=== PATIENT | male | born 1970 | race Caucasian/White ===

== ENCOUNTER 2017-01-31 15:32 | Inpatient (IN) | payer MEDICARE, OTHER ==
[2017-01-31] VITALS (11 sets, daily range): BP systolic 138–164; BP diastolic 84–99; PULSE 133–142; RESP 26–36; TEMP 101.8; BMI 26.2
[~2017-01-31] VITALS: Ht 177.8 cm; Wt 95.4 kg
[2017-01-31] MEDS ORDERED: SOD CHLORIDE 0.9% 1,000 ML IV STA (15:36)
[2017-01-31] MEDS ORDERED: SOD CHLORIDE 0.9% 1,000 ML IV ONE (16:00)
[2017-01-31] MEDS ORDERED: CHARCOAL/SORBITOL 50 GM/240 ML BTL PO ONE (16:00)
[2017-01-31] MEDS ORDERED: ZOLP10TA5 PO (16:02)
[2017-01-31] MEDS ORDERED: EMTR1TAB17 PO (16:02)
[2017-01-31 16:03] LABS: ABNORMAL IP MESSAGE 1; HEMATOCRIT 46.5 % (42.0-52.0); HEMOGLOBIN 14.8 g/dl (14.0-18.0); MEAN CORPUSCULAR HEMOGLOBIN 31.7 pg (29.0-33.0); MEAN CORPUSCULAR HGB CONC 31.8 g/dl (32.0-37.0); MEAN CORPUSCULAR VOLUME 99.6 fl (82.0-101.0); MEAN PLATELET VOLUME 10.9 fl (7.4-10.4); PLATELET COUNT 255 10^3/UL (140-415); POSITIVE DIFF @See below; RED BLOOD COUNT 4.67 10^6/ul (4.70-6.10); RED CELL DISTRIBUTION WIDTH 12.9 % (11.5-14.5); WHITE BLOOD COUNT 13.6 10^3/ul (4.8-10.8)
[2017-01-31 16:10] LABS: ADD UMIC NO; UR ASCORBIC ACID NEGATIVE (NEGATIVE); UR BILIRUBIN (Dip) NEGATIVE (NEGATIVE); UR BLOOD (Dip) NEGATIVE (NEGATIVE); UR CLARITY SLIGHTLY CLOUDY (CLEAR); UR COLOR YELLOW (YELLOW); UR GLUCOSE (Dip) NEGATIVE (NEGATIVE); UR KETONES (Dip) NEGATIVE (NEGATIVE); UR LEUKOCYTE ESTERASE (Dip) NEGATIVE Leu/ul (NEGATIVE); UR NITRITE (Dip) NEGATIVE (NEGATIVE); UR RBC 0 /HPF (0-5); UR SPECIFIC GRAVITY (Dip) 1.013 (1.003-1.030); UR TOTAL PROTEIN (Dip) NEGATIVE (NEGATIVE); UR UROBILINOGEN (Dip) NEGATIVE (NEGATIVE)
[2017-01-31 16:17] LABS: INR 1.15; PARTIAL THROMBOPLASTIN TIME 30.3 Sec (25.0-35.0); PROTIME 14.7 Sec (12.2-14.2); PT RATIO 1.1
--- NOTE | 2017-01-31 16:19 | RADRPT ---
PROCEDURE: XR Chest. CLINICAL INDICATION: Check nasogastric tube position. TECHNIQUE: Single frontal view. COMPARISON: None. FINDINGS: The lungs are clear. The endotracheal tube and nasogastric tube are in satisfactory position. The heart is enlarged. There is no pleural effusion. There is no pneumothorax. IMPRESSION: 1. Endotracheal tube and nasogastric tube in satisfactory position. 2. Clear lungs. 3. Cardiomegaly. RPTAT: QQ .Telly Alejo MD, MD Date Time Electronically viewed and signed by .Telly Alejo MD, on 01/31/2017 16:19 .R/
[2017-01-31 16:22] LABS: ALANINE AMINOTRANSFERASE 55 IU/L (13-69); ALBUMIN 4.4 g/dl (3.3-4.9); ALBUMIN/GLOBULIN RATIO 1.51; ALKALINE PHOSPHATASE 114 IU/L (42-121); ANION GAP 24 (8-16); ASPARTATE AMINO TRANSFERASE 89 IU/L (15-46); BILIRUBIN,INDIRECT 0.1 mg/dl (0-1.1); BILIRUBIN,TOTAL 0.1 mg/dl (0.2-1.3); BLOOD UREA NITROGEN 17 mg/dl (7-20); CALCIUM 8.9 mg/dl (8.4-10.2); CARBON DIOXIDE 16 mmol/L (21-31); CHLORIDE 109 mmol/L (97-110); CREATININE 1.35 mg/dl (0.61-1.24); GLUCOSE 162 mg/dl (70-220); POTASSIUM 3.7 mmol/L (3.5-5.1); SODIUM 145 mmol/L (135-144); TOTAL PROTEIN 7.3 g/dl (6.1-8.1)
[2017-01-31 16:28] LABS: ACETAMINOPHEN < 10.0 ug/ml (10.0-30.0); SALICYLATE < 1.0 mg/dl (5.0-30.0)
[2017-01-31 16:31] LABS: GIANT THROMBO% (M) 1 % (0-0); MONOCYTES % (M) 12 % (0-11); PLATELET ESTIMATE NORMAL
[2017-01-31 16:43] LABS: BARBITURATES Negative (NEGATIVE); BENZODIAZEPINES Negative (NEGATIVE); CANNABINOIDS Negative (NEGATIVE); COCAINE Negative (NEGATIVE); OPIATES Negative (NEGATIVE)
[2017-01-31 16:59] LABS: AADO2 Arterial 333.1 mmHg (7.0-24.0); Allen Test ACCEPTAB; Arterial Base Excess -16.3 mmol/L (-3.0-3); Arterial COHb 2.3 % (0.0-3.0); Arterial Fraction of Oxyhgb 96.5 % (93.0-99.0); Arterial HCO3 13.5 mmol/L (22.0-26.0); Arterial MetHb 0.4 % (0.0-1.5); Arterial Total Hemglobin 15.9 g/dl (12.0-18.0); MODE VENT - AC
[2017-01-31] MEDS ORDERED: NA BICARBONATE 8.4% 50 ML SYG IV ONE (17:00)
[2017-01-31] MEDS ORDERED: PROPOFOL 100 ML IV ONE (17:30)
--- NOTE | 2017-01-31 17:32 | ERA ---
ER Documentation Chief Complaint Date/Time DATE: 01/31/17 TIME: 17:26 Chief Complaint bibr 7 sp ROSC, after possible overdose on medication HPI 46-year-old man brought in by EMS for respiratory arrest and aspiration. Patient does have a history of depression and family who was later at the bedside states he became agitated today because of family issues, and he had been drinking alcohol as well. He told the family "goodbye" and ingested a full bottle of zolpidem 10 mg, and then 5 minutes later felt lethargic, stopped breathing, and developed facial cyanosis. Family members immediately called 911 and started chest compressions, upon EMS arrival they found him apneic and placed a Sushil airway device and for bradycardia down into the 40s they administered 3 rounds of epinephrine and also perform chest compressions. Patient regained strong pulses shortly after the third dose of epinephrine and then he was transported here. He did vomit at home, and most likely aspirated. I later discovered he had 2 full bottles of zolpidem at home, and may have ingested the first bottle 30 minutes - hours before saying "goodbye" to family members ROS All systems reviewed and are negative except as per history of present illness. Medications Home Meds Reported Medications Emtricitab/Rilpiviri/Tenof Ala (Odefsey Tablet) 1 Each Tablet, 1 EACH PO DAILY, TAB 01/31/17 Zolpidem Tartrate* (Zolpidem Tartrate*) 10 Mg Tablet, 10 MG PO QHS Y for INSOMNIA, #30 TAB 01/31/17 Allergies Allergies: Coded Allergies: No Known Allergy (Unverified , 01/31/17) PMhx/Soc Depression, HIV positive (it seems does not know this part of his past medical history) Medical and Surgical Hx: Unable to obtain Smoking Status: Unknown if ever smoked FmHx Family History: No diabetes Physical Exam Vitals Vital Signs Date Time Temp Pulse Resp B/P Pulse Ox O2 Delivery O2 Flow Rate FiO2 01/31/17 15:39 133 18 114/67 98 Mechanical Ventilator 15.0 01/31/17 15:35 97.8 130 18 Physical Exam GENERAL: Well-developed, well-nourished, well-hydrated, unresponsive, afebrile HEENT: Moist mucous membranes, pink conjunctiva, no cervical spine tenderness or step-off deformities, NEURO: Unresponsive, nonverbal, pupils mid dilated and fixed, no facial asymmetry CARDIAC: Regular rate and rhythm, no murmurs rubs or gallops LUNGS: Poor breath sounds bilaterally, no crackles or stridor ABDOMEN: Soft nontender, no guarding, no rigidity, no rebound, no psoas sign no obturator sign. SKIN: Warm and dry to touch, no abrasions, contusions, or hematomas, no lacerations, no ecchymosis, no target lesions, and without ulcers EXTREMITIES: No clubbing cyanosis or edema, calves are bilaterally symmetrical, no Homans sign, no popliteal cord sign. Distal pulses equal and bilateral PSYCH: Unable to assess Result Diagram: 01/31/17 1555 01/31/17 1555 Results 24 hrs Laboratory Tests Test 01/31/17 15:45 01/31/17 15:55 01/31/17 16:30 Urine Color YELLOW Urine Clarity SLIGHTLY CLOUDY Urine pH 5.0 Urine Specific [place] 1.013 Urine Ketones NEGATIVEmg/dL Urine Nitrite NEGATIVEmg/dL Urine Bilirubin NEGATIVEmg/dL Urine Urobilinogen NEGATIVEmg/dL Urine Leukocyte Esterase NEGATIVELeu/ul Urine Microscopic RBC 0/HPF Urine Microscopic WBC 1/HPF Urine Hemoglobin NEGATIVEmg/dL Urine Glucose NEGATIVEmg/dL Urine Total Protein NEGATIVEmg/dl Urine Opiates Screen Negative Urine Barbiturates Negative Urine Amphetamines Screen Negative Urine Benzodiazepines Screen Negative Urine Cocaine Screen Negative Urine Cannabinoids Negative White Blood Count 13.610^3/ul Red Blood Count 4.6710^6/ul Hemoglobin 14.8g/dl Hematocrit 46.5% Mean Corpuscular Volume 99.6fl Mean Corpuscular Hemoglobin 31.7pg Mean Corpuscular Hemoglobin Concent 31.8g/dl Red Cell Distribution Width 12.9% Platelet Count 13359^3/UL Mean Platelet Volume 10.9fl Neutrophils % % Segmented Neutrophils % (Manual) 29% Lymphocytes % % Lymphocytes % (Manual) 59% Monocytes % % Monocytes % (Manual) 12% Eosinophils % % Basophils % % Nucleated Red Blood Cells % 0.0/100WBC Neutrophils # 10^3/ul Absolute Lymphocytes (Manual) 8.010^3/ul Lymphocytes # 10^3/ul Monocytes # 10^3/ul Absolute Monocytes (Manual) 1.610^3/ul Eosinophils # 10^3/ul Basophils # 10^3/ul Nucleated Red Blood Cells # 10^3/ul Platelet Estimate NORMAL Giant Platelets 1% Prothrombin Time 14.7Sec Prothrombin Time Ratio 1.1 INR International Normalized Ratio 1.15 Activated Partial Thromboplast Time 30.3Sec Sodium Level 145mmol/L Potassium Level 3.7mmol/L Chloride Level 109mmol/L Carbon Dioxide Level 16mmol/L Anion Gap 24 Blood Urea Nitrogen 17mg/dl Creatinine 1.35mg/dl Glucose Level 162mg/dl Calcium Level 8.9mg/dl Total Bilirubin 0.1mg/dl Direct Bilirubin 0.00mg/dl Indirect Bilirubin 0.1mg/dl Aspartate Amino Transf (AST/SGOT) 89IU/L Alanine Aminotransferase (ALT/SGPT) 55IU/L Alkaline Phosphatase 114IU/L Troponin I < 0.012ng/ml Total Protein 7.3g/dl Albumin 4.4g/dl Globulin 2.90g/dl Albumin/Globulin Ratio 1.51 Salicylates Level < 1.0mg/dl Acetaminophen Level < 10.0ug/ml Ethyl Alcohol Level 253.0mg/dl Blood Gas Specimen Source Blood arterial Arterial Blood Date Drawn 01/31/2017 4:50:14 PM Arterial Blood pH (Temp corrected) 7.084 Arterial Blood pCO2 (Temp correct) 46.2mmhg Arterial Blood pO2 (Temp corrected) 333.7mmHG Arterial Blood HCO3 13.5mmol/L Arterial Blood Base Excess -16.3mmol/L Arterial Blood Oxygen Saturation 99.2mmHG Markus Test ACCEPTAB Arterial Blood Gas Puncture Site Left Radial Arterial Blood Carboxyhemoglobin 2.3% Arterial Blood Methemoglobin 0.4% Blood Gas A-a O2 Differential 333.1mmHg Oxyhemoglobin Percent 96.5% Total Hemoglobin 15.9g/dl Blood Gas Temperature 37.0C Blood Gas Respiration Rate 16.0 Blood Gas Actual Respiration Rate 26 Blood Gas Modality VENT - AC FiO2 100.0% Blood Gas Tidal Volume 500.0mL Blood Gas Low PEEP Setting 5.0cmH2O Blood Gas Critical Value Read Back MD BRITNEY Blood Gas Notified Whom [place] Blood Gas Notified Time 01/31/2017 4:58:47 PM Current Medications Medications (Trade) Dose Ordered Sig/Bc Route PRN Reason Start Time Stop Time Status Last Admin Dose Admin Sodium Chloride (NS) 1,000 ml @ 1,000 mls/hr Q1H STAT IV 01/31/17 15:36 01/31/17 16:35 DC 01/31/17 16:25 Charcoal/Sorbitol 25 gm 25 gm ONCE ONCE PO 01/31/17 16:00 01/31/17 16:01 DC 01/31/17 16:26 Sodium Chloride (NS) 1,000 ml @ 4,000 mls/hr Q15M ONCE IV 01/31/17 16:00 01/31/17 16:14 DC 01/31/17 16:26 Sodium Bicarbonate 50 ml 50 ml ONCE ONCE IV 01/31/17 17:00 01/31/17 17:04 DC 01/31/17 17:23 Propofol 100 ml @ 0 mls/hr TITRATE ONCE IV 01/31/17 17:30 01/31/17 17:31 DC 01/31/17 17:34 Levofloxacin/ Dextrose (Levaquin 750 Mg/ D5W 150 ml (Pmx)) 150 ml @ 100 mls/hr ONCE ONCE IVPB 01/31/17 18:00 01/31/17 19:29 01/31/17 17:41 Procedures/MDM IV line was established patient was placed on phototypesetting equipment monitor rhythm strip revealed a sinus tachycardia at 140 bpm with upright P and T waves. Patient was afebrile. Patient has strong pulses here but is unresponsive and not breathing, for airway and breathing protection I intubated him. Endotracheal Intubation by me: Pre assessment performed. See preceding note for details. Pre-oxygenation performed with 100% oxygen RSI: Performed w/o complication or hypoxic events. Medications as ordered. Blade: Mac 4 ET Tube: 7.5 cm Depth: 24 cm at the lip Intubation confirmed by colorimetric CO2, equal breath sounds, quiet over the stomach. Postintubation an orogastric tube was placed and one round of gastric lavage with normal saline was attempted because of recent ingestion, I also performed decontamination with activated charcoal 20 g via the OG tube Chest X-ray 1V Interpreted by me: 4 cm above the taylor ET tube. Normal soft tissue, No pneumothorax. Evidence of aspiration to the right middle lobe, no acute infiltrates, no air under the diaphragm. I administered 3 L normal saline intravenously, and levofloxacin 750 mg IV 1 for aspiration pneumonitis. EKG performed, read by me revealed a sinus tachycardia at 32 bpm, normal axis, narrow QRS complex, no concerning ST elevations or depressions noted. Patient later started biting on the ET tube and required propofol drip for continued sedation. CBC revealed a white count of 14, electrolytes revealed a BUN/creatinine of 17/ 1.4, liver function tests normal, troponin negative, coagulation profile unremarkable, ethanol level elevated at 253, aspirin Tylenol levels negative. ABG performed an hour after intubation revealed a pH of 7.08, PCO2 44, PO2 334. This is consistent with his presentation and on for metabolic acidosis, I did administer sodium bicarbonate 50 mEq IV 1. Patient did have an episode of desaturation with a pulse oximeter reading of about 89%, we immediately suctioned his ET tube and obtained gastric contents oxygen saturation improved back to 100%. Urine drug screen was negative although zolpidem is mechanistically most similar to benzodiazepines. This life-threatening ingestion caused severe respiratory depression, hypoxia, and resulting bradycardia and unresponsiveness. Patient is obviously not a hypothermia candidate as he had a drug overdose and current mental status is at least partially explained by zolpidem intoxication. Critical Care: Time: 60 minutes, this was time separate from other billable procedures. Treatments/Evaluations: Close monitoring and treatment of unstable vital signs, cardiorespiratory, and neurologic status, while maintaining tight balance of fluid, respiratory, and cardiac interventions. I obtained emergent consultation with critical care search optimization analyst Dr. Moore. He saw and evaluated the patient at the bedside, and kindly agreed to consult the patient. She admitted ICU. Departure Diagnosis: Primary Impression: Acute drug overdose Qualified Code: T50.902A - Acute drug overdose, intentional self-harm, initial encounter Additional Impressions: Acute respiratory failure Qualified Code: J96.01 - Acute respiratory failure with hypoxia and hypercapnia Aspiration into airway Qualified Code: T17.908A - Aspiration into airway, initial encounter Aspiration pneumonitis Acute encephalopathy Suicide attempt Benzodiazepine overdose Qualified Code: T42.4X2A - Intentional benzodiazepine overdose, initial encounter Metabolic acidosis Condition: Critical EFRAIN BRITTON MD Jan 31, 2017 17:32
[2017-01-31] MEDS ORDERED: LEVOFLOXACIN 750MG/D5W (PMX) 150 ML IVPB ONE (18:00)
--- NOTE | 2017-01-31 18:07 | CONS ---
Date/Time of Note Date/Time of Note DATE: 01/31/17 TIME: 17:59 Assessment/Plan Assessment/Plan Additional Assessment/Plan IMP: 1. Cardiopulmonary Arrest--likely due to respiratory suppression due to zolpidem OD. 2. Ventilator Dependence--s/p OD 3. Severe Metabolic and respiratory acidosis--due to lactic acidosis 2/2 #1 and central resp depression 4. Zolpidem OD 5. 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 Vent support--will initiate adjustments 2. Follow ABG 3. Would avoid flumazenil given risk of seizure 4. Follow neuro status closely 5. Check lactate 6. Follow renal function 7. LR for IVF's Consultation Date/Type/Reason Admit Date/Time Type of Consultation: Pulm Hx of Present Illness Briefly, this is a 46-year-old man presented to the ER after what appears to have been a cardiopulmonary arrest at home after zoldpidem OD--with bystander CPR--s/p CPR by paramedics for possible PEA on arrival. He had a Sushil airway placed and was intubated in the ED. Initially noted to have food products aspirated. Subjective hx not possible: pt non-verbal Past Medical History Unknown Past Surgical History Unknown Family History Significant Family History: no pertinent family hx Social History Unknown Smoking Status: Unknown if ever smoked Exam/Review of Systems Vital Signs Vitals Vital Signs Date Time Temp Pulse Resp B/P Pulse Ox O2 Delivery O2 Flow Rate FiO2 01/31/17 15:39 133 18 114/67 98 Mechanical Ventilator 15.0 01/31/17 15:35 97.8 Exam Constitutional: non-verbal Head: atraumatic, normocephalic Eyes: EOMI, nl conjunctiva, nl lids ENMT: intubated, nl external ears & nose Neck: non-tender, supple Respiratory: diminished breath sounds, labored breathing Cardiovascular: nl pulses, regular rate and rhythm Gastrointestinal: nl liver, spleen, non-tender, soft Musculoskeletal: nl extremities to inspection Extremities: normal pulses Results Result Diagram: 01/31/17 1555 01/31/17 1555 Results 24 hrs Laboratory Tests Test 01/31/17 15:45 01/31/17 15:55 01/31/17 16:30 Urine Color YELLOW Urine Clarity SLIGHTLY CLOUDY A Urine pH 5.0 Urine Specific [place] 1.013 Urine Ketones NEGATIVE Urine Nitrite NEGATIVE Urine Bilirubin NEGATIVE Urine Urobilinogen NEGATIVE Urine Leukocyte Esterase NEGATIVE Urine Microscopic RBC 0 Urine Microscopic WBC 1 Urine Hemoglobin NEGATIVE Urine Glucose NEGATIVE Urine Total Protein NEGATIVE Urine Opiates Screen Negative Urine Barbiturates Negative Urine Amphetamines Screen Negative Urine Benzodiazepines Screen Negative Urine Cocaine Screen Negative Urine Cannabinoids Negative White Blood Count 13.6 H Red Blood Count 4.67 L Hemoglobin 14.8 Hematocrit 46.5 Mean Corpuscular Volume 99.6 Mean Corpuscular Hemoglobin 31.7 Mean Corpuscular Hemoglobin Concent 31.8 L Red Cell Distribution Width 12.9 Platelet Count 255 Mean Platelet Volume 10.9 H Neutrophils % Segmented Neutrophils % (Manual) 29 L Lymphocytes % Lymphocytes % (Manual) 59 H Monocytes % Monocytes % (Manual) 12 H Eosinophils % Basophils % Nucleated Red Blood Cells % 0.0 Neutrophils # Absolute Lymphocytes (Manual) 8.0 H Lymphocytes # Monocytes # Absolute Monocytes (Manual) 1.6 H Eosinophils # Basophils # Nucleated Red Blood Cells # Platelet Estimate NORMAL Giant Platelets 1 H Prothrombin Time 14.7 H Prothrombin Time Ratio 1.1 INR International Normalized Ratio 1.15 Activated Partial Thromboplast Time 30.3 Sodium Level 145 H Potassium Level 3.7 Chloride Level 109 Carbon Dioxide Level 16 L Anion Gap 24 H Blood Urea Nitrogen 17 Creatinine 1.35 H Glucose Level 162 Calcium Level 8.9 Total Bilirubin 0.1 L Direct Bilirubin 0.00 Indirect Bilirubin 0.1 Aspartate Amino Transf (AST/SGOT) 89 H Alanine Aminotransferase (ALT/SGPT) 55 Alkaline Phosphatase 114 Troponin I < 0.012 Total Protein 7.3 Albumin 4.4 Globulin 2.90 Albumin/Globulin Ratio 1.51 Salicylates Level < 1.0 L Acetaminophen Level < 10.0 L Ethyl Alcohol Level 253.0 Blood Gas Specimen Source Blood arterial Arterial Blood Date Drawn 01/31/2017 4:50:14 PM Arterial Blood pH (Temp corrected) 7.084 *L Arterial Blood pCO2 (Temp correct) 46.2 H Arterial Blood pO2 (Temp corrected) 333.7 H Arterial Blood HCO3 13.5 L Arterial Blood Base Excess -16.3 L Arterial Blood Oxygen Saturation 99.2 H Markus Test ACCEPTAB Arterial Blood Gas Puncture Site Left Radial Arterial Blood Carboxyhemoglobin 2.3 Arterial Blood Methemoglobin 0.4 Blood Gas A-a O2 Differential 333.1 H Oxyhemoglobin Percent 96.5 Total Hemoglobin 15.9 Blood Gas Temperature 37.0 Blood Gas Respiration Rate 16.0 Blood Gas Actual Respiration Rate 26 Blood Gas Modality VENT - AC FiO2 100.0 Blood Gas Tidal Volume 500.0 Blood Gas Low PEEP Setting 5.0 Blood Gas Critical Value Read Back MD BRITNEY Blood Gas Notified Whom [place] Blood Gas Notified Time 01/31/2017 4:58:47 PM Medications Medications Current Medications Levofloxacin/ Dextrose (Levaquin 750 Mg/ D5W 150 ml (Pmx)) 150 ml @ 100 mls/hr ONCE ONCE IVPB Last administered on 01/31/17t 17:41; Admin Dose 100 MLS/HR; Start 01/31/17 at 18:00; Stop 01/31/17 at 19:29 ENEDINA OSORIO MD Jan 31, 2017 18:07
[2017-01-31] MEDS: LACTATED RINGER'S 1,000 ML IV SCH (18:56)
[2017-01-31] MEDS ORDERED: NA PHOSPHATE/BIPHOS 133 ML ENEMA PR PRN (19:00)
[2017-01-31] MEDS ORDERED: NITROGLYCERIN (SL) 0.4 MG TAB SL PRN (19:00)
[2017-01-31] MEDS ORDERED: ALBUTEROL/IPRATROPIUM (NEB) 3 ML AMP HHN PRN (19:00)
[2017-01-31] MEDS ORDERED: MAGNESIUM HYDROXIDE 30ML CUP PO PRN (19:00)
[2017-01-31] MEDS ORDERED: LORAZEPAM 2 MG INJ IV PRN ×2 (19:00→20:00)
[2017-01-31] MEDS ORDERED: DOCUSATE SODIUM 100 MG CAP PO PRN (19:00)
[2017-01-31] MEDS ORDERED: NACL 0.9% 3 ML SYG IV SCH (19:00)
[2017-01-31] MEDS ORDERED: HYDROCODONE/APAP (5/325) TAB PO PRN (19:00)
[2017-01-31] MEDS ORDERED: ONDANSETRON 4 MG INJ IV PRN (19:00)
[2017-01-31] MEDS ORDERED: LEVOFLOXACIN 750MG/D5W (PMX) 150 ML IVPB SCH (19:30)
[2017-01-31] MEDS: SOD CHLORIDE 0.9% 1,000 ML IV SCH ×3 (19:40→23:55)
[2017-01-31 19:57] LABS: INR 1.24; PROTIME 15.7 Sec (12.2-14.2); PT RATIO 1.2
[2017-01-31 19:58] LABS: PARTIAL THROMBOPLASTIN TIME 23.5 Sec (25.0-35.0)
--- NOTE | 2017-01-31 19:58 | HP ---
DATE OF ADMISSION: 01/31/2017 IDENTIFICATION: This is a 46-year-old male. CHIEF COMPLAINT: Drug overdose. HISTORY OF PRESENT ILLNESS: The patient is a 46-year-old male, past medical history, presumably of HIV, who was brought in by EMS for respiratory arrest and aspiration. Most information is obtained from the ER documentation as the patient is presently intubated. Past medical history also of depression. Earlier today, the patient was having family issues and became agitated and had been drinking alcohol. He apparently told the family "goodbye" and ingested at least 1 full bottle of Ambien 10 mg and 5 minutes later, stopped breathing, had facial cyanosis and was lethargic. Family became concerned and called 911. EMS arrived and had placed an airway device for the patient found his heart rate to be in the 40s and patient was apneic as well. He received 3 rounds of epinephrine and chest compressions were performed as well. Return of spontaneous circulation occurred after that. When the patient arrived, he was found with severe metabolic and respiratory acidosis and had to be intubated as well. He was seen by pulmonary team. PAST MEDICAL HISTORY: Above. ALLERGIES: NO KNOWN DRUG ALLERGIES. MEDICATIONS: Home medications per records: 1. Odefsey 1 tab daily. 2. Ambien 10 mg at bedtime p.r.n. sleep. FAMILY HISTORY: Noncontributory. SOCIAL HISTORY: Unknown. Questionable IV drug abuse history. PHYSICAL EXAMINATION: VITAL SIGNS: Today vital signs, T-max 97.8, pulse 131 to 133, respirations 18, blood pressure 114/67, sating at 98 percent on mechanical ventilation. FiO2 of 15 intubated. GENERAL: Patient lying in bed, intubated. HEENT: Unable to fully assess. Although pupils were found to be mid dilated and fixed. NECK: Supple. No thyromegaly. LUNGS: Distant breath sounds bilaterally. CARDIOVASCULAR: S1, S2 heard. No rubs, gallops. ABDOMEN: Soft, nontender, nondistended. Normal bowel sounds. No rebound or guarding. MUSCULOSKELETAL: No lower extremity bilaterally. NEUROLOGIC: Unable to fully assess as the patient is intubated. LABS: WBC 13.6, hemoglobin 14.8, hematocrit 46.5, platelets 255. Sodium 145, potassium 3.7, chloride 109, CO2 16, BUN 17, creatinine 1.35, glucose 162. U tox showed a blood alcohol level 253. The rest of the U tox however was negative interestingly. Aspirin level in the blood was normal. Tylenol level in the blood was normal. Troponin negative x1. Sodium 145, potassium 3.7, chloride 109, CO2 16, BUN 17, creatinine 1.35, glucose 162. LFTs are normal. Coags are normal. Chest x-ray showed clear lungs. ASSESSMENT AND PLAN: The patient is a 46-year-old male coming in with likely cardiopulmonary arrest and respiratory depression. Now intubated secondary to presumed Ambien overdose with severe metabolic and respiratory acidosis. 1. Overdose and addressed with the patient and the care unit. Get pulmonary consult for vent management. Continue aggressive IV fluid hydration. Given his elevated blood ethanol levels, we will put him on a banana bag and check TSH, A1c, and lipid panel as well. Monitor BMP in the morning. Follow up Pulmonary recommendations. Per Pulmonary recommendations avoid flumazenil given the risk of seizure. Follow-up ABG as well. Monitor lactate levels. Antibiotic as well. 2. Gastrointestinal prophylaxis with proton pump inhibitor. 3. Deep venous thrombosis prophylaxis with Heparin subcu. Dictated By: Srinivas Dockery MD /gisselle/ronald /Document#: [id number]
[2017-01-31] MEDS: MULTIVITAMINS 10 ML, THIAMINE 100 MG, FOLIC ACID 1 MG in SOD CHLORIDE 0.9% 1,000 ML IVPB SCH (20:26)
[2017-01-31] MEDS: HEPARIN 5,000 UNIT/0.5 ML VIAL SC SCH (21:23)
[2017-01-31] MEDS ORDERED: ACETAMINOPHEN 650MG/20.3ML CUP ONE (21:30)
[2017-01-31] MEDS: ACETAMINOPHEN 325 MG TAB PO PRN (21:31)
[2017-01-31] MEDS ORDERED: MEPERIDINE 25 MG INJ IV PRN ×2 (23:00)
[2017-01-31] MEDS: ACCU-CHEK XX SCH (23:00)
[2017-01-31] MEDS ORDERED: ACETAMINOPHEN 650MG/20.3ML CUP PO PRN (23:00)
--- NOTE | 2017-01-31 23:31 | RADRPT ---
PROCEDURE: XR Chest. CLINICAL INDICATION: Check line placement. TECHNIQUE: Single frontal view. COMPARISON: Prior study done earlier the same day. FINDINGS: The endotracheal tube and nasogastric tube remain in satisfactory position. There is a new left subc lavian vein catheter with the tip in the lower superior vena cava. The lungs are clear. The heart size is normal. There is no pleural effusion. There is no pneumothorax. IMPRESSION: 1. New left subclavian vein catheter. 2. No pneumothorax. 3. No other change from the prior study done earlier the same day. RPTAT: QQ .Telly Alejo MD, Date Time Electronically viewed and signed by .Telly Alejo MD, on 01/31/2017 23:31 .R/
[2017-01-31] MEDS: MIDAZOLAM (DRIP) 50 mg/50 mL 50 ML IV SCH (23:45)
[2017-01-31 23:58] LABS: BASOPHILS % 0.1 % (0.0-2.0); HEMATOCRIT 47.2 % (42.0-52.0); HEMOGLOBIN 16.1 g/dl (14.0-18.0); LYMPHOCYTES # 0.7 10^3/ul (0.8-2.9); LYMPHOCYTES % 4.5 % (15.0-51.0); MEAN CORPUSCULAR HEMOGLOBIN 32.4 pg (29.0-33.0); MEAN CORPUSCULAR HGB CONC 34.1 g/dl (32.0-37.0); MEAN PLATELET VOLUME 10.5 fl (7.4-10.4); MONOCYTE # 0.7 10^3/ul (0.3-0.9); MONOCYTES % 4.7 % (0.0-11.0); NEUTROPHIL # 13.4 10^3/ul (1.6-7.5); NEUTROPHILS % 90.4 % (39.0-77.0); PLATELET COUNT 207 10^3/UL (140-415); RED BLOOD COUNT 4.97 10^6/ul (4.70-6.10); RED CELL DISTRIBUTION WIDTH 12.9 % (11.5-14.5); WHITE BLOOD COUNT 14.9 10^3/ul (4.8-10.8)
[2017-02-01] VITALS (99 sets, daily range): BP systolic 86–149; BP diastolic 58–97; PULSE 61–132; RESP 19–39; Ht 177.8 cm; Wt 95.4 kg
[2017-02-01] MEDS: PROPOFOL 100 ML IV SCH ×5 (00:01→18:48)
[2017-02-01 00:08] LABS: AADO2 Arterial 165.3 mmHg (7.0-24.0); Allen Test ACCEPTAB; Arterial Base Excess -10.9 mmol/L (-3.0-3); Arterial COHb 0.3 % (0.0-3.0); Arterial Fraction of Oxyhgb 98.6 % (93.0-99.0); Arterial HCO3 15.1 mmol/L (22.0-26.0); Arterial MetHb 0.5 % (0.0-1.5); Arterial Total Hemglobin 16.7 g/dl (12.0-18.0); MODE VENT - AC
[2017-02-01] MEDS: ACETAMINOPHEN 650 MG SUPP PR PRN (00:08)
[2017-02-01] MEDS: VECURONIUM 100 MG in DEXTROSE 5% 100 ML IV SCH ×2 (00:11→07:00)
[2017-02-01 00:12] LABS: INR 1.22; PROTIME 15.5 Sec (12.2-14.2); PT RATIO 1.2
[2017-02-01] MEDS: OCULAR LUBRICANT 3.5 GM OPH OINT BOTH EYES SCH ×5 (00:15→23:31)
[2017-02-01] MEDS: ARTIFICIAL TEARS 15 ML OPH BOTH EYES SCH ×5 (00:17→23:31)
[2017-02-01 00:31] LABS: CALCIUM 7.8 mg/dl (8.4-10.2); CREATININE 1.07 mg/dl (0.61-1.24); POTASSIUM 3.6 mmol/L (3.5-5.1)
[2017-02-01] MEDS: ACCU-CHEK XX SCH ×16 (00:38→15:01)
[2017-02-01] MEDS ORDERED: NA BICARBONATE 8.4% 50 ML SYG IV STA (00:46)
[2017-02-01] MEDS: SOD CHLORIDE 0.9% 1,000 ML IV SCH ×12 (01:00→14:56)
[2017-02-01] MEDS ORDERED: SOD CHLORIDE 0.9% 500 ML IV ONE (01:00)
[2017-02-01] MEDS: LACTATED RINGER'S 1,000 ML IV SCH ×2 (01:10→04:36)
[2017-02-01] MEDS ORDERED: MAGNESIUM SULFATE 2 GM/50 ML 50 ML IVPB ONE (02:00)
[2017-02-01 04:59] LABS: AADO2 Arterial 251.2 mmHg (7.0-24.0); Allen Test ACCEPTAB; Arterial Base Excess -7.8 mmol/L (-3.0-3); Arterial COHb 0.3 % (0.0-3.0); Arterial Fraction of Oxyhgb 97.4 % (93.0-99.0); Arterial HCO3 17.2 mmol/L (22.0-26.0); Arterial MetHb 0 % (0.0-1.5); Arterial Total Hemglobin 16.5 g/dl (12.0-18.0); MODE VENT - AC
--- NOTE | 2017-02-01 05:06 | OPR ---
DATE OF OPERATION: 02/01/2017 PREOPERATIVE DIAGNOSIS: Cardiac arrest. POSTOPERATIVE DIAGNOSIS: Cardiac arrest. OPERATION PERFORMED: Emergency left subclavian vein central line placement. SURGEON: Dr. Rodriguez. ANESTHESIA: Local. DESCRIPTION OF PROCEDURE: Risks and complications, alternatives therapies, high-risk nature of the operation full explained to the patient and the family. Consent obtained. Patient was placed in supine position, prepped and draped in usual sterile fashion. 1 percent lidocaine was used throughout the operation for local anesthesia. Access was gained in the left subclavian vein. Guidewire was advanced through without any difficulty. Subcutaneous tissue was dilated. Central line advanced over guidewire, secured to skin using silk sutures. All ports of the catheter were aspirated and injected using heparinized saline solution. Patient tolerated procedure well. Dictated By: Gadiel Rodriguez MD /gisselle/cooper /Document#: [id number]
[2017-02-01 06:08] LABS: BASOPHILS % 0.2 % (0.0-2.0); HEMATOCRIT 44.6 % (42.0-52.0); HEMOGLOBIN 15.3 g/dl (14.0-18.0); LYMPHOCYTES # 1.1 10^3/ul (0.8-2.9); LYMPHOCYTES % 7.6 % (15.0-51.0); MEAN CORPUSCULAR HEMOGLOBIN 32.3 pg (29.0-33.0); MEAN CORPUSCULAR HGB CONC 34.3 g/dl (32.0-37.0); MEAN CORPUSCULAR VOLUME 94.1 fl (82.0-101.0); MONOCYTE # 0.5 10^3/ul (0.3-0.9); MONOCYTES % 3.4 % (0.0-11.0); NEUTROPHIL # 12.3 10^3/ul (1.6-7.5); NEUTROPHILS % 88.3 % (39.0-77.0); PLATELET COUNT 158 10^3/UL (140-415); RED BLOOD COUNT 4.74 10^6/ul (4.70-6.10); RED CELL DISTRIBUTION WIDTH 12.8 % (11.5-14.5)
[2017-02-01] MEDS: PANTOPRAZOLE 40 MG INJ IV SCH (06:25)
[2017-02-01 06:59] LABS: CHOL/HDL RATIO 2.5 RATIO
[2017-02-01 07:10] LABS: ALBUMIN/GLOBULIN RATIO 0.96
--- NOTE | 2017-02-01 07:11 | RADRPT ---
PROCEDURE: XR Chest. CLINICAL INDICATION: Respiratory failure TECHNIQUE: AP Portable chest. COMPARISON: 01/31/2017 FINDINGS: Endotracheal tube, nasogastric tube and left central line are in satisfactory position. The cardiomediastinal silhouette is normal. The patient is rotated to the right. No pneumothorax is seen. There is increased bibasilar opacities. Right clavicular ORIF noted. IMPRESSION: ET tube, NG tube and left central line in satisfactory position. Increased bibasilar infiltrates or atelectasis. Physician Girish Date Time Electronically viewed and signed by Physician Girish on 02/01/2017 07:10 CS/
[2017-02-01 07:15] LABS: ALBUMIN 3.2 g/dl (3.3-4.9); BILIRUBIN,INDIRECT 0.2 mg/dl (0-1.1); BILIRUBIN,TOTAL 0.2 mg/dl (0.2-1.3); CREATININE 0.8 mg/dl (0.61-1.24); TOTAL PROTEIN 6.5 g/dl (6.1-8.1)
[2017-02-01 07:51] LABS: THYROID STIMULATING HORMONE 0.362 MIU/L (0.465-4.680)
[2017-02-01] MEDS ORDERED: POTASSIUM CHLORIDE 30 MEQ in SOD CHLORIDE 0.9% 150 ML IVPB ONE (08:00)
[2017-02-01 08:22] LABS: MAGNESIUM 2.2 mg/dl (1.7-2.5); PHOSPHORUS 2.3 mg/dl (2.5-4.9)
[2017-02-01] MEDS ORDERED: [UNRECOGNIZED DRUG - OTHER] PO SCH (09:00)
--- NOTE | 2017-02-01 09:07 | PN ---
Date/Time of Note Date/Time of Note DATE: 02/01/17 TIME: 08:51 Assessment/Plan VTE Prophylaxis VTE Prophylaxis Intervention: heparin Lines/Catheters IV Catheter Type (from Nrs): Central Line Central line still needed: Yes Urinary Cath still in place: Yes Reason Cath still needed: urinary retention Assessment/Plan Chief Complaint/Hosp Course ASSESSMENT AND PLAN: 46-year-old male coming in with likely cardiopulmonary arrest and respiratory depression, now intubated secondary to presumed Ambien overdose with severe metabolic and respiratory acidosis. 1. AMS/Overdose - pt still intubated. - f/u pulmonary consult for vent management. - Continue aggressive IV fluid hydration. - Given his elevated blood ethanol levels,he is also on banana bag - f/u TSH, A1c, and lipid panel as well. Will also recheck LFT's later today, and CK levels to r/o rhabdo - Per Pulmonary recommendations avoid flumazenil given the risk of seizure. - Follow-up ABG as well. - Monitor lactate levels, continue Antibiotic as well. -We will check with pulmonary team about the need continue hypothermia protocol. Consider EEG and neurology consult as well. -We will also get head CT 2. Gastrointestinal prophylaxis with proton pump inhibitor. 3. Deep venous thrombosis prophylaxis with Heparin subcu. Critical care time spent on patient care today equals 45 minutes. Problems: Subjective 24 Hr Interval Summary Free Text/Dictation Patient seen by pulmonary team, still intubated. Pt was started on hypothermia protocol (although unclear why with drug OD Hx?). Exam/Review of Systems Vital Signs Vitals Vital Signs Date Time Temp Pulse Resp B/P Pulse Ox O2 Delivery O2 Flow Rate FiO2 02/01/17 07:30 69 28 94/83 100 Mechanical Ventilator 02/01/17 06:00 92.0 02/01/17 05:00 50 01/31/17 21:25 15.0 Intake and Output 01/31/17 01/31/17 02/01/17 15:00 23:00 07:00 Intake Total 1320.56 ml 1702.02 ml Output Total 1600 ml 1601 ml Balance -279.44 ml 101.02 ml Exam GENERAL: Patient lying in bed, intubated. HEENT: Unable to fully assess. Although pupils were found to be mid dilated and fixed in ER on admission NECK: Supple. No thyromegaly. LUNGS: Distant breath sounds bilaterally. CARDIOVASCULAR: S1, S2 heard. No rubs, gallops. ABDOMEN: Soft, nontender, nondistended. Normal bowel sounds. No rebound or guarding. MUSCULOSKELETAL: No lower extremity bilaterally. NEUROLOGIC: Unable to fully assess as the patient is intubated. Results Result Diagram: 02/01/17 0500 02/01/17 0500 Results 24 hrs Laboratory Tests Test 01/31/17 15:45 01/31/17 15:55 01/31/17 16:30 01/31/17 18:59 Urine Color YELLOW Urine Clarity SLIGHTLY CLOUDY A Urine pH 5.0 Urine Specific [place] 1.013 Urine Ketones NEGATIVE Urine Nitrite NEGATIVE Urine Bilirubin NEGATIVE Urine Urobilinogen NEGATIVE Urine Leukocyte Esterase NEGATIVE Urine Microscopic RBC 0 Urine Microscopic WBC 1 Urine Hemoglobin NEGATIVE Urine Glucose NEGATIVE Urine Total Protein NEGATIVE Urine Opiates Screen Negative Urine Barbiturates Negative Urine Amphetamines Screen Negative Urine Benzodiazepines Screen Negative Urine Cocaine Screen Negative Urine Cannabinoids Negative White Blood Count 13.6 H Red Blood Count 4.67 L Hemoglobin 14.8 Hematocrit 46.5 Mean Corpuscular Volume 99.6 Mean Corpuscular Hemoglobin 31.7 Mean Corpuscular Hemoglobin Concent 31.8 L Red Cell Distribution Width 12.9 Platelet Count 255 Mean Platelet Volume 10.9 H Neutrophils % Segmented Neutrophils % (Manual) 29 L Lymphocytes % Lymphocytes % (Manual) 59 H Monocytes % Monocytes % (Manual) 12 H Eosinophils % Basophils % Nucleated Red Blood Cells % 0.0 Neutrophils # Absolute Lymphocytes (Manual) 8.0 H Lymphocytes # Monocytes # Absolute Monocytes (Manual) 1.6 H Eosinophils # Basophils # Nucleated Red Blood Cells # Platelet Estimate NORMAL Giant Platelets 1 H Prothrombin Time 14.7 H 15.7 H Prothrombin Time Ratio 1.1 1.2 INR International Normalized Ratio 1.15 1.24 Activated Partial Thromboplast Time 30.3 23.5 L Sodium Level 145 H Potassium Level 3.7 Chloride Level 109 Carbon Dioxide Level 16 L Anion Gap 24 H Blood Urea Nitrogen 17 Creatinine 1.35 H Glucose Level 162 Calcium Level 8.9 Total Bilirubin 0.1 L Direct Bilirubin 0.00 Indirect Bilirubin 0.1 Aspartate Amino Transf (AST/SGOT) 89 H Alanine Aminotransferase (ALT/SGPT) 55 Alkaline Phosphatase 114 Troponin I < 0.012 Total Protein 7.3 Albumin 4.4 Globulin 2.90 Albumin/Globulin Ratio 1.51 Salicylates Level < 1.0 L Acetaminophen Level < 10.0 L Ethyl Alcohol Level 253.0 Blood Gas Specimen Source Blood arterial Arterial Blood Date Drawn 01/31/2017 4:50:14 PM Arterial Blood pH (Temp corrected) 7.084 *L Arterial Blood pCO2 (Temp correct) 46.2 H Arterial Blood pO2 (Temp corrected) 333.7 H Arterial Blood HCO3 13.5 L Arterial Blood Base Excess -16.3 L Arterial Blood Oxygen Saturation 99.2 H Markus Test ACCEPTAB Arterial Blood Gas Puncture Site Left Radial Arterial Blood Carboxyhemoglobin 2.3 Arterial Blood Methemoglobin 0.4 Blood Gas A-a O2 Differential 333.1 H Oxyhemoglobin Percent 96.5 Total Hemoglobin 15.9 Blood Gas Temperature 37.0 Blood Gas Respiration Rate 16.0 Blood Gas Actual Respiration Rate 26 Blood Gas Modality VENT - AC FiO2 100.0 Blood Gas Tidal Volume 500.0 Blood Gas Low PEEP Setting 5.0 Blood Gas Critical Value Read Back MD BRITNEY Blood Gas Notified Whom BRIAN Blood Gas Notified Time 01/31/2017 4:58:47 PM Free Thyroxine 1.23 Test 01/31/17 22:55 01/31/17 23:50 01/31/17 23:57 02/01/17 00:32 Blood Gas Specimen Source Blood arterial Arterial Blood Date Drawn 01/31/2017 11:57:06 PM Arterial Blood pH (Temp corrected) 7.227 *L Arterial Blood pCO2 (Temp correct) 38.0 Arterial Blood pO2 (Temp corrected) 503.2 H Arterial Blood HCO3 15.1 L Arterial Blood Base Excess -10.9 L Arterial Blood Oxygen Saturation 99.4 H Markus Test ACCEPTAB Arterial Blood Gas Puncture Site Right Radial Arterial Blood Carboxyhemoglobin 0.3 Arterial Blood Methemoglobin 0.5 Blood Gas A-a O2 Differential 165.3 H Oxyhemoglobin Percent 98.6 Total Hemoglobin 16.7 Blood Gas Temperature 39.3 Blood Gas Respiration Rate 28.0 Blood Gas Actual Respiration Rate 38 Blood Gas Modality VENT - AC FiO2 100.0 Blood Gas Tidal Volume 550.0 Blood Gas Low PEEP Setting 5.0 Blood Gas Critical Value Read Back Ariadne BAHENA RN Blood Gas Notified Whom Partha ESCAMILLA RCP Blood Gas Notified Time 02/01/2017 12:08:09 AM White Blood Count 14.9 H Red Blood Count 4.97 Hemoglobin 16.1 Hematocrit 47.2 Mean Corpuscular Volume 95.0 Mean Corpuscular Hemoglobin 32.4 Mean Corpuscular Hemoglobin Concent 34.1 Red Cell Distribution Width 12.9 Platelet Count 207 Mean Platelet Volume 10.5 H Neutrophils % 90.4 H Lymphocytes % 4.5 L Monocytes % 4.7 Eosinophils % 0.0 Basophils % 0.1 Nucleated Red Blood Cells % 0.0 Neutrophils # 13.4 H Lymphocytes # 0.7 L Monocytes # 0.7 Eosinophils # 0.0 Basophils # 0.0 Nucleated Red Blood Cells # 0.0 Prothrombin Time 15.5 H Prothrombin Time Ratio 1.2 INR International Normalized Ratio 1.22 Activated Partial Thromboplast Time 26.0 Sodium Level 146 H Potassium Level 3.6 Chloride Level 115 H Carbon Dioxide Level 17 L Anion Gap 18 H Blood Urea Nitrogen 21 H Creatinine 1.07 Glucose Level 106 # Calcium Level 7.8 L Phosphorus Level 2.6 Magnesium Level 1.5 L Troponin I 0.020 Bedside Glucose 104 118 Test 02/01/17 01:02 02/01/17 03:29 02/01/17 04:55 02/01/17 05:00 Bedside Glucose 111 126 Blood Gas Specimen Source Blood arterial Arterial Blood Date Drawn 02/01/2017 4:48:00 AM Arterial Blood pH (Temp corrected) 7.382 Arterial Blood pCO2 (Temp correct) 28.2 L Arterial Blood pO2 (Temp corrected) 78.8 L Arterial Blood HCO3 17.2 L Arterial Blood Base Excess -7.8 L Arterial Blood Oxygen Saturation 97.7 Markus Test ACCEPTAB Arterial Blood Gas Puncture Site Right Radial Arterial Blood Carboxyhemoglobin 0.3 Arterial Blood Methemoglobin 0 Blood Gas A-a O2 Differential 251.2 H Oxyhemoglobin Percent 97.4 Total Hemoglobin 16.5 Blood Gas Temperature 32.5 Blood Gas Respiration Rate 28.0 Blood Gas Actual Respiration Rate 30 Blood Gas Modality VENT - AC FiO2 50.0 Blood Gas Tidal Volume 550.0 Blood Gas Low PEEP Setting 5.0 Blood Gas Notified Whom LW Blood Gas Notified Time 02/01/2017 4:59:00 AM White Blood Count 14.0 H Red Blood Count 4.74 Hemoglobin 15.3 Hematocrit 44.6 Mean Corpuscular Volume 94.1 Mean Corpuscular Hemoglobin 32.3 Mean Corpuscular Hemoglobin Concent 34.3 Red Cell Distribution Width 12.8 Platelet Count 158 # Mean Platelet Volume 11.0 H Neutrophils % 88.3 H Lymphocytes % 7.6 L Monocytes % 3.4 Eosinophils % 0.0 Basophils % 0.2 Nucleated Red Blood Cells % 0.0 Neutrophils # 12.3 H Lymphocytes # 1.1 Monocytes # 0.5 Eosinophils # 0.0 Basophils # 0.0 Nucleated Red Blood Cells # 0.0 Sodium Level 144 Potassium Level 3.0 L Chloride Level 116 H Carbon Dioxide Level 20 L Anion Gap 11 # Blood Urea Nitrogen 20 Creatinine 0.80 Glucose Level 139 Lactic Acid Level 1.8 Calcium Level 8.0 L Phosphorus Level 2.3 L Magnesium Level 2.2 Total Bilirubin 0.2 Direct Bilirubin 0.00 Indirect Bilirubin 0.2 Aspartate Amino Transf (AST/SGOT) 57 H Alanine Aminotransferase (ALT/SGPT) 58 Alkaline Phosphatase 100 Total Protein 6.5 Albumin 3.2 #L Globulin 3.30 H Albumin/Globulin Ratio 0.96 Triglycerides Level 150 H Cholesterol Level 127 LDL Cholesterol, Calculated 47 HDL Cholesterol 50 Cholesterol/HDL Ratio 2.5 Thyroid Stimulating Hormone (TSH) 0.362 L Test 02/01/17 05:01 02/01/17 08:10 Bedside Glucose 143 133 Medications Medications Current Medications Lactated Ringer's (Lr) 1,000 ml @ 150 mls/hr Q6H40M IV Last administered on 04:36; Admin Dose 150 MLS/HR; Start 01/31/17 at 18:30 Ondansetron HCl (Zofran Inj) 4 mg Q6H PRN IV NAUSEA AND/OR VOMITING; Start at 19:00 Acetaminophen (Tylenol Tab) 650 mg Q6H PRN PO PAIN LEVEL 1-3 OR FEVER Last administered on 01/31/17 21:31; Admin Dose 650 MG; Start 01/31/17 at 19:00 Acetaminophen/ Hydrocodone Bitart ([place] (5/325)) 1 tab Q6H PRN PO MODERATE PAIN LEVEL 4-6; Start 01/31/17 at 19:00 Morphine Sulfate (morphine) 2 mg Q4H PRN IV SEVERE PAIN LEVEL 7-10; Start 01/31 at 19:00 Docusate Sodium (Colace) 100 mg Q12H PRN PO CONSTIPATION; Start 01/31/17 at 19: 00 Magnesium Hydroxide (Milk Of Mag) 30 ml DAILY PRN PO CONSTIPATION; Start at 19:00 Sodium Biphosphate/ Sodium Phosphate (Fleet Enema) 133 ml DAILY PRN AR CONSTIPATION; Start 01/31/17 at 19:00 Pantoprazole (Protonix Iv) 40 mg DAILY@06 IV Last administered on 02/01/17 06: 25; Admin Dose 40 MG; Start 02/01/17 at 06:00 Heparin Sodium (Porcine) 5000 unit 5,000 unit Q12 SC Last administered on 21:23; Admin Dose 5,000 UNIT; Start 01/31/17 at 21:00 Sodium Chloride (NS) 1,000 ml @ 100 mls/hr Q10H IV Last administered on 01:00; Admin Dose 100 MLS/HR; Start 01/31/17 at 18:56 Hydralazine HCl (Apresoline) 10 mg Q6H PRN IV ELEVATED BLOOD PRESSURE; Start at 19:00 Nitroglycerin (Nitroglycerin (Sl Tab) 0.4 Mg) 1 tab Q5M PRN SL ANGINA; Start at 19:00 Miscellaneous Information 1 each 1 each DAILY PO ; Start 02/01/17 at 09:00; Status UNV Levofloxacin/ Dextrose (Levaquin 750 Mg/ D5W 150 ml (Pmx)) 150 ml @ 100 mls/hr Q24H IVPB ; Start 01/31/17 at 19:30 Lorazepam 1 mg 1 mg Q1H PRN IV CONTROL WITHDRAWAL SYMPTOMS Last administered on 01/31/17 22:45; Admin Dose 1 MG; Start 01/31/17 at 20:00 Multivitamins 10 ml/Thiamine HCl 100 mg/Folic Acid 1 mg/Sodium Chloride 1,011.2 ml @ 125 mls/ hr DAILY@09 IVPB Last administered on 01/31/17 20:26; Admin Dose 125 MLS/HR; Start 01/31/17 at 19:30 Sodium Chloride 1,000 ml @ 1,000 mls/hr Q1H IV Last administered on 02/01/17 01:17; Admin Dose 1,000 MLS/HR; Start 01/31/17 at 22:55 Vecuronium [place]/Dextrose (Norcuron/D5W) 100 ml @ 5.88 mls/hr Q17H1M IV Last administered on 02/01/17 00:11; Admin Dose 5.88 MLS/HR; Start 01/31/17 at 22:55 Acetaminophen (Tylenol Supp) 650 mg Q4H PRN AR TEMP > 37C Last administered on 02/01/17 00:08; Admin Dose 650 MG; Start 01/31/17 at 23:00 Acetaminophen (Tylenol Liquid) 650 mg Q4H PRN PO TEMP > 37C; Start 01/31/17 at 23:00 Acetaminophen (Tylenol Supp) 500 mg Q6H AR ; Start 02/01/17 at 23:00 Acetaminophen (Tylenol Liquid) 500 mg Q6H PO ; Start 02/01/17 at 23:00 Meperidine HCl (Demerol) 12.5 mg Q4H PRN IV POST OPERATIVE SHIVERING; Start at 23:00 Meperidine HCl (Demerol) 25 mg Q4H PRN IV POST OPERATIVE SHIVERING; Start 01/31 at 23:00 Eye Lubricant ([place]wa Oint) 1 applic Q6 BOTH EYES Last administered on 02/01/17 06:23; Admin Dose 1 APPLIC; Start 02/01/17 at 00:00 Eye Lubricant (Artificial Tears Oph) 2 drop Q6 BOTH EYES Last administered on 02/01/17 06:23; Admin Dose 2 DROP; Start 02/01/17 at 00:00 Diagnostic Test (Pha) 1 ea 1 ea Q1H XX Last administered on 02/01/17 08:11; Admin Dose 1 EA; Start 01/31/17 at 23:00 Potassium Chloride 30 meq/ Sodium Chloride 165 ml @ 55 mls/hr ONCE ONCE IVPB Last administered on 02/01/17 08:39; Admin Dose 55 MLS/HR; Start 02/01/17 at 08 :00; Stop 02/01/17 at 10:59 Potassium Phosphate/Sodium Chloride (K Phos (Meq)/NS) 254.5455 ml @ 63.636 m... ONCE ONCE IVPB ; Start 02/01/17 at 09:00; Stop 02/01/17 at 12:59; Status AKUA WYNNE Feb 01, 2017 09:01
[2017-02-01] MEDS: [UNRECOGNIZED DRUG - REMARK] XX SCH ×2 (09:30→17:30)
[2017-02-01] MEDS ORDERED: POTASSIUM PHOSPHATE 20 MEQ in SOD CHLORIDE 0.9% 250 ML IVPB ONE (10:00)
[2017-02-01] MEDS: HEPARIN 5,000 UNIT/0.5 ML VIAL SC SCH ×2 (10:08→20:28)
[2017-02-01] MEDS: MIDAZOLAM (DRIP) 50 mg/50 mL 50 ML IV SCH ×2 (11:15→22:27)
[2017-02-01 11:30] LABS: BASOPHILS % 0.1 % (0.0-2.0); HEMOGLOBIN 14.1 g/dl (14.0-18.0); LYMPHOCYTES # 1.2 10^3/ul (0.8-2.9); LYMPHOCYTES % 8.6 % (15.0-51.0); MEAN CORPUSCULAR HEMOGLOBIN 31.5 pg (29.0-33.0); MEAN CORPUSCULAR HGB CONC 33.6 g/dl (32.0-37.0); MEAN PLATELET VOLUME 10.7 fl (7.4-10.4); MONOCYTE # 0.4 10^3/ul (0.3-0.9); NEUTROPHIL # 12.1 10^3/ul (1.6-7.5); NEUTROPHILS % 87.6 % (39.0-77.0); NUCLEATED RED BLOOD CELLS # 0.1 10^3/ul (0.0-0.0); NUCLEATED RED BLOOD CELLS% 0.4 /100WBC (0.0-0.0); PLATELET COUNT 142 10^3/UL (140-415); RED BLOOD COUNT 4.47 10^6/ul (4.70-6.10); RED CELL DISTRIBUTION WIDTH 13.2 % (11.5-14.5); WHITE BLOOD COUNT 13.8 10^3/ul (4.8-10.8)
[2017-02-01] MEDS ORDERED: SODIUM PHOSPHATE 15 MMOL in SOD CHLORIDE 0.9% 250 ML IVPB ONE (11:30)
[2017-02-01 11:37] LABS: Allen Test ACCEPTAB; Arterial Base Excess -5.7 mmol/L (-3.0-3); Arterial COHb 0 % (0.0-3.0); Arterial Fraction of Oxyhgb 98.3 % (93.0-99.0); Arterial MetHb 0.2 % (0.0-1.5); MODE VENT - AC
[2017-02-01 11:56] LABS: ALBUMIN 3.1 g/dl (3.3-4.9); BILIRUBIN,INDIRECT 0.2 mg/dl (0-1.1); BILIRUBIN,TOTAL 0.2 mg/dl (0.2-1.3); TOTAL PROTEIN 5.8 g/dl (6.1-8.1)
[2017-02-01 11:57] LABS: ALBUMIN 3.1 g/dl (3.3-4.9); BILIRUBIN,INDIRECT 0.3 mg/dl (0-1.1); BILIRUBIN,TOTAL 0.3 mg/dl (0.2-1.3); CALCIUM 8.2 mg/dl (8.4-10.2); CREATININE 0.76 mg/dl (0.61-1.24); MAGNESIUM 2.1 mg/dl (1.7-2.5); PHOSPHORUS 1.9 mg/dl (2.5-4.9); POTASSIUM 3.7 mmol/L (3.5-5.1)
[2017-02-01 12:02] LABS: ALBUMIN/GLOBULIN RATIO 1.14
[2017-02-01 12:05] LABS: TOTAL PROTEIN 5.8 g/dl (6.1-8.1)
[2017-02-01 12:09] LABS: INR 1.25; PROTIME 15.8 Sec (12.2-14.2); PT RATIO 1.2
[2017-02-01 13:21] LABS: PARTIAL THROMBOPLASTIN TIME 44.9 Sec (25.0-35.0)
[2017-02-01] MEDS: MULTIVITAMINS 10 ML, THIAMINE 100 MG, FOLIC ACID 1 MG in SOD CHLORIDE 0.9% 1,000 ML IVPB SCH (13:58)
--- NOTE | 2017-02-01 14:04 | CONS ---
Date/Time of Note Date/Time of Note DATE: 02/01/17 TIME: 13:55 Consult Date/Type/Reason Admit Date/Time Jan 31, 2017 at 17:12 Initial Consult Date Type of Consultation: Pulm/CCM Subjective Started on hypothermia protocol overnight. Prior to this, noted to have generalized seizure activity. On versed and propofol. Objective Vital Signs Date Time Temp Pulse Resp B/P Pulse Ox O2 Delivery O2 Flow Rate FiO2 02/01/17 13:00 95.0 80 28 95/59 100 02/01/17 13:00 Mechanical Ventilator 02/01/17 08:00 50 01/31/17 21:25 15.0 Intake and Output 01/31/17 01/31/17 02/01/17 15:00 23:00 07:00 Intake Total 1320.56 ml 1972.192 ml Output Total 1600 ml 1623 ml Balance -279.44 ml 349.192 ml Exam HEENT: Neck supple; no JVD; no LAD; +ET tube CVS: RRR, S1 and S2 CHEST: Clear ABD: Soft, NT, + BS EXT: No c/c/e NEURO: unable to assess given patient on paralytic Results/Medications Result Diagram: 02/01/17 1120 02/01/17 1120 Results 24 hrs Laboratory Tests Test 01/31/17 15:45 01/31/17 15:55 01/31/17 16:30 01/31/17 18:59 Urine Color YELLOW Urine Clarity SLIGHTLY CLOUDY A Urine pH 5.0 Urine Specific [place] 1.013 Urine Ketones NEGATIVE Urine Nitrite NEGATIVE Urine Bilirubin NEGATIVE Urine Urobilinogen NEGATIVE Urine Leukocyte Esterase NEGATIVE Urine Microscopic RBC 0 Urine Microscopic WBC 1 Urine Hemoglobin NEGATIVE Urine Glucose NEGATIVE Urine Total Protein NEGATIVE Urine Opiates Screen Negative Urine Barbiturates Negative Urine Amphetamines Screen Negative Urine Benzodiazepines Screen Negative Urine Cocaine Screen Negative Urine Cannabinoids Negative White Blood Count 13.6 H Red Blood Count 4.67 L Hemoglobin 14.8 Hematocrit 46.5 Mean Corpuscular Volume 99.6 Mean Corpuscular Hemoglobin 31.7 Mean Corpuscular Hemoglobin Concent 31.8 L Red Cell Distribution Width 12.9 Platelet Count 255 Mean Platelet Volume 10.9 H Neutrophils % Segmented Neutrophils % (Manual) 29 L Lymphocytes % Lymphocytes % (Manual) 59 H Monocytes % Monocytes % (Manual) 12 H Eosinophils % Basophils % Nucleated Red Blood Cells % 0.0 Neutrophils # Absolute Lymphocytes (Manual) 8.0 H Lymphocytes # Monocytes # Absolute Monocytes (Manual) 1.6 H Eosinophils # Basophils # Nucleated Red Blood Cells # Platelet Estimate NORMAL Giant Platelets 1 H Prothrombin Time 14.7 H 15.7 H Prothrombin Time Ratio 1.1 1.2 INR International Normalized Ratio 1.15 1.24 Activated Partial Thromboplast Time 30.3 23.5 L Sodium Level 145 H Potassium Level 3.7 Chloride Level 109 Carbon Dioxide Level 16 L Anion Gap 24 H Blood Urea Nitrogen 17 Creatinine 1.35 H Glucose Level 162 Calcium Level 8.9 Total Bilirubin 0.1 L Direct Bilirubin 0.00 Indirect Bilirubin 0.1 Aspartate Amino Transf (AST/SGOT) 89 H Alanine Aminotransferase (ALT/SGPT) 55 Alkaline Phosphatase 114 Troponin I < 0.012 Total Protein 7.3 Albumin 4.4 Globulin 2.90 Albumin/Globulin Ratio 1.51 Salicylates Level < 1.0 L Acetaminophen Level < 10.0 L Ethyl Alcohol Level 253.0 Blood Gas Specimen Source Blood arterial Arterial Blood Date Drawn 01/31/2017 4:50:14 PM Arterial Blood pH (Temp corrected) 7.084 *L Arterial Blood pCO2 (Temp correct) 46.2 H Arterial Blood pO2 (Temp corrected) 333.7 H Arterial Blood HCO3 13.5 L Arterial Blood Base Excess -16.3 L Arterial Blood Oxygen Saturation 99.2 H Markus Test ACCEPTAB Arterial Blood Gas Puncture Site Left Radial Arterial Blood Carboxyhemoglobin 2.3 Arterial Blood Methemoglobin 0.4 Blood Gas A-a O2 Differential 333.1 H Oxyhemoglobin Percent 96.5 Total Hemoglobin 15.9 Blood Gas Temperature 37.0 Blood Gas Respiration Rate 16.0 Blood Gas Actual Respiration Rate 26 Blood Gas Modality VENT - AC FiO2 100.0 Blood Gas Tidal Volume 500.0 Blood Gas Low PEEP Setting 5.0 Blood Gas Critical Value Read Back MD BRITNEY Blood Gas Notified Whom [place] Blood Gas Notified Time 01/31/2017 4:58:47 PM Free Thyroxine 1.23 Test 01/31/17 22:55 01/31/17 23:50 01/31/17 23:57 02/01/17 00:32 Blood Gas Specimen Source Blood arterial Arterial Blood Date Drawn 01/31/2017 11:57:06 PM Arterial Blood pH (Temp corrected) 7.227 *L Arterial Blood pCO2 (Temp correct) 38.0 Arterial Blood pO2 (Temp corrected) 503.2 H Arterial Blood HCO3 15.1 L Arterial Blood Base Excess -10.9 L Arterial Blood Oxygen Saturation 99.4 H Markus Test ACCEPTAB Arterial Blood Gas Puncture Site Right Radial Arterial Blood Carboxyhemoglobin 0.3 Arterial Blood Methemoglobin 0.5 Blood Gas A-a O2 Differential 165.3 H Oxyhemoglobin Percent 98.6 Total Hemoglobin 16.7 Blood Gas Temperature 39.3 Blood Gas Respiration Rate 28.0 Blood Gas Actual Respiration Rate 38 Blood Gas Modality VENT - AC FiO2 100.0 Blood Gas Tidal Volume 550.0 Blood Gas Low PEEP Setting 5.0 Blood Gas Critical Value Read Back Ariadne BAHENA RN Blood Gas Notified Whom Partha ESCAMILLA RCP Blood Gas Notified Time 02/01/2017 12:08:09 AM White Blood Count 14.9 H Red Blood Count 4.97 Hemoglobin 16.1 Hematocrit 47.2 Mean Corpuscular Volume 95.0 Mean Corpuscular Hemoglobin 32.4 Mean Corpuscular Hemoglobin Concent 34.1 Red Cell Distribution Width 12.9 Platelet Count 207 Mean Platelet Volume 10.5 H Neutrophils % 90.4 H Lymphocytes % 4.5 L Monocytes % 4.7 Eosinophils % 0.0 Basophils % 0.1 Nucleated Red Blood Cells % 0.0 Neutrophils # 13.4 H Lymphocytes # 0.7 L Monocytes # 0.7 Eosinophils # 0.0 Basophils # 0.0 Nucleated Red Blood Cells # 0.0 Prothrombin Time 15.5 H Prothrombin Time Ratio 1.2 INR International Normalized Ratio 1.22 Activated Partial Thromboplast Time 26.0 Sodium Level 146 H Potassium Level 3.6 Chloride Level 115 H Carbon Dioxide Level 17 L Anion Gap 18 H Blood Urea Nitrogen 21 H Creatinine 1.07 Glucose Level 106 # Calcium Level 7.8 L Phosphorus Level 2.6 Magnesium Level 1.5 L Troponin I 0.020 Bedside Glucose 104 118 Test 02/01/17 01:02 02/01/17 03:29 02/01/17 04:55 02/01/17 05:00 Bedside Glucose 111 126 Blood Gas Specimen Source Blood arterial Arterial Blood Date Drawn 02/01/2017 4:48:00 AM Arterial Blood pH (Temp corrected) 7.382 Arterial Blood pCO2 (Temp correct) 28.2 L Arterial Blood pO2 (Temp corrected) 78.8 L Arterial Blood HCO3 17.2 L Arterial Blood Base Excess -7.8 L Arterial Blood Oxygen Saturation 97.7 Markus Test ACCEPTAB Arterial Blood Gas Puncture Site Right Radial Arterial Blood Carboxyhemoglobin 0.3 Arterial Blood Methemoglobin 0 Blood Gas A-a O2 Differential 251.2 H Oxyhemoglobin Percent 97.4 Total Hemoglobin 16.5 Blood Gas Temperature 32.5 Blood Gas Respiration Rate 28.0 Blood Gas Actual Respiration Rate 30 Blood Gas Modality VENT - AC FiO2 50.0 Blood Gas Tidal Volume 550.0 Blood Gas Low PEEP Setting 5.0 Blood Gas Notified Whom LW Blood Gas Notified Time 02/01/2017 4:59:00 AM White Blood Count 14.0 H Red Blood Count 4.74 Hemoglobin 15.3 Hematocrit 44.6 Mean Corpuscular Volume 94.1 Mean Corpuscular Hemoglobin 32.3 Mean Corpuscular Hemoglobin Concent 34.3 Red Cell Distribution Width 12.8 Platelet Count 158 # Mean Platelet Volume 11.0 H Neutrophils % 88.3 H Lymphocytes % 7.6 L Monocytes % 3.4 Eosinophils % 0.0 Basophils % 0.2 Nucleated Red Blood Cells % 0.0 Neutrophils # 12.3 H Lymphocytes # 1.1 Monocytes # 0.5 Eosinophils # 0.0 Basophils # 0.0 Nucleated Red Blood Cells # 0.0 Sodium Level 144 Potassium Level 3.0 L Chloride Level 116 H Carbon Dioxide Level 20 L Anion Gap 11 # Blood Urea Nitrogen 20 Creatinine 0.80 Glucose Level 139 Hemoglobin A1c 5.2 Lactic Acid Level 1.8 Calcium Level 8.0 L Phosphorus Level 2.3 L Magnesium Level 2.2 Total Bilirubin 0.2 Direct Bilirubin 0.00 Indirect Bilirubin 0.2 Aspartate Amino Transf (AST/SGOT) 57 H Alanine Aminotransferase (ALT/SGPT) 58 Alkaline Phosphatase 100 Total Protein 6.5 Albumin 3.2 #L Globulin 3.30 H Albumin/Globulin Ratio 0.96 Triglycerides Level 150 H Cholesterol Level 127 LDL Cholesterol, Calculated 47 HDL Cholesterol 50 Cholesterol/HDL Ratio 2.5 Thyroid Stimulating Hormone (TSH) 0.362 L Test 02/01/17 05:01 02/01/17 08:10 02/01/17 09:10 02/01/17 10:15 Bedside Glucose 143 133 121 127 Test 02/01/17 10:55 02/01/17 11:05 02/01/17 11:20 02/01/17 12:53 Blood Gas Specimen Source Blood arterial Arterial Blood Date Drawn 02/01/2017 11:17:30 AM Arterial Blood pH (Temp corrected) 7.413 Arterial Blood pCO2 (Temp correct) 29.0 L Arterial Blood pO2 (Temp corrected) 109.9 H Arterial Blood HCO3 19.0 L Arterial Blood Base Excess -5.7 L Arterial Blood Oxygen Saturation 98.5 H Markus Test ACCEPTAB Arterial Blood Gas Puncture Site Right Radial Arterial Blood Carboxyhemoglobin 0 Arterial Blood Methemoglobin 0.2 Blood Gas A-a O2 Differential 219.0 H Oxyhemoglobin Percent 98.3 Total Hemoglobin 15.0 Blood Gas Temperature 32.6 Blood Gas Respiration Rate 28.0 Blood Gas Actual Respiration Rate 28 Blood Gas Modality VENT - AC FiO2 50.0 Blood Gas Tidal Volume 552.0 Blood Gas Low PEEP Setting 5.0 Blood Gas Notified Whom KIZZY COFFEY Blood Gas Notified Time 05/04/2016 11:36:55 AM Bedside Glucose 139 118 White Blood Count 13.8 H Red Blood Count 4.47 L Hemoglobin 14.1 Hematocrit 42.0 Mean Corpuscular Volume 94.0 Mean Corpuscular Hemoglobin 31.5 Mean Corpuscular Hemoglobin Concent 33.6 Red Cell Distribution Width 13.2 Platelet Count 142 Mean Platelet Volume 10.7 H Neutrophils % 87.6 H Lymphocytes % 8.6 L Monocytes % 3.0 Eosinophils % 0.0 Basophils % 0.1 Nucleated Red Blood Cells % 0.4 H Neutrophils # 12.1 H Lymphocytes # 1.2 Monocytes # 0.4 Eosinophils # 0.0 Basophils # 0.0 Nucleated Red Blood Cells # 0.1 H Prothrombin Time 15.8 H Prothrombin Time Ratio 1.2 INR International Normalized Ratio 1.25 Activated Partial Thromboplast Time 44.9 H Sodium Level 146 H Potassium Level 3.7 Chloride Level 119 H Carbon Dioxide Level 21 Anion Gap 10 Blood Urea Nitrogen 20 Creatinine 0.76 Glucose Level 134 Calcium Level 8.2 L Phosphorus Level 1.9 L Magnesium Level 2.1 Total Bilirubin 0.3 Direct Bilirubin 0.00 Indirect Bilirubin 0.3 Aspartate Amino Transf (AST/SGOT) 43 Alanine Aminotransferase (ALT/SGPT) 50 Alkaline Phosphatase 88 Creatine Kinase 126 Total Protein 5.8 L Albumin 3.1 L Globulin 2.70 Albumin/Globulin Ratio 1.14 Medications Current Medications Ondansetron HCl (Zofran Inj) 4 mg Q6H PRN IV NAUSEA AND/OR VOMITING; Start at 19:00 Acetaminophen (Tylenol Tab) 650 mg Q6H PRN PO PAIN LEVEL 1-3 OR FEVER Last administered on 01/31/17 21:31; Admin Dose 650 MG; Start 01/31/17 at 19:00 Acetaminophen/ Hydrocodone Bitart ([place] (5/325)) 1 tab Q6H PRN PO MODERATE PAIN LEVEL 4-6; Start 01/31/17 at 19:00 Morphine Sulfate (morphine) 2 mg Q4H PRN IV SEVERE PAIN LEVEL 7-10; Start 01/31 at 19:00 Docusate Sodium (Colace) 100 mg Q12H PRN PO CONSTIPATION; Start 01/31/17 at 19: 00 Magnesium Hydroxide (Milk Of Mag) 30 ml DAILY PRN PO CONSTIPATION; Start at 19:00 Sodium Biphosphate/ Sodium Phosphate (Fleet Enema) 133 ml DAILY PRN [place] CONSTIPATION; Start 01/31/17 at 19:00 Pantoprazole (Protonix Iv) 40 mg DAILY@06 IV Last administered on 02/01/17 06: 25; Admin Dose 40 MG; Start 02/01/17 at 06:00 Heparin Sodium (Porcine) 5000 unit 5,000 unit Q12 SC Last administered on 10:08; Admin Dose 5,000 UNIT; Start 01/31/17 at 21:00 Sodium Chloride (NS) 1,000 ml @ 100 mls/hr Q10H IV Last administered on 01:00; Admin Dose 100 MLS/HR; Start 01/31/17 at 18:56 Hydralazine HCl (Apresoline) 10 mg Q6H PRN IV ELEVATED BLOOD PRESSURE; Start at 19:00 Nitroglycerin (Nitroglycerin (Sl Tab) 0.4 Mg) 1 tab Q5M PRN SL ANGINA; Start at 19:00 Miscellaneous Information 1 each 1 each DAILY PO ; Start 02/01/17 at 09:00; Status UNV Levofloxacin/ Dextrose (Levaquin 750 Mg/ D5W 150 ml (Pmx)) 150 ml @ 100 mls/hr Q24H IVPB ; Start 01/31/17 at 19:30 Lorazepam 1 mg 1 mg Q1H PRN IV CONTROL WITHDRAWAL SYMPTOMS Last administered on 01/31/17 22:45; Admin Dose 1 MG; Start 01/31/17 at 20:00 Multivitamins 10 ml/Thiamine HCl 100 mg/Folic Acid 1 mg/Sodium Chloride 1,011.2 ml @ 125 mls/ hr DAILY@09 IVPB Last administered on 01/31/17 20:26; Admin Dose 125 MLS/HR; Start 01/31/17 at 19:30 Sodium Chloride 1,000 ml @ 1,000 mls/hr Q1H IV Last administered on 02/01/17 01:17; Admin Dose 1,000 MLS/HR; Start 01/31/17 at 22:55 Vecuronium [place]/Dextrose (Norcuron/D5W) 100 ml @ 5.72 mls/hr [id number] IV Last administered on 02/01/17 07:00; Admin Dose 5.72 MLS/HR; Start 01/31/17 at 22:55 Acetaminophen (Tylenol Supp) 650 mg Q4H PRN [place] TEMP > 37C Last administered on 02/01/17 00:08; Admin Dose 650 MG; Start 01/31/17 at 23:00 Acetaminophen (Tylenol Liquid) 650 mg Q4H PRN PO TEMP > 37C; Start 01/31/17 at 23:00 Acetaminophen (Tylenol Supp) 500 mg Q6H [place] ; Start 02/01/17 at 23:00 Acetaminophen (Tylenol Liquid) 500 mg Q6H PO ; Start 02/01/17 at 23:00 Meperidine HCl (Demerol) 12.5 mg Q4H PRN IV POST OPERATIVE SHIVERING; Start at 23:00 Meperidine HCl (Demerol) 25 mg Q4H PRN IV POST OPERATIVE SHIVERING; Start 01/31 at 23:00 Eye Lubricant (Akwa Oint) 1 applic Q6 BOTH EYES Last administered on 02/01/17 12:41; Admin Dose 1 APPLIC; Start 02/01/17 at 00:00 Eye Lubricant (Artificial Tears Oph) 2 drop Q6 BOTH EYES Last administered on 02/01/17 12:41; Admin Dose 2 DROP; Start 02/01/17 at 00:00 Diagnostic Test (Pha) (Accu-Chek) 1 ea Q1H XX Last administered on 02/01/17t 13 :30; Admin Dose 1 EA; Start 01/31/17 at 23:00 Miscellaneous Information ODEFSEY.. IS NON FORMULARY...PLEASE CONSIDER USING... Q8H XX ; Start 02/01/17 at 09:30 Sodium Phosphate/ Sodium Chloride (Sodium Phosphate/NS) 255 ml @ 63.75 mls/ hr ONCE ONCE IVPB Last administered on 02/01/17t 11:41; Admin Dose 63.75 MLS/HR; Start 02/01/17 at 11:30; Stop 02/01/17 at 15:29 Assessment/Plan Chief Complaint/Hosp Course Briefly, this is a 46-year-old man presented to the ER after what appears to have been a cardiopulmonary arrest at home after zoldpidem OD--with bystander CPR--s/p CPR by paramedics for possible PEA on arrival. He had a Sushil airway placed and was intubated in the ED. Initially noted to have food products aspirated. Problems: Additional Assessment/Plan IMP: 1. Cardiopulmonary Arrest--likely due to respiratory suppression due to zolpidem OD. 2. Ventilator Dependence--s/p OD 3. Severe Metabolic and respiratory acidosis--due to lactic acidosis 2/2 #1 and central resp depression 4. Zolpidem OD 5. 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 6. Possible generalized seizures RECS: 1. Vent support--will initiate adjustments 2. As for hypothermia protocol--for non-shockable rhythms, no evidence that core temp of 33 results in better outcomes that 36 Celsius 3. In view of concern for seizures, I would d/c hypothermia protocol. 4. Stat EEG 5. Continue versed and propofol; start keppra IV 6. Abx for possible aspiration 7. Am labs/CXR/ABG 40 min cc time case d/w RN and family ENEDINA OSORIO MD Feb 01, 2017 14:04
[2017-02-01] MEDS: LEVETIRACETAM 1500 MG (PMX) 100 ML IVPB SCH ×2 (15:03→20:24)
[2017-02-01 17:13] LABS: BASOPHILS % 0.1 % (0.0-2.0); HEMATOCRIT 40.5 % (42.0-52.0); HEMOGLOBIN 13.6 g/dl (14.0-18.0); LYMPHOCYTES # 1.3 10^3/ul (0.8-2.9); LYMPHOCYTES % 7.9 % (15.0-51.0); MEAN CORPUSCULAR HEMOGLOBIN 31.4 pg (29.0-33.0); MEAN CORPUSCULAR HGB CONC 33.6 g/dl (32.0-37.0); MEAN CORPUSCULAR VOLUME 93.5 fl (82.0-101.0); MEAN PLATELET VOLUME 10.7 fl (7.4-10.4); MONOCYTE # 0.5 10^3/ul (0.3-0.9); MONOCYTES % 3.3 % (0.0-11.0); NEUTROPHILS % 88.1 % (39.0-77.0); PLATELET COUNT 163 10^3/UL (140-415); RED BLOOD COUNT 4.33 10^6/ul (4.70-6.10); RED CELL DISTRIBUTION WIDTH 13.2 % (11.5-14.5); WHITE BLOOD COUNT 15.9 10^3/ul (4.8-10.8)
[2017-02-01 17:28] LABS: INR 1.22; PROTIME 15.5 Sec (12.2-14.2); PT RATIO 1.2
[2017-02-01 17:29] LABS: PARTIAL THROMBOPLASTIN TIME 37.2 Sec (25.0-35.0)
[2017-02-01 17:37] LABS: ALBUMIN 3.1 g/dl (3.3-4.9); ALBUMIN/GLOBULIN RATIO 1.1; BILIRUBIN,INDIRECT 0.2 mg/dl (0-1.1); BILIRUBIN,TOTAL 0.2 mg/dl (0.2-1.3); CALCIUM 8.3 mg/dl (8.4-10.2); CREATININE 0.82 mg/dl (0.61-1.24); PHOSPHORUS 2.5 mg/dl (2.5-4.9); POTASSIUM 3.5 mmol/L (3.5-5.1); TOTAL PROTEIN 5.9 g/dl (6.1-8.1)
--- NOTE | 2017-02-01 17:44 | HKNOTE ---
DATE OF SERVICE: 02/01/2017 HISTORY OF PRESENT ILLNESS: The patient is a 46-year-old male admitted to [facility] after he ingested a bottle of Ambien in which was 10 mg, in which the patient became cyanotic, unresponsive and the family called the ambulance for him with CPR started. The patient admitted to [facility] after intubated and started on hypothermia protocol. HOME MEDICATIONS: 1. Ambien 10 mg once a day. 2. Odefsey 1 tablet daily. FAMILY HISTORY: Unavailable. SOCIAL HISTORY: Unavailable. PHYSICAL EXAMINATION: GENERAL: The patient is intubated and does not follow any commands. He is under hypothermia protocol. NEUROLOGIC: Cranial nerves: Cranial nerve II: Pupils are 2 mm with reaction to light. Cranial nerves III, IV, and : Extraocular muscles intact for dorsal maneuver. Cranial nerve V and VII: Intact corneal reflex. Cranial nerves VIII through XII: Could not assess. Motor exam: Slight movement for painful stimuli in the right upper extremity. Sensation, gait and coordination: Could not assess. HEART: Regular rate and rhythm. Equal breath sounds. ABDOMEN: Soft, nondistended, nontender. ASSESSMENT AND PLAN: 1. The patient is [id number] status post cardiopulmonary arrest. 2. Status post respiratory failure with intubation. 3. Decreased mini-mental status, probably secondary to number 1 and 2. 4. Status post Ambien overdose per the history and we followed up the patient with electroencephalogram for possible underlying anoxic brain injury. 5. Keep the patient on deep venous thrombosis prophylaxis as well as decubitus ulcer prophylaxis. 6. Gastroesophageal reflux in the form of Protonix. Again, thank you for asking me to see the patient with you. 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
[2017-02-01] MEDS: ACETAMINOPHEN 650 MG SUPP PR SCH (22:56)
[2017-02-01] MEDS: ACETAMINOPHEN 650MG/20.3ML CUP PO SCH (23:00)
[2017-02-01] MEDS: DEXTROSE 5%-0.45% NACL 1,000 ML IV SCH (23:31)
[2017-02-02] VITALS (94 sets, daily range): BP systolic 86–140; BP diastolic 56–89; PULSE 94–130; RESP 22–33
[2017-02-02] MEDS: PROPOFOL 100 ML IV SCH ×4 (00:19→11:20)
[2017-02-02] MEDS: morphine 2 MG INJ IV PRN (00:28)
[2017-02-02] MEDS: [UNRECOGNIZED DRUG - REMARK] XX SCH ×3 (01:07→21:00)
[2017-02-02] MEDS ORDERED: SOD CHLORIDE 0.9% 500 ML IV ONE (02:00)
[2017-02-02] MEDS: MIDAZOLAM (DRIP) 50 mg/50 mL 50 ML IV SCH ×3 (04:24→21:54)
[2017-02-02] MEDS: ACETAMINOPHEN 650 MG SUPP PR PRN (04:31)
[2017-02-02] MEDS: ACETAMINOPHEN 650MG/20.3ML CUP PO SCH ×4 (05:00→21:53)
[2017-02-02] MEDS: ACETAMINOPHEN 650 MG SUPP PR SCH ×4 (05:00→21:53)
[2017-02-02 05:11] LABS: AADO2 Arterial 115.9 mmHg (7.0-24.0); Allen Test ACCEPTAB; Arterial Base Excess -0.7 mmol/L (-3.0-3); Arterial COHb 0.1 % (0.0-3.0); Arterial Fraction of Oxyhgb 92.6 % (93.0-99.0); Arterial HCO3 22.3 mmol/L (22.0-26.0); Arterial MetHb 0 % (0.0-1.5); Arterial Total Hemglobin 13.6 g/dl (12.0-18.0); MODE VENT - AC
[2017-02-02] MEDS: PANTOPRAZOLE 40 MG INJ IV SCH (05:24)
[2017-02-02] MEDS: ARTIFICIAL TEARS 15 ML OPH BOTH EYES SCH ×3 (05:25→18:19)
[2017-02-02] MEDS: OCULAR LUBRICANT 3.5 GM OPH OINT BOTH EYES SCH ×3 (05:28→18:19)
[2017-02-02 05:54] LABS: BASOPHILS % 0.1 % (0.0-2.0); HEMATOCRIT 38.2 % (42.0-52.0); HEMOGLOBIN 13.2 g/dl (14.0-18.0); LYMPHOCYTES # 2.4 10^3/ul (0.8-2.9); LYMPHOCYTES % 15.6 % (15.0-51.0); MEAN CORPUSCULAR HEMOGLOBIN 32.5 pg (29.0-33.0); MEAN CORPUSCULAR HGB CONC 34.6 g/dl (32.0-37.0); MEAN CORPUSCULAR VOLUME 94.1 fl (82.0-101.0); MEAN PLATELET VOLUME 11.5 fl (7.4-10.4); MONOCYTE # 0.6 10^3/ul (0.3-0.9); MONOCYTES % 4.1 % (0.0-11.0); NEUTROPHIL # 11.9 10^3/ul (1.6-7.5); NEUTROPHILS % 79.4 % (39.0-77.0); PLATELET COUNT 152 10^3/UL (140-415); RED BLOOD COUNT 4.06 10^6/ul (4.70-6.10); RED CELL DISTRIBUTION WIDTH 13.2 % (11.5-14.5)
[2017-02-02 06:34] LABS: ALBUMIN/GLOBULIN RATIO 0.93; BILIRUBIN,INDIRECT 0.2 mg/dl (0-1.1); BILIRUBIN,TOTAL 0.2 mg/dl (0.2-1.3); CALCIUM 8.5 mg/dl (8.4-10.2); CREATININE 0.99 mg/dl (0.61-1.24); POTASSIUM 3.5 mmol/L (3.5-5.1); TOTAL PROTEIN 6.2 g/dl (6.1-8.1)
[2017-02-02 06:46] LABS: MAGNESIUM 1.9 mg/dl (1.7-2.5); PHOSPHORUS 2.5 mg/dl (2.5-4.9)
--- NOTE | 2017-02-02 07:44 | RADRPT ---
PROCEDURE: XR Chest. CLINICAL INDICATION: Shortness of breath. TECHNIQUE: Single frontal view. COMPARISON: 02/01/2017. FINDINGS: The endotracheal tube, nasogastric tube, and left arm PICC line remain in satisfactory position. Pat abdifatah air space disease at the lung bases is slightly improved. The heart size is normal. There is no pleural effusion or pneumothorax. There has been open reduction and internal fixation of the right clavicle with a plate and screws. IMPRESSION: 1. Slightly improved appearance of the lungs. 2. No other change from 02/01/2017. RPTAT: QQ .Telly Alejo MD, MD Date Time Electronically viewed and signed by .Telly Alejo MD, on 02/02/2017 07:43 .R/
[2017-02-02] MEDS: LEVETIRACETAM 1500 MG (PMX) 100 ML IVPB SCH ×2 (08:56→22:17)
[2017-02-02] MEDS: HEPARIN 5,000 UNIT/0.5 ML VIAL SC SCH ×2 (08:57→21:22)
--- NOTE | 2017-02-02 10:25 | CONS ---
Date/Time of Note Date/Time of Note DATE: 02/02/17 TIME: 10:22 Consult Date/Type/Reason Admit Date/Time Jan 31, 2017 at 17:12 Initial Consult Date Type of Consultation: Pulm/CCM Subjective Patient intubated on mechanical ventilation. Sedated and appears comfortable at rest. Pupils are sluggish not following commands. Currently no vasopressor support or obvious seizure activity. Objective Vital Signs Date Time Temp Pulse Resp B/P Pulse Ox O2 Delivery O2 Flow Rate FiO2 02/02/17 08:45 116 28 113/75 99 02/02/17 08:30 Mechanical Ventilator 02/02/17 08:00 100.3 02/02/17 08:00 40 01/31/17 21:25 15.0 Intake and Output 02/01/17 02/01/17 02/02/17 15:00 23:00 07:00 Intake Total 1364.516 ml 1388.270 ml 1573.4 ml Output Total 334 ml 984 ml 469 ml Balance 1030.516 ml 404.270 ml 1104.4 ml Exam PHYSICAL EXAMINATION GENERAL: A well-nourished well-developed gentleman intubated on mechanical ventilation VITAL SIGNS: see below. HEENT: Pupils equal, round, and reactive to light. CARDIAC: S1, S2, 1/6 systolic ejection murmur CHEST: Diminished air entry bilaterally. ABDOMEN: Mildly distended. Bowel sounds present no guarding or rebound EXTREMITIES: No cyanosis, clubbing edema +1 NEUROLOGIC: Unable to assess. Results/Medications Result Diagram: 02/02/17 0400 02/02/17 0400 Results 24 hrs Laboratory Tests Test 02/01/17 10:55 02/01/17 11:05 02/01/17 11:20 02/01/17 12:53 Blood Gas Specimen Source Blood arterial Arterial Blood Date Drawn 02/01/2017 11:17:30 AM Arterial Blood pH (Temp corrected) 7.413 Arterial Blood pCO2 (Temp correct) 29.0 L Arterial Blood pO2 (Temp corrected) 109.9 H Arterial Blood HCO3 19.0 L Arterial Blood Base Excess -5.7 L Arterial Blood Oxygen Saturation 98.5 H Markus Test ACCEPTAB Arterial Blood Gas Puncture Site Right Radial Arterial Blood Carboxyhemoglobin 0 Arterial Blood Methemoglobin 0.2 Blood Gas A-a O2 Differential 219.0 H Oxyhemoglobin Percent 98.3 Total Hemoglobin 15.0 Blood Gas Temperature 32.6 Blood Gas Respiration Rate 28.0 Blood Gas Actual Respiration Rate 28 Blood Gas Modality VENT - AC FiO2 50.0 Blood Gas Tidal Volume 552.0 Blood Gas Low PEEP Setting 5.0 Blood Gas Notified Whom KIZZY RT Blood Gas Notified Time 05/04/2016 11:36:55 AM Bedside Glucose 139 118 White Blood Count 13.8 H Red Blood Count 4.47 L Hemoglobin 14.1 Hematocrit 42.0 Mean Corpuscular Volume 94.0 Mean Corpuscular Hemoglobin 31.5 Mean Corpuscular Hemoglobin Concent 33.6 Red Cell Distribution Width 13.2 Platelet Count 142 Mean Platelet Volume 10.7 H Neutrophils % 87.6 H Lymphocytes % 8.6 L Monocytes % 3.0 Eosinophils % 0.0 Basophils % 0.1 Nucleated Red Blood Cells % 0.4 H Neutrophils # 12.1 H Lymphocytes # 1.2 Monocytes # 0.4 Eosinophils # 0.0 Basophils # 0.0 Nucleated Red Blood Cells # 0.1 H Prothrombin Time 15.8 H Prothrombin Time Ratio 1.2 INR International Normalized Ratio 1.25 Activated Partial Thromboplast Time 44.9 H Sodium Level 146 H Potassium Level 3.7 Chloride Level 119 H Carbon Dioxide Level 21 Anion Gap 10 Blood Urea Nitrogen 20 Creatinine 0.76 Glucose Level 134 Calcium Level 8.2 L Phosphorus Level 1.9 L Magnesium Level 2.1 Total Bilirubin 0.3 Direct Bilirubin 0.00 Indirect Bilirubin 0.3 Aspartate Amino Transf (AST/SGOT) 43 Alanine Aminotransferase (ALT/SGPT) 50 Alkaline Phosphatase 88 Creatine Kinase 126 Total Protein 5.8 L Albumin 3.1 L Globulin 2.70 Albumin/Globulin Ratio 1.14 Hepatitis C Antibody NEGATIVE HIV (1&2) Antibody REACTIVE H Test 02/01/17 14:06 02/01/17 15:03 02/01/17 16:32 02/01/17 17:02 Bedside Glucose 131 121 115 White Blood Count 15.9 H Red Blood Count 4.33 L Hemoglobin 13.6 L Hematocrit 40.5 L Mean Corpuscular Volume 93.5 Mean Corpuscular Hemoglobin 31.4 Mean Corpuscular Hemoglobin Concent 33.6 Red Cell Distribution Width 13.2 Platelet Count 163 Mean Platelet Volume 10.7 H Neutrophils % 88.1 H Lymphocytes % 7.9 L Monocytes % 3.3 Eosinophils % 0.0 Basophils % 0.1 Nucleated Red Blood Cells % 0.0 Neutrophils # 14.0 H Lymphocytes # 1.3 Monocytes # 0.5 Eosinophils # 0.0 Basophils # 0.0 Nucleated Red Blood Cells # 0.0 Prothrombin Time 15.5 H Prothrombin Time Ratio 1.2 INR International Normalized Ratio 1.22 Activated Partial Thromboplast Time 37.2 H Sodium Level 148 H Potassium Level 3.5 Chloride Level 119 H Carbon Dioxide Level 23 Anion Gap 10 Blood Urea Nitrogen 20 Creatinine 0.82 Glucose Level 118 Calcium Level 8.3 L Phosphorus Level 2.5 Magnesium Level 2.0 Total Bilirubin 0.2 Direct Bilirubin 0.00 Indirect Bilirubin 0.2 Aspartate Amino Transf (AST/SGOT) 43 Alanine Aminotransferase (ALT/SGPT) 47 Alkaline Phosphatase 86 Total Protein 5.9 L Albumin 3.1 L Globulin 2.80 Albumin/Globulin Ratio 1.10 Test 02/01/17 20:59 02/02/17 04:00 02/02/17 05:00 Sodium Level 148 H 147 H White Blood Count 15.0 H Red Blood Count 4.06 L Hemoglobin 13.2 L Hematocrit 38.2 L Mean Corpuscular Volume 94.1 Mean Corpuscular Hemoglobin 32.5 Mean Corpuscular Hemoglobin Concent 34.6 Red Cell Distribution Width 13.2 Platelet Count 152 Mean Platelet Volume 11.5 H Neutrophils % 79.4 H Lymphocytes % 15.6 Monocytes % 4.1 Eosinophils % 0.0 Basophils % 0.1 Nucleated Red Blood Cells % 0.0 Neutrophils # 11.9 H Lymphocytes # 2.4 Monocytes # 0.6 Eosinophils # 0.0 Basophils # 0.0 Nucleated Red Blood Cells # 0.0 Potassium Level 3.5 Chloride Level 117 H Carbon Dioxide Level 25 Anion Gap 9 Blood Urea Nitrogen 18 Creatinine 0.99 Glucose Level 97 Lactic Acid Level 1.6 Calcium Level 8.5 Phosphorus Level 2.5 Magnesium Level 1.9 Total Bilirubin 0.2 Direct Bilirubin 0.00 Indirect Bilirubin 0.2 Aspartate Amino Transf (AST/SGOT) 61 H Alanine Aminotransferase (ALT/SGPT) 46 Alkaline Phosphatase 95 Total Protein 6.2 Albumin 3.0 L Globulin 3.20 Albumin/Globulin Ratio 0.93 Blood Gas Specimen Source Blood arterial Arterial Blood Date Drawn 02/02/2017 4:52:40 AM Arterial Blood pH (Temp corrected) 7.460 H Arterial Blood pCO2 (Temp correct) 32.1 L Arterial Blood pO2 (Temp corrected) 60.3 L Arterial Blood HCO3 22.3 Arterial Blood Base Excess -0.7 Arterial Blood Oxygen Saturation 92.7 L Markus Test ACCEPTAB Arterial Blood Gas Puncture Site Right Radial Arterial Blood Carboxyhemoglobin 0.1 Arterial Blood Methemoglobin 0 Blood Gas A-a O2 Differential 115.9 H Oxyhemoglobin Percent 92.6 L Total Hemoglobin 13.6 Blood Gas Temperature 37.0 Blood Gas Respiration Rate 28.0 Blood Gas Actual Respiration Rate 29 Blood Gas Modality VENT - AC FiO2 30.0 Blood Gas Tidal Volume 550.0 Blood Gas Low PEEP Setting 5.0 Blood Gas Notified Whom RTR Blood Gas Notified Time 02/02/2017 5:10:51 AM Medications Current Medications Ondansetron HCl (Zofran Inj) 4 mg Q6H PRN IV NAUSEA AND/OR VOMITING; Start at 19:00 Acetaminophen (Tylenol Tab) 650 mg Q6H PRN PO PAIN LEVEL 1-3 OR FEVER Last administered on 01/31/17 21:31; Admin Dose 650 MG; Start 01/31/17 at 19:00 Acetaminophen/ Hydrocodone Bitart ([place]isco (5/325)) 1 tab Q6H PRN PO MODERATE PAIN LEVEL 4-6; Start 01/31/17 at 19:00 Morphine Sulfate (morphine) 2 mg Q4H PRN IV SEVERE PAIN LEVEL 7-10 Last administered on 02/02/17 00:28; Admin Dose 2 MG; Start 01/31/17 at 19:00 Docusate Sodium (Colace) 100 mg Q12H PRN PO CONSTIPATION; Start 01/31/17 at 19: 00 Magnesium Hydroxide (Milk Of Mag) 30 ml DAILY PRN PO CONSTIPATION; Start at 19:00 Sodium Biphosphate/ Sodium Phosphate (Fleet Enema) 133 ml DAILY PRN [place] CONSTIPATION; Start 01/31/17 at 19:00 Pantoprazole (Protonix Iv) 40 mg DAILY@06 IV Last administered on 02/02/17 05: 24; Admin Dose 40 MG; Start 02/01/17 at 06:00 Heparin Sodium (Porcine) (Heparin (5000 Units/0.5 ml)) 5,000 unit Q12 SC Last administered on 02/02/17 08:57; Admin Dose 5,000 UNIT; Start 01/31/17 at 21:00 Hydralazine HCl (Apresoline) 10 mg Q6H PRN IV ELEVATED BLOOD PRESSURE; Start at 19:00 Nitroglycerin (Nitroglycerin (Sl Tab) 0.4 Mg) 1 tab Q5M PRN SL ANGINA; Start at 19:00 Miscellaneous Information 1 each 1 each DAILY PO ; Start 02/01/17 at 09:00; Status UNV Multivitamins/ Thiamine HCl/ Folic Acid/Sodium Chloride (Mvi Adult/ Vitamin B1/ Folic Acid/NS) 1,011.2 ml @ 125 mls/ hr DAILY@09 IVPB Last administered on 13:58; Admin Dose 125 MLS/HR; Start 01/31/17 at 19:30 Acetaminophen (Tylenol Supp) 650 mg Q4H PRN [place] TEMP > 37C Last administered on 02/02/17 04:31; Admin Dose 650 MG; Start 01/31/17 at 23:00 Acetaminophen (Tylenol Liquid) 650 mg Q4H PRN PO TEMP > 37C; Start 01/31/17 at 23:00 Acetaminophen (Tylenol Supp) 500 mg Q6H [place] Last administered on 02/01/17 22:56 ; Admin Dose 500 MG; Start 02/01/17 at 23:00 Acetaminophen (Tylenol Liquid) 500 mg Q6H PO ; Start 02/01/17 at 23:00 Meperidine HCl (Demerol) 12.5 mg Q4H PRN IV POST OPERATIVE SHIVERING; Start at 23:00 Meperidine HCl (Demerol) 25 mg Q4H PRN IV POST OPERATIVE SHIVERING; Start 01/31 at 23:00 Eye Lubricant (Akwa Oint) 1 applic Q6 BOTH EYES Last administered on 02/02/17 05:28; Admin Dose 1 APPLIC; Start 02/01/17 at 00:00 Eye Lubricant (Artificial Tears Oph) 2 drop Q6 BOTH EYES Last administered on 02/02/17 05:25; Admin Dose 2 DROP; Start 02/01/17 at 00:00 Miscellaneous Information ODEFSEY.. IS NON FORMULARY...PLEASE CONSIDER USING... Q8H XX ; Start 02/01/17 at 09:30 Levetiracetam 100 ml @ 400 mls/hr Q12 IVPB Last administered on 02/02/17 08: 56; Admin Dose 400 MLS/HR; Start 02/01/17 at 14:30 Dextrose/Sodium Chloride (D5-1/2ns) 1,000 ml @ 100 mls/hr Q10H IV Last administered on 02/01/17 23:31; Admin Dose 100 MLS/HR; Start 02/01/17 at 22:00 Assessment/Plan Chief Complaint/Hosp Course Assessment 1. Intentional Ambien overdose. 2. Hypoxemic and hypercapnic respiratory failure With aspiration pneumonia. 3. Cardiopulmonary arrest with possible anoxic brain injury 4. History of HIV per lab work and medications. 5. Possible status epilepticus Plan 1. Continue antibiotic coverage 2. Decrease sedation as tolerated 3. EEG and CT scan of the brain. Continue antiepileptics 4. Continue current vent settings. 5. Consider increasing free water per nasogastric tube. Problems: KERI FRIED MD, [facility] Feb 02, 2017 10:25
--- NOTE | 2017-02-02 10:39 | RADRPT ---
PROCEDURE: CT Brain without contrast. CLINICAL INDICATION: Drug overdose. TECHNIQUE: A multiplanar CT of the brain was performed on a CT scanner utilizing axial imaging fro m the skull base through the vertex without IV contrast. The CTDIvol is 43.05 mGy and the DLP is th e 720.23 mGycm. One or more of the following dose reduction techniques were utilized: Automated ex posure control, adjustment of the mA and/or kV according to patient size, use of iterative reconstru ction technique. COMPARISON: None FINDINGS: No evidence of intracranial hemorrhage or abnormal extra-axial fluid collection. Indistinctness of the franklin white differentiation with effacement of the sulci and gyri concerning fo r drops of brain injury and diffuse cerebral edema. Narrowing of the ventricles. The basal cisterns are patent. No transtentorial or uncal herniation. Partial opacification of the ethmoid air cells and sphenoid sinuses. This may reflects retained secr etions secondary to intubation. The posterior fossa contents, brainstem, craniocervical junction, orbits, pituitary axis, paranasal sinuses, mastoid air cells, and calvarium are unremarkable. IMPRESSION: 1. Indistinctness of franklin white differentiation with effacement of the sulci and gyri as well as na rrowing of the lateral ventricles suspicious for diffuse cerebral edema and anoxic brain injury. MRI may be considered for further evaluation. 2. No intracranial hemorrhage or abnormal extra-axial fluid collection. RPTAT:AAJJ Physician Marcel Date Time Electronically viewed and signed by Physician Marcel on 02/02/2017 10:39 MARINO/
--- NOTE | 2017-02-02 11:28 | PN ---
Date/Time of Note Date/Time of Note DATE: 02/02/17 TIME: 11:23 Assessment/Plan VTE Prophylaxis VTE Prophylaxis Intervention: SCD's Lines/Catheters IV Catheter Type (from Nrsg): Central Line Central line still needed: No Urinary Cath still in place: Yes Reason Cath still needed: other (indicate) (critically ill) Assessment/Plan Assessment/Plan 46 yo M with pmhx HIV on HAART, unknown psychiatric hx admitted with acute toxic encephalopathy 2/2 intentional Ambien OD. Clinical scenario concerning for subclinical status epilepticus as well as anoxic brain injury. PLAN #seizures: EEG pending, neuro on consult, cont keppra #HIV: cont HAART, check VL and CD4 #encephalopathy 2/2 OD: wean sedation as tolerated #bl patchy pulm infiltrates: atelectasis v aspiration pna v pneumonitis: empiric Unasyn PLAN sw to arrange for family meeting, as unclear if knows pt's HIV status await EEG results will likely need goals of care clarification meeting later this week. Pt does not currently meet brain criteria, but there is concern for severe anoxic brain injury. Unclear if this was related to depressive effects of the Ambien v aspiration event critical care time: 45 minutes Subjective 24 Hr Interval Summary Free Text/Dictation Per nursing, difficulty with weaning sedation overnight as patient with occ seizure activity? when sedation was weaned. Exam/Review of Systems Vital Signs Vitals Vital Signs Date Time Temp Pulse Resp B/P Pulse Ox O2 Delivery O2 Flow Rate FiO2 02/02/17 08:45 116 28 113/75 99 02/02/17 08:30 Mechanical Ventilator 02/02/17 08:00 100.3 02/02/17 08:00 40 01/31/17 21:25 15.0 Intake and Output 02/01/17 02/01/17 02/02/17 15:00 23:00 07:00 Intake Total 1364.516 ml 1388.270 ml 1573.4 ml Output Total 334 ml 984 ml 469 ml Balance 1030.516 ml 404.270 ml 1104.4 ml Exam intubated and sedated no mrg abd soft no rashes lora with yellow urine CT head with findings concerning for anoxic brain injury, EEG pending HIV Ab+, VL and CD4 pending Results Result Diagram: 02/02/1739902/02/17399 Results 24 hrs Laboratory Tests Test 02/01/17 12:53 02/01/17 14:06 02/01/17 15:03 02/01/17 16:32 Bedside Glucose 118 131 121 115 Test 02/01/17 17:02 02/01/17 20:59 02/02/17 04:00 02/02/17 05:00 White Blood Count 15.9 H 15.0 H Red Blood Count 4.33 L 4.06 L Hemoglobin 13.6 L 13.2 L Hematocrit 40.5 L 38.2 L Mean Corpuscular Volume 93.5 94.1 Mean Corpuscular Hemoglobin 31.4 32.5 Mean Corpuscular Hemoglobin Concent 33.6 34.6 Red Cell Distribution Width 13.2 13.2 Platelet Count 163 152 Mean Platelet Volume 10.7 H 11.5 H Neutrophils % 88.1 H 79.4 H Lymphocytes % 7.9 L 15.6 Monocytes % 3.3 4.1 Eosinophils % 0.0 0.0 Basophils % 0.1 0.1 Nucleated Red Blood Cells % 0.0 0.0 Neutrophils # 14.0 H 11.9 H Lymphocytes # 1.3 2.4 Monocytes # 0.5 0.6 Eosinophils # 0.0 0.0 Basophils # 0.0 0.0 Nucleated Red Blood Cells # 0.0 0.0 Prothrombin Time 15.5 H Prothrombin Time Ratio 1.2 INR International Normalized Ratio 1.22 Activated Partial Thromboplast Time 37.2 H Sodium Level 148 H 148 H 147 H Potassium Level 3.5 3.5 Chloride Level 119 H 117 H Carbon Dioxide Level 23 25 Anion Gap 10 9 Blood Urea Nitrogen 20 18 Creatinine 0.82 0.99 Glucose Level 118 97 Calcium Level 8.3 L 8.5 Phosphorus Level 2.5 2.5 Magnesium Level 2.0 1.9 Total Bilirubin 0.2 0.2 Direct Bilirubin 0.00 0.00 Indirect Bilirubin 0.2 0.2 Aspartate Amino Transf (AST/SGOT) 43 61 H Alanine Aminotransferase (ALT/SGPT) 47 46 Alkaline Phosphatase 86 95 Total Protein 5.9 L 6.2 Albumin 3.1 L 3.0 L Globulin 2.80 3.20 Albumin/Globulin Ratio 1.10 0.93 Lactic Acid Level 1.6 Blood Gas Specimen Source Blood arterial Arterial Blood Date Drawn 02/02/2017 4:52:40 AM Arterial Blood pH (Temp corrected) 7.460 H Arterial Blood pCO2 (Temp correct) 32.1 L Arterial Blood pO2 (Temp corrected) 60.3 L Arterial Blood HCO3 22.3 Arterial Blood Base Excess -0.7 Arterial Blood Oxygen Saturation 92.7 L Markus Test ACCEPTAB Arterial Blood Gas Puncture Site Right Radial Arterial Blood Carboxyhemoglobin 0.1 Arterial Blood Methemoglobin 0 Blood Gas A-a O2 Differential 115.9 H Oxyhemoglobin Percent 92.6 L Total Hemoglobin 13.6 Blood Gas Temperature 37.0 Blood Gas Respiration Rate 28.0 Blood Gas Actual Respiration Rate 29 Blood Gas Modality VENT - AC FiO2 30.0 Blood Gas Tidal Volume 550.0 Blood Gas Low PEEP Setting 5.0 Blood Gas Notified Whom RTR Blood Gas Notified Time 02/02/2017 5:10:51 AM Medications Medications Current Medications Ondansetron HCl (Zofran Inj) 4 mg Q6H PRN IV NAUSEA AND/OR VOMITING; Start at 19:00 Acetaminophen (Tylenol Tab) 650 mg Q6H PRN PO PAIN LEVEL 1-3 OR FEVER Last administered on 01/31/17 21:31; Admin Dose 650 MG; Start 01/31/17 at 19:00 Acetaminophen/ Hydrocodone Bitart ([place] (5/325)) 1 tab Q6H PRN PO MODERATE PAIN LEVEL 4-6; Start 01/31/17 at 19:00 Morphine Sulfate (morphine) 2 mg Q4H PRN IV SEVERE PAIN LEVEL 7-10 Last administered on 02/02/17 00:28; Admin Dose 2 MG; Start 01/31/17 at 19:00 Docusate Sodium (Colace) 100 mg Q12H PRN PO CONSTIPATION; Start 01/31/17 at 19: 00 Magnesium Hydroxide (Milk Of Mag) 30 ml DAILY PRN PO CONSTIPATION; Start at 19:00 Sodium Biphosphate/ Sodium Phosphate (Fleet Enema) 133 ml DAILY PRN [place] CONSTIPATION; Start 01/31/17 at 19:00 Pantoprazole (Protonix Iv) 40 mg DAILY@06 IV Last administered on 02/02/17 05: 24; Admin Dose 40 MG; Start 02/01/17 at 06:00 Heparin Sodium (Porcine) (Heparin (5000 Units/0.5 ml)) 5,000 unit Q12 SC Last administered on 02/02/17 08:57; Admin Dose 5,000 UNIT; Start 01/31/17 at 21:00 Hydralazine HCl (Apresoline) 10 mg Q6H PRN IV ELEVATED BLOOD PRESSURE; Start at 19:00 Nitroglycerin (Nitroglycerin (Sl Tab) 0.4 Mg) 1 tab Q5M PRN SL ANGINA; Start at 19:00 Miscellaneous Information 1 each 1 each DAILY PO ; Start 02/01/17 at 09:00; Status UNV Multivitamins/ Thiamine HCl/ Folic Acid/Sodium Chloride (Mvi Adult/ Vitamin B1/ Folic Acid/NS) 1,011.2 ml @ 125 mls/ hr DAILY@09 IVPB Last administered on 13:58; Admin Dose 125 MLS/HR; Start 01/31/17 at 19:30 Acetaminophen (Tylenol Supp) 650 mg Q4H PRN [place] TEMP > 37C Last administered on 02/02/17 04:31; Admin Dose 650 MG; Start 01/31/17 at 23:00 Acetaminophen (Tylenol Liquid) 650 mg Q4H PRN PO TEMP > 37C; Start 01/31/17 at 23:00 Acetaminophen (Tylenol Supp) 500 mg Q6H NE Last administered on 02/01/17 22:56 ; Admin Dose 500 MG; Start 02/01/17 at 23:00 Acetaminophen (Tylenol Liquid) 500 mg Q6H PO ; Start 02/01/17 at 23:00 Meperidine HCl (Demerol) 12.5 mg Q4H PRN IV POST OPERATIVE SHIVERING; Start at 23:00 Meperidine HCl (Demerol) 25 mg Q4H PRN IV POST OPERATIVE SHIVERING; Start 01/31 at 23:00 Eye Lubricant (Akwa Oint) 1 applic Q6 BOTH EYES Last administered on 02/02/17 05:28; Admin Dose 1 APPLIC; Start 02/01/17 at 00:00 Eye Lubricant (Artificial Tears Oph) 2 drop Q6 BOTH EYES Last administered on 02/02/17 05:25; Admin Dose 2 DROP; Start 02/01/17 at 00:00 Miscellaneous Information ODEFSEY.. IS NON FORMULARY...PLEASE CONSIDER USING... Q8H XX ; Start 02/01/17 at 09:30 Levetiracetam 100 ml @ 400 mls/hr Q12 IVPB Last administered on 02/02/17 08: 56; Admin Dose 400 MLS/HR; Start 02/01/17 at 14:30 Dextrose/Sodium Chloride (D5-1/2ns) 1,000 ml @ 100 mls/hr Q10H IV Last administered on 02/01/17 23:31; Admin Dose 100 MLS/HR; Start 02/01/17 at 22:00 LORRAINE RIGGS MD Feb 02, 2017 11:28
[2017-02-02] MEDS: MULTIVITAMINS 10 ML, THIAMINE 100 MG, FOLIC ACID 1 MG in SOD CHLORIDE 0.9% 1,000 ML IVPB SCH (12:51)
[2017-02-02] MEDS: AMPICILLIN/SULB 1.5GM/NS (PMX) 50 ML IVPB SCH ×2 (14:38→18:19)
[2017-02-02] MEDS: DEXTROSE 5%-0.45% NACL 1,000 ML IV SCH ×2 (18:00→22:52)
[2017-02-02] MEDS: RANITIDINE 150 MG TAB PO SCH (21:12)
--- NOTE | 2017-02-02 22:35 | RADRPT ---
Echocardiogram Report Patient Name: ALEX BERGER Gender: Male Date: 1970 Study Date: 01-Feb-2017 Cafe Cook: OLIVIA Location: E Ref. Physician: AKUA QUIÑONES Quality: Technically Difficult Study Procedures: Transthoracic echocardiogram examination. Indications: S/P arrest. 2D/M Mode Doppler Measurement Value Normal Range Measurement Value Normal Range AV Peak Sunny 1.3 m/sec AV Peak PG 6.5 mmHg LVOT Peak Sunny 0.7 m/sec Findings Left Ventricle: Normal left ventricular cavity size. Grossly normal left ventricular systolic function. Not all segments visualized. Normal left ventricular wall thickness. The left ventricular ejection fraction is visually estimated at 65 %. Right Ventricle: Normal right ventricular size. Left Atrium: The left atrium is normal in size and appearance. Right Atrium: The right atrium is normal in size and appearance. Mitral Valve: Normal appearance of the mitral valve leaflets. No mitral valve regurgitation is seen. Aortic Valve: Normal appearance and function of the aortic valve. No hemodynamically significant aortic stenosis by Doppler. No aortic regurgitation. Tricuspid Valve: Normal appearance of the tricuspid valve. No evidence of tricuspid regurgitation. Pulmonic Valve: Normal pulmonic valve appearance and function with trivial (physiologic) regurgitation. Pericardium: Normal pericardium with no significant pericardial effusion. Aorta: Normal aortic root proximal only and from subcostal images only. IVC: Normal inferior vena cava appearance. Pulmonary Artery: Normal pulmonary artery size. Conclusions Technically difficult study with suboptimal imaging. Normal left ventricular cavity size. Grossly normal left ventricular systolic function. Not all segments visualized. Normal left ventricular wall thickness. The left ventricular ejection fraction is visually estimated at 65 %. Normal right ventricular size. The left atrium is normal in size and appearance. The right atrium is normal in size and appearance. No significant valvular stenosis or regurgitation seen. Normal pericardium with no significant pericardial effusion. Electronically Signed By: Lexx Boyer 02-Feb-2017 22:34:22 -0700 Patient Name: ALEX BERGER Study Date: 01-Feb-[id number]
[2017-02-03] VITALS (58 sets, daily range): BP systolic 114–177; BP diastolic 72–100; PULSE 97–127; RESP 25–43
[2017-02-03] MEDS: [UNRECOGNIZED DRUG - REMARK] XX SCH ×3 (01:30→17:30)
[2017-02-03] MEDS: AMPICILLIN/SULB 1.5GM/NS (PMX) 50 ML IVPB SCH ×4 (01:32→18:46)
[2017-02-03] MEDS: MIDAZOLAM (DRIP) 50 mg/50 mL 50 ML IV SCH ×3 (01:32→22:18)
[2017-02-03] MEDS: ARTIFICIAL TEARS 15 ML OPH BOTH EYES SCH ×4 (01:33→18:46)
[2017-02-03] MEDS: OCULAR LUBRICANT 3.5 GM OPH OINT BOTH EYES SCH ×4 (01:33→18:46)
--- NOTE | 2017-02-03 01:50 | RADRPT ---
PROCEDURE: MR Brain with and without contrast. CLINICAL INDICATION: I am not sick evident. Altered level of consciousness TECHNIQUE: MRI brain was performed on a high field MRI system. Sequences included sagittal T1, ax ial T1, FLAIR, T2, GRE and diffusion weighted. After the administration of 10 cc Magnavist IV cont rast material, axial and coronal T1-weighted images with fat saturation were performed. COMPARISON: CT brain of 02/02/2017 . FINDINGS: There is diffuse cortical edema and abnormal signal on diffusion weighted images throughout the cere bral hemispheres on diffusion weighted images, consistent with diffuse infarcts. There is effacement of sulci. There is no midline shift. Basilar cisterns are intact. There is no intracranial hemorrh age. There is limited evaluation of the major intracranial arteries due to motion. There is no abno rmal parenchymal or leptomeningeal enhancement after IV contrast. There is no abnormal extra-axial fluid collection. There is normal signal intensity in the major dural venous sinuses. There is dif fuse paranasal sinus opacification with air-fluid levels in the bilateral maxillary sinuses and sphe noid sinus. There is fluid in the bilateral mastoid air cells. Foramen magnum is unremarkable. IMPRESSION: 1. Diffuse edema of the cerebral hemispheres with effacement sulci and abnormal signal intensity on diffusion weighted images, consistent with acute non-hemorrhagic cortical infarcts from an anoxic e vent. 2. No midline shift. Basilar cisterns appear intact. 3. Limited evaluation of the major intracranial arteries is limited by motion. Correlation with an MR or CT angiogram may be helpful when clinically appropriate. Findings reported to ICU nurseAlex on 02/03/2017 1:43:31 AM. RPTAT: HMVK .Lexx Marks MD, MD Date Time Electronically viewed and signed by .Lexx Marks MD, MD on 02/03/2017 01:49 .K/
[2017-02-03] MEDS: DEXTROSE 5%-0.45% NACL 1,000 ML IV SCH ×2 (04:00→20:54)
[2017-02-03 05:35] LABS: BASOPHILS % 0.2 % (0.0-2.0); HEMOGLOBIN 11.3 g/dl (14.0-18.0); LYMPHOCYTES # 2.3 10^3/ul (0.8-2.9); LYMPHOCYTES % 19.2 % (15.0-51.0); MEAN CORPUSCULAR HEMOGLOBIN 31.5 pg (29.0-33.0); MEAN CORPUSCULAR HGB CONC 32.3 g/dl (32.0-37.0); MEAN CORPUSCULAR VOLUME 97.5 fl (82.0-101.0); MONOCYTE # 0.7 10^3/ul (0.3-0.9); MONOCYTES % 5.8 % (0.0-11.0); NEUTROPHIL # 8.7 10^3/ul (1.6-7.5); NEUTROPHILS % 73.8 % (39.0-77.0); PLATELET COUNT 134 10^3/UL (140-415); RED BLOOD COUNT 3.59 10^6/ul (4.70-6.10); RED CELL DISTRIBUTION WIDTH 13.7 % (11.5-14.5); WHITE BLOOD COUNT 11.8 10^3/ul (4.8-10.8)
--- NOTE | 2017-02-03 05:56 | NEURPT ---
DATE: 02/02/2017 ELECTROENCEPHALOGRAM HISTORY: The patient is 46 years old with underlying decreased mini-mental status, drug overdose. PROCEDURE: EEG done using 10-20 international electrode system with photic stimulation. Bilateral cerebral hemispheres show delta and theta waves, medium sized, low amplitude, symmetric bilateral. Some electromyogram artifact recorded. Movement artifact recorded. IMPRESSION: This is abnormal electroencephalogram due to generalized slowing consistent with a history of underlying encephalopathy. No epileptiform discharge or seizure activity is recorded. Follow-up EEG may be needed if clinically indicated. Dictated By: Eder Aguilar MD /gisselle/cooper /Document#: [id number]
[2017-02-03 05:57] LABS: CALCIUM 8.2 mg/dl (8.4-10.2); CREATININE 0.97 mg/dl (0.61-1.24); POTASSIUM 3.4 mmol/L (3.5-5.1)
[2017-02-03] MEDS: ACETAMINOPHEN 650MG/20.3ML CUP PO SCH (06:06)
[2017-02-03] MEDS: ACETAMINOPHEN 650 MG SUPP PR SCH (06:07)
--- NOTE | 2017-02-03 06:47 | CONS ---
DATE OF ADMISSION: 01/31/2017 DATE OF CONSULTATION: 02/02/2017 HISTORY OF PRESENT ILLNESS: The patient is 46 years old, who was admitted to the hospital after he ingested 2 bottles of Ambien. Per his daughter's history, the patient had a cardiopulmonary arrest, intubation, admitted to [facility]. The patient per his daughter's story, he was scared because the court appointment in which he has a possible departure, so the patient took 2 bottles of Ambien. His thought initially he was joking with her until she found him unresponsive in which the patient's family called the ambulance, intubated him, brought him to [facility]. MEDICATION: The patient's home medication is in the form of Ambien 10 mg once a day. PHYSICAL EXAMINATION: NEUROLOGIC: The patient does not follow any commands. CRANIAL NERVES: Cranial nerve II: Pupils equal on both sides, reactive to light. Cranial nerves II, IV and : Extraocular muscles intact. Cranial nerve V: Equal sensation to face. Cranial nerve VII: Symmetrical face. Cranial nerve VIII: Decreased hearing bilaterally. Cranial nerves IX and X: Elevates palate. Cranial nerve XI: Elevates shoulder 5/5. Motor exam: Slight movement for painful stimuli. Sensation, coordination and gait: Could not assess. HEART: Regular rate and rhythm. LUNGS: Equal breath sounds. ABDOMEN: Soft, nondistended, nontender. IMPRESSION AND PLAN: 1. The patient is 46 years old, status post cardiopulmonary arrest, status post intubation. 2. Underlying anoxic brain injury with swelling of his brain per the CT scan results. 3. Status post Ambien overdose with anoxic brain injury. 4. No seizure activity is noticed. 5. Keep the patient on deep venous thrombosis prophylaxis as well as decubitus ulcer prophylaxis. Dictated By: Eder Aguilar MD /gisselle/talib /Document#: [id number]
[2017-02-03 07:38] LABS: AADO2 Arterial 164.1 mmHg (7.0-24.0); Allen Test ACCEPTAB; Arterial Base Excess 0.3 mmol/L (-3.0-3); Arterial COHb 0.3 % (0.0-3.0); Arterial Fraction of Oxyhgb 95.8 % (93.0-99.0); Arterial HCO3 23.4 mmol/L (22.0-26.0); Arterial MetHb 0.1 % (0.0-1.5); Arterial Total Hemglobin 12.5 g/dl (12.0-18.0); MODE VENT - AC
[2017-02-03] MEDS: POTASSIUM CHLORIDE 250 ML IVPB SCH ×2 (08:32→14:15)
[2017-02-03] MEDS: LEVETIRACETAM 1500 MG (PMX) 100 ML IVPB SCH ×2 (09:37→20:54)
[2017-02-03] MEDS: HEPARIN 5,000 UNIT/0.5 ML VIAL SC SCH ×2 (09:37→20:57)
--- NOTE | 2017-02-03 09:42 | RADRPT ---
PROCEDURE: XR Chest. CLINICAL INDICATION: Pneumonia, CHF TECHNIQUE: AP Portable chest. COMPARISON: 02/02/2017 FINDINGS: Endotracheal tube, nasogastric tube and left central line are unchanged. The cardiomediastinal silhouette is normal. No pleural effusion pneumothorax is seen. There is artif act over the lung apices. Right basilar opacity is unchanged. Right clavicular ORIF again noted. IMPRESSION: ET tube, NG tube and left central line remain in place. Unchanged right basilar infiltrate or atelectasis Physician Girish Date Time Electronically viewed and signed by Physician Girish on 02/03/2017 09:42 CS/
[2017-02-03 10:03] LABS: LYMPHOCYTE - % CD4 (HELPER) 30 % (30-61); LYMPHOCYTE - %CD8 (SUPPRESSOR) 47 % (12-42); LYMPHOCYTE - ABSOLUTE CD4 479 cells/uL (490-1740); LYMPHOCYTE - ABSOLUTE CD8 749 cells/uL (180-1170); LYMPHOCYTE - CD4/CD8 RATIO 0.64 (0.86-5.00)
--- NOTE | 2017-02-03 11:18 | CONS ---
Date/Time of Note Date/Time of Note DATE: 02/03/17 TIME: 11:15 Consult Date/Type/Reason Admit Date/Time Jan 31, 2017 at 17:12 Type of Consultation: Pulm/CCM Subjective No significant events overnight. Off sedation is somnolent. Not responding to painful stimuli. Pupils are minimally reactive. Objective Vital Signs Date Time Temp Pulse Resp B/P Pulse Ox O2 Delivery O2 Flow Rate FiO2 02/03/17 08:00 100 02/03/17 06:30 28 122/80 97 02/03/17 06:00 Mechanical Ventilator 02/03/17 05:13 40 02/03/17 04:00 101.0 01/31/17 21:25 15.0 Intake and Output 02/02/17 02/02/17 02/03/17 15:00 23:00 07:00 Intake Total 884.924 ml 1312.862 ml 808 ml Output Total 257 ml 422 ml 710 ml Balance 627.924 ml 890.862 ml 98 ml Exam PHYSICAL EXAMINATION GENERAL: A well-nourished well-developed gentleman intubated on mechanical ventilation VITAL SIGNS: see below. HEENT: Pupils equal, round, and reactive to light. CARDIAC: S1, S2, 1/6 systolic ejection murmur CHEST: Diminished air entry bilaterally. ABDOMEN: Mildly distended. Bowel sounds present no guarding or rebound EXTREMITIES: No cyanosis, clubbing edema +1 NEUROLOGIC: Unable to assess. Results/Medications Result Diagram: 02/03/17 0425 02/03/17 0425 Results 24 hrs Laboratory Tests Test 02/02/17 11:40 02/03/17 04:25 02/03/17 07:00 Absolute Lymphocytes Flow Cytometry 1584 Percent CD4 [place] Cells 30 Absolute CD4 Count 479 L T-Lymphocyte CD4/CD8 Ratio 0.64 L Percent CD8+ Lymphocyte 47 H Absolute CD8 Count 749 HIV-1 RNA, Quant logcopies/mL Pending HIV-1 RNA (PCR) copies/ml Pending White Blood Count 11.8 #H Red Blood Count 3.59 L Hemoglobin 11.3 L Hematocrit 35.0 L Mean Corpuscular Volume 97.5 Mean Corpuscular Hemoglobin 31.5 Mean Corpuscular Hemoglobin Concent 32.3 Red Cell Distribution Width 13.7 Platelet Count 134 L Mean Platelet Volume 12.0 H Neutrophils % 73.8 Lymphocytes % 19.2 Monocytes % 5.8 Eosinophils % 0.0 Basophils % 0.2 Nucleated Red Blood Cells % 0.0 Neutrophils # 8.7 H Lymphocytes # 2.3 Monocytes # 0.7 Eosinophils # 0.0 Basophils # 0.0 Nucleated Red Blood Cells # 0.0 Sodium Level 148 H Potassium Level 3.4 L Chloride Level 117 H Carbon Dioxide Level 25 Anion Gap 9 Blood Urea Nitrogen 16 Creatinine 0.97 Glucose Level 113 Calcium Level 8.2 L Blood Gas Specimen Source Blood arterial Arterial Blood Date Drawn 02/03/2017 7:25:59 AM Arterial Blood pH (Temp corrected) 7.473 H Arterial Blood pCO2 (Temp correct) 32.6 L Arterial Blood pO2 (Temp corrected) 83.6 Arterial Blood HCO3 23.4 Arterial Blood Base Excess 0.3 Arterial Blood Oxygen Saturation 96.2 Markus Test ACCEPTAB Arterial Blood Gas Puncture Site Right Radial Arterial Blood Carboxyhemoglobin 0.3 Arterial Blood Methemoglobin 0.1 Blood Gas A-a O2 Differential 164.1 H Oxyhemoglobin Percent 95.8 Total Hemoglobin 12.5 Blood Gas Temperature 37.0 Blood Gas Respiration Rate 20.0 Blood Gas Actual Respiration Rate 30 Blood Gas Modality VENT - AC FiO2 40.0 Blood Gas Tidal Volume 550.0 Blood Gas Low PEEP Setting 5.0 Blood Gas Notified Whom RDIX Blood Gas Notified Time 02/03/2017 7:37:50 AM Medications Current Medications Ondansetron HCl (Zofran Inj) 4 mg Q6H PRN IV NAUSEA AND/OR VOMITING; Start at 19:00 Acetaminophen (Tylenol Tab) 650 mg Q6H PRN PO PAIN LEVEL 1-3 OR FEVER Last administered on 01/31/17 21:31; Admin Dose 650 MG; Start 01/31/17 at 19:00 Acetaminophen/ Hydrocodone Bitart ([place] (5/325)) 1 tab Q6H PRN PO MODERATE PAIN LEVEL 4-6; Start 01/31/17 at 19:00 Morphine Sulfate (morphine) 2 mg Q4H PRN IV SEVERE PAIN LEVEL 7-10 Last administered on 02/02/17 00:28; Admin Dose 2 MG; Start 01/31/17 at 19:00 Docusate Sodium (Colace) 100 mg Q12H PRN PO CONSTIPATION; Start 01/31/17 at 19: 00 Magnesium Hydroxide (Milk Of Mag) 30 ml DAILY PRN PO CONSTIPATION; Start at 19:00 Sodium Biphosphate/ Sodium Phosphate (Fleet Enema) 133 ml DAILY PRN [place] CONSTIPATION; Start 01/31/17 at 19:00 Heparin Sodium (Porcine) (Heparin (5000 Units/0.5 ml)) 5,000 unit Q12 SC Last administered on 02/03/17 09:37; Admin Dose 5,000 UNIT; Start 01/31/17 at 21:00 Hydralazine HCl (Apresoline) 10 mg Q6H PRN IV ELEVATED BLOOD PRESSURE; Start at 19:00 Nitroglycerin (Nitroglycerin (Sl Tab) 0.4 Mg) 1 tab Q5M PRN SL ANGINA; Start at 19:00 Miscellaneous Information 1 each 1 each DAILY PO ; Start 02/01/17 at 09:00; Status UNV Multivitamins/ Thiamine HCl/ Folic Acid/Sodium Chloride (Mvi Adult/ Vitamin B1/ Folic Acid/NS) 1,011.2 ml @ 125 mls/ hr DAILY@09 IVPB Last administered on 12:51; Admin Dose 125 MLS/HR; Start 01/31/17 at 19:30 Acetaminophen (Tylenol Supp) 650 mg Q4H PRN [place] TEMP > 37C Last administered on 02/02/17 04:31; Admin Dose 650 MG; Start 01/31/17 at 23:00 Acetaminophen (Tylenol Liquid) 650 mg Q4H PRN PO TEMP > 37C; Start 01/31/17 at 23:00 Acetaminophen (Tylenol Supp) 500 mg Q6H [place] Last administered on 02/03/17 06:07 ; Admin Dose 500 MG; Start 02/01/17 at 23:00 Acetaminophen (Tylenol Liquid) 500 mg Q6H PO Last administered on 02/03/17 06: 06; Admin Dose 500 MG; Start 02/01/17 at 23:00 Meperidine HCl (Demerol) 12.5 mg Q4H PRN IV POST OPERATIVE SHIVERING; Start at 23:00 Meperidine HCl (Demerol) 25 mg Q4H PRN IV POST OPERATIVE SHIVERING; Start 01/31 at 23:00 Eye Lubricant (Akwa Oint) 1 applic Q6 BOTH EYES Last administered on 02/03/17 06:06; Admin Dose 1 APPLIC; Start 02/01/17 at 00:00 Eye Lubricant (Artificial Tears Oph) 2 drop Q6 BOTH EYES Last administered on 02/03/17 06:06; Admin Dose 2 DROP; Start 02/01/17 at 00:00 Miscellaneous Information ODEFSEY.. IS NON FORMULARY...PLEASE CONSIDER USING... Q8H XX Last administered on 02/02/17 17:30; Admin Dose 1 EA; Start 02/01/17 at 09:30 Levetiracetam 100 ml @ 400 mls/hr Q12 IVPB Last administered on 02/03/17 09: 37; Admin Dose 400 MLS/HR; Start 02/01/17 at 14:30 Dextrose/Sodium Chloride (D5-1/2ns) 1,000 ml @ 100 mls/hr Q10H IV Last administered on 02/02/17 22:52; Admin Dose 100 MLS/HR; Start 02/01/17 at 22:00 Ranitidine HCl 150 mg 150 mg HS PO Last administered on 02/02/17 21:12; Admin Dose 150 MG; Start 02/02/17 at 21:00 Ampicillin Sodium/ Sulbactam Sodium 50 ml @ 100 mls/hr Q6 IVPB Last administered on 02/03/17 06:06; Admin Dose 100 MLS/HR; Start 02/02/17 at 13:00 Potassium Chloride (KCl 40 MEQ/250 ML NS) 250 ml @ 62.5 mls/hr Q4H IVPB Last administered on 02/03/17 08:32; Admin Dose 62.5 MLS/HR; Start 02/03/17 at 07:00 ; Stop 02/03/17 at 14:59 Assessment/Plan Chief Complaint/Hosp Course Assessment 1. Intentional Ambien overdose. 2. Hypoxemic and hypercapnic respiratory failure With aspiration pneumonia. Right lower lobe infiltrate. 3. Cardiopulmonary arrest with anoxic brain injury. Consistent with EEG and MRI findings. 4. History of HIV per lab work and medications. Plan 1. Continue antibiotic coverage 2. Hold sedation. 3. Neuro recommendations. Prognosis very poor. 4. Continue current vent settings. 5. Consider increasing free water per nasogastric tube. Family conference to discuss findings and goals of care. Problems: KERI FRIED MD, [facility] Feb 03, 2017 11:18
[2017-02-03] MEDS: MULTIVITAMINS 10 ML, THIAMINE 100 MG, FOLIC ACID 1 MG in SOD CHLORIDE 0.9% 1,000 ML IVPB SCH (11:53)
[2017-02-03] MEDS: hydrALAzine 20 MG INJ IV PRN (14:29)
--- NOTE | 2017-02-03 15:31 | PN ---
Date/Time of Note Date/Time of Note DATE: 02/03/17 TIME: 15:27 Assessment/Plan VTE Prophylaxis VTE Prophylaxis Intervention: SCD's Lines/Catheters IV Catheter Type (from Nrsg): Peripheral IV Urinary Cath still in place: Yes Reason Cath still needed: other (indicate) (critically ill) Assessment/Plan Assessment/Plan 46 yo M with pmhx HIV on HAART, unknown psychiatric hx admitted with acute toxic encephalopathy 2/2 intentional Ambien OD. Clinical scenario given imaging studies, EEG, lack of improvement off sedation consistent with severe anoxic brain injury PLAN #anoxic brain injury: neuro on consult, cont keppra. #HIV: cont HAART, CD4 ~500, VL in process #fevers: likely central in origin. Given no hypotension no compelling indication to expand abx coverage at this time #goals of care: spoke with pt's for ~20 minutes this afternoon. Reviewed neurology findings, EEG and notes. Discussed options of comfort focused care v PEG/trach/LTAC. states she is "hoping for a miracle." Thus GI/surgery consults were placed and CM notified PLAN CM to arrange LTAC. PEG/trach consults requested critical care time: 30 minutes Subjective 24 Hr Interval Summary Free Text/Dictation Pt with central fevers. Talked to pt's . She states she has known about pt' s HIV status for several years. Pt has been on HAART for several years and most recent VL was undetectable Exam/Review of Systems Vital Signs Vitals Vital Signs Date Time Temp Pulse Resp B/P Pulse Ox O2 Delivery O2 Flow Rate FiO2 02/03/17 12:00 123 02/03/17 11:30 29 166/93 92 02/03/17 11:00 Mechanical Ventilator 02/03/17 10:55 40 02/03/17 08:00 101.1 01/31/17 21:25 15.0 Intake and Output 02/02/17 02/02/17 02/03/17 15:00 23:00 07:00 Intake Total 884.924 ml 1312.862 ml 808 ml Output Total 257 ml 422 ml 710 ml Balance 627.924 ml 890.862 ml 98 ml Exam intubated, no responsive to voice off of sedation pupils constrict to light no mrg lungs clear abd soft no rashes no edema does not respond to verbal or painful stimuli neuroimaging and EEG results reviewed cultures reviewed Results Result Diagram: 02/03/17 0425 02/03/17 0425 Results 24 hrs Laboratory Tests Test 02/03/17 04:25 02/03/17 07:00 White Blood Count 11.8 #H Red Blood Count 3.59 L Hemoglobin 11.3 L Hematocrit 35.0 L Mean Corpuscular Volume 97.5 Mean Corpuscular Hemoglobin 31.5 Mean Corpuscular Hemoglobin Concent 32.3 Red Cell Distribution Width 13.7 Platelet Count 134 L Mean Platelet Volume 12.0 H Neutrophils % 73.8 Lymphocytes % 19.2 Monocytes % 5.8 Eosinophils % 0.0 Basophils % 0.2 Nucleated Red Blood Cells % 0.0 Neutrophils # 8.7 H Lymphocytes # 2.3 Monocytes # 0.7 Eosinophils # 0.0 Basophils # 0.0 Nucleated Red Blood Cells # 0.0 Sodium Level 148 H Potassium Level 3.4 L Chloride Level 117 H Carbon Dioxide Level 25 Anion Gap 9 Blood Urea Nitrogen 16 Creatinine 0.97 Glucose Level 113 Calcium Level 8.2 L Blood Gas Specimen Source Blood arterial Arterial Blood Date Drawn 02/03/2017 7:25:59 AM Arterial Blood pH (Temp corrected) 7.473 H Arterial Blood pCO2 (Temp correct) 32.6 L Arterial Blood pO2 (Temp corrected) 83.6 Arterial Blood HCO3 23.4 Arterial Blood Base Excess 0.3 Arterial Blood Oxygen Saturation 96.2 Markus Test ACCEPTAB Arterial Blood Gas Puncture Site Right Radial Arterial Blood Carboxyhemoglobin 0.3 Arterial Blood Methemoglobin 0.1 Blood Gas A-a O2 Differential 164.1 H Oxyhemoglobin Percent 95.8 Total Hemoglobin 12.5 Blood Gas Temperature 37.0 Blood Gas Respiration Rate 20.0 Blood Gas Actual Respiration Rate 30 Blood Gas Modality VENT - AC FiO2 40.0 Blood Gas Tidal Volume 550.0 Blood Gas Low PEEP Setting 5.0 Blood Gas Notified Whom RDIX Blood Gas Notified Time 02/03/2017 7:37:50 AM Medications Medications Current Medications Ondansetron HCl (Zofran Inj) 4 mg Q6H PRN IV NAUSEA AND/OR VOMITING; Start at 19:00 Acetaminophen (Tylenol Tab) 650 mg Q6H PRN PO PAIN LEVEL 1-3 OR FEVER Last administered on 01/31/17t 21:31; Admin Dose 650 MG; Start 01/31/17 at 19:00 Acetaminophen/ Hydrocodone Bitart ([place] (5/325)) 1 tab Q6H PRN PO MODERATE PAIN LEVEL 4-6; Start 01/31/17 at 19:00 Morphine Sulfate (morphine) 2 mg Q4H PRN IV SEVERE PAIN LEVEL 7-10 Last administered on 02/02/17 00:28; Admin Dose 2 MG; Start 01/31/17 at 19:00 Docusate Sodium (Colace) 100 mg Q12H PRN PO CONSTIPATION; Start 01/31/17 at 19: 00 Magnesium Hydroxide (Milk Of Mag) 30 ml DAILY PRN PO CONSTIPATION; Start at 19:00 Sodium Biphosphate/ Sodium Phosphate (Fleet Enema) 133 ml DAILY PRN [place] CONSTIPATION; Start 01/31/17 at 19:00 Heparin Sodium (Porcine) (Heparin (5000 Units/0.5 ml)) 5,000 unit Q12 SC Last administered on 02/03/17 09:37; Admin Dose 5,000 UNIT; Start 01/31/17 at 21:00 Hydralazine HCl (Apresoline) 10 mg Q6H PRN IV ELEVATED BLOOD PRESSURE Last administered on 02/03/17 14:29; Admin Dose 10 MG; Start 01/31/17 at 19:00 Nitroglycerin (Nitroglycerin (Sl Tab) 0.4 Mg) 1 tab Q5M PRN SL ANGINA; Start at 19:00 Miscellaneous Information 1 each 1 each DAILY PO ; Start 02/01/17 at 09:00; Status UNV Multivitamins/ Thiamine HCl/ Folic Acid/Sodium Chloride (Mvi Adult/ Vitamin B1/ Folic Acid/NS) 1,011.2 ml @ 125 mls/ hr DAILY@09 IVPB Last administered on 11:53; Admin Dose 125 MLS/HR; Start 01/31/17 at 19:30 Acetaminophen (Tylenol Supp) 650 mg Q4H PRN [place] TEMP > 37C Last administered on 02/02/17 04:31; Admin Dose 650 MG; Start 01/31/17 at 23:00 Acetaminophen (Tylenol Liquid) 650 mg Q4H PRN PO TEMP > 37C; Start 01/31/17 at 23:00 Meperidine HCl (Demerol) 12.5 mg Q4H PRN IV POST OPERATIVE SHIVERING; Start at 23:00 Meperidine HCl (Demerol) 25 mg Q4H PRN IV POST OPERATIVE SHIVERING; Start 01/31 at 23:00 Eye Lubricant (Akwa Oint) 1 applic Q6 BOTH EYES Last administered on 02/03/17 14:19; Admin Dose 1 APPLIC; Start 02/01/17 at 00:00 Eye Lubricant (Artificial Tears Oph) 2 drop Q6 BOTH EYES Last administered on 02/03/17 14:19; Admin Dose 2 DROP; Start 02/01/17 at 00:00 Miscellaneous Information ODEFSEY.. IS NON FORMULARY...PLEASE CONSIDER USING... Q8H XX Last administered on 02/02/17 17:30; Admin Dose 1 EA; Start 02/01/17 at 09:30 Levetiracetam 100 ml @ 400 mls/hr Q12 IVPB Last administered on 02/03/17 09: 37; Admin Dose 400 MLS/HR; Start 02/01/17 at 14:30 Dextrose/Sodium Chloride (D5-1/2ns) 1,000 ml @ 100 mls/hr Q10H IV Last administered on 02/02/17 22:52; Admin Dose 100 MLS/HR; Start 02/01/17 at 22:00 Ranitidine HCl 150 mg 150 mg HS PO Last administered on 02/02/17 21:12; Admin Dose 150 MG; Start 02/02/17 at 21:00 Ampicillin Sodium/ Sulbactam Sodium (Unasyn 1.5gm/NS (Pmx)) 50 ml @ 100 mls/hr Q6 IVPB Last administered on 02/03/17 12:00; Admin Dose 100 MLS/HR; Start 02/02/17 at 13:00 LORRAINE RIGGS MD Feb 03, 2017 15:31
[2017-02-03] MEDS: PROPOFOL 100 ML IV SCH (17:25)
--- NOTE | 2017-02-03 18:41 | CONS ---
Date/Time of Note Date/Time of Note DATE: 02/03/17 TIME: 18:34 Assessment/Plan Assessment/Plan Additional Assessment/Plan Assessment: Anoxic encephalopathy Post suicidal overdose History of HIV infection History of depression Plan: Continue present regimen EGD PEG once family ready and agreeable likely in conjunction with trach placement Consultation Date/Type/Reason Admit Date/Time Jan 31, 2017 at 17:12 Date of Consultation: Feb 03, 2017 Type of Consultation: GI Reason for Consultation * Enteral feeding support requirements Hx of Present Illness 46-year-old male who purposely and take a bottle of Ambien became lethargic anoxic and suffered cardiac arrest. The patient was brought to the hospital has remained unresponsive with evidence of anoxic encephalopathy. I will request to assist and consider gastrostomy tube placement. The situation was reviewed with the patient's family who requested more time to define course of action. Patient present time has orogastric tube. Currently he is not receiving feedings. No additional GI problems appeared to be breast Not obtainable Past Medical History Depression HIV infection Past Surgical History Past Surgical Hx: no surgical history Family History Significant Family History: no pertinent family hx Social History Alcohol Use: occasionally Smoking Status: Current every day smoker Drug Use: other (Unclear) Exam/Review of Systems Vital Signs Vitals Vital Signs Date Time Temp Pulse Resp B/P Pulse Ox O2 Delivery O2 Flow Rate FiO2 02/03/17 17:00 129 39 97 40 02/03/17 16:00 128/83 Mechanical Ventilator 02/03/17 12:00 103.6 01/31/17 21:25 15.0 Intake and Output 02/02/17 02/02/17 02/03/17 15:00 23:00 07:00 Intake Total 884.924 ml 1312.862 ml 808 ml Output Total 257 ml 422 ml 710 ml Balance 627.924 ml 890.862 ml 98 ml Exam PHYSICAL EXAMINATION: GENERAL: Well developed, well nourished, obese, unresponsive intubated SKIN: No lesions, no stigmata chronic liver disease, no evidence of bleeding diathesis LYMPHATIC: No palpable lymphadenopathy. HEAD: Normocephalic, atraumatic, no tenderness. NECK: Supple, no masses, thyroid normal, JVP within normal limits, carotids normal without bruits. CHEST: Inspection within normal limits, breasts grossly normal. CARDIOVASCULAR: Heart: Regular rate and rhythm, no murmurs, gallops or rubs. Peripheral pulses present within normal limits, no cyanosis, clubbing or edemas. No pulsatile abdominal mass RESPIRATORY: Lungs clear to auscultation and percussion, no wheezing, no rubs GASTROINTESTINAL AND LIVER: Abdomen: Soft, non tenderness, non-distended, no hernias, no masses, no organomegaly, no ascites, no guarding, no rebound tenderness, normoactive bowel sounds. Rectal: Deferred. GENITOURINARY: [Male genitalia within normal limits.] Results Result Diagram: 02/03/175 02/03/175 Results 24 hrs Laboratory Tests Test 02/03/17 04:25 02/03/17 07:00 White Blood Count 11.8 #H Red Blood Count 3.59 L Hemoglobin 11.3 L Hematocrit 35.0 L Mean Corpuscular Volume 97.5 Mean Corpuscular Hemoglobin 31.5 Mean Corpuscular Hemoglobin Concent 32.3 Red Cell Distribution Width 13.7 Platelet Count 134 L Mean Platelet Volume 12.0 H Neutrophils % 73.8 Lymphocytes % 19.2 Monocytes % 5.8 Eosinophils % 0.0 Basophils % 0.2 Nucleated Red Blood Cells % 0.0 Neutrophils # 8.7 H Lymphocytes # 2.3 Monocytes # 0.7 Eosinophils # 0.0 Basophils # 0.0 Nucleated Red Blood Cells # 0.0 Sodium Level 148 H Potassium Level 3.4 L Chloride Level 117 H Carbon Dioxide Level 25 Anion Gap 9 Blood Urea Nitrogen 16 Creatinine 0.97 Glucose Level 113 Calcium Level 8.2 L Blood Gas Specimen Source Blood arterial Arterial Blood Date Drawn 02/03/2017 7:25:59 AM Arterial Blood pH (Temp corrected) 7.473 H Arterial Blood pCO2 (Temp correct) 32.6 L Arterial Blood pO2 (Temp corrected) 83.6 Arterial Blood HCO3 23.4 Arterial Blood Base Excess 0.3 Arterial Blood Oxygen Saturation 96.2 Markus Test ACCEPTAB Arterial Blood Gas Puncture Site Right Radial Arterial Blood Carboxyhemoglobin 0.3 Arterial Blood Methemoglobin 0.1 Blood Gas A-a O2 Differential 164.1 H Oxyhemoglobin Percent 95.8 Total Hemoglobin 12.5 Blood Gas Temperature 37.0 Blood Gas Respiration Rate 20.0 Blood Gas Actual Respiration Rate 30 Blood Gas Modality VENT - AC FiO2 40.0 Blood Gas Tidal Volume 550.0 Blood Gas Low PEEP Setting 5.0 Blood Gas Notified Whom RDIX Blood Gas Notified Time 02/03/2017 7:37:50 AM Medications Medications Current Medications Ondansetron HCl (Zofran Inj) 4 mg Q6H PRN IV NAUSEA AND/OR VOMITING; Start at 19:00 Acetaminophen (Tylenol Tab) 650 mg Q6H PRN PO PAIN LEVEL 1-3 OR FEVER Last administered on 01/31/17 21:31; Admin Dose 650 MG; Start 01/31/17 at 19:00 Acetaminophen/ Hydrocodone Bitart ([place] (5/325)) 1 tab Q6H PRN PO MODERATE PAIN LEVEL 4-6; Start 01/31/17 at 19:00 Morphine Sulfate (morphine) 2 mg Q4H PRN IV SEVERE PAIN LEVEL 7-10 Last administered on 02/02/17 00:28; Admin Dose 2 MG; Start 01/31/17 at 19:00 Docusate Sodium (Colace) 100 mg Q12H PRN PO CONSTIPATION; Start 01/31/17 at 19: 00 Magnesium Hydroxide (Milk Of Mag) 30 ml DAILY PRN PO CONSTIPATION; Start at 19:00 Sodium Biphosphate/ Sodium Phosphate (Fleet Enema) 133 ml DAILY PRN [place] CONSTIPATION; Start 01/31/17 at 19:00 Heparin Sodium (Porcine) (Heparin (5000 Units/0.5 ml)) 5,000 unit Q12 SC Last administered on 02/03/17 09:37; Admin Dose 5,000 UNIT; Start 01/31/17 at 21:00 Hydralazine HCl (Apresoline) 10 mg Q6H PRN IV ELEVATED BLOOD PRESSURE Last administered on 02/03/17 14:29; Admin Dose 10 MG; Start 01/31/17 at 19:00 Nitroglycerin (Nitroglycerin (Sl Tab) 0.4 Mg) 1 tab Q5M PRN SL ANGINA; Start at 19:00 Miscellaneous Information 1 each 1 each DAILY PO ; Start 02/01/17 at 09:00; Status UNV Multivitamins/ Thiamine HCl/ Folic Acid/Sodium Chloride (Mvi Adult/ Vitamin B1/ Folic Acid/NS) 1,011.2 ml @ 125 mls/ hr DAILY@09 IVPB Last administered on 11:53; Admin Dose 125 MLS/HR; Start 01/31/17 at 19:30 Acetaminophen (Tylenol Supp) 650 mg Q4H PRN [place] TEMP > 37C Last administered on 02/02/17 04:31; Admin Dose 650 MG; Start 01/31/17 at 23:00 Acetaminophen (Tylenol Liquid) 650 mg Q4H PRN PO TEMP > 37C; Start 01/31/17 at 23:00 Meperidine HCl (Demerol) 12.5 mg Q4H PRN IV POST OPERATIVE SHIVERING; Start at 23:00 Meperidine HCl (Demerol) 25 mg Q4H PRN IV POST OPERATIVE SHIVERING; Start 01/31 at 23:00 Eye Lubricant (Akwa Oint) 1 applic Q6 BOTH EYES Last administered on 02/03/17 14:19; Admin Dose 1 APPLIC; Start 02/01/17 at 00:00 Eye Lubricant (Artificial Tears Oph) 2 drop Q6 BOTH EYES Last administered on 02/03/17 14:19; Admin Dose 2 DROP; Start 02/01/17 at 00:00 Miscellaneous Information ODEFSEY.. IS NON FORMULARY...PLEASE CONSIDER USING... Q8H XX Last administered on 02/02/17 17:30; Admin Dose 1 EA; Start 02/01/17 at 09:30 Levetiracetam 100 ml @ 400 mls/hr Q12 IVPB Last administered on 02/03/17 09: 37; Admin Dose 400 MLS/HR; Start 02/01/17 at 14:30 Dextrose/Sodium Chloride (D5-1/2ns) 1,000 ml @ 100 mls/hr Q10H IV Last administered on 02/02/17 22:52; Admin Dose 100 MLS/HR; Start 02/01/17 at 22:00 Ranitidine HCl 150 mg 150 mg HS PO Last administered on 02/02/17 21:12; Admin Dose 150 MG; Start 02/02/17 at 21:00 Ampicillin Sodium/ Sulbactam Sodium (Unasyn 1.5gm/NS (Pmx)) 50 ml @ 100 mls/hr Q6 IVPB Last administered on 02/03/17 12:00; Admin Dose 100 MLS/HR; Start 02/02/17 at 13:00 MANDY ARCE MD Feb 03, 2017 18:41
--- NOTE | 2017-02-03 20:13 | CONS ---
Date/Time of Note Date/Time of Note DATE: 02/03/17 TIME: 20:11 Assessment/Plan Assessment/Plan Chief Complaint/Hosp Course Respiratory failure Possible anoxic brain injury secondary to Ambien overdose Problems: Additional Assessment/Plan Patient will benefit from tracheostomy at this time will hold off on tracheostomy until the family is agreeable Consultation Date/Type/Reason Admit Date/Time Jan 31, 2017 at 17:12 Date of Consultation: Feb 03, 2017 Reason for Consultation Respiratory failure Hx of Present Illness 46-year-old male admitted because of overdose on Ambien has been intubated unable to come off the ventilator secondary to respiratory failure and lack of drive Respiratory: no complaints Cardiovascular: no complaints Gastrointestinal: no complaints, No blood, No constipation, No decreased appetite, No diarrhea, No flatus, No nausea, No other, No pain, No passing stool, No vomiting Genitourinary: no complaints Musculoskeletal: no complaints Skin: no complaints Past Medical History Medical History: no pertinent history Past Surgical History Past Surgical Hx: no surgical history Social History Alcohol Use: occasionally Smoking Status: Current every day smoker Drug Use: other (Unclear) Exam/Review of Systems Vital Signs Vitals Vital Signs Date Time Temp Pulse Resp B/P Pulse Ox O2 Delivery O2 Flow Rate FiO2 02/03/17 19:55 103 28 98 40 02/03/17 18:30 145/91 02/03/17 18:00 100.9 Mechanical Ventilator 01/31/17 21:25 15.0 Intake and Output 02/02/17 02/02/17 02/03/17 15:00 23:00 07:00 Intake Total 884.924 ml 1312.862 ml 858 ml Output Total 257 ml 422 ml 775 ml Balance 627.924 ml 890.862 ml 83 ml Exam ENMT: nl external ears & nose, nl lips & teeth, nl nasal mucosa & septum Neck: non-tender, supple Respiratory: clear to auscultation, normal air movement Cardiovascular: nl pulses, regular rate and rhythm Gastrointestinal: nl liver, spleen, non-tender, soft Results Result Diagram: 02/03/17 0425 02/03/17 0425 Results 24 hrs Laboratory Tests Test 02/03/17 04:25 02/03/17 07:00 White Blood Count 11.8 #H Red Blood Count 3.59 L Hemoglobin 11.3 L Hematocrit 35.0 L Mean Corpuscular Volume 97.5 Mean Corpuscular Hemoglobin 31.5 Mean Corpuscular Hemoglobin Concent 32.3 Red Cell Distribution Width 13.7 Platelet Count 134 L Mean Platelet Volume 12.0 H Neutrophils % 73.8 Lymphocytes % 19.2 Monocytes % 5.8 Eosinophils % 0.0 Basophils % 0.2 Nucleated Red Blood Cells % 0.0 Neutrophils # 8.7 H Lymphocytes # 2.3 Monocytes # 0.7 Eosinophils # 0.0 Basophils # 0.0 Nucleated Red Blood Cells # 0.0 Sodium Level 148 H Potassium Level 3.4 L Chloride Level 117 H Carbon Dioxide Level 25 Anion Gap 9 Blood Urea Nitrogen 16 Creatinine 0.97 Glucose Level 113 Calcium Level 8.2 L Blood Gas Specimen Source Blood arterial Arterial Blood Date Drawn 02/03/2017 7:25:59 AM Arterial Blood pH (Temp corrected) 7.473 H Arterial Blood pCO2 (Temp correct) 32.6 L Arterial Blood pO2 (Temp corrected) 83.6 Arterial Blood HCO3 23.4 Arterial Blood Base Excess 0.3 Arterial Blood Oxygen Saturation 96.2 Markus Test ACCEPTAB Arterial Blood Gas Puncture Site Right Radial Arterial Blood Carboxyhemoglobin 0.3 Arterial Blood Methemoglobin 0.1 Blood Gas A-a O2 Differential 164.1 H Oxyhemoglobin Percent 95.8 Total Hemoglobin 12.5 Blood Gas Temperature 37.0 Blood Gas Respiration Rate 20.0 Blood Gas Actual Respiration Rate 30 Blood Gas Modality VENT - AC FiO2 40.0 Blood Gas Tidal Volume 550.0 Blood Gas Low PEEP Setting 5.0 Blood Gas Notified Whom RDIX Blood Gas Notified Time 02/03/2017 7:37:50 AM Medications Medications Current Medications Ondansetron HCl (Zofran Inj) 4 mg Q6H PRN IV NAUSEA AND/OR VOMITING; Start at 19:00 Acetaminophen (Tylenol Tab) 650 mg Q6H PRN PO PAIN LEVEL 1-3 OR FEVER Last administered on 01/31/17 21:31; Admin Dose 650 MG; Start 01/31/17 at 19:00 Acetaminophen/ Hydrocodone Bitart ([place] (5/325)) 1 tab Q6H PRN PO MODERATE PAIN LEVEL 4-6; Start 01/31/17 at 19:00 Morphine Sulfate (morphine) 2 mg Q4H PRN IV SEVERE PAIN LEVEL 7-10 Last administered on 02/02/17 00:28; Admin Dose 2 MG; Start 01/31/17 at 19:00 Docusate Sodium (Colace) 100 mg Q12H PRN PO CONSTIPATION; Start 01/31/17 at 19: 00 Magnesium Hydroxide (Milk Of Mag) 30 ml DAILY PRN PO CONSTIPATION; Start at 19:00 Sodium Biphosphate/ Sodium Phosphate (Fleet Enema) 133 ml DAILY PRN [place] CONSTIPATION; Start 01/31/17 at 19:00 Heparin Sodium (Porcine) (Heparin (5000 Units/0.5 ml)) 5,000 unit Q12 SC Last administered on 02/03/17 09:37; Admin Dose 5,000 UNIT; Start 01/31/17 at 21:00 Hydralazine HCl (Apresoline) 10 mg Q6H PRN IV ELEVATED BLOOD PRESSURE Last administered on 02/03/17 14:29; Admin Dose 10 MG; Start 01/31/17 at 19:00 Nitroglycerin (Nitroglycerin (Sl Tab) 0.4 Mg) 1 tab Q5M PRN SL ANGINA; Start at 19:00 Miscellaneous Information 1 each 1 each DAILY PO ; Start 02/01/17 at 09:00; Status UNV Multivitamins/ Thiamine HCl/ Folic Acid/Sodium Chloride (Mvi Adult/ Vitamin B1/ Folic Acid/NS) 1,011.2 ml @ 125 mls/ hr DAILY@09 IVPB Last administered on 11:53; Admin Dose 125 MLS/HR; Start 01/31/17 at 19:30 Acetaminophen (Tylenol Supp) 650 mg Q4H PRN [place] TEMP > 37C Last administered on 02/02/17 04:31; Admin Dose 650 MG; Start 01/31/17 at 23:00 Acetaminophen (Tylenol Liquid) 650 mg Q4H PRN PO TEMP > 37C; Start 01/31/17 at 23:00 Meperidine HCl (Demerol) 12.5 mg Q4H PRN IV POST OPERATIVE SHIVERING; Start at 23:00 Meperidine HCl (Demerol) 25 mg Q4H PRN IV POST OPERATIVE SHIVERING; Start 01/31 at 23:00 Eye Lubricant ([place] Oint) 1 applic Q6 BOTH EYES Last administered on 02/03/17 18:46; Admin Dose 1 APPLIC; Start 02/01/17 at 00:00 Eye Lubricant (Artificial Tears Oph) 2 drop Q6 BOTH EYES Last administered on 02/03/17 18:46; Admin Dose 2 DROP; Start 02/01/17 at 00:00 Miscellaneous Information ODEFSEY.. IS NON FORMULARY...PLEASE CONSIDER USING... Q8H XX Last administered on 02/02/17 17:30; Admin Dose 1 EA; Start 02/01/17 at 09:30 Levetiracetam 100 ml @ 400 mls/hr Q12 IVPB Last administered on 02/03/17 09: 37; Admin Dose 400 MLS/HR; Start 02/01/17 at 14:30 Dextrose/Sodium Chloride (D5-1/2ns) 1,000 ml @ 100 mls/hr Q10H IV Last administered on 02/02/17 22:52; Admin Dose 100 MLS/HR; Start 02/01/17 at 22:00 Ranitidine HCl 150 mg 150 mg HS PO Last administered on 02/02/17 21:12; Admin Dose 150 MG; Start 02/02/17 at 21:00 Ampicillin Sodium/ Sulbactam Sodium (Unasyn 1.5gm/NS (Pmx)) 50 ml @ 100 mls/hr Q6 IVPB Last administered on 02/03/17 18:46; Admin Dose 100 MLS/HR; Start 02/02/17 at 13:00 RYAN REAGAN MD Feb 03, 2017 20:13
[2017-02-03] MEDS: RANITIDINE 150 MG TAB PO SCH (20:54)
[2017-02-04] VITALS (60 sets, daily range): BP systolic 107–149; BP diastolic 83–95; PULSE 80–107; RESP 22–31
[2017-02-04] MEDS: AMPICILLIN/SULB 1.5GM/NS (PMX) 50 ML IVPB SCH ×4 (00:36→18:49)
[2017-02-04] MEDS: ARTIFICIAL TEARS 15 ML OPH BOTH EYES SCH ×4 (00:36→18:47)
[2017-02-04] MEDS: OCULAR LUBRICANT 3.5 GM OPH OINT BOTH EYES SCH ×4 (00:36→18:47)
[2017-02-04] MEDS: [UNRECOGNIZED DRUG - REMARK] XX SCH ×3 (01:30→17:04)
[2017-02-04] MEDS: PROPOFOL 100 ML IV SCH ×2 (04:23→15:42)
[2017-02-04 05:18] LABS: BASOPHILS % 0.2 % (0.0-2.0); EOSINOPHILS % 0.2 % (0.0-7.0); HEMATOCRIT 35.6 % (42.0-52.0); LYMPHOCYTES % 12.1 % (15.0-51.0); MEAN CORPUSCULAR HEMOGLOBIN 32.3 pg (29.0-33.0); MEAN CORPUSCULAR HGB CONC 33.7 g/dl (32.0-37.0); MEAN PLATELET VOLUME 11.3 fl (7.4-10.4); MONOCYTE # 0.8 10^3/ul (0.3-0.9); MONOCYTES % 4.9 % (0.0-11.0); NEUTROPHIL # 13.4 10^3/ul (1.6-7.5); NEUTROPHILS % 82.2 % (39.0-77.0); PLATELET COUNT 140 10^3/UL (140-415); POSITIVE DIFF @See below; RED BLOOD COUNT 3.71 10^6/ul (4.70-6.10); RED CELL DISTRIBUTION WIDTH 12.8 % (11.5-14.5); WHITE BLOOD COUNT 16.3 10^3/ul (4.8-10.8)
[2017-02-04] MEDS: MIDAZOLAM (DRIP) 50 mg/50 mL 50 ML IV SCH ×3 (05:38→18:48)
[2017-02-04 05:47] LABS: CALCIUM 8.9 mg/dl (8.4-10.2); CREATININE 0.75 mg/dl (0.61-1.24); POTASSIUM 3.5 mmol/L (3.5-5.1)
[2017-02-04] MEDS: MULTIVITAMINS 10 ML, THIAMINE 100 MG, FOLIC ACID 1 MG in SOD CHLORIDE 0.9% 1,000 ML IVPB SCH (09:17)
[2017-02-04] MEDS: HEPARIN 5,000 UNIT/0.5 ML VIAL SC SCH ×2 (09:20→20:02)
[2017-02-04] MEDS: LEVETIRACETAM 1500 MG (PMX) 100 ML IVPB SCH ×2 (09:23→20:00)
--- NOTE | 2017-02-04 10:31 | CONS ---
Date/Time of Note Date/Time of Note DATE: 02/04/17 TIME: 10:30 Consult Date/Type/Reason Admit Date/Time Jan 31, 2017 at 17:12 Type of Consultation: Pulmonary Subjective Patient remains somnolent on mechanical ventilation. Family discussion with primary team yesterday. He was to continue all aggressive measures. Are aware of his HIV status. Objective Vital Signs Date Time Temp Pulse Resp B/P Pulse Ox O2 Delivery O2 Flow Rate FiO2 02/04/17 09:10 87 28 96 40 02/04/17 07:30 107/83 Mechanical Ventilator 02/04/17 06:30 98.0 01/31/17 21:25 15.0 Intake and Output 02/03/17 02/03/17 02/04/17 15:00 23:00 07:00 Intake Total 1589 ml 1427.068 ml 1096.983 ml Output Total 1148 ml 1037 ml 1284 ml Balance 441 ml 390.068 ml -187.017 ml Exam PHYSICAL EXAMINATION GENERAL: A well-nourished well-developed gentleman intubated on mechanical ventilation VITAL SIGNS: see below. HEENT: Pupils equal, round, and reactive to light. CARDIAC: S1, S2, 1/6 systolic ejection murmur CHEST: Diminished air entry bilaterally. ABDOMEN: Mildly distended. Bowel sounds present no guarding or rebound EXTREMITIES: No cyanosis, clubbing edema +1 NEUROLOGIC: Unable to assess. Results/Medications Result Diagram: 02/04/17 0435 02/04/17 0435 Results 24 hrs Laboratory Tests Test 02/04/17 04:35 White Blood Count 16.3 #H Red Blood Count 3.71 L Hemoglobin 12.0 L Hematocrit 35.6 L Mean Corpuscular Volume 96.0 Mean Corpuscular Hemoglobin 32.3 Mean Corpuscular Hemoglobin Concent 33.7 Red Cell Distribution Width 12.8 Platelet Count 140 Mean Platelet Volume 11.3 H Neutrophils % 82.2 H Lymphocytes % 12.1 L Monocytes % 4.9 Eosinophils % 0.2 Basophils % 0.2 Nucleated Red Blood Cells % 0.0 Neutrophils # 13.4 H Lymphocytes # 2.0 Monocytes # 0.8 Eosinophils # 0.0 Basophils # 0.0 Nucleated Red Blood Cells # 0.0 Sodium Level 141 Potassium Level 3.5 Chloride Level 112 H Carbon Dioxide Level 25 Anion Gap 8 Blood Urea Nitrogen 13 Creatinine 0.75 Glucose Level 114 Calcium Level 8.9 Medications Current Medications Ondansetron HCl (Zofran Inj) 4 mg Q6H PRN IV NAUSEA AND/OR VOMITING; Start at 19:00 Acetaminophen (Tylenol Tab) 650 mg Q6H PRN PO PAIN LEVEL 1-3 OR FEVER Last administered on 01/31/17 21:31; Admin Dose 650 MG; Start 01/31/17 at 19:00 Acetaminophen/ Hydrocodone Bitart ([place] (5/325)) 1 tab Q6H PRN PO MODERATE PAIN LEVEL 4-6; Start 01/31/17 at 19:00 Morphine Sulfate (morphine) 2 mg Q4H PRN IV SEVERE PAIN LEVEL 7-10 Last administered on 02/02/17 00:28; Admin Dose 2 MG; Start 01/31/17 at 19:00 Docusate Sodium (Colace) 100 mg Q12H PRN PO CONSTIPATION; Start 01/31/17 at 19: 00 Magnesium Hydroxide (Milk Of Mag) 30 ml DAILY PRN PO CONSTIPATION; Start at 19:00 Sodium Biphosphate/ Sodium Phosphate (Fleet Enema) 133 ml DAILY PRN [place] CONSTIPATION; Start 01/31/17 at 19:00 Heparin Sodium (Porcine) (Heparin (5000 Units/0.5 ml)) 5,000 unit Q12 SC Last administered on 02/04/17 09:20; Admin Dose 5,000 UNIT; Start 01/31/17 at 21:00 Hydralazine HCl (Apresoline) 10 mg Q6H PRN IV ELEVATED BLOOD PRESSURE Last administered on 02/03/17 14:29; Admin Dose 10 MG; Start 01/31/17 at 19:00 Nitroglycerin (Nitroglycerin (Sl Tab) 0.4 Mg) 1 tab Q5M PRN SL ANGINA; Start at 19:00 Miscellaneous Information 1 each 1 each DAILY PO ; Start 02/01/17 at 09:00; Status UNV Multivitamins/ Thiamine HCl/ Folic Acid/Sodium Chloride (Mvi Adult/ Vitamin B1/ Folic Acid/NS) 1,011.2 ml @ 125 mls/ hr DAILY@09 IVPB Last administered on 09:17; Admin Dose 125 MLS/HR; Start 01/31/17 at 19:30 Acetaminophen (Tylenol Supp) 650 mg Q4H PRN [place] TEMP > 37C Last administered on 02/02/17 04:31; Admin Dose 650 MG; Start 01/31/17 at 23:00 Acetaminophen (Tylenol Liquid) 650 mg Q4H PRN PO TEMP > 37C; Start 01/31/17 at 23:00 Meperidine HCl (Demerol) 12.5 mg Q4H PRN IV POST OPERATIVE SHIVERING; Start at 23:00 Meperidine HCl (Demerol) 25 mg Q4H PRN IV POST OPERATIVE SHIVERING; Start 01/31 at 23:00 Eye Lubricant (Akwa Oint) 1 applic Q6 BOTH EYES Last administered on 02/04/17 05:33; Admin Dose 1 APPLIC; Start 02/01/17 at 00:00 Eye Lubricant (Artificial Tears Oph) 2 drop Q6 BOTH EYES Last administered on 02/04/17 05:32; Admin Dose 2 DROP; Start 02/01/17 at 00:00 Miscellaneous Information ODEFSEY.. IS NON FORMULARY...PLEASE CONSIDER USING... Q8H XX Last administered on 02/04/17 09:52; Admin Dose 1 EA; Start 02/01/17 at 09:30 Levetiracetam 100 ml @ 400 mls/hr Q12 IVPB Last administered on 02/04/17 09: 23; Admin Dose 400 MLS/HR; Start 02/01/17 at 14:30 Dextrose/Sodium Chloride (D5-1/2ns) 1,000 ml @ 100 mls/hr Q10H IV Last administered on 02/03/17 20:54; Admin Dose 100 MLS/HR; Start 02/01/17 at 22:00 Ranitidine HCl 150 mg 150 mg HS PO Last administered on 02/03/17 20:54; Admin Dose 150 MG; Start 02/02/17 at 21:00 Ampicillin Sodium/ Sulbactam Sodium (Unasyn 1.5gm/NS (Pmx)) 50 ml @ 100 mls/hr Q6 IVPB Last administered on 02/04/17 05:33; Admin Dose 100 MLS/HR; Start 02/02/17 at 13:00 Assessment/Plan Chief Complaint/Hosp Course Assessment 1. Intentional Ambien overdose. 2. Hypoxemic and hypercapnic respiratory failure With aspiration pneumonia. Right lower lobe infiltrate. 3. Cardiopulmonary arrest with anoxic brain injury. Consistent with EEG and MRI findings. 4. History of HIV per lab work and medications. Plan 1. Continue antibiotic coverage 2. Hold sedation. 3. Neuro recommendations. Prognosis very poor. 4. Continue current vent settings. 5. Consider increasing free water per nasogastric tube. Family requesting tracheostomy and PEG tube placement. We will proceed with procedures. Family conference to discuss findings and goals of care. Problems: KERI FRIED MD, [facility] Feb 04, 2017 10:31
[2017-02-04] MEDS: DEXTROSE 5%-0.45% NACL 1,000 ML IV SCH ×3 (10:42→18:49)
--- NOTE | 2017-02-04 14:17 | PN ---
Date/Time of Note Date/Time of Note DATE: 02/04/17 TIME: 14:12 Assessment/Plan VTE Prophylaxis VTE Prophylaxis Intervention: SCD's Lines/Catheters IV Catheter Type (from Nrsg): Central Line Central line still needed: No Urinary Cath still in place: Yes Reason Cath still needed: other (indicate) (critically ill) Assessment/Plan Assessment/Plan 46 yo M with pmhx HIV on HAART, unknown psychiatric hx admitted with acute toxic encephalopathy 2/2 intentional Ambien OD. Clinical scenario given imaging studies, EEG, lack of improvement off sedation consistent with severe anoxic brain injury PLAN #anoxic brain injury: neuro on consult, cont keppra-->defer to LTAC to consider weaning #HIV: cont HAART, CD4 ~500, VL UD ( has been aware of pt's HIV status for several years. dw 10.3) #fevers: likely central in origin. Given no hypotension no compelling indication to expand abx coverage at this time #goals of care: requesting aggressive management, PEG/trach consultants already on the case PLAN CM to arrange LTAC. PEG/trach consults requested critical care time: 30 minutes Subjective 24 Hr Interval Summary Free Text/Dictation no significant clinical changes. Last fever late last night Exam/Review of Systems Vital Signs Vitals Vital Signs Date Time Temp Pulse Resp B/P Pulse Ox O2 Delivery O2 Flow Rate FiO2 02/04/17 13:29 91 29 98 40 02/04/17 10:30 120/92 Mechanical Ventilator 02/04/17 08:00 97.8 01/31/17 21:25 15.0 Intake and Output 02/03/17 02/03/17 02/04/17 15:00 23:00 07:00 Intake Total 1589 ml 1427.068 ml 1096.983 ml Output Total 1148 ml 1037 ml 1284 ml Balance 441 ml 390.068 ml -187.017 ml Exam pupils responsive to light breath sounds coarse no mrg abd soft no rashes Results Result Diagram: 02/04/17 0435 02/04/17 0435 Results 24 hrs Laboratory Tests Test 02/04/17 04:35 White Blood Count 16.3 #H Red Blood Count 3.71 L Hemoglobin 12.0 L Hematocrit 35.6 L Mean Corpuscular Volume 96.0 Mean Corpuscular Hemoglobin 32.3 Mean Corpuscular Hemoglobin Concent 33.7 Red Cell Distribution Width 12.8 Platelet Count 140 Mean Platelet Volume 11.3 H Neutrophils % 82.2 H Lymphocytes % 12.1 L Monocytes % 4.9 Eosinophils % 0.2 Basophils % 0.2 Nucleated Red Blood Cells % 0.0 Neutrophils # 13.4 H Lymphocytes # 2.0 Monocytes # 0.8 Eosinophils # 0.0 Basophils # 0.0 Nucleated Red Blood Cells # 0.0 Sodium Level 141 Potassium Level 3.5 Chloride Level 112 H Carbon Dioxide Level 25 Anion Gap 8 Blood Urea Nitrogen 13 Creatinine 0.75 Glucose Level 114 Calcium Level 8.9 Medications Medications Current Medications Ondansetron HCl (Zofran Inj) 4 mg Q6H PRN IV NAUSEA AND/OR VOMITING; Start at 19:00 Acetaminophen (Tylenol Tab) 650 mg Q6H PRN PO PAIN LEVEL 1-3 OR FEVER Last administered on 01/31/17 21:31; Admin Dose 650 MG; Start 01/31/17 at 19:00 Acetaminophen/ Hydrocodone Bitart ([place] (5/325)) 1 tab Q6H PRN PO MODERATE PAIN LEVEL 4-6; Start 01/31/17 at 19:00 Morphine Sulfate (morphine) 2 mg Q4H PRN IV SEVERE PAIN LEVEL 7-10 Last administered on 02/02/17 00:28; Admin Dose 2 MG; Start 01/31/17 at 19:00 Docusate Sodium (Colace) 100 mg Q12H PRN PO CONSTIPATION; Start 01/31/17 at 19: 00 Magnesium Hydroxide (Milk Of Mag) 30 ml DAILY PRN PO CONSTIPATION; Start at 19:00 Sodium Biphosphate/ Sodium Phosphate (Fleet Enema) 133 ml DAILY PRN [place] CONSTIPATION; Start 01/31/17 at 19:00 Heparin Sodium (Porcine) (Heparin (5000 Units/0.5 ml)) 5,000 unit Q12 SC Last administered on 02/04/17 09:20; Admin Dose 5,000 UNIT; Start 01/31/17 at 21:00 Hydralazine HCl (Apresoline) 10 mg Q6H PRN IV ELEVATED BLOOD PRESSURE Last administered on 02/03/17 14:29; Admin Dose 10 MG; Start 01/31/17 at 19:00 Nitroglycerin (Nitroglycerin (Sl Tab) 0.4 Mg) 1 tab Q5M PRN [place] ANGINA; Start at 19:00 Miscellaneous Information 1 each 1 each DAILY PO ; Start 02/01/17 at 09:00; Status UNV Multivitamins/ Thiamine HCl/ Folic Acid/Sodium Chloride (Mvi Adult/ Vitamin B1/ Folic Acid/NS) 1,011.2 ml @ 125 mls/ hr DAILY@09 IVPB Last administered on 09:17; Admin Dose 125 MLS/HR; Start 01/31/17 at 19:30 Acetaminophen (Tylenol Supp) 650 mg Q4H PRN [place] TEMP > 37C Last administered on 02/02/17 04:31; Admin Dose 650 MG; Start 01/31/17 at 23:00 Acetaminophen (Tylenol Liquid) 650 mg Q4H PRN PO TEMP > 37C; Start 01/31/17 at 23:00 Meperidine HCl (Demerol) 12.5 mg Q4H PRN IV POST OPERATIVE SHIVERING; Start at 23:00 Meperidine HCl (Demerol) 25 mg Q4H PRN IV POST OPERATIVE SHIVERING; Start 01/31 at 23:00 Eye Lubricant (Akwa Oint) 1 applic Q6 BOTH EYES Last administered on 02/04/17 12:56; Admin Dose 1 APPLIC; Start 02/01/17 at 00:00 Eye Lubricant (Artificial Tears Oph) 2 drop Q6 BOTH EYES Last administered on 02/04/17 12:55; Admin Dose 2 DROP; Start 02/01/17 at 00:00 Miscellaneous Information ODEFSEY.. IS NON FORMULARY...PLEASE CONSIDER USING... Q8H XX Last administered on 02/04/17 09:52; Admin Dose 1 EA; Start 02/01/17 at 09:30 Levetiracetam 100 ml @ 400 mls/hr Q12 IVPB Last administered on 02/04/17 09: 23; Admin Dose 400 MLS/HR; Start 02/01/17 at 14:30 Dextrose/Sodium Chloride (D5-1/2ns) 1,000 ml @ 100 mls/hr Q10H IV Last administered on 02/04/17 10:42; Admin Dose 100 MLS/HR; Start 02/01/17 at 22:00 Ranitidine HCl 150 mg 150 mg HS PO Last administered on 02/03/17 20:54; Admin Dose 150 MG; Start 02/02/17 at 21:00 Ampicillin Sodium/ Sulbactam Sodium (Unasyn 1.5gm/NS (Pmx)) 50 ml @ 100 mls/hr Q6 IVPB Last administered on 02/04/17 05:33; Admin Dose 100 MLS/HR; Start 02/02/17 at 13:00 LORRAINE RIGGS MD Feb 04, 2017 14:17
--- NOTE | 2017-02-04 18:14 | PN ---
Date/Time of Note Date/Time of Note DATE: 02/04/17 TIME: 18:11 Assessment/Plan Lines/Catheters IV Catheter Type (from Nrsg): Central Line Ross in Place (from Nrsg): Yes Assessment/Plan Chief Complaint/Hosp Course Chief Complaint/Hosp Course Respiratory failure Possible anoxic brain injury secondary to Ambien overdose Problems: Additional Assessment/Plan Patient will benefit from tracheostomy at this time will hold off on tracheostomy until the family is agreeable Problems: Subjective 24 Hr Interval Summary Constitutional: improved Pain Control: mild Exam/Review of Systems Vital Signs Vitals Vital Signs Date Time Temp Pulse Resp B/P Pulse Ox O2 Delivery O2 Flow Rate FiO2 02/04/17 17:00 98 28 129/85 98 Mechanical Ventilator 02/04/17 16:00 97.8 02/04/17 15:25 40 01/31/17 21:25 15.0 Intake and Output 02/03/17 02/03/17 02/04/17 15:00 23:00 07:00 Intake Total 1589 ml 1427.068 ml 1096.983 ml Output Total 1148 ml 1037 ml 1284 ml Balance 441 ml 390.068 ml -187.017 ml Exam Neck: non-tender, supple Respiratory: clear to auscultation, normal air movement Cardiovascular: nl pulses, regular rate and rhythm Gastrointestinal: nl liver, spleen, non-tender, soft Results Result Diagram: 02/04/17 0435 02/04/17 0435 RYAN REAGAN MD Feb 04, 2017 18:14
[2017-02-04] MEDS: RANITIDINE 150 MG TAB PO SCH (20:00)
[2017-02-04] MEDS ORDERED: LORAZEPAM 2 MG INJ IV ONE (23:57)
[2017-02-05] VITALS (62 sets, daily range): BP systolic 106–168; BP diastolic 71–106; PULSE 82–102; RESP 0–29
[2017-02-05] MEDS: ARTIFICIAL TEARS 15 ML OPH BOTH EYES SCH ×5 (00:36→23:38)
[2017-02-05] MEDS: OCULAR LUBRICANT 3.5 GM OPH OINT BOTH EYES SCH ×5 (00:37→23:38)
[2017-02-05] MEDS: [UNRECOGNIZED DRUG - REMARK] XX SCH ×2 (01:30→09:56)
[2017-02-05] MEDS: AMPICILLIN/SULB 1.5GM/NS (PMX) 50 ML IVPB SCH ×5 (01:49→23:38)
[2017-02-05] MEDS: MIDAZOLAM (DRIP) 50 mg/50 mL 50 ML IV SCH ×4 (01:49→23:37)
[2017-02-05] MEDS: PROPOFOL 100 ML IV SCH ×3 (03:43→21:26)
[2017-02-05] MEDS: ACETAMINOPHEN 650 MG SUPP PR PRN ×2 (03:43→20:28)
[2017-02-05 05:17] LABS: BASOPHILS % 0.1 % (0.0-2.0); EOSINOPHILS % 0.1 % (0.0-7.0); HEMATOCRIT 34.7 % (42.0-52.0); HEMOGLOBIN 11.4 g/dl (14.0-18.0); LYMPHOCYTES # 1.8 10^3/ul (0.8-2.9); LYMPHOCYTES % 15.1 % (15.0-51.0); MEAN CORPUSCULAR HEMOGLOBIN 30.6 pg (29.0-33.0); MEAN CORPUSCULAR HGB CONC 32.9 g/dl (32.0-37.0); MONOCYTE # 0.7 10^3/ul (0.3-0.9); MONOCYTES % 6.1 % (0.0-11.0); NEUTROPHIL # 9.4 10^3/ul (1.6-7.5); NEUTROPHILS % 77.9 % (39.0-77.0); PLATELET COUNT 167 10^3/UL (140-415); RED BLOOD COUNT 3.73 10^6/ul (4.70-6.10); RED CELL DISTRIBUTION WIDTH 12.4 % (11.5-14.5); WHITE BLOOD COUNT 12.1 10^3/ul (4.8-10.8)
[2017-02-05 05:38] LABS: CALCIUM 8.5 mg/dl (8.4-10.2); CREATININE 0.78 mg/dl (0.61-1.24); POTASSIUM 3.5 mmol/L (3.5-5.1)
[2017-02-05] MEDS: LEVETIRACETAM 1500 MG (PMX) 100 ML IVPB SCH ×2 (09:27→20:27)
[2017-02-05] MEDS: HEPARIN 5,000 UNIT/0.5 ML VIAL SC SCH ×2 (09:28→20:30)
--- NOTE | 2017-02-05 09:54 | CONS ---
Date/Time of Note Date/Time of Note DATE: 02/05/17 TIME: 09:52 Consult Date/Type/Reason Admit Date/Time Jan 31, 2017 at 17:12 Type of Consultation: Pulmonary Subjective No changes. Remains unresponsive on mechanical ventilation. Objective Vital Signs Date Time Temp Pulse Resp B/P Pulse Ox O2 Delivery O2 Flow Rate FiO2 02/05/17 08:31 40 02/05/17 08:00 99.0 89 28 144/90 95 Mechanical Ventilator Intake and Output 02/04/17 02/04/17 02/05/17 15:00 23:00 07:00 Intake Total 991.52 ml 850.813 ml 224.673 ml Output Total 1020 ml 2341 ml 1183 ml Balance -28.48 ml -1490.187 ml -958.327 ml Exam PHYSICAL EXAMINATION GENERAL: A well-nourished well-developed gentleman intubated on mechanical ventilation VITAL SIGNS: see below. HEENT: Pupils equal, round, and reactive to light. CARDIAC: S1, S2, 1/6 systolic ejection murmur CHEST: Diminished air entry bilaterally. ABDOMEN: Mildly distended. Bowel sounds present no guarding or rebound EXTREMITIES: No cyanosis, clubbing edema +1 NEUROLOGIC: Unable to assess. Results/Medications Result Diagram: 02/05/17 0459 02/05/17 0459 Results 24 hrs Laboratory Tests Test 02/05/17 04:59 White Blood Count 12.1 #H Red Blood Count 3.73 L Hemoglobin 11.4 L Hematocrit 34.7 L Mean Corpuscular Volume 93.0 Mean Corpuscular Hemoglobin 30.6 Mean Corpuscular Hemoglobin Concent 32.9 Red Cell Distribution Width 12.4 Platelet Count 167 Mean Platelet Volume 11.0 H Neutrophils % 77.9 H Lymphocytes % 15.1 Monocytes % 6.1 Eosinophils % 0.1 Basophils % 0.1 Nucleated Red Blood Cells % 0.0 Neutrophils # 9.4 H Lymphocytes # 1.8 Monocytes # 0.7 Eosinophils # 0.0 Basophils # 0.0 Nucleated Red Blood Cells # 0.0 Sodium Level 142 Potassium Level 3.5 Chloride Level 110 Carbon Dioxide Level 26 Anion Gap 10 Blood Urea Nitrogen 14 Creatinine 0.78 Glucose Level 120 Calcium Level 8.5 Medications Current Medications Ondansetron HCl (Zofran Inj) 4 mg Q6H PRN IV NAUSEA AND/OR VOMITING; Start at 19:00 Acetaminophen (Tylenol Tab) 650 mg Q6H PRN PO PAIN LEVEL 1-3 OR FEVER Last administered on 01/31/17 21:31; Admin Dose 650 MG; Start 01/31/17 at 19:00 Acetaminophen/ Hydrocodone Bitart ([place] (5/325)) 1 tab Q6H PRN PO MODERATE PAIN LEVEL 4-6; Start 01/31/17 at 19:00 Morphine Sulfate (morphine) 2 mg Q4H PRN IV SEVERE PAIN LEVEL 7-10 Last administered on 02/02/17 00:28; Admin Dose 2 MG; Start 01/31/17 at 19:00 Docusate Sodium (Colace) 100 mg Q12H PRN PO CONSTIPATION; Start 01/31/17 at 19: 00 Magnesium Hydroxide (Milk Of Mag) 30 ml DAILY PRN PO CONSTIPATION; Start at 19:00 Sodium Biphosphate/ Sodium Phosphate (Fleet Enema) 133 ml DAILY PRN [place] CONSTIPATION; Start 01/31/17 at 19:00 Heparin Sodium (Porcine) (Heparin (5000 Units/0.5 ml)) 5,000 unit Q12 SC Last administered on 02/05/17 09:28; Admin Dose 5,000 UNIT; Start 01/31/17 at 21:00 Hydralazine HCl (Apresoline) 10 mg Q6H PRN IV ELEVATED BLOOD PRESSURE Last administered on 02/03/17 14:29; Admin Dose 10 MG; Start 01/31/17 at 19:00 Nitroglycerin (Nitroglycerin (Sl Tab) 0.4 Mg) 1 tab Q5M PRN SL ANGINA; Start at 19:00 Miscellaneous Information 1 each DAILY PO ; Start 02/01/17 at 09:00; Status UNV Acetaminophen (Tylenol Supp) 650 mg Q4H PRN [place] TEMP > 37C Last administered on 02/05/17 03:43; Admin Dose 650 MG; Start 01/31/17 at 23:00 Acetaminophen (Tylenol Liquid) 650 mg Q4H PRN PO TEMP > 37C Last administered on 02/04/17 22:46; Admin Dose 650 MG; Start 01/31/17 at 23:00 Meperidine HCl (Demerol) 12.5 mg Q4H PRN IV POST OPERATIVE SHIVERING; Start at 23:00 Meperidine HCl (Demerol) 25 mg Q4H PRN IV POST OPERATIVE SHIVERING; Start 01/31 at 23:00 Eye Lubricant (Akwa Oint) 1 applic Q6 BOTH EYES Last administered on 02/05/17 05:58; Admin Dose 1 APPLIC; Start 02/01/17 at 00:00 Eye Lubricant (Artificial Tears Oph) 2 drop Q6 BOTH EYES Last administered on 02/05/17 05:58; Admin Dose 2 DROP; Start 02/01/17 at 00:00 Miscellaneous Information ODEFSEY.. IS NON FORMULARY...PLEASE CONSIDER USING... Q8H XX Last administered on 02/04/17 17:04; Admin Dose 1 EA; Start 02/01/17 at 09:30 Levetiracetam (Keppra 1,500mg/ 100ml (Pmx)) 100 ml @ 400 mls/hr Q12 IVPB Last administered on 02/05/17 09:27; Admin Dose 400 MLS/HR; Start 02/01/17 at 14:30 Ranitidine HCl 150 mg 150 mg HS PO Last administered on 02/04/17 20:00; Admin Dose 150 MG; Start 02/02/17 at 21:00 Ampicillin Sodium/ Sulbactam Sodium (Unasyn 1.5gm/NS (Pmx)) 50 ml @ 100 mls/hr Q6 IVPB Last administered on 02/05/17 05:58; Admin Dose 100 MLS/HR; Start 02/02/17 at 13:00; Stop 02/09/17 at 12:59 Assessment/Plan Chief Complaint/Hosp Course Assessment 1. Possible intentional Ambien overdose. 2. Hypoxemic and hypercapnic respiratory failure With aspiration pneumonia. Right lower lobe infiltrate. 3. Cardiopulmonary arrest with anoxic brain injury. Consistent with EEG and MRI findings. Evidence of seizure activity off sedation. 4. History of HIV Plan 1. Continue antibiotic coverage 2. Continue sedation for seizure prevention. Consider addition of Dilantin to Keppra. 3. Neuro recommendations. Neurology second opinion today 4. Continue current vent settings. 5. Consider nasogastric tube feeding. Continues current supportive care. Prognosis extremely poor. Discussed with patient's brother at bedside. Critical care time 40 minutes. Problems: KERI FRIED MD, [facility] Feb 05, 2017 09:54
--- NOTE | 2017-02-05 10:33 | CONS ---
Date/Time of Note Date/Time of Note DATE: 02/05/17 TIME: 10:27 Assessment/Plan Assessment/Plan Chief Complaint/Hosp Course 46 yo male admitted with cardiopulmonary arrest from Ambien overdose, imaging findings suggestive of hypoxic injury. EEG with diffuse slowing, no epileptiform discharges. Seizures suspected after sedation is weaned. 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, start Depakote 500 mg q8h father at bedside, additional family members will be at bedside tomorrow i advised them i will return tomorrow morning given his exam findings and imaging findings there is a poor prognosis for meaningful neurologic recovery however family may wish to proceed with trach/PEG Problems: Consultation Date/Type/Reason Admit Date/Time Jan 31, 2017 at 17:12 Date of Consultation: Feb 05, 2017 Type of Consultation: Neurology Reason for Consultation anoxic brain injury Referring Provider: LORRAINE RIGGS MD Hx of Present Illness 46 year old male admitted with cardiopulmonary arrest from respiratory suppression due to overdose of Ambien. He remains unresponsive since admission, intubated and on sedation. MRI Brain is suggestive of diffuse hypoxic ischemic encephalopathy. EEG shows slowing without signs of epileptiform discharges. When taken off Versed he begins to have twitching movements, twitching seen in his eyes, no gaze deviation or generalized seizure activity. Family deciding regarding further GOC. Subjective hx not possible: pt non-verbal Respiratory: no complaints Cardiovascular: no complaints Gastrointestinal: no complaints, No blood, No constipation, No decreased appetite, No diarrhea, No flatus, No nausea, No other, No pain, No passing stool, No vomiting Genitourinary: no complaints Musculoskeletal: no complaints Skin: no complaints Past Medical History Medical History: no pertinent history Past Surgical History Past Surgical Hx: no surgical history Social History Alcohol Use: occasionally Smoking Status: Current every day smoker Drug Use: other (Unclear) Exam/Review of Systems Vital Signs Vitals Vital Signs Date Time Temp Pulse Resp B/P Pulse Ox O2 Delivery O2 Flow Rate FiO2 02/05/17 08:31 40 02/05/17 08:00 99.0 89 28 144/90 95 Mechanical Ventilator Intake and Output 02/04/17 02/04/17 02/05/17 15:00 23:00 07:00 Intake Total 991.52 ml 850.813 ml 224.673 ml Output Total 1020 ml 2341 ml 1183 ml Balance -28.48 ml -1490.187 ml -958.327 ml Exam on sedation versed unarousable to verbal stimuli CN: 2 mm pupils dolls intact absent corneals and absent gag Motor: absent w/d in UE, LE upgoing toes to noxious stimuli Results Result Diagram: 02/05/17 0459 02/05/17 0459 Results 24 hrs Laboratory Tests Test 02/05/17 04:59 White Blood Count 12.1 #H Red Blood Count 3.73 L Hemoglobin 11.4 L Hematocrit 34.7 L Mean Corpuscular Volume 93.0 Mean Corpuscular Hemoglobin 30.6 Mean Corpuscular Hemoglobin Concent 32.9 Red Cell Distribution Width 12.4 Platelet Count 167 Mean Platelet Volume 11.0 H Neutrophils % 77.9 H Lymphocytes % 15.1 Monocytes % 6.1 Eosinophils % 0.1 Basophils % 0.1 Nucleated Red Blood Cells % 0.0 Neutrophils # 9.4 H Lymphocytes # 1.8 Monocytes # 0.7 Eosinophils # 0.0 Basophils # 0.0 Nucleated Red Blood Cells # 0.0 Sodium Level 142 Potassium Level 3.5 Chloride Level 110 Carbon Dioxide Level 26 Anion Gap 10 Blood Urea Nitrogen 14 Creatinine 0.78 Glucose Level 120 Calcium Level 8.5 Medications Medications Current Medications Ondansetron HCl (Zofran Inj) 4 mg Q6H PRN IV NAUSEA AND/OR VOMITING; Start at 19:00 Acetaminophen (Tylenol Tab) 650 mg Q6H PRN PO PAIN LEVEL 1-3 OR FEVER Last administered on 01/31/17 21:31; Admin Dose 650 MG; Start 01/31/17 at 19:00 Acetaminophen/ Hydrocodone Bitart ([place] (5/325)) 1 tab Q6H PRN PO MODERATE PAIN LEVEL 4-6; Start 01/31/17 at 19:00 Morphine Sulfate (morphine) 2 mg Q4H PRN IV SEVERE PAIN LEVEL 7-10 Last administered on 02/02/17 00:28; Admin Dose 2 MG; Start 01/31/17 at 19:00 Docusate Sodium (Colace) 100 mg Q12H PRN PO CONSTIPATION; Start 01/31/17 at 19: 00 Magnesium Hydroxide (Milk Of Mag) 30 ml DAILY PRN PO CONSTIPATION; Start at 19:00 Sodium Biphosphate/ Sodium Phosphate (Fleet Enema) 133 ml DAILY PRN [place] CONSTIPATION; Start 01/31/17 at 19:00 Heparin Sodium (Porcine) (Heparin (5000 Units/0.5 ml)) 5,000 unit Q12 SC Last administered on 02/05/17 09:28; Admin Dose 5,000 UNIT; Start 01/31/17 at 21:00 Hydralazine HCl (Apresoline) 10 mg Q6H PRN IV ELEVATED BLOOD PRESSURE Last administered on 02/03/17 14:29; Admin Dose 10 MG; Start 01/31/17 at 19:00 Nitroglycerin (Nitroglycerin (Sl Tab) 0.4 Mg) 1 tab Q5M PRN SL ANGINA; Start at 19:00 Acetaminophen (Tylenol Supp) 650 mg Q4H PRN [place] TEMP > 37C Last administered on 02/05/17 03:43; Admin Dose 650 MG; Start 01/31/17 at 23:00 Acetaminophen (Tylenol Liquid) 650 mg Q4H PRN PO TEMP > 37C Last administered on 02/04/17 22:46; Admin Dose 650 MG; Start 01/31/17 at 23:00 Meperidine HCl (Demerol) 12.5 mg Q4H PRN IV POST OPERATIVE SHIVERING; Start at 23:00 Meperidine HCl (Demerol) 25 mg Q4H PRN IV POST OPERATIVE SHIVERING; Start 01/31 at 23:00 Eye Lubricant (Akwa Oint) 1 applic Q6 BOTH EYES Last administered on 02/05/17 05:58; Admin Dose 1 APPLIC; Start 02/01/17 at 00:00 Eye Lubricant 2 drop 2 drop Q6 BOTH EYES Last administered on 02/05/17 05:58; Admin Dose 2 DROP; Start 02/01/17 at 00:00 Levetiracetam (Keppra 1,500mg/ 100ml (Pmx)) 100 ml @ 400 mls/hr Q12 IVPB Last administered on 02/05/17 09:27; Admin Dose 400 MLS/HR; Start 02/01/17 at 14:30 Ranitidine HCl 150 mg 150 mg HS PO Last administered on 02/04/17 20:00; Admin Dose 150 MG; Start 02/02/17 at 21:00 Ampicillin Sodium/ Sulbactam Sodium (Unasyn 1.5gm/NS (Pmx)) 50 ml @ 100 mls/hr Q6 IVPB Last administered on 02/05/17t 05:58; Admin Dose 100 MLS/HR; Start 02/02/17 at 13:00; Stop 02/09/17 at 12:59 Elvitegravir/ Cobicis/Emtricit/ Tenof (Stribild Tablet) 1 each DAILY PO ; Start 02/05/17 at 11:00 SHERI LIGHT MD Feb 05, 2017 10:33
[2017-02-05] MEDS: ELVITEGR/COBICIST/EMTRIC/TENOF 1 EACH TABLET PO SCH (11:23)
--- NOTE | 2017-02-05 11:24 | PN ---
Date/Time of Note Date/Time of Note DATE: 02/05/17 TIME: 11:22 Assessment/Plan VTE Prophylaxis VTE Prophylaxis Intervention: SCD's Lines/Catheters IV Catheter Type (from Nrsg): Central Line Central line still needed: No Urinary Cath still in place: Yes Reason Cath still needed: other (indicate) (critically ill) Assessment/Plan Assessment/Plan 46 yo M with pmhx HIV on HAART, unknown psychiatric hx admitted with acute toxic encephalopathy 2/2 intentional Ambien OD. Clinical scenario given imaging studies, EEG, lack of improvement off sedation consistent with severe anoxic brain injury PLAN #anoxic brain injury: neuro on consult--2nd opinion overall with concurrence, cont keppra, depakote added for seizure activity #HIV: cont HAART, CD4 ~500, VL UD ( has been aware of pt's HIV status for several years. dw 10.3) #fevers: likely central in origin. Given no hypotension no compelling indication to expand abx coverage at this time cont unasyn for possible aspiration pna. stop date in EMR #goals of care: requesting aggressive management, PEG/trach consultants already on the case RD cs for help with possibly starting TFs today PLAN CM to arrange LTAC. PEG/trach consults requested critical care time: 30 minutes Subjective 24 Hr Interval Summary Free Text/Dictation Per nursing had some seizure like activity when Versed weaned Exam/Review of Systems Vital Signs Vitals Vital Signs Date Time Temp Pulse Resp B/P Pulse Ox O2 Delivery O2 Flow Rate FiO2 02/05/17 08:31 40 02/05/17 08:00 99.0 89 28 144/90 95 Mechanical Ventilator Intake and Output 02/04/17 02/04/17 02/05/17 15:00 23:00 07:00 Intake Total 991.52 ml 850.813 ml 224.673 ml Output Total 1020 ml 2341 ml 1183 ml Balance -28.48 ml -1490.187 ml -958.327 ml Exam does not respond to verbal stimuli intubated coarse breath sounds abd soft no rashes Results Result Diagram: 02/05/17 0459 02/05/17 0459 Results 24 hrs Laboratory Tests Test 02/05/17 04:59 White Blood Count 12.1 #H Red Blood Count 3.73 L Hemoglobin 11.4 L Hematocrit 34.7 L Mean Corpuscular Volume 93.0 Mean Corpuscular Hemoglobin 30.6 Mean Corpuscular Hemoglobin Concent 32.9 Red Cell Distribution Width 12.4 Platelet Count 167 Mean Platelet Volume 11.0 H Neutrophils % 77.9 H Lymphocytes % 15.1 Monocytes % 6.1 Eosinophils % 0.1 Basophils % 0.1 Nucleated Red Blood Cells % 0.0 Neutrophils # 9.4 H Lymphocytes # 1.8 Monocytes # 0.7 Eosinophils # 0.0 Basophils # 0.0 Nucleated Red Blood Cells # 0.0 Sodium Level 142 Potassium Level 3.5 Chloride Level 110 Carbon Dioxide Level 26 Anion Gap 10 Blood Urea Nitrogen 14 Creatinine 0.78 Glucose Level 120 Calcium Level 8.5 Medications Medications Current Medications Ondansetron HCl (Zofran Inj) 4 mg Q6H PRN IV NAUSEA AND/OR VOMITING; Start at 19:00 Acetaminophen (Tylenol Tab) 650 mg Q6H PRN PO PAIN LEVEL 1-3 OR FEVER Last administered on 01/31/17 21:31; Admin Dose 650 MG; Start 01/31/17 at 19:00 Acetaminophen/ Hydrocodone Bitart ([place] (5/325)) 1 tab Q6H PRN PO MODERATE PAIN LEVEL 4-6; Start 01/31/17 at 19:00 Morphine Sulfate (morphine) 2 mg Q4H PRN IV SEVERE PAIN LEVEL 7-10 Last administered on 02/02/17 00:28; Admin Dose 2 MG; Start 01/31/17 at 19:00 Docusate Sodium (Colace) 100 mg Q12H PRN PO CONSTIPATION; Start 01/31/17 at 19: 00 Magnesium Hydroxide (Milk Of Mag) 30 ml DAILY PRN PO CONSTIPATION; Start at 19:00 Sodium Biphosphate/ Sodium Phosphate (Fleet Enema) 133 ml DAILY PRN [place] CONSTIPATION; Start 01/31/17 at 19:00 Heparin Sodium (Porcine) (Heparin (5000 Units/0.5 ml)) 5,000 unit Q12 SC Last administered on 02/05/17 09:28; Admin Dose 5,000 UNIT; Start 01/31/17 at 21:00 Hydralazine HCl (Apresoline) 10 mg Q6H PRN IV ELEVATED BLOOD PRESSURE Last administered on 02/03/17 14:29; Admin Dose 10 MG; Start 01/31/17 at 19:00 Nitroglycerin (Nitroglycerin (Sl Tab) 0.4 Mg) 1 tab Q5M PRN SL ANGINA; Start at 19:00 Acetaminophen (Tylenol Supp) 650 mg Q4H PRN [place] TEMP > 37C Last administered on 02/05/17 03:43; Admin Dose 650 MG; Start 01/31/17 at 23:00 Acetaminophen (Tylenol Liquid) 650 mg Q4H PRN PO TEMP > 37C Last administered on 02/04/17 22:46; Admin Dose 650 MG; Start 01/31/17 at 23:00 Meperidine HCl (Demerol) 12.5 mg Q4H PRN IV POST OPERATIVE SHIVERING; Start at 23:00 Meperidine HCl (Demerol) 25 mg Q4H PRN IV POST OPERATIVE SHIVERING; Start 01/31 at 23:00 Eye Lubricant (Akwa Oint) 1 applic Q6 BOTH EYES Last administered on 02/05/17 05:58; Admin Dose 1 APPLIC; Start 02/01/17 at 00:00 Eye Lubricant 2 drop 2 drop Q6 BOTH EYES Last administered on 02/05/17 05:58; Admin Dose 2 DROP; Start 02/01/17 at 00:00 Levetiracetam (Keppra 1,500mg/ 100ml (Pmx)) 100 ml @ 400 mls/hr Q12 IVPB Last administered on 02/05/17 09:27; Admin Dose 400 MLS/HR; Start 02/01/17 at 14:30 Ranitidine HCl 150 mg 150 mg HS PO Last administered on 02/04/17 20:00; Admin Dose 150 MG; Start 02/02/17 at 21:00 Ampicillin Sodium/ Sulbactam Sodium (Unasyn 1.5gm/NS (Pmx)) 50 ml @ 100 mls/hr Q6 IVPB Last administered on 02/05/17 05:58; Admin Dose 100 MLS/HR; Start 02/02/17 at 13:00; Stop 02/09/17 at 12:59 Elvitegravir/ Cobicis/Emtricit/ Tenof (Stribild Tablet) 1 each DAILY PO ; Start 02/05/17 at 11:00 LORRAINE RIGGS MD Feb 05, 2017 11:24
--- NOTE | 2017-02-05 13:42 | PN ---
Date/Time of Note Date/Time of Note DATE: 02/05/17 TIME: 13:42 Assessment/Plan Lines/Catheters IV Catheter Type (from Nrsg): Central Line Ross in Place (from Nrsg): Yes Assessment/Plan Chief Complaint/Hosp Course Chief Complaint/Hosp Course Respiratory failure Possible anoxic brain injury secondary to Ambien overdose Problems: Additional Assessment/Plan Patient will benefit from tracheostomy at this time will hold off on tracheostomy until the family is agreeable Problems: Subjective 24 Hr Interval Summary Constitutional: improved Pain Control: mild Exam/Review of Systems Vital Signs Vitals Vital Signs Date Time Temp Pulse Resp B/P Pulse Ox O2 Delivery O2 Flow Rate FiO2 02/05/17 12:00 84 02/05/17 08:31 40 02/05/17 08:00 99.0 28 144/90 95 Mechanical Ventilator Intake and Output 02/04/17 02/04/17 02/05/17 15:00 23:00 07:00 Intake Total 991.52 ml 850.813 ml 224.673 ml Output Total 1020 ml 2341 ml 1183 ml Balance -28.48 ml -1490.187 ml -958.327 ml Exam Neck: non-tender, supple Respiratory: clear to auscultation, normal air movement Cardiovascular: nl pulses, regular rate and rhythm Results Result Diagram: 02/05/17 0459 02/05/17 0459 RYAN REAGAN MD Feb 05, 2017 13:42
[2017-02-05] MEDS: RANITIDINE 150 MG TAB PO SCH (20:27)
[2017-02-06] VITALS (76 sets, daily range): BP systolic 119–166; BP diastolic 79–105; PULSE 82–106; RESP 7–32
[2017-02-06] MEDS: PROPOFOL 100 ML IV SCH (05:03)
[2017-02-06] MEDS: MIDAZOLAM (DRIP) 50 mg/50 mL 50 ML IV SCH (05:03)
[2017-02-06] MEDS: ARTIFICIAL TEARS 15 ML OPH BOTH EYES SCH ×3 (05:04→17:12)
[2017-02-06] MEDS: AMPICILLIN/SULB 1.5GM/NS (PMX) 50 ML IVPB SCH ×3 (05:04→17:11)
[2017-02-06] MEDS: OCULAR LUBRICANT 3.5 GM OPH OINT BOTH EYES SCH ×3 (05:04→17:11)
[2017-02-06 06:08] LABS: BASOPHILS % 0.2 % (0.0-2.0); EOSINOPHILS % 0.1 % (0.0-7.0); HEMATOCRIT 35.3 % (42.0-52.0); HEMOGLOBIN 11.8 g/dl (14.0-18.0); LYMPHOCYTES # 2.6 10^3/ul (0.8-2.9); LYMPHOCYTES % 18.7 % (15.0-51.0); MEAN CORPUSCULAR HEMOGLOBIN 31.4 pg (29.0-33.0); MEAN CORPUSCULAR HGB CONC 33.4 g/dl (32.0-37.0); MEAN CORPUSCULAR VOLUME 93.9 fl (82.0-101.0); MEAN PLATELET VOLUME 11.6 fl (7.4-10.4); MONOCYTE # 1.1 10^3/ul (0.3-0.9); MONOCYTES % 7.9 % (0.0-11.0); NEUTROPHIL # 9.8 10^3/ul (1.6-7.5); NEUTROPHILS % 71.6 % (39.0-77.0); PLATELET COUNT 192 10^3/UL (140-415); RED BLOOD COUNT 3.76 10^6/ul (4.70-6.10); RED CELL DISTRIBUTION WIDTH 12.6 % (11.5-14.5); WHITE BLOOD COUNT 13.7 10^3/ul (4.8-10.8)
[2017-02-06 06:51] LABS: CREATININE 0.87 mg/dl (0.61-1.24); POTASSIUM 3.3 mmol/L (3.5-5.1)
[2017-02-06] MEDS: LEVETIRACETAM 1500 MG (PMX) 100 ML IVPB SCH ×2 (09:29→21:08)
[2017-02-06] MEDS: ELVITEGR/COBICIST/EMTRIC/TENOF 1 EACH TABLET PO SCH (09:29)
[2017-02-06] MEDS: HEPARIN 5,000 UNIT/0.5 ML VIAL SC SCH ×2 (09:44→21:09)
--- NOTE | 2017-02-06 10:28 | CONS ---
Date/Time of Note Date/Time of Note DATE: 02/06/17 TIME: 10:24 Consult Date/Type/Reason Admit Date/Time Jan 31, 2017 at 17:12 Initial Consult Date 02/05/17 Type of Consultation: Neurology Reason for Consultation eval for hypoxic injury Ordering Provider: LORRAINE RIGGS MD Subjective no change in status off sedation intermittent twitching in LE noted by family met with family this am, they request to wait total of 14 days to evaluate for recovery and are working on transferring to another facility Objective Vital Signs Date Time Temp Pulse Resp B/P Pulse Ox O2 Delivery O2 Flow Rate FiO2 02/06/17 10:00 97 26 155/96 94 02/06/17 09:30 Mechanical Ventilator 02/06/17 09:15 40 02/06/17 07:30 100.1 Intake and Output 02/05/17 02/05/17 02/06/17 15:00 23:00 07:00 Intake Total 274.321 ml 305.712 ml 226.549 ml Output Total 439 ml 918 ml 1580 ml Balance -164.679 ml -612.288 ml -1353.451 ml Exam off sedation unresponsive breathing w vent. CN: left pupil 3 mm NR, right pupil 1 mm NR, absent corneals absent gag response Motor absent w/d to noxious stimuli Results/Medications Result Diagram: 02/06/17 0500 02/06/17 0500 Results 24 hrs Laboratory Tests Test 02/06/17 05:00 White Blood Count 13.7 H Red Blood Count 3.76 L Hemoglobin 11.8 L Hematocrit 35.3 L Mean Corpuscular Volume 93.9 Mean Corpuscular Hemoglobin 31.4 Mean Corpuscular Hemoglobin Concent 33.4 Red Cell Distribution Width 12.6 Platelet Count 192 Mean Platelet Volume 11.6 H Neutrophils % 71.6 Lymphocytes % 18.7 Monocytes % 7.9 Eosinophils % 0.1 Basophils % 0.2 Nucleated Red Blood Cells % 0.0 Neutrophils # 9.8 H Lymphocytes # 2.6 Monocytes # 1.1 H Eosinophils # 0.0 Basophils # 0.0 Nucleated Red Blood Cells # 0.0 Sodium Level 142 Potassium Level 3.3 L Chloride Level 111 H Carbon Dioxide Level 27 Anion Gap 7 L Blood Urea Nitrogen 17 Creatinine 0.87 Glucose Level 105 Calcium Level 9.0 Medications Current Medications Ondansetron HCl (Zofran Inj) 4 mg Q6H PRN IV NAUSEA AND/OR VOMITING; Start at 19:00 Acetaminophen (Tylenol Tab) 650 mg Q6H PRN PO PAIN LEVEL 1-3 OR FEVER Last administered on 01/31/17 21:31; Admin Dose 650 MG; Start 01/31/17 at 19:00 Acetaminophen/ Hydrocodone Bitart ([place] (5/325)) 1 tab Q6H PRN PO MODERATE PAIN LEVEL 4-6; Start 01/31/17 at 19:00 Morphine Sulfate (morphine) 2 mg Q4H PRN IV SEVERE PAIN LEVEL 7-10 Last administered on 02/02/17 00:28; Admin Dose 2 MG; Start 01/31/17 at 19:00 Docusate Sodium (Colace) 100 mg Q12H PRN PO CONSTIPATION; Start 01/31/17 at 19: 00 Magnesium Hydroxide (Milk Of Mag) 30 ml DAILY PRN PO CONSTIPATION; Start at 19:00 Sodium Biphosphate/ Sodium Phosphate (Fleet Enema) 133 ml DAILY PRN [place] CONSTIPATION; Start 01/31/17 at 19:00 Heparin Sodium (Porcine) (Heparin (5000 Units/0.5 ml)) 5,000 unit Q12 SC Last administered on 02/06/17 09:44; Admin Dose 5,000 UNIT; Start 01/31/17 at 21:00 Hydralazine HCl (Apresoline) 10 mg Q6H PRN IV ELEVATED BLOOD PRESSURE Last administered on 02/03/17 14:29; Admin Dose 10 MG; Start 01/31/17 at 19:00 Nitroglycerin (Nitroglycerin (Sl Tab) 0.4 Mg) 1 tab Q5M PRN SL ANGINA; Start at 19:00 Acetaminophen (Tylenol Supp) 650 mg Q4H PRN [place] TEMP > 37C Last administered on 02/05/17 20:28; Admin Dose 650 MG; Start 01/31/17 at 23:00 Acetaminophen (Tylenol Liquid) 650 mg Q4H PRN PO TEMP > 37C Last administered on 02/04/17 22:46; Admin Dose 650 MG; Start 01/31/17 at 23:00 Eye Lubricant (Akwa Oint) 1 applic Q6 BOTH EYES Last administered on 02/06/17 05:04; Admin Dose 1 APPLIC; Start 02/01/17 at 00:00 Eye Lubricant 2 drop 2 drop Q6 BOTH EYES Last administered on 02/06/17 05:04; Admin Dose 2 DROP; Start 02/01/17 at 00:00 Levetiracetam (Keppra 1,500mg/ 100ml (Pmx)) 100 ml @ 400 mls/hr Q12 IVPB Last administered on 02/06/17 09:29; Admin Dose 400 MLS/HR; Start 02/01/17 at 14:30 Ranitidine HCl 150 mg 150 mg HS PO Last administered on 02/05/17 20:27; Admin Dose 150 MG; Start 02/02/17 at 21:00 Ampicillin Sodium/ Sulbactam Sodium (Unasyn 1.5gm/NS (Pmx)) 50 ml @ 100 mls/hr Q6 IVPB Last administered on 02/06/17 05:04; Admin Dose 100 MLS/HR; Start 02/02/17 at 13:00; Stop 02/09/17 at 12:59 Elvitegravir/ Cobicis/Emtricit/ Tenof (Stribild Tablet) 1 each DAILY PO Last administered on 02/06/17 09:29; Admin Dose 1 EACH; Start 02/05/17 at 11:00 Divalproex Sodium (Depakote Er) 500 mg TID ONCE PO ; Start 02/06/17 at 13:00; Stop 02/06/17 at 13:01; Status UNV Assessment/Plan Chief Complaint/Hosp Course 46 yo male admitted with cardiopulmonary arrest from Ambien overdose, imaging findings suggestive of hypoxic injury. EEG with diffuse slowing, no epileptiform discharges. Seizures suspected after sedation is weaned. Recommendations: continue on Keppra 1500 mg q8h start Depakote 500 mg q8h MRI reviewed with family shows extensive injury, discussed with , parents at bedside they wish to wait total of 14 days and are planning for trach/PEG in light of absent responses on exam would recommend repeat EEG to evaluate as well will follow up again tomorrow Problems: SHERI LIGHT MD Feb 06, 2017 10:28
[2017-02-06] MEDS ORDERED: POTASSIUM CHLORIDE 250 ML IVPB ONE (11:00)
--- NOTE | 2017-02-06 11:33 | CONS ---
Date/Time of Note Date/Time of Note DATE: 02/06/17 TIME: 11:31 Consult Date/Type/Reason Admit Date/Time Jan 31, 2017 at 17:12 Type of Consultation: Pulmonary Ordering Provider: LORRAINE RIGGS MD Subjective No significant changes. Patient continues mechanical ventilation remains somnolent. Objective Vital Signs Date Time Temp Pulse Resp B/P Pulse Ox O2 Delivery O2 Flow Rate FiO2 02/06/17 10:00 97 26 155/96 94 02/06/17 09:30 Mechanical Ventilator 02/06/17 09:15 40 02/06/17 07:30 100.1 Intake and Output 02/05/17 02/05/17 02/06/17 15:00 23:00 07:00 Intake Total 274.321 ml 305.712 ml 226.549 ml Output Total 439 ml 918 ml 1580 ml Balance -164.679 ml -612.288 ml -1353.451 ml Exam PHYSICAL EXAMINATION GENERAL: Well-nourished well-developed gentleman intubated on mechanical ventilation VITAL SIGNS: see below. HEENT: Pupils equal, round, and reactive to light. CARDIAC: S1, S2, no added sounds or murmurs CHEST: Diminished air entry bilaterally. ABDOMEN: Mildly distended. Bowel sounds present no guarding or rebound EXTREMITIES: No cyanosis, clubbing edema +1 NEUROLOGIC: Unable to assess Results/Medications Result Diagram: 02/06/17 0500 02/06/17 0500 Results 24 hrs Laboratory Tests Test 02/06/17 05:00 White Blood Count 13.7 H Red Blood Count 3.76 L Hemoglobin 11.8 L Hematocrit 35.3 L Mean Corpuscular Volume 93.9 Mean Corpuscular Hemoglobin 31.4 Mean Corpuscular Hemoglobin Concent 33.4 Red Cell Distribution Width 12.6 Platelet Count 192 Mean Platelet Volume 11.6 H Neutrophils % 71.6 Lymphocytes % 18.7 Monocytes % 7.9 Eosinophils % 0.1 Basophils % 0.2 Nucleated Red Blood Cells % 0.0 Neutrophils # 9.8 H Lymphocytes # 2.6 Monocytes # 1.1 H Eosinophils # 0.0 Basophils # 0.0 Nucleated Red Blood Cells # 0.0 Sodium Level 142 Potassium Level 3.3 L Chloride Level 111 H Carbon Dioxide Level 27 Anion Gap 7 L Blood Urea Nitrogen 17 Creatinine 0.87 Glucose Level 105 Calcium Level 9.0 Medications Current Medications Ondansetron HCl (Zofran Inj) 4 mg Q6H PRN IV NAUSEA AND/OR VOMITING; Start at 19:00 Acetaminophen (Tylenol Tab) 650 mg Q6H PRN PO PAIN LEVEL 1-3 OR FEVER Last administered on 01/31/17 21:31; Admin Dose 650 MG; Start 01/31/17 at 19:00 Acetaminophen/ Hydrocodone Bitart ([place] (5/325)) 1 tab Q6H PRN PO MODERATE PAIN LEVEL 4-6; Start 01/31/17 at 19:00 Morphine Sulfate (morphine) 2 mg Q4H PRN IV SEVERE PAIN LEVEL 7-10 Last administered on 02/02/17 00:28; Admin Dose 2 MG; Start 01/31/17 at 19:00 Docusate Sodium (Colace) 100 mg Q12H PRN PO CONSTIPATION; Start 01/31/17 at 19: 00 Magnesium Hydroxide (Milk Of Mag) 30 ml DAILY PRN PO CONSTIPATION; Start at 19:00 Sodium Biphosphate/ Sodium Phosphate (Fleet Enema) 133 ml DAILY PRN [place] CONSTIPATION; Start 01/31/17 at 19:00 Heparin Sodium (Porcine) (Heparin (5000 Units/0.5 ml)) 5,000 unit Q12 SC Last administered on 02/06/17 09:44; Admin Dose 5,000 UNIT; Start 01/31/17 at 21:00 Hydralazine HCl (Apresoline) 10 mg Q6H PRN IV ELEVATED BLOOD PRESSURE Last administered on 02/03/17 14:29; Admin Dose 10 MG; Start 01/31/17 at 19:00 Nitroglycerin (Nitroglycerin (Sl Tab) 0.4 Mg) 1 tab Q5M PRN [place] ANGINA; Start at 19:00 Acetaminophen (Tylenol Supp) 650 mg Q4H PRN [place] TEMP > 37C Last administered on 02/05/17 20:28; Admin Dose 650 MG; Start 01/31/17 at 23:00 Acetaminophen (Tylenol Liquid) 650 mg Q4H PRN PO TEMP > 37C Last administered on 02/04/17 22:46; Admin Dose 650 MG; Start 01/31/17 at 23:00 Eye Lubricant (Akwa Oint) 1 applic Q6 BOTH EYES Last administered on 02/06/17 05:04; Admin Dose 1 APPLIC; Start 02/01/17 at 00:00 Eye Lubricant 2 drop 2 drop Q6 BOTH EYES Last administered on 02/06/17 05:04; Admin Dose 2 DROP; Start 02/01/17 at 00:00 Levetiracetam (Keppra 1,500mg/ 100ml (Pmx)) 100 ml @ 400 mls/hr Q12 IVPB Last administered on 02/06/17 09:29; Admin Dose 400 MLS/HR; Start 02/01/17 at 14:30 Ranitidine HCl 150 mg 150 mg HS PO Last administered on 02/05/17 20:27; Admin Dose 150 MG; Start 02/02/17 at 21:00 Ampicillin Sodium/ Sulbactam Sodium (Unasyn 1.5gm/NS (Pmx)) 50 ml @ 100 mls/hr Q6 IVPB Last administered on 02/06/17 05:04; Admin Dose 100 MLS/HR; Start 02/02/17 at 13:00; Stop 02/09/17 at 12:59 Elvitegravir/ Cobicis/Emtricit/ Tenof (Stribild Tablet) 1 each DAILY PO Last administered on 02/06/17 09:29; Admin Dose 1 EACH; Start 02/05/17 at 11:00 Divalproex Sodium 500 mg 500 mg TID PO ; Start 02/06/17 at 13:00 Potassium Chloride (KCl 40 MEQ/250 ML NS) 250 ml @ 62.5 mls/hr ONCE ONCE IVPB ; Start 02/06/17 at 11:00; Stop 02/06/17 at 14:59 Assessment/Plan Chief Complaint/Hosp Course Assessment 1. Possible intentional Ambien overdose. 2. Hypoxemic and hypercapnic respiratory failure With aspiration pneumonia. Right lower lobe infiltrate. 3. Cardiopulmonary arrest with anoxic brain injury. Consistent with EEG and MRI findings. Evidence of seizure activity off sedation. 4. History of HIV Plan 1. Continue antibiotic coverage 2. Currently no evidence of seizures off sedation 3. Neuro recommendations noted. 4. Continue current vent settings. 5. Nasogastric tube feeding as tolerated Continues current supportive care. Prognosis extremely poor. Family wished to continue current care for 14 days and then consider tracheostomy. They are reluctant to proceed to comfort measures or proceed to tracheostomy at this point. Critical care time 40 minutes. Problems: KERI FRIED MD, [facility] Feb 06, 2017 11:33
[2017-02-06] MEDS: ACETAMINOPHEN 325 MG TAB PO PRN ×2 (12:20→18:50)
[2017-02-06] MEDS: DIVALPROEX (ER) 500 MG TAB PO SCH ×2 (13:02→21:08)
--- NOTE | 2017-02-06 13:06 | PN ---
Date/Time of Note Date/Time of Note DATE: 02/06/17 TIME: 13:01 Assessment/Plan VTE Prophylaxis VTE Prophylaxis Intervention: SCD's Lines/Catheters IV Catheter Type (from Nrsg): Central Line Central line still needed: No Urinary Cath still in place: Yes Reason Cath still needed: other (indicate) (critically ill) Assessment/Plan Assessment/Plan 46 yo M with pmhx HIV on HAART, unknown psychiatric hx admitted with acute toxic encephalopathy 2/2 intentional Ambien OD. Clinical scenario given imaging studies, EEG, lack of improvement off sedation consistent with severe anoxic brain injury PLAN #anoxic brain injury: neuro on consult--2nd opinion overall with concurrence, cont Keppra, Depakote repeat EEG ordered by neuro per family request #HIV: cont HAART, CD4 ~500, VL UD ( has been aware of pt's HIV status for several years. dw 10.3) #fevers: likely central in origin. Given no hypotension no compelling indication to expand abx coverage at this time cont unasyn for possible aspiration pna. stop date in EMR #FEN: tube feeds as tolerated #goals of care: requesting aggressive management, PEG/trach consultants already on the case PLAN family requesting 14 days with ET tube before trach placement, also requested xfer to tertiary center CM aware of transfer request though pt does not require specialized care unavailable at this facility critical care time: 30 minutes Subjective 24 Hr Interval Summary Free Text/Dictation neurologist held family meeting today. no changes in clinical status Exam/Review of Systems Vital Signs Vitals Vital Signs Date Time Temp Pulse Resp B/P Pulse Ox O2 Delivery O2 Flow Rate FiO2 02/06/17 10:00 97 26 155/96 94 02/06/17 09:30 Mechanical Ventilator 02/06/17 09:15 40 02/06/17 07:30 100.1 Intake and Output 02/05/17 02/05/17 02/06/17 15:00 23:00 07:00 Intake Total 274.321 ml 305.712 ml 226.549 ml Output Total 439 ml 918 ml 1580 ml Balance -164.679 ml -612.288 ml -1353.451 ml Exam laying in bed intubated resp nonlabored no abd distension no rashes Results Result Diagram: 02/06/17 0500 02/06/17 0500 Results 24 hrs Laboratory Tests Test 02/06/17 05:00 White Blood Count 13.7 H Red Blood Count 3.76 L Hemoglobin 11.8 L Hematocrit 35.3 L Mean Corpuscular Volume 93.9 Mean Corpuscular Hemoglobin 31.4 Mean Corpuscular Hemoglobin Concent 33.4 Red Cell Distribution Width 12.6 Platelet Count 192 Mean Platelet Volume 11.6 H Neutrophils % 71.6 Lymphocytes % 18.7 Monocytes % 7.9 Eosinophils % 0.1 Basophils % 0.2 Nucleated Red Blood Cells % 0.0 Neutrophils # 9.8 H Lymphocytes # 2.6 Monocytes # 1.1 H Eosinophils # 0.0 Basophils # 0.0 Nucleated Red Blood Cells # 0.0 Sodium Level 142 Potassium Level 3.3 L Chloride Level 111 H Carbon Dioxide Level 27 Anion Gap 7 L Blood Urea Nitrogen 17 Creatinine 0.87 Glucose Level 105 Calcium Level 9.0 Medications Medications Current Medications Ondansetron HCl (Zofran Inj) 4 mg Q6H PRN IV NAUSEA AND/OR VOMITING; Start at 19:00 Acetaminophen (Tylenol Tab) 650 mg Q6H PRN PO PAIN LEVEL 1-3 OR FEVER Last administered on 02/06/17 12:20; Admin Dose 650 MG; Start 01/31/17 at 19:00 Acetaminophen/ Hydrocodone Bitart ([place] (5/325)) 1 tab Q6H PRN PO MODERATE PAIN LEVEL 4-6; Start 01/31/17 at 19:00 Morphine Sulfate (morphine) 2 mg Q4H PRN IV SEVERE PAIN LEVEL 7-10 Last administered on 02/02/17 00:28; Admin Dose 2 MG; Start 01/31/17 at 19:00 Docusate Sodium (Colace) 100 mg Q12H PRN PO CONSTIPATION; Start 01/31/17 at 19: 00 Magnesium Hydroxide (Milk Of Mag) 30 ml DAILY PRN PO CONSTIPATION; Start at 19:00 Sodium Biphosphate/ Sodium Phosphate (Fleet Enema) 133 ml DAILY PRN [place] CONSTIPATION; Start 01/31/17 at 19:00 Heparin Sodium (Porcine) (Heparin (5000 Units/0.5 ml)) 5,000 unit Q12 SC Last administered on 02/06/17 09:44; Admin Dose 5,000 UNIT; Start 01/31/17 at 21:00 Hydralazine HCl (Apresoline) 10 mg Q6H PRN IV ELEVATED BLOOD PRESSURE Last administered on 02/03/17 14:29; Admin Dose 10 MG; Start 01/31/17 at 19:00 Nitroglycerin (Nitroglycerin (Sl Tab) 0.4 Mg) 1 tab Q5M PRN SL ANGINA; Start at 19:00 Acetaminophen (Tylenol Supp) 650 mg Q4H PRN [place] TEMP > 37C Last administered on 02/05/17 20:28; Admin Dose 650 MG; Start 01/31/17 at 23:00 Acetaminophen (Tylenol Liquid) 650 mg Q4H PRN PO TEMP > 37C Last administered on 02/04/17 22:46; Admin Dose 650 MG; Start 01/31/17 at 23:00 Eye Lubricant (Akwa Oint) 1 applic Q6 BOTH EYES Last administered on 02/06/17 12:08; Admin Dose 1 APPLIC; Start 02/01/17 at 00:00 Eye Lubricant 2 drop 2 drop Q6 BOTH EYES Last administered on 02/06/17 12:08; Admin Dose 2 DROP; Start 02/01/17 at 00:00 Levetiracetam (Keppra 1,500mg/ 100ml (Pmx)) 100 ml @ 400 mls/hr Q12 IVPB Last administered on 02/06/17 09:29; Admin Dose 400 MLS/HR; Start 02/01/17 at 14:30 Ranitidine HCl 150 mg 150 mg HS PO Last administered on 02/05/17 20:27; Admin Dose 150 MG; Start 02/02/17 at 21:00 Ampicillin Sodium/ Sulbactam Sodium (Unasyn 1.5gm/NS (Pmx)) 50 ml @ 100 mls/hr Q6 IVPB Last administered on 02/06/17 12:08; Admin Dose 100 MLS/HR; Start 02/02/17 at 13:00; Stop 02/09/17 at 12:59 Elvitegravir/ Cobicis/Emtricit/ Tenof (Stribild Tablet) 1 each DAILY PO Last administered on 02/06/17 09:29; Admin Dose 1 EACH; Start 02/05/17 at 11:00 Divalproex Sodium 500 mg 500 mg TID PO ; Start 02/06/17 at 13:00 Potassium Chloride (KCl 40 MEQ/250 ML NS) 250 ml @ 62.5 mls/hr ONCE ONCE IVPB Last administered on 02/06/17t 12:55; Admin Dose 62.5 MLS/HR; Start 02/06/17 at 11:00; Stop 02/06/17 at 14:59 LORARINE RIGGS MD Feb 06, 2017 13:06
[2017-02-06] MEDS: RANITIDINE 150 MG TAB PO SCH (21:08)
[2017-02-07] VITALS (80 sets, daily range): BP systolic 111–167; BP diastolic 74–105; PULSE 82–116; RESP 16–36
[2017-02-07] MEDS: OCULAR LUBRICANT 3.5 GM OPH OINT BOTH EYES SCH ×4 (00:09→17:44)
[2017-02-07] MEDS: ARTIFICIAL TEARS 15 ML OPH BOTH EYES SCH ×4 (00:09→17:44)
[2017-02-07] MEDS: AMPICILLIN/SULB 1.5GM/NS (PMX) 50 ML IVPB SCH ×4 (00:48→17:48)
[2017-02-07] MEDS: ACETAMINOPHEN 1000MG/100ML IV 100 ML IVPB SCH ×5 (00:48→23:30)
[2017-02-07 05:13] LABS: BASOPHILS % 0.2 % (0.0-2.0); HEMATOCRIT 38.8 % (42.0-52.0); LYMPHOCYTES # 2.1 10^3/ul (0.8-2.9); LYMPHOCYTES % 12.6 % (15.0-51.0); MEAN CORPUSCULAR HEMOGLOBIN 32.2 pg (29.0-33.0); MEAN CORPUSCULAR HGB CONC 33.5 g/dl (32.0-37.0); MONOCYTE # 1.1 10^3/ul (0.3-0.9); MONOCYTES % 6.7 % (0.0-11.0); NEUTROPHIL # 13.1 10^3/ul (1.6-7.5); NEUTROPHILS % 79.4 % (39.0-77.0); PLATELET COUNT 235 10^3/UL (140-415); RED BLOOD COUNT 4.04 10^6/ul (4.70-6.10); RED CELL DISTRIBUTION WIDTH 12.3 % (11.5-14.5); WHITE BLOOD COUNT 16.5 10^3/ul (4.8-10.8)
[2017-02-07 05:24] LABS: CALCIUM 9.1 mg/dl (8.4-10.2); CREATININE 0.96 mg/dl (0.61-1.24); POTASSIUM 3.3 mmol/L (3.5-5.1)
[2017-02-07] MEDS ORDERED: POTASSIUM CHLORIDE 50 ML IVPB PRN (08:00)
[2017-02-07] MEDS ORDERED: SOD CHLORIDE 0.45% 1,000 ML IV SCH (08:00)
[2017-02-07] MEDS: LEVETIRACETAM 1500 MG (PMX) 100 ML IVPB SCH ×2 (08:22→20:51)
[2017-02-07] MEDS: DIVALPROEX (ER) 500 MG TAB PO SCH ×3 (08:23→20:52)
[2017-02-07] MEDS: HEPARIN 5,000 UNIT/0.5 ML VIAL SC SCH ×2 (08:30→20:53)
--- NOTE | 2017-02-07 09:01 | PN ---
Date/Time of Note Date/Time of Note DATE: 02/07/17 TIME: 08:59 Assessment/Plan VTE Prophylaxis VTE Prophylaxis Intervention: SCD's Lines/Catheters IV Catheter Type (from Nrsg): Central Line Central line still needed: No Urinary Cath still in place: Yes Reason Cath still needed: other (indicate) (critically ill) Assessment/Plan Assessment/Plan 46 yo M with pmhx HIV on HAART, unknown psychiatric hx admitted with acute toxic encephalopathy 2/2 intentional Ambien OD. Clinical scenario given imaging studies, EEG, lack of improvement off sedation consistent with severe anoxic brain injury PLAN #anoxic brain injury: neuro on consult--2nd opinion overall with concurrence, cont Keppra, Depakote repeat EEG ordered by neuro per family request #HIV: cont HAART, CD4 ~500, VL UD ( has been aware of pt's HIV status for several years. dw 10.3) #fevers: likely central in origin. Given no hypotension no compelling indication to expand abx coverage at this time cont unasyn for possible aspiration pna. stop date in EMR re tong culture given duration to r/o occult infectious process #FEN: tube feeds as tolerated -check KUB given high residuals -will given 1L 1/2 NS given hypernatremia (likely from difficulty given FW/TFs via OG given high residuals) #goals of care: requesting aggressive management, PEG/trach consultants already on the case PLAN family requesting 14 days with ET tube before trach placement, also requested xfer to tertiary center CM aware of transfer request though pt does not require specialized care unavailable at this facility critical care time: 30 minutes Subjective 24 Hr Interval Summary Free Text/Dictation no changes in clinical status Exam/Review of Systems Vital Signs Vitals Vital Signs Date Time Temp Pulse Resp B/P Pulse Ox O2 Delivery O2 Flow Rate FiO2 02/07/17 06:00 101 28 155/95 96 Mechanical Ventilator 02/07/17 04:55 60 02/07/17 04:00 99.3 Intake and Output 02/06/17 02/06/17 02/07/17 15:00 23:00 07:00 Intake Total 530.606 ml Output Total 1970 ml 1131 ml 1251 ml Balance -1439.394 ml -1131 ml -1251 ml Exam intubated abd mildly distended though soft no mrg no rashes no edema Results Result Diagram: 02/07/1739902/07/17399 Results 24 hrs Laboratory Tests Test 02/07/17 04:00 White Blood Count 16.5 #H Red Blood Count 4.04 L Hemoglobin 13.0 L Hematocrit 38.8 L Mean Corpuscular Volume 96.0 Mean Corpuscular Hemoglobin 32.2 Mean Corpuscular Hemoglobin Concent 33.5 Red Cell Distribution Width 12.3 Platelet Count 235 # Mean Platelet Volume 11.0 H Neutrophils % 79.4 H Lymphocytes % 12.6 L Monocytes % 6.7 Eosinophils % 0.0 Basophils % 0.2 Nucleated Red Blood Cells % 0.0 Neutrophils # 13.1 H Lymphocytes # 2.1 Monocytes # 1.1 H Eosinophils # 0.0 Basophils # 0.0 Nucleated Red Blood Cells # 0.0 Sodium Level 151 H Potassium Level 3.3 L Chloride Level 113 H Carbon Dioxide Level 31 Anion Gap 10 Blood Urea Nitrogen 19 Creatinine 0.96 Glucose Level 124 Calcium Level 9.1 Medications Medications Current Medications Ondansetron HCl (Zofran Inj) 4 mg Q6H PRN IV NAUSEA AND/OR VOMITING; Start at 19:00 Acetaminophen (Tylenol Tab) 650 mg Q6H PRN PO PAIN LEVEL 1-3 OR FEVER Last administered on 02/06/17 18:50; Admin Dose 650 MG; Start 01/31/17 at 19:00; Status Future Hold Acetaminophen/ Hydrocodone Bitart ([place] (5/325)) 1 tab Q6H PRN PO MODERATE PAIN LEVEL 4-6; Start 01/31/17 at 19:00 Morphine Sulfate (morphine) 2 mg Q4H PRN IV SEVERE PAIN LEVEL 7-10 Last administered on 02/02/17 00:28; Admin Dose 2 MG; Start 01/31/17 at 19:00 Docusate Sodium (Colace) 100 mg Q12H PRN PO CONSTIPATION; Start 01/31/17 at 19: 00 Magnesium Hydroxide (Milk Of Mag) 30 ml DAILY PRN PO CONSTIPATION; Start at 19:00 Sodium Biphosphate/ Sodium Phosphate (Fleet Enema) 133 ml DAILY PRN [place] CONSTIPATION; Start 01/31/17 at 19:00 Heparin Sodium (Porcine) (Heparin (5000 Units/0.5 ml)) 5,000 unit Q12 SC Last administered on 02/07/17 08:30; Admin Dose 5,000 UNIT; Start 01/31/17 at 21:00 Hydralazine HCl (Apresoline) 10 mg Q6H PRN IV ELEVATED BLOOD PRESSURE Last administered on 02/03/17 14:29; Admin Dose 10 MG; Start 01/31/17 at 19:00 Nitroglycerin (Nitroglycerin (Sl Tab) 0.4 Mg) 1 tab Q5M PRN SL ANGINA; Start at 19:00 Acetaminophen (Tylenol Supp) 650 mg Q4H PRN [place] TEMP > 37C Last administered on 02/05/17 20:28; Admin Dose 650 MG; Start 01/31/17 at 23:00; Status Future Hold Acetaminophen (Tylenol Liquid) 650 mg Q4H PRN PO TEMP > 37C Last administered on 02/04/17 22:46; Admin Dose 650 MG; Start 01/31/17 at 23:00; Status Future Hold Eye Lubricant (Akwa Oint) 1 applic Q6 BOTH EYES Last administered on 02/07/17 05:40; Admin Dose 1 APPLIC; Start 02/01/17 at 00:00 Eye Lubricant 2 drop 2 drop Q6 BOTH EYES Last administered on 02/07/17 05:40; Admin Dose 2 DROP; Start 02/01/17 at 00:00 Levetiracetam (Keppra 1,500mg/ 100ml (Pmx)) 100 ml @ 400 mls/hr Q12 IVPB Last administered on 02/07/17 08:22; Admin Dose 400 MLS/HR; Start 02/01/17 at 14:30 Ranitidine HCl 150 mg 150 mg HS PO Last administered on 02/06/17 21:08; Admin Dose 150 MG; Start 02/02/17 at 21:00 Ampicillin Sodium/ Sulbactam Sodium (Unasyn 1.5gm/NS (Pmx)) 50 ml @ 100 mls/hr Q6 IVPB Last administered on 02/07/17 05:40; Admin Dose 100 MLS/HR; Start 02/02/17 at 13:00; Stop 02/09/17 at 12:59 Elvitegravir/ Cobicis/Emtricit/ Tenof (Stribild Tablet) 1 each DAILY PO Last administered on 02/06/17 09:29; Admin Dose 1 EACH; Start 02/05/17 at 11:00 Divalproex Sodium 500 mg 500 mg TID PO Last administered on 02/07/17 08:23; Admin Dose 500 MG; Start 02/06/17 at 13:00 Acetaminophen 100 ml @ 400 mls/hr Q6H IVPB Last administered on 02/07/17 05: 40; Admin Dose 400 MLS/HR; Start 02/07/17 at 00:30 Sodium Chloride (1/2 NS) 1,000 ml @ 100 mls/hr Q10H IV ; Start 02/07/17 at 08: 00; Stop 02/07/17 at 17:59 LORRAINE RIGGS MD Feb 07, 2017 09:01
[2017-02-07] MEDS: ELVITEGR/COBICIST/EMTRIC/TENOF 1 EACH TABLET PO SCH (11:36)
--- NOTE | 2017-02-07 12:15 | RADRPT ---
PROCEDURE: XR Abdomen. CLINICAL INDICATION: Abdomen pain. TECHNIQUE: AP supine abdomen x-ray. COMPARISON: None. FINDINGS: The enteric tube tip is at the gastroesophageal junction. The bowel gas pattern is normal with no evidence of obstruction. There is a 0.9 cm calcification overlying the left kidney. There are no other abnormal calcification s. The osseus structures are unremarkable. IMPRESSION: 1. Enteric tube tip at the gastroesophageal junction. This should be advanced approximately 9 cm. 2. No evidence of obstruction. 3. Calcification overlying the left kidney measuring 0.9 cm. RPTAT: QQ .Telly Alejo MD, MD Date Time Electronically viewed and signed by .Telly Alejo MD, on 02/07/2017 12:14 .R/
--- NOTE | 2017-02-07 12:55 | PN ---
Date/Time of Note Date/Time of Note DATE: 02/07/17 TIME: 12:55 Assessment/Plan Lines/Catheters IV Catheter Type (from Nrsg): Central Line Ross in Place (from Nrsg): Yes Assessment/Plan Chief Complaint/Hosp Course Chief Complaint/Hosp Course Respiratory failure Possible anoxic brain injury secondary to Ambien overdose Problems: Additional Assessment/Plan Patient will benefit from tracheostomy at this time will hold off on tracheostomy until the family is agreeable Problems: Subjective 24 Hr Interval Summary Constitutional: improved Pain Control: mild Exam/Review of Systems Vital Signs Vitals Vital Signs Date Time Temp Pulse Resp B/P Pulse Ox O2 Delivery O2 Flow Rate FiO2 02/07/17 10:30 110 36 157/99 95 02/07/17 10:00 Mechanical Ventilator 02/07/17 08:00 100.3 02/07/17 04:55 60 Intake and Output 02/06/17 02/06/17 02/07/17 15:00 23:00 07:00 Intake Total 530.606 ml Output Total 1970 ml 1131 ml 1312 ml Balance -1439.394 ml -1131 ml -1312 ml Exam ENMT: No intubated, No mucosa pink and moist, No nl external ears & nose, No nl lips & teeth, No nl nasal mucosa & septum, No other, No tympanic membranes Respiratory: clear to auscultation, normal air movement Results Result Diagram: 02/07/170 02/07/17399 RYAN REAGAN MD Feb 07, 2017 12:55
--- NOTE | 2017-02-07 14:00 | CONS ---
Date/Time of Note Date/Time of Note DATE: 02/07/17 TIME: 13:57 Consult Date/Type/Reason Admit Date/Time Jan 31, 2017 at 17:12 Type of Consultation: Pulmonary Ordering Provider: LORRAINE RIGGS MD Subjective No events. Unresponsive off sedation on MV Objective Vital Signs Date Time Temp Pulse Resp B/P Pulse Ox O2 Delivery O2 Flow Rate FiO2 02/07/17 10:30 110 36 157/99 95 02/07/17 10:00 Mechanical Ventilator 02/07/17 08:00 100.3 02/07/17 04:55 60 Intake and Output 02/06/17 02/06/17 02/07/17 15:00 23:00 07:00 Intake Total 530.606 ml Output Total 1970 ml 1131 ml 1312 ml Balance -1439.394 ml -1131 ml -1312 ml Exam HEENT: Pupils equal, round, and reactive to light. CARDIAC: S1, S2, no added sounds or murmurs CHEST: Diminished air entry bilaterally. ABDOMEN: Mildly distended. Bowel sounds present no guarding or rebound EXTREMITIES: No cyanosis, clubbing edema +1 NEUROLOGIC: Unresponsive Results/Medications Result Diagram: 02/07/17 0400 02/07/17 0400 Results 24 hrs Laboratory Tests Test 02/07/17 04:00 White Blood Count 16.5 #H Red Blood Count 4.04 L Hemoglobin 13.0 L Hematocrit 38.8 L Mean Corpuscular Volume 96.0 Mean Corpuscular Hemoglobin 32.2 Mean Corpuscular Hemoglobin Concent 33.5 Red Cell Distribution Width 12.3 Platelet Count 235 # Mean Platelet Volume 11.0 H Neutrophils % 79.4 H Lymphocytes % 12.6 L Monocytes % 6.7 Eosinophils % 0.0 Basophils % 0.2 Nucleated Red Blood Cells % 0.0 Neutrophils # 13.1 H Lymphocytes # 2.1 Monocytes # 1.1 H Eosinophils # 0.0 Basophils # 0.0 Nucleated Red Blood Cells # 0.0 Sodium Level 151 H Potassium Level 3.3 L Chloride Level 113 H Carbon Dioxide Level 31 Anion Gap 10 Blood Urea Nitrogen 19 Creatinine 0.96 Glucose Level 124 Calcium Level 9.1 Medications Current Medications Ondansetron HCl (Zofran Inj) 4 mg Q6H PRN IV NAUSEA AND/OR VOMITING; Start at 19:00 Acetaminophen (Tylenol Tab) 650 mg Q6H PRN PO PAIN LEVEL 1-3 OR FEVER Last administered on 02/06/17 18:50; Admin Dose 650 MG; Start 01/31/17 at 19:00; Status Future Hold Acetaminophen/ Hydrocodone Bitart ([place] (5/325)) 1 tab Q6H PRN PO MODERATE PAIN LEVEL 4-6; Start 01/31/17 at 19:00 Morphine Sulfate (morphine) 2 mg Q4H PRN IV SEVERE PAIN LEVEL 7-10 Last administered on 02/02/17 00:28; Admin Dose 2 MG; Start 01/31/17 at 19:00 Docusate Sodium (Colace) 100 mg Q12H PRN PO CONSTIPATION; Start 01/31/17 at 19: 00 Magnesium Hydroxide (Milk Of Mag) 30 ml DAILY PRN PO CONSTIPATION; Start at 19:00 Sodium Biphosphate/ Sodium Phosphate (Fleet Enema) 133 ml DAILY PRN [place] CONSTIPATION; Start 01/31/17 at 19:00 Heparin Sodium (Porcine) (Heparin (5000 Units/0.5 ml)) 5,000 unit Q12 SC Last administered on 02/07/17 08:30; Admin Dose 5,000 UNIT; Start 01/31/17 at 21:00 Hydralazine HCl (Apresoline) 10 mg Q6H PRN IV ELEVATED BLOOD PRESSURE Last administered on 02/03/17 14:29; Admin Dose 10 MG; Start 01/31/17 at 19:00 Nitroglycerin (Nitroglycerin (Sl Tab) 0.4 Mg) 1 tab Q5M PRN [place] ANGINA; Start at 19:00 Acetaminophen (Tylenol Supp) 650 mg Q4H PRN [place] TEMP > 37C Last administered on 02/05/17 20:28; Admin Dose 650 MG; Start 01/31/17 at 23:00; Status Future Hold Acetaminophen (Tylenol Liquid) 650 mg Q4H PRN PO TEMP > 37C Last administered on 02/04/17 22:46; Admin Dose 650 MG; Start 01/31/17 at 23:00; Status Future Hold Eye Lubricant (Akwa Oint) 1 applic Q6 BOTH EYES Last administered on 02/07/17 11:36; Admin Dose 1 APPLIC; Start 02/01/17 at 00:00 Eye Lubricant 2 drop 2 drop Q6 BOTH EYES Last administered on 02/07/17 11:36; Admin Dose 2 DROP; Start 02/01/17 at 00:00 Levetiracetam (Keppra 1,500mg/ 100ml (Pmx)) 100 ml @ 400 mls/hr Q12 IVPB Last administered on 02/07/17 08:22; Admin Dose 400 MLS/HR; Start 02/01/17 at 14:30 Ranitidine HCl 150 mg 150 mg HS PO Last administered on 02/06/17 21:08; Admin Dose 150 MG; Start 02/02/17 at 21:00 Ampicillin Sodium/ Sulbactam Sodium (Unasyn 1.5gm/NS (Pmx)) 50 ml @ 100 mls/hr Q6 IVPB Last administered on 02/07/17 11:35; Admin Dose 100 MLS/HR; Start 02/02/17 at 13:00; Stop 02/09/17 at 12:59 Elvitegravir/ Cobicis/Emtricit/ Tenof (Stribild Tablet) 1 each DAILY PO Last administered on 02/07/17 11:36; Admin Dose 1 EACH; Start 02/05/17 at 11:00 Divalproex Sodium 500 mg 500 mg TID PO Last administered on 02/07/17 13:14; Admin Dose 500 MG; Start 02/06/17 at 13:00 Acetaminophen 100 ml @ 400 mls/hr Q6H IVPB Last administered on 02/07/17 13: 14; Admin Dose 400 MLS/HR; Start 02/07/17 at 00:30 Sodium Chloride (1/2 NS) 1,000 ml @ 100 mls/hr Q10H IV Last administered on 09:13; Admin Dose 100 MLS/HR; Start 02/07/17 at 08:00; Stop 02/07/17 at 17:59 Assessment/Plan Chief Complaint/Hosp Course Briefly, this is a 46-year-old man presented to the ER after what appears to have been a cardiopulmonary arrest at home after zoldpidem OD--with bystander CPR--s/p CPR by paramedics for possible PEA on arrival. He had a Sushil airway placed and was intubated in the ED. Initially noted to have food products aspirated. Problems: Additional Assessment/Plan IMP 1. s/p Ambien overdose--complicated by cardiopulm arrest 2. Hypoxemic and hypercapnic respiratory failure With aspiration pneumonia. Right lower lobe infiltrate. 3. Cardiopulmonary arrest with anoxic brain injury. Consistent with EEG and MRI findings. 4. History of HIV RECS: 1. The prognosis of meaningful neurological recovery is very low given ~ 1 week from event. 2. I discussed my findings with patients family 3. Continue supportive care Critical care time 40 minutes. ENEDINA OSORIO MD Feb 07, 2017 14:00
[2017-02-07] MEDS: POTASSIUM CHLORIDE 50 ML IVPB SCH ×3 (15:11→17:48)
--- NOTE | 2017-02-07 15:15 | CONS ---
Date/Time of Note Date/Time of Note DATE: 02/07/17 TIME: 15:14 Consult Date/Type/Reason Admit Date/Time Jan 31, 2017 at 17:12 Initial Consult Date 02/05/17 Type of Consultation: Neurology Reason for Consultation evaluation for hypoxic brain injury Ordering Provider: LORRAINE RIGGS MD Subjective no change in status family advised again of poor prognosis Objective Vital Signs Date Time Temp Pulse Resp B/P Pulse Ox O2 Delivery O2 Flow Rate FiO2 02/07/17 14:15 106 28 111/79 97 02/07/17 12:00 101.3 02/07/17 10:00 Mechanical Ventilator 02/07/17 04:55 60 Intake and Output 02/06/17 02/06/17 02/07/17 15:00 23:00 07:00 Intake Total 530.606 ml Output Total 1970 ml 1131 ml 1312 ml Balance -1439.394 ml -1131 ml -1312 ml Exam off sedation unresponsive breathing w vent. CN: left pupil 3 mm NR, right pupil 1 mm NR, absent corneals absent gag response Motor absent w/d to noxious stimuli Results/Medications Result Diagram: 02/07/170 02/07/17 0400 Results 24 hrs Laboratory Tests Test 02/07/17 04:00 White Blood Count 16.5 #H Red Blood Count 4.04 L Hemoglobin 13.0 L Hematocrit 38.8 L Mean Corpuscular Volume 96.0 Mean Corpuscular Hemoglobin 32.2 Mean Corpuscular Hemoglobin Concent 33.5 Red Cell Distribution Width 12.3 Platelet Count 235 # Mean Platelet Volume 11.0 H Neutrophils % 79.4 H Lymphocytes % 12.6 L Monocytes % 6.7 Eosinophils % 0.0 Basophils % 0.2 Nucleated Red Blood Cells % 0.0 Neutrophils # 13.1 H Lymphocytes # 2.1 Monocytes # 1.1 H Eosinophils # 0.0 Basophils # 0.0 Nucleated Red Blood Cells # 0.0 Sodium Level 151 H Potassium Level 3.3 L Chloride Level 113 H Carbon Dioxide Level 31 Anion Gap 10 Blood Urea Nitrogen 19 Creatinine 0.96 Glucose Level 124 Calcium Level 9.1 Medications Current Medications Ondansetron HCl (Zofran Inj) 4 mg Q6H PRN IV NAUSEA AND/OR VOMITING; Start at 19:00 Acetaminophen (Tylenol Tab) 650 mg Q6H PRN PO PAIN LEVEL 1-3 OR FEVER Last administered on 02/06/17 18:50; Admin Dose 650 MG; Start 01/31/17 at 19:00; Status Future Hold Acetaminophen/ Hydrocodone Bitart ([place] (5/325)) 1 tab Q6H PRN PO MODERATE PAIN LEVEL 4-6; Start 01/31/17 at 19:00 Morphine Sulfate (morphine) 2 mg Q4H PRN IV SEVERE PAIN LEVEL 7-10 Last administered on 02/02/17 00:28; Admin Dose 2 MG; Start 01/31/17 at 19:00 Docusate Sodium (Colace) 100 mg Q12H PRN PO CONSTIPATION; Start 01/31/17 at 19: 00 Magnesium Hydroxide (Milk Of Mag) 30 ml DAILY PRN PO CONSTIPATION; Start at 19:00 Sodium Biphosphate/ Sodium Phosphate (Fleet Enema) 133 ml DAILY PRN [place] CONSTIPATION; Start 01/31/17 at 19:00 Heparin Sodium (Porcine) (Heparin (5000 Units/0.5 ml)) 5,000 unit Q12 SC Last administered on 02/07/17 08:30; Admin Dose 5,000 UNIT; Start 01/31/17 at 21:00 Hydralazine HCl (Apresoline) 10 mg Q6H PRN IV ELEVATED BLOOD PRESSURE Last administered on 02/03/17 14:29; Admin Dose 10 MG; Start 01/31/17 at 19:00 Nitroglycerin (Nitroglycerin (Sl Tab) 0.4 Mg) 1 tab Q5M PRN SL ANGINA; Start at 19:00 Acetaminophen (Tylenol Supp) 650 mg Q4H PRN [place] TEMP > 37C Last administered on 02/05/17 20:28; Admin Dose 650 MG; Start 01/31/17 at 23:00; Status Future Hold Acetaminophen (Tylenol Liquid) 650 mg Q4H PRN PO TEMP > 37C Last administered on 02/04/17 22:46; Admin Dose 650 MG; Start 01/31/17 at 23:00; Status Future Hold Eye Lubricant (Akwa Oint) 1 applic Q6 BOTH EYES Last administered on 02/07/17 11:36; Admin Dose 1 APPLIC; Start 02/01/17 at 00:00 Eye Lubricant 2 drop 2 drop Q6 BOTH EYES Last administered on 02/07/17 11:36; Admin Dose 2 DROP; Start 02/01/17 at 00:00 Levetiracetam (Keppra 1,500mg/ 100ml (Pmx)) 100 ml @ 400 mls/hr Q12 IVPB Last administered on 02/07/17 08:22; Admin Dose 400 MLS/HR; Start 02/01/17 at 14:30 Ranitidine HCl 150 mg 150 mg HS PO Last administered on 02/06/17 21:08; Admin Dose 150 MG; Start 02/02/17 at 21:00 Ampicillin Sodium/ Sulbactam Sodium (Unasyn 1.5gm/NS (Pmx)) 50 ml @ 100 mls/hr Q6 IVPB Last administered on 02/07/17 11:35; Admin Dose 100 MLS/HR; Start 02/02/17 at 13:00; Stop 02/09/17 at 12:59 Elvitegravir/ Cobicis/Emtricit/ Tenof (Stribild Tablet) 1 each DAILY PO Last administered on 02/07/17 11:36; Admin Dose 1 EACH; Start 02/05/17 at 11:00 Divalproex Sodium 500 mg 500 mg TID PO Last administered on 02/07/17 13:14; Admin Dose 500 MG; Start 02/06/17 at 13:00 Acetaminophen 100 ml @ 400 mls/hr Q6H IVPB Last administered on 02/07/17 13: 14; Admin Dose 400 MLS/HR; Start 02/07/17 at 00:30 Sodium Chloride (1/2 NS) 1,000 ml @ 100 mls/hr Q10H IV Last administered on 09:13; Admin Dose 100 MLS/HR; Start 02/07/17 at 08:00; Stop 02/07/17 at 17:59 Assessment/Plan Chief Complaint/Hosp Course 46 yo male admitted with cardiopulmonary arrest from Ambien overdose, imaging findings suggestive of hypoxic injury. EEG with diffuse slowing, no epileptiform discharges. Seizures suspected after sedation is weaned. Recommendations: continue on Keppra 1500 mg q8h start Depakote 500 mg q8h MRI reviewed with family shows extensive injury, discussed with , parents at bedside they wish to wait total of 14 days and are planning for trach/PEG in light of absent responses on exam repeat EEG done yesterday review pending continue GOC discussion w family Problems: SHERI LIGHT MD Feb 07, 2017 15:15
[2017-02-07] MEDS: RANITIDINE 150 MG TAB PO SCH (20:52)
[2017-02-07] MEDS: hydrALAzine 20 MG INJ IV PRN (22:50)
[2017-02-08] VITALS (92 sets, daily range): BP systolic 99–160; BP diastolic 62–107; PULSE 100–144; RESP 21–35
[2017-02-08] MEDS: ARTIFICIAL TEARS 15 ML OPH BOTH EYES SCH ×4 (00:12→17:09)
[2017-02-08] MEDS: OCULAR LUBRICANT 3.5 GM OPH OINT BOTH EYES SCH ×4 (00:12→17:09)
[2017-02-08] MEDS: AMPICILLIN/SULB 1.5GM/NS (PMX) 50 ML IVPB SCH ×4 (00:13→17:13)
[2017-02-08] MEDS ORDERED: CEFOTAXIME 2 GM in SOD CHLORIDE 0.9% 50 ML IVPB ONE (02:00)
[2017-02-08] MEDS ORDERED: VANCOMYCIN 1 GM in SOD CHLORIDE 0.9% 250 ML IVPB SCH (02:00)
[2017-02-08] MEDS ORDERED: VANCOMYCIN 2 GM in SOD CHLORIDE 0.9% 500 ML IVPB SCH (03:00)
[2017-02-08] MEDS ORDERED: VANCOMYCIN IV PER PHARMACY XX SCH (03:00)
[2017-02-08] MEDS: hydrALAzine 20 MG INJ IV PRN (04:56)
[2017-02-08 05:13] LABS: AADO2 Arterial 298.4 mmHg (7.0-24.0); Allen Test ACCEPTAB; Arterial Base Excess 2.6 mmol/L (-3.0-3); Arterial COHb 0.3 % (0.0-3.0); Arterial Fraction of Oxyhgb 96.7 % (93.0-99.0); Arterial HCO3 24.6 mmol/L (22.0-26.0); Arterial MetHb 0.1 % (0.0-1.5); Arterial Total Hemglobin 14.3 g/dl (12.0-18.0); MODE VENT - AC
[2017-02-08] MEDS: ACETAMINOPHEN 1000MG/100ML IV 100 ML IVPB SCH ×3 (05:51→17:52)
[2017-02-08 06:18] LABS: BASOPHILS % 0.1 % (0.0-2.0); HEMATOCRIT 43.2 % (42.0-52.0); HEMOGLOBIN 13.5 g/dl (14.0-18.0); LYMPHOCYTES # 2.3 10^3/ul (0.8-2.9); LYMPHOCYTES % 13.3 % (15.0-51.0); MEAN CORPUSCULAR HEMOGLOBIN 30.5 pg (29.0-33.0); MEAN CORPUSCULAR HGB CONC 31.3 g/dl (32.0-37.0); MEAN CORPUSCULAR VOLUME 97.7 fl (82.0-101.0); MEAN PLATELET VOLUME 11.3 fl (7.4-10.4); MONOCYTE # 1.1 10^3/ul (0.3-0.9); MONOCYTES % 6.3 % (0.0-11.0); NEUTROPHIL # 13.9 10^3/ul (1.6-7.5); NEUTROPHILS % 79.4 % (39.0-77.0); PLATELET COUNT 278 10^3/UL (140-415); RED BLOOD COUNT 4.42 10^6/ul (4.70-6.10); RED CELL DISTRIBUTION WIDTH 12.8 % (11.5-14.5); WHITE BLOOD COUNT 17.5 10^3/ul (4.8-10.8)
[2017-02-08 06:31] LABS: CALCIUM 9.1 mg/dl (8.4-10.2); CREATININE 0.92 mg/dl (0.61-1.24)
[2017-02-08 06:40] LABS: POTASSIUM 2.9 mmol/L (3.5-5.1)
[2017-02-08] MEDS: POTASSIUM CHLORIDE 50 ML IVPB SCH ×6 (06:49→23:31)
[2017-02-08] MEDS: DEXTROSE 5% 1,000 ML IV SCH ×4 (07:00→20:14)
[2017-02-08] MEDS: ELVITEGR/COBICIST/EMTRIC/TENOF 1 EACH TABLET PO SCH (09:00)
[2017-02-08] MEDS: DIVALPROEX (ER) 500 MG TAB PO SCH ×3 (09:00→20:20)
[2017-02-08] MEDS: LEVETIRACETAM 1500 MG (PMX) 100 ML IVPB SCH ×2 (09:15→20:09)
[2017-02-08] MEDS: HEPARIN 5,000 UNIT/0.5 ML VIAL SC SCH ×2 (09:18→21:15)
--- NOTE | 2017-02-08 12:35 | PN ---
Date/Time of Note Date/Time of Note DATE: 02/08/17 TIME: 12:33 Assessment/Plan VTE Prophylaxis VTE Prophylaxis Intervention: SCD's Lines/Catheters IV Catheter Type (from Nrsg): Central Line Central line still needed: Yes Urinary Cath still in place: Yes Reason Cath still needed: other (indicate) (critically ill) Assessment/Plan Assessment/Plan 46 yo M with pmhx HIV on HAART, unknown psychiatric hx admitted with acute toxic encephalopathy 2/2 intentional Ambien OD. Clinical scenario initially consistent with anoxic brain injury, now with evidence of breath PLAN #likely brain : dw family (including /POA and daughter) this morning for >20 minutes. reviewed clinical findings with family and discussed that we were going to be obtaining confirmatory testing (cerebral perfusion, EEG from Thursday not yet read, apnea test) -neuro on consult #HIV: cont HAART, CD4 ~500, VL UD ( has been aware of pt's HIV status for several years. dw 10.3) #fevers: likely central in origin. Given no hypotension no compelling indication to expand abx coverage at this time cont unasyn for possible aspiration pna. stop date in EMR re tong cultured 10.7 given duration to r/o occult infectious process-->all cultures ngtd #FEN: tube feeds as tolerated; KUB 10.7 without evidence of obstruction #hypernatremia: likely insensible losses. -start d5 #goals of care: requesting aggressive management, dw family. they are still "hoping for a miracle" despite pt's likely brain PLAN family requesting 14 days with ET tube before trach placement, also requested xfer to tertiary center CM aware of transfer request though pt does not require specialized care unavailable at this facility critical care time: 30 minutes Subjective 24 Hr Interval Summary Free Text/Dictation This morning pupils are fixed midsize-->do not respond to light also pt off sedation and still unresponsive. No pain, no gag Still febrile Exam/Review of Systems Vital Signs Vitals Vital Signs Date Time Temp Pulse Resp B/P Pulse Ox O2 Delivery O2 Flow Rate FiO2 02/08/17 10:00 123 28 138/85 94 Mechanical Ventilator 02/08/17 08:00 101.3 02/08/17 05:56 55 Intake and Output 02/07/17 02/07/17 02/08/17 15:00 23:00 07:00 Intake Total 640 ml 400 ml 850 ml Output Total 643 ml 643 ml 472 ml Balance -3 ml -243 ml 378 ml Exam pt intubated, off sedation and unresponsive bl pupils 6mm and unresponsive no mrg coarse mechanical breath sounds no rashes no edema Results Result Diagram: 02/08/17 0517 02/08/1717 Results 24 hrs Laboratory Tests Test 02/08/17 05:00 02/08/17 05:17 Blood Gas Specimen Source Blood arterial Arterial Blood Date Drawn 02/08/2017 5:00:48 AM Arterial Blood pH (Temp corrected) 7.524 H Arterial Blood pCO2 (Temp correct) 30.5 L Arterial Blood pO2 (Temp corrected) 95.9 Arterial Blood HCO3 24.6 Arterial Blood Base Excess 2.6 Arterial Blood Oxygen Saturation 97.1 Markus Test ACCEPTAB Arterial Blood Gas Puncture Site Right Radial Arterial Blood Carboxyhemoglobin 0.3 Arterial Blood Methemoglobin 0.1 Blood Gas A-a O2 Differential 298.4 H Oxyhemoglobin Percent 96.7 Total Hemoglobin 14.3 Blood Gas Temperature 37.0 Blood Gas Respiration Rate 28.0 Blood Gas Actual Respiration Rate 28 Blood Gas Modality VENT - AC FiO2 60.0 Blood Gas Tidal Volume 550.0 Blood Gas Low PEEP Setting 5.0 Blood Gas Notified Whom UP Blood Gas Notified Time 02/08/2017 5:12:52 AM White Blood Count 17.5 H Red Blood Count 4.42 L Hemoglobin 13.5 L Hematocrit 43.2 Mean Corpuscular Volume 97.7 Mean Corpuscular Hemoglobin 30.5 Mean Corpuscular Hemoglobin Concent 31.3 L Red Cell Distribution Width 12.8 Platelet Count 278 Mean Platelet Volume 11.3 H Neutrophils % 79.4 H Lymphocytes % 13.3 L Monocytes % 6.3 Eosinophils % 0.0 Basophils % 0.1 Nucleated Red Blood Cells % 0.0 Neutrophils # 13.9 H Lymphocytes # 2.3 Monocytes # 1.1 H Eosinophils # 0.0 Basophils # 0.0 Nucleated Red Blood Cells # 0.0 Sodium Level 156 H Potassium Level 2.9 *L Chloride Level 118 H Carbon Dioxide Level 30 Anion Gap 11 Blood Urea Nitrogen 18 Creatinine 0.92 Glucose Level 102 Calcium Level 9.1 Medications Medications Current Medications Ondansetron HCl (Zofran Inj) 4 mg Q6H PRN IV NAUSEA AND/OR VOMITING; Start at 19:00 Acetaminophen (Tylenol Tab) 650 mg Q6H PRN PO PAIN LEVEL 1-3 OR FEVER Last administered on 02/06/17 18:50; Admin Dose 650 MG; Start 01/31/17 at 19:00; Status Future Hold Acetaminophen/ Hydrocodone Bitart ([place] (5/325)) 1 tab Q6H PRN PO MODERATE PAIN LEVEL 4-6; Start 01/31/17 at 19:00 Morphine Sulfate (morphine) 2 mg Q4H PRN IV SEVERE PAIN LEVEL 7-10 Last administered on 02/02/17 00:28; Admin Dose 2 MG; Start 01/31/17 at 19:00 Docusate Sodium (Colace) 100 mg Q12H PRN PO CONSTIPATION; Start 01/31/17 at 19: 00 Magnesium Hydroxide (Milk Of Mag) 30 ml DAILY PRN PO CONSTIPATION; Start at 19:00 Sodium Biphosphate/ Sodium Phosphate (Fleet Enema) 133 ml DAILY PRN [place] CONSTIPATION; Start 01/31/17 at 19:00 Heparin Sodium (Porcine) (Heparin (5000 Units/0.5 ml)) 5,000 unit Q12 SC Last administered on 02/08/17 09:18; Admin Dose 5,000 UNIT; Start 01/31/17 at 21:00 Hydralazine HCl (Apresoline) 10 mg Q6H PRN IV ELEVATED BLOOD PRESSURE Last administered on 02/08/17 04:56; Admin Dose 10 MG; Start 01/31/17 at 19:00 Nitroglycerin (Nitroglycerin (Sl Tab) 0.4 Mg) 1 tab Q5M PRN SL ANGINA; Start at 19:00 Acetaminophen (Tylenol Supp) 650 mg Q4H PRN [place] TEMP > 37C Last administered on 02/05/17 20:28; Admin Dose 650 MG; Start 01/31/17 at 23:00; Status Future Hold Acetaminophen (Tylenol Liquid) 650 mg Q4H PRN PO TEMP > 37C Last administered on 02/04/17 22:46; Admin Dose 650 MG; Start 01/31/17 at 23:00; Status Future Hold Eye Lubricant (Akwa Oint) 1 applic Q6 BOTH EYES Last administered on 02/08/17 05:33; Admin Dose 1 APPLIC; Start 02/01/17 at 00:00 Eye Lubricant 2 drop 2 drop Q6 BOTH EYES Last administered on 02/08/17 05:33; Admin Dose 2 DROP; Start 02/01/17 at 00:00 Levetiracetam (Keppra 1,500mg/ 100ml (Pmx)) 100 ml @ 400 mls/hr Q12 IVPB Last administered on 02/08/17 09:15; Admin Dose 400 MLS/HR; Start 02/01/17 at 14:30 Ranitidine HCl 150 mg 150 mg HS PO Last administered on 02/07/17 20:52; Admin Dose 150 MG; Start 02/02/17 at 21:00 Ampicillin Sodium/ Sulbactam Sodium (Unasyn 1.5gm/NS (Pmx)) 50 ml @ 100 mls/hr Q6 IVPB Last administered on 02/08/17 05:33; Admin Dose 100 MLS/HR; Start 02/02/17 at 13:00; Stop 02/09/17 at 12:59 Elvitegravir/ Cobicis/Emtricit/ Tenof (Stribild Tablet) 1 each DAILY PO Last administered on 02/07/17 11:36; Admin Dose 1 EACH; Start 02/05/17 at 11:00 Divalproex Sodium 500 mg 500 mg TID PO Last administered on 02/07/17 20:52; Admin Dose 500 MG; Start 02/06/17 at 13:00 Acetaminophen 100 ml @ 400 mls/hr Q6H IVPB Last administered on 02/08/17 05: 51; Admin Dose 400 MLS/HR; Start 02/07/17 at 00:30 Vancomycin HCl/ Sodium Chloride (Vancocin/NS) 250 ml @ 83.333 mls/ hr Q12H IVPB ; Start 02/08/17 at 16:00 Miscellaneous Information (*Rx Drug Level Order Reminder*) VANCOMYCIN TROUGH AT 1500 ONCE ONCE XX ; Start 02/09/17 at 15:00; Stop 02/09/17 at 15:01 LORRAINE RIGGS MD Feb 08, 2017 12:35
[2017-02-08] MEDS ORDERED: DEXTROSE 5% 1,000 ML IV SCH (13:00)
--- NOTE | 2017-02-08 14:05 | CONS ---
Date/Time of Note Date/Time of Note DATE: 02/08/17 TIME: 13:58 Consult Date/Type/Reason Admit Date/Time Jan 31, 2017 at 17:12 Type of Consultation: Pulm/CCM Ordering Provider: LORRAINE RIGGS MD Subjective Changes noted today in patients' neuro examination. Pupils fixed and dilated; no GAG; no corneal; however, overbreathing set rate on vent. Objective Vital Signs Date Time Temp Pulse Resp B/P Pulse Ox O2 Delivery O2 Flow Rate FiO2 02/08/17 12:00 128 02/08/17 10:00 28 138/85 94 Mechanical Ventilator 02/08/17 08:00 101.3 02/08/17 05:56 55 Intake and Output 02/07/17 02/07/17 02/08/17 15:00 23:00 07:00 Intake Total 640 ml 400 ml 850 ml Output Total 643 ml 643 ml 472 ml Balance -3 ml -243 ml 378 ml Exam HEENT: Neck supple; + ET tube om place CARDIAC: Tachy, S1, S2, no M/R/G CHEST: Clear ABDOMEN: Mildly distended. Bowel sounds present no guarding or rebound EXTREMITIES: No cyanosis, clubbing edema +1 NEUROLOGIC: Unresponsive and flaccid; pupils fixed and dilated; no GAG; no corneal; however, overbreathing set rate on vent. Results/Medications Result Diagram: 02/08/1717 02/08/1717 Results 24 hrs Laboratory Tests Test 02/08/17 05:00 02/08/17 05:17 Blood Gas Specimen Source Blood arterial Arterial Blood Date Drawn 02/08/2017 5:00:48 AM Arterial Blood pH (Temp corrected) 7.524 H Arterial Blood pCO2 (Temp correct) 30.5 L Arterial Blood pO2 (Temp corrected) 95.9 Arterial Blood HCO3 24.6 Arterial Blood Base Excess 2.6 Arterial Blood Oxygen Saturation 97.1 Markus Test ACCEPTAB Arterial Blood Gas Puncture Site Right Radial Arterial Blood Carboxyhemoglobin 0.3 Arterial Blood Methemoglobin 0.1 Blood Gas A-a O2 Differential 298.4 H Oxyhemoglobin Percent 96.7 Total Hemoglobin 14.3 Blood Gas Temperature 37.0 Blood Gas Respiration Rate 28.0 Blood Gas Actual Respiration Rate 28 Blood Gas Modality VENT - AC FiO2 60.0 Blood Gas Tidal Volume 550.0 Blood Gas Low PEEP Setting 5.0 Blood Gas Notified Whom UP Blood Gas Notified Time 02/08/2017 5:12:52 AM White Blood Count 17.5 H Red Blood Count 4.42 L Hemoglobin 13.5 L Hematocrit 43.2 Mean Corpuscular Volume 97.7 Mean Corpuscular Hemoglobin 30.5 Mean Corpuscular Hemoglobin Concent 31.3 L Red Cell Distribution Width 12.8 Platelet Count 278 Mean Platelet Volume 11.3 H Neutrophils % 79.4 H Lymphocytes % 13.3 L Monocytes % 6.3 Eosinophils % 0.0 Basophils % 0.1 Nucleated Red Blood Cells % 0.0 Neutrophils # 13.9 H Lymphocytes # 2.3 Monocytes # 1.1 H Eosinophils # 0.0 Basophils # 0.0 Nucleated Red Blood Cells # 0.0 Sodium Level 156 H Potassium Level 2.9 *L Chloride Level 118 H Carbon Dioxide Level 30 Anion Gap 11 Blood Urea Nitrogen 18 Creatinine 0.92 Glucose Level 102 Calcium Level 9.1 Medications Current Medications Ondansetron HCl (Zofran Inj) 4 mg Q6H PRN IV NAUSEA AND/OR VOMITING; Start at 19:00 Acetaminophen (Tylenol Tab) 650 mg Q6H PRN PO PAIN LEVEL 1-3 OR FEVER Last administered on 02/06/17 18:50; Admin Dose 650 MG; Start 01/31/17 at 19:00; Status Future Hold Acetaminophen/ Hydrocodone Bitart ([place] (5/325)) 1 tab Q6H PRN PO MODERATE PAIN LEVEL 4-6; Start 01/31/17 at 19:00 Morphine Sulfate (morphine) 2 mg Q4H PRN IV SEVERE PAIN LEVEL 7-10 Last administered on 02/02/17 00:28; Admin Dose 2 MG; Start 01/31/17 at 19:00 Docusate Sodium (Colace) 100 mg Q12H PRN PO CONSTIPATION; Start 01/31/17 at 19: 00 Magnesium Hydroxide (Milk Of Mag) 30 ml DAILY PRN PO CONSTIPATION; Start at 19:00 Sodium Biphosphate/ Sodium Phosphate (Fleet Enema) 133 ml DAILY PRN MS CONSTIPATION; Start 01/31/17 at 19:00 Heparin Sodium (Porcine) (Heparin (5000 Units/0.5 ml)) 5,000 unit Q12 SC Last administered on 02/08/17 09:18; Admin Dose 5,000 UNIT; Start 01/31/17 at 21:00 Hydralazine HCl (Apresoline) 10 mg Q6H PRN IV ELEVATED BLOOD PRESSURE Last administered on 02/08/17 04:56; Admin Dose 10 MG; Start 01/31/17 at 19:00 Nitroglycerin (Nitroglycerin (Sl Tab) 0.4 Mg) 1 tab Q5M PRN SL ANGINA; Start at 19:00 Acetaminophen (Tylenol Supp) 650 mg Q4H PRN MS TEMP > 37C Last administered on 02/05/17 20:28; Admin Dose 650 MG; Start 01/31/17 at 23:00; Status Future Hold Acetaminophen (Tylenol Liquid) 650 mg Q4H PRN PO TEMP > 37C Last administered on 02/04/17 22:46; Admin Dose 650 MG; Start 01/31/17 at 23:00; Status Future Hold Eye Lubricant (Akwa Oint) 1 applic Q6 BOTH EYES Last administered on 02/08/17 12:00; Admin Dose 1 APPLIC; Start 02/01/17 at 00:00 Eye Lubricant 2 drop 2 drop Q6 BOTH EYES Last administered on 02/08/17 13:09; Admin Dose 2 DROP; Start 02/01/17 at 00:00 Levetiracetam (Keppra 1,500mg/ 100ml (Pmx)) 100 ml @ 400 mls/hr Q12 IVPB Last administered on 02/08/17 09:15; Admin Dose 400 MLS/HR; Start 02/01/17 at 14:30 Ranitidine HCl 150 mg 150 mg HS PO Last administered on 02/07/17 20:52; Admin Dose 150 MG; Start 02/02/17 at 21:00 Ampicillin Sodium/ Sulbactam Sodium (Unasyn 1.5gm/NS (Pmx)) 50 ml @ 100 mls/hr Q6 IVPB Last administered on 02/08/17 13:09; Admin Dose 100 MLS/HR; Start 02/02/17 at 13:00; Stop 02/09/17 at 12:59 Elvitegravir/ Cobicis/Emtricit/ Tenof (Stribild Tablet) 1 each DAILY PO Last administered on 02/07/17 11:36; Admin Dose 1 EACH; Start 02/05/17 at 11:00 Divalproex Sodium 500 mg 500 mg TID PO Last administered on 02/07/17 20:52; Admin Dose 500 MG; Start 02/06/17 at 13:00 Acetaminophen 100 ml @ 400 mls/hr Q6H IVPB Last administered on 02/08/17 13: 09; Admin Dose 400 MLS/HR; Start 02/07/17 at 00:30 Vancomycin HCl/ Sodium Chloride (Vancocin/NS) 250 ml @ 83.333 mls/ hr Q12H IVPB ; Start 02/08/17 at 16:00 Miscellaneous Information VANCOMYCIN TROUGH 02/09 AT 1500 ONCE ONCE XX ; Start 02/09/17 at 15:00; Stop 02/09/17 at 15:01 Dextrose (D5W) 1,000 ml @ 190 mls/hr Q5H16M IV Last administered on 02/08/17 13:10; Admin Dose 190 MLS/HR; Start 02/08/17 at 13:00 Assessment/Plan Chief Complaint/Hosp Course Briefly, this is a 46-year-old man presented to the ER after what appears to have been a cardiopulmonary arrest at home after zoldpidem OD--with bystander CPR--s/p CPR by paramedics for possible PEA on arrival. He had a Sushil airway placed and was intubated in the ED. Initially noted to have food products aspirated. Problems: Additional Assessment/Plan IMP 1. s/p Ambien overdose--complicated by cardiopulmonary arrest at home 2. Hypoxemic and hypercapnic respiratory failure--2/2 #1 3. Cardiopulmonary arrest with anoxic brain injury--> with progressive findings suggestive of brain stem herniation 4. History of HIV RECS: 1. I spoke extensively with family about the patient's poor prognosis in view of the severity of his anoxic brain injury stemming from his cardiopulmonary arrest at home s/p ambien OD. They are aware of his prognosis, however, are not ready to give up. Will continue to emphasize the goals of care. Critical care time 40 minutes. ENEDINA OSORIO MD Feb 08, 2017 14:05
--- NOTE | 2017-02-08 15:33 | RADRPT ---
PROCEDURE: XR Chest. CLINICAL INDICATION: Intubated TECHNIQUE: Anterior chest x-ray. COMPARISON: 02/03/2017 FINDINGS: Exam is limited due to rotated positioning. Endotracheal tube terminates 5 cm above the taylor, unchanged. Left-sided central venous catheter terminates in the superior vena cava, unchanged. Patchy airspace opacity right lung base is more prominent than on previous exam. The upper lung zones are clear. There may be a subtle patchy airspace opacity in the left lung base. No pleural effusion identified. The right costophrenic angle is cut off. There is no evidence of pneumothorax. The cardiomediastinal silhouette is unremarkable. The soft tissues are normal. Metallic plate transfixes the right clavicle, unchanged. IMPRESSION: 1. Subtle bibasilar atelectasis versus infiltrate, likely unchanged. 2. Stable and satisfactory position of the life-support lines. RPTAT: QQ .Lb Ramos MD, MD Date Time Electronically viewed and signed by .Lb Ramos MD, on 02/08/2017 15:32 .M/
--- NOTE | 2017-02-08 15:47 | PN ---
Date/Time of Note Date/Time of Note DATE: 02/08/17 TIME: 15:47 Assessment/Plan Lines/Catheters IV Catheter Type (from Nrsg): Central Line Ross in Place (from Nrsg): Yes Assessment/Plan Chief Complaint/Hosp Course Chief Complaint/Hosp Course Respiratory failure Possible anoxic brain injury secondary to Ambien overdose Problems: Additional Assessment/Plan Patient will benefit from tracheostomy at this time will hold off on tracheostomy until the family is agreeable Problems: Subjective 24 Hr Interval Summary Constitutional: improved Pain Control: mild Exam/Review of Systems Vital Signs Vitals Vital Signs Date Time Temp Pulse Resp B/P Pulse Ox O2 Delivery O2 Flow Rate FiO2 02/08/17 14:00 135 29 114/78 95 Mechanical Ventilator 02/08/17 13:15 55 02/08/17 12:00 104.0 Intake and Output 02/07/17 02/07/17 02/08/17 15:00 23:00 07:00 Intake Total 640 ml 400 ml 850 ml Output Total 643 ml 643 ml 472 ml Balance -3 ml -243 ml 378 ml Exam ENMT: mucosa pink and moist, nl external ears & nose, nl lips & teeth, nl nasal mucosa & septum Neck: non-tender, supple Respiratory: clear to auscultation, normal air movement Cardiovascular: nl pulses, regular rate and rhythm Results Result Diagram: 02/08/1751602/08/17516 RYAN REAGAN MD Feb 08, 2017 15:47
[2017-02-08] MEDS: VANCOMYCIN 1.5 GM in SOD CHLORIDE 0.9% 250 ML IVPB SCH (16:08)
[2017-02-08] MEDS: morphine 2 MG INJ IV PRN (17:14)
--- NOTE | 2017-02-08 17:38 | CONS ---
Date/Time of Note Date/Time of Note DATE: 02/08/17 TIME: 17:35 Consult Date/Type/Reason Admit Date/Time Jan 31, 2017 at 17:12 Initial Consult Date 02/05/17 Type of Consultation: Neurology Reason for Consultation eval for hypoxic brain injury Ordering Provider: LORRAINE RIGGS MD Subjective no improvement Objective Vital Signs Date Time Temp Pulse Resp B/P Pulse Ox O2 Delivery O2 Flow Rate FiO2 02/08/17 16:00 103.0 133 133/87 96 02/08/17 15:45 27 02/08/17 14:00 Mechanical Ventilator 02/08/17 13:15 55 Intake and Output 02/07/17 02/07/17 02/08/17 15:00 23:00 07:00 Intake Total 640 ml 400 ml 850 ml Output Total 643 ml 643 ml 472 ml Balance -3 ml -243 ml 378 ml Exam unresponsive CN: pupils dilated bilaterally 5 mm NR, absent corneals absent gag overbreathing vent Motor no w/d Results/Medications Result Diagram: 02/08/1717 02/08/17 0517 Results 24 hrs Laboratory Tests Test 02/08/17 05:00 02/08/17 05:17 Blood Gas Specimen Source Blood arterial Arterial Blood Date Drawn 02/08/2017 5:00:48 AM Arterial Blood pH (Temp corrected) 7.524 H Arterial Blood pCO2 (Temp correct) 30.5 L Arterial Blood pO2 (Temp corrected) 95.9 Arterial Blood HCO3 24.6 Arterial Blood Base Excess 2.6 Arterial Blood Oxygen Saturation 97.1 Markus Test ACCEPTAB Arterial Blood Gas Puncture Site Right Radial Arterial Blood Carboxyhemoglobin 0.3 Arterial Blood Methemoglobin 0.1 Blood Gas A-a O2 Differential 298.4 H Oxyhemoglobin Percent 96.7 Total Hemoglobin 14.3 Blood Gas Temperature 37.0 Blood Gas Respiration Rate 28.0 Blood Gas Actual Respiration Rate 28 Blood Gas Modality VENT - AC FiO2 60.0 Blood Gas Tidal Volume 550.0 Blood Gas Low PEEP Setting 5.0 Blood Gas Notified Whom UP Blood Gas Notified Time 02/08/2017 5:12:52 AM White Blood Count 17.5 H Red Blood Count 4.42 L Hemoglobin 13.5 L Hematocrit 43.2 Mean Corpuscular Volume 97.7 Mean Corpuscular Hemoglobin 30.5 Mean Corpuscular Hemoglobin Concent 31.3 L Red Cell Distribution Width 12.8 Platelet Count 278 Mean Platelet Volume 11.3 H Neutrophils % 79.4 H Lymphocytes % 13.3 L Monocytes % 6.3 Eosinophils % 0.0 Basophils % 0.1 Nucleated Red Blood Cells % 0.0 Neutrophils # 13.9 H Lymphocytes # 2.3 Monocytes # 1.1 H Eosinophils # 0.0 Basophils # 0.0 Nucleated Red Blood Cells # 0.0 Sodium Level 156 H Potassium Level 2.9 *L Chloride Level 118 H Carbon Dioxide Level 30 Anion Gap 11 Blood Urea Nitrogen 18 Creatinine 0.92 Glucose Level 102 Calcium Level 9.1 Magnesium Level 2.5 Medications Current Medications Ondansetron HCl (Zofran Inj) 4 mg Q6H PRN IV NAUSEA AND/OR VOMITING; Start at 19:00 Acetaminophen (Tylenol Tab) 650 mg Q6H PRN PO PAIN LEVEL 1-3 OR FEVER Last administered on 02/06/17 18:50; Admin Dose 650 MG; Start 01/31/17 at 19:00; Status Future Hold Acetaminophen/ Hydrocodone Bitart ([place] (5/325)) 1 tab Q6H PRN PO MODERATE PAIN LEVEL 4-6; Start 01/31/17 at 19:00 Morphine Sulfate (morphine) 2 mg Q4H PRN IV SEVERE PAIN LEVEL 7-10 Last administered on 02/08/17 17:14; Admin Dose 2 MG; Start 01/31/17 at 19:00 Docusate Sodium (Colace) 100 mg Q12H PRN PO CONSTIPATION; Start 01/31/17 at 19: 00 Magnesium Hydroxide (Milk Of Mag) 30 ml DAILY PRN PO CONSTIPATION; Start at 19:00 Sodium Biphosphate/ Sodium Phosphate (Fleet Enema) 133 ml DAILY PRN ND CONSTIPATION; Start 01/31/17 at 19:00 Heparin Sodium (Porcine) (Heparin (5000 Units/0.5 ml)) 5,000 unit Q12 SC Last administered on 02/08/17 09:18; Admin Dose 5,000 UNIT; Start 01/31/17 at 21:00 Hydralazine HCl (Apresoline) 10 mg Q6H PRN IV ELEVATED BLOOD PRESSURE Last administered on 02/08/17 04:56; Admin Dose 10 MG; Start 01/31/17 at 19:00 Nitroglycerin (Nitroglycerin (Sl Tab) 0.4 Mg) 1 tab Q5M PRN SL ANGINA; Start at 19:00 Acetaminophen (Tylenol Supp) 650 mg Q4H PRN ND TEMP > 37C Last administered on 02/05/17 20:28; Admin Dose 650 MG; Start 01/31/17 at 23:00; Status Future Hold Acetaminophen (Tylenol Liquid) 650 mg Q4H PRN PO TEMP > 37C Last administered on 02/04/17 22:46; Admin Dose 650 MG; Start 01/31/17 at 23:00; Status Future Hold Eye Lubricant (Akwa Oint) 1 applic Q6 BOTH EYES Last administered on 02/08/17 17:09; Admin Dose 1 APPLIC; Start 02/01/17 at 00:00 Eye Lubricant 2 drop 2 drop Q6 BOTH EYES Last administered on 02/08/17 17:09; Admin Dose 2 DROP; Start 02/01/17 at 00:00 Levetiracetam (Keppra 1,500mg/ 100ml (Pmx)) 100 ml @ 400 mls/hr Q12 IVPB Last administered on 02/08/17 09:15; Admin Dose 400 MLS/HR; Start 02/01/17 at 14:30 Ranitidine HCl 150 mg 150 mg HS PO Last administered on 02/07/17 20:52; Admin Dose 150 MG; Start 02/02/17 at 21:00 Ampicillin Sodium/ Sulbactam Sodium (Unasyn 1.5gm/NS (Pmx)) 50 ml @ 100 mls/hr Q6 IVPB Last administered on 02/08/17 17:13; Admin Dose 100 MLS/HR; Start 02/02/17 at 13:00; Stop 02/09/17 at 12:59 Elvitegravir/ Cobicis/Emtricit/ Tenof (Stribild Tablet) 1 each DAILY PO Last administered on 02/07/17 11:36; Admin Dose 1 EACH; Start 02/05/17 at 11:00 Divalproex Sodium 500 mg 500 mg TID PO Last administered on 02/07/17 20:52; Admin Dose 500 MG; Start 02/06/17 at 13:00 Acetaminophen 100 ml @ 400 mls/hr Q6H IVPB Last administered on 02/08/17 13: 09; Admin Dose 400 MLS/HR; Start 02/07/17 at 00:30 Vancomycin HCl/ Sodium Chloride (Vancocin/NS) 250 ml @ 83.333 mls/ hr Q12H IVPB Last administered on 02/08/17 16:08; Admin Dose 83.333 MLS/HR; Start 02/08/17 at 16:00 Miscellaneous Information VANCOMYCIN TROUGH 02/09 AT 1500 ONCE ONCE XX ; Start 02/09/17 at 15:00; Stop 02/09/17 at 15:01 Dextrose (D5W) 1,000 ml @ 190 mls/hr Q5H16M IV Last administered on 02/08/17 13:10; Admin Dose 190 MLS/HR; Start 02/08/17 at 13:00 Assessment/Plan Chief Complaint/Hosp Course 46 yo male admitted with cardiopulmonary arrest from Ambien overdose, imaging findings suggestive of hypoxic injury. EEG with diffuse slowing, no epileptiform discharges. Seizures suspected after sedation is weaned. Repeat EEG 02/06: diffuse slowing Recommendations: continue on Keppra 1500 mg q8h start Depakote 500 mg q8h MRI reviewed with family shows extensive injury, discussed with , parents at bedside neurologic exam continues to deteriorate, at this time unable to perform apnea test he is overbreathing ventilator will continue to follow, family aware of poor prognosis they wish to continue all aggressive measures Problems: SHERI LIGHT MD Feb 08, 2017 17:38
[2017-02-08 19:01] LABS: CALCIUM 9.3 mg/dl (8.4-10.2); CREATININE 1.04 mg/dl (0.61-1.24); POTASSIUM 3.3 mmol/L (3.5-5.1)
[2017-02-08] MEDS: RANITIDINE 150 MG TAB PO SCH (20:20)
[2017-02-09] VITALS (95 sets, daily range): BP systolic 45–173; BP diastolic 28–125; PULSE 91–145; RESP 19–33
[2017-02-09] MEDS: DEXTROSE 5% 1,000 ML IV SCH ×9 (00:08→21:37)
[2017-02-09] MEDS: ACETAMINOPHEN 1000MG/100ML IV 100 ML IVPB SCH ×5 (00:50→23:35)
[2017-02-09] MEDS: ARTIFICIAL TEARS 15 ML OPH BOTH EYES SCH ×5 (00:50→23:35)
[2017-02-09] MEDS: OCULAR LUBRICANT 3.5 GM OPH OINT BOTH EYES SCH ×5 (00:50→23:35)
[2017-02-09] MEDS: AMPICILLIN/SULB 1.5GM/NS (PMX) 50 ML IVPB SCH ×3 (00:51→13:09)
[2017-02-09 01:49] LABS: CALCIUM 9.3 mg/dl (8.4-10.2); CREATININE 1.2 mg/dl (0.61-1.24)
[2017-02-09] MEDS: POTASSIUM CHLORIDE 50 ML IVPB SCH ×7 (02:39→20:54)
[2017-02-09] MEDS ORDERED: DESMOPRESSIN 4 MCG INJ IV ONE (03:00)
[2017-02-09] MEDS: VANCOMYCIN 1.5 GM in SOD CHLORIDE 0.9% 250 ML IVPB SCH (04:13)
[2017-02-09] MEDS ORDERED: NORepinephrine 8MG/250 ML (PMX 250 ML IV SCH (05:00)
[2017-02-09] MEDS ORDERED: PHENYLephrine 20MG IN 250 ML 250 ML ONE (05:25)
--- NOTE | 2017-02-09 05:27 | EN ---
Date/Time of Note Date/Time of Note DATE: 02/09/17 TIME: 04:52 Event Note Medicine Medicine Event Note Patient seen and examined at the bedside multiple times through the night. Patient noted to hypernatremia that appears to have worsened over the past 24 hrs. He was also putting out 300cc of dilute urine an hour for multiple hours. He was started on hypernatremia correction to fix the acute rise with D5 water. Repeat Electrolytes approximately 5 and half hours at 10/0 at 0005am it actually increased from 161 to 162. At that time the rate was increased to 360cc D5 Water to 460cc and he was given one dose of desmopressin 1 mcg x 1 iv was also given along with urine osmolarity, serum oslmolarity and urine sodium. he was tacycardic through the night however after receiving fluids and the desmopressin his urine output decreased to 30cc and hour. at approximately 4:15am he started developing hypotension. He has remained febrile through the table games shift manager as well as earlier in the day. He was started on levophed. His urine output has been approximately 2000cc since the beginning of table games shift manager. I do feel like he is volume depleted. We will continue fluid resuscitation and adjust the rate fo fluids resuscitation. SANGEETHA HEREDIA Feb 09, 2017 05:07
[2017-02-09] MEDS ORDERED: PHENYLephrine 20MG IN 250 ML 250 ML IV SCH (05:30)
[2017-02-09 05:32] LABS: ABNORMAL IP MESSAGE 1; HEMATOCRIT 48.4 % (42.0-52.0); HEMOGLOBIN 14.9 g/dl (14.0-18.0); MEAN CORPUSCULAR HEMOGLOBIN 31.1 pg (29.0-33.0); MEAN CORPUSCULAR HGB CONC 30.8 g/dl (32.0-37.0); MEAN PLATELET VOLUME 10.9 fl (7.4-10.4); PLATELET COUNT 382 10^3/UL (140-415); POSITIVE DIFF @See below; RED BLOOD COUNT 4.79 10^6/ul (4.70-6.10); RED CELL DISTRIBUTION WIDTH 13.7 % (11.5-14.5); WHITE BLOOD COUNT 36.8 10^3/ul (4.8-10.8)
[2017-02-09] MEDS: PHENYLephrine 40 MG in DEXTROSE 5% 496 ML IV SCH ×6 (05:45→20:41)
[2017-02-09 05:58] LABS: AADO2 Arterial 567.6 mmHg (7.0-24.0); Allen Test ACCEPTAB; Arterial Base Excess 1.4 mmol/L (-3.0-3); Arterial COHb 0.1 % (0.0-3.0); Arterial Fraction of Oxyhgb 96.7 % (93.0-99.0); Arterial HCO3 26.9 mmol/L (22.0-26.0); Arterial MetHb 0.2 % (0.0-1.5); Arterial Total Hemglobin 16.4 g/dl (12.0-18.0); MODE VENT - AC
[2017-02-09 06:00] LABS: ALBUMIN 3.6 g/dl (3.3-4.9); ALBUMIN/GLOBULIN RATIO 0.92; BILIRUBIN,INDIRECT 0.5 mg/dl (0-1.1); BILIRUBIN,TOTAL 0.5 mg/dl (0.2-1.3); CALCIUM 8.8 mg/dl (8.4-10.2); CREATININE 1.5 mg/dl (0.61-1.24); POTASSIUM 3.6 mmol/L (3.5-5.1); TOTAL PROTEIN 7.5 g/dl (6.1-8.1)
[2017-02-09] MEDS: VASOPRESSIN 60 UNIT in DEXTROSE 5% 57 ML IV SCH ×2 (06:15→17:30)
[2017-02-09] MEDS: DIVALPROEX (ER) 500 MG TAB PO SCH ×3 (08:21→20:47)
[2017-02-09] MEDS: ELVITEGR/COBICIST/EMTRIC/TENOF 1 EACH TABLET PO SCH (08:22)
[2017-02-09] MEDS: LEVETIRACETAM 1500 MG (PMX) 100 ML IVPB SCH ×2 (08:27→20:33)
--- NOTE | 2017-02-09 08:43 | RADRPT ---
PROCEDURE: XR Chest. CLINICAL INDICATION: Ventilator patient. TECHNIQUE: Single frontal view of the chest was obtained. COMPARISON: Chest x-ray 02/08/2017 06:26 a.m. FINDINGS: An endotracheal tube remains in place with its tip 5.1 cm superior to the taylor. A small bore centr al venous catheter enters from a left subclavian approach with its tip in the superior vena cava. T here are degenerative osteophytes in the thoracic spine. The heart, cardiomediastinal silhouette an d hilar structures are normal. The pulmonary vasculature is equilibrated. There is a compression gill te secured to an old fracture of the mid right clavicle.. There is a left-sided aorta. There are in terstitial infiltrates greater in the right lower lobe than left. The costophrenic angles are nila l. IMPRESSION: 1. There are interstitial infiltrates greater in the right lower lobe than left. These are unchanged . 2. Endotracheal tube is well positioned 5.1 cm superior to the taylor. 3. A central venous catheter enters from a left subclavian approach with its tip in the superior ve na cava. No pneumothorax is identified. 4. No other interval changes are identified. RPTAT:AAJJ Physician Moni Date Time Electronically viewed and signed by Physician Moni on 02/09/2017 08:43 ROMY
[2017-02-09] MEDS: HEPARIN 5,000 UNIT/0.5 ML VIAL SC SCH ×2 (08:57→20:34)
--- NOTE | 2017-02-09 09:27 | SP ---
DATE OF PROCEDURE: 02/06/2017 ELECTROENCEPHALOGRAM HISTORY: This is a 46-year-old male admitted following cardiorespiratory arrest. EEG is to rule ou t seizure activity or encephalopathy. CURRENT MEDICATIONS 1. Depakote. 2. Keppra. 3. Midazolam. PROCEDURE IN DETAIL: Utilizing a 16-channel EEG machine, cap scalp electrodes were applied in accor dance with the International 10-20 International system. [id number] and [id number] montages w ere displayed. Electrical impedances were measured and reported. DESCRIPTION: During the resting state, a clear posterior dominant rhythm was not seen. On decreasi ng sensitivity, a very low amplitude background activity was seen in the range of 4 to 5 Hz along wi th excessive muscle and electrical artifact. There was no focal epileptiform activity noted. INTERPRETATION: This is a very abnormal electroencephalogram due to extensive slowing with low ampl itude waves throughout the tracing which became more evident on decreasing sensitivity. Please deonte elate these findings with the patient's clinical exam. Dictated By: ANIYA CRUZ/OPAL Conf#: [id number] DID#: [id number] CC: AKUA QUIÑONES;*EndCC*
[2017-02-09 09:34] LABS: ANISOCYTOSIS 1+ (0-0); MICROCYTOSIS 1+ (0-0); MONOCYTES % (M) 8 % (0-11); PLATELET ESTIMATE NORMAL; POLYCHROMASIA 3+ (0-0); REACTIVE LYMPHOCYTES% (M) 5 % (0-0)
[2017-02-09 09:39] LABS: TOXIC GRANULATION 1+ (0-0)
--- NOTE | 2017-02-09 10:18 | PN ---
Date/Time of Note Date/Time of Note DATE: 02/09/17 TIME: 09:53 Assessment/Plan VTE Prophylaxis VTE Prophylaxis Intervention: SCD's Lines/Catheters IV Catheter Type (from Nrs): Central Line Central line still needed: Yes Urinary Cath still in place: Yes Reason Cath still needed: urinary retention Assessment/Plan Chief Complaint/Hosp Course Assessment/Plan: 46 yo M with pmhx HIV on HAART, unknown psychiatric hx admitted with acute toxic encephalopathy 2/2 intentional Ambien OD. Clinical scenario initially consistent with anoxic brain injury, now with evidence of breath #likely brain : dw family (including /POA and daughter) this morning, as well as another hospitalist discussed with family for >20 minutes yesterday. Reviewed clinical findings with family and discussed that we were going to be obtaining confirmatory testing (cerebral perfusion, apnea test) -neuro on consult, follow-up recommendations #HIV: cont HAART, CD4 ~500, VL UD ( has been aware of pt's HIV status for several years. dw 10.3) #fevers: likely central in origin. However patient also septic now on 3 pressor support cont unasyn and vancomycin for septic shock and for possible aspiration pna, re tong cultured 10.7 given duration to r/o occult infectious process-->all cultures ngtd #FEN: tube feeds as tolerated; KUB 10.7 without evidence of obstruction #hypernatremia: likely insensible losses. -Continue D5W IVF's #goals of care: requesting aggressive management, dw family. they are still "hoping for a miracle" despite pt's likely brain PLAN family requesting 14 days with ET tube before trach placement, also requested xfer to tertiary center CM aware of transfer request though pt does not require specialized care unavailable at this facility Critical care time spent on patient care today equals 45 minutes. Problems: Subjective 24 Hr Interval Summary Free Text/Dictation Patient on 3 pressor support, off sedation for the last 5 days. Still awaiting possible cerebral perfusion study. Exam/Review of Systems Vital Signs Vitals Vital Signs Date Time Temp Pulse Resp B/P Pulse Ox O2 Delivery O2 Flow Rate FiO2 02/09/17 08:45 143 28 103/79 02/09/17 08:30 100 02/09/17 08:00 99.2 Mechanical Ventilator 02/09/17 07:35 100 Intake and Output 02/08/17 02/08/17 02/09/17 15:00 23:00 07:00 Intake Total 780 ml 1820 ml 3523.55 ml Output Total 3140 ml 2631 ml 789 ml Balance -2360 ml -811 ml 2734.55 ml Exam pt intubated, off sedation and unresponsive bl pupils 6mm and unresponsive no mrg coarse mechanical breath sounds no rashes no edema Results Result Diagram: 02/09/17 0500 02/09/17 0500 Results 24 hrs Laboratory Tests Test 02/08/17 18:28 02/09/17 00:05 02/09/17 05:00 02/09/17 05:38 Sodium Level 161 *H 162 *H 161 *H Potassium Level 3.3 L 3.0 L 3.6 Chloride Level 124 H 123 H 121 H Carbon Dioxide Level 27 28 31 Anion Gap 13 14 13 Blood Urea Nitrogen 16 15 17 Creatinine 1.04 1.20 1.50 H Glucose Level 114 139 107 Calcium Level 9.3 9.3 8.8 White Blood Count 36.8 #H Red Blood Count 4.79 Hemoglobin 14.9 Hematocrit 48.4 Mean Corpuscular Volume 101.0 Mean Corpuscular Hemoglobin 31.1 Mean Corpuscular Hemoglobin Concent 30.8 L Red Cell Distribution Width 13.7 Platelet Count 382 # Mean Platelet Volume 10.9 H Neutrophils % Segmented Neutrophils % (Manual) 61 Band Neutrophils % (Manual) 4 Lymphocytes % Lymphocytes % (Manual) 22 Reactive Lymphocytes % (Manual) 5 H Monocytes % Monocytes % (Manual) 8 Eosinophils % Basophils % Nucleated Red Blood Cells % 0.0 Neutrophils # Neutrophils # (Manual) 23.0 H Band Neutrophils # 1.4 H Absolute Lymphocytes (Manual) 8.0 H Lymphocytes # Reactive Lymphocytes # 1.8 H Monocytes # Absolute Monocytes (Manual) 2.9 H Eosinophils # Basophils # Nucleated Red Blood Cells # Toxic Granulation 1+ Platelet Estimate NORMAL Polychromasia 3+ Anisocytosis 1+ Microcytosis 1+ Blood Gas Specimen Source Blood arterial Arterial Blood Date Drawn 02/09/2017 5:38:12 AM Arterial Blood pH (Temp corrected) 7.393 Arterial Blood pCO2 (Temp correct) 45.1 H Arterial Blood pO2 (Temp corrected) 100.3 H Arterial Blood HCO3 26.9 H Arterial Blood Base Excess 1.4 Arterial Blood Oxygen Saturation 97.0 Markus Test ACCEPTAB Arterial Blood Gas Puncture Site Right Radial Arterial Blood Carboxyhemoglobin 0.1 Arterial Blood Methemoglobin 0.2 Blood Gas A-a O2 Differential 567.6 H Oxyhemoglobin Percent 96.7 Total Hemoglobin 16.4 Blood Gas Temperature 37.0 Blood Gas Respiration Rate 28.0 Blood Gas Actual Respiration Rate 28 Blood Gas Modality VENT - AC FiO2 100.0 Blood Gas Tidal Volume 550.0 Blood Gas Low PEEP Setting 5.0 Blood Gas Inspiratory Pressure 25.0 Blood Gas Notified Whom MG Blood Gas Notified Time 02/09/2017 5:57:42 AM Total Bilirubin 0.5 Direct Bilirubin 0.00 Indirect Bilirubin 0.5 Aspartate Amino Transf (AST/SGOT) 40 Alanine Aminotransferase (ALT/SGPT) 63 Alkaline Phosphatase 116 Total Protein 7.5 Albumin 3.6 Globulin 3.90 H Albumin/Globulin Ratio 0.92 Osmolality 328 H Lactic Acid Level 2.8 *H Test 02/09/17 08:00 Urine Random Sodium 40 Medications Medications Current Medications Ondansetron HCl (Zofran Inj) 4 mg Q6H PRN IV NAUSEA AND/OR VOMITING; Start at 19:00 Acetaminophen (Tylenol Tab) 650 mg Q6H PRN PO PAIN LEVEL 1-3 OR FEVER Last administered on 02/06/17 18:50; Admin Dose 650 MG; Start 01/31/17 at 19:00; Status Future Hold Acetaminophen/ Hydrocodone Bitart ([place] (5/325)) 1 tab Q6H PRN PO MODERATE PAIN LEVEL 4-6; Start 01/31/17 at 19:00 Morphine Sulfate (morphine) 2 mg Q4H PRN IV SEVERE PAIN LEVEL 7-10 Last administered on 02/08/17 17:14; Admin Dose 2 MG; Start 01/31/17 at 19:00 Docusate Sodium (Colace) 100 mg Q12H PRN PO CONSTIPATION; Start 01/31/17 at 19: 00 Magnesium Hydroxide (Milk Of Mag) 30 ml DAILY PRN PO CONSTIPATION; Start at 19:00 Sodium Biphosphate/ Sodium Phosphate (Fleet Enema) 133 ml DAILY PRN [place] CONSTIPATION; Start 01/31/17 at 19:00 Heparin Sodium (Porcine) (Heparin (5000 Units/0.5 ml)) 5,000 unit Q12 SC Last administered on 02/09/17 08:57; Admin Dose 5,000 UNIT; Start 01/31/17 at 21:00 Hydralazine HCl (Apresoline) 10 mg Q6H PRN IV ELEVATED BLOOD PRESSURE Last administered on 02/08/17 04:56; Admin Dose 10 MG; Start 01/31/17 at 19:00 Nitroglycerin (Nitroglycerin (Sl Tab) 0.4 Mg) 1 tab Q5M PRN SL ANGINA; Start at 19:00 Acetaminophen (Tylenol Supp) 650 mg Q4H PRN [place] TEMP > 37C Last administered on 02/05/17 20:28; Admin Dose 650 MG; Start 01/31/17 at 23:00; Status Future Hold Acetaminophen (Tylenol Liquid) 650 mg Q4H PRN PO TEMP > 37C Last administered on 02/04/17 22:46; Admin Dose 650 MG; Start 01/31/17 at 23:00; Status Future Hold Eye Lubricant ([place]wa Oint) 1 applic Q6 BOTH EYES Last administered on 02/09/17 05:51; Admin Dose 1 APPLIC; Start 02/01/17 at 00:00 Eye Lubricant 2 drop 2 drop Q6 BOTH EYES Last administered on 02/09/17 05:51; Admin Dose 2 DROP; Start 02/01/17 at 00:00 Levetiracetam (Keppra 1,500mg/ 100ml (Pmx)) 100 ml @ 400 mls/hr Q12 IVPB Last administered on 02/09/17 08:27; Admin Dose 400 MLS/HR; Start 02/01/17 at 14:30 Ranitidine HCl 150 mg 150 mg HS PO Last administered on 02/07/17 20:52; Admin Dose 150 MG; Start 02/02/17 at 21:00 Ampicillin Sodium/ Sulbactam Sodium (Unasyn 1.5gm/NS (Pmx)) 50 ml @ 100 mls/hr Q6 IVPB Last administered on 02/09/17 06:00; Admin Dose 100 MLS/HR; Start 02/02/17 at 13:00; Stop 02/09/17 at 12:59 Elvitegravir/ Cobicis/Emtricit/ Tenof (Stribild Tablet) 1 each DAILY PO Last administered on 02/07/17 11:36; Admin Dose 1 EACH; Start 02/05/17 at 11:00 Divalproex Sodium 500 mg 500 mg TID PO Last administered on 02/07/17 20:52; Admin Dose 500 MG; Start 02/06/17 at 13:00 Acetaminophen 100 ml @ 400 mls/hr Q6H IVPB Last administered on 02/09/17 07: 01; Admin Dose 400 MLS/HR; Start 02/07/17 at 00:30 Vancomycin HCl/ Sodium Chloride (Vancocin/NS) 250 ml @ 83.333 mls/ hr Q12H IVPB Last administered on 02/09/17 04:13; Admin Dose 83.333 MLS/HR; Start 02/08/17 at 16:00 Miscellaneous Information VANCOMYCIN TROUGH 02/09 AT 1500 ONCE ONCE XX ; Start 02/09/17 at 15:00; Stop 02/09/17 at 15:01 Dextrose 1,000 ml @ 300 mls/hr Q3H20M IV Last administered on 02/09/17 08:56 ; Admin Dose 300 MLS/HR; Start 02/08/17 at 13:00 Norepinephrine 250 ml @ 1.875 mls/ hr TITRATE IV Last administered on 04:52; Admin Dose 9.375 MLS/HR; Start 02/09/17 at 05:00; Stop 02/09/17 at 10:00 Vasopressin 60 unit/Dextrose 60 ml @ 1.2 mls/hr Q12H IV Last administered on 02/09/17 06:15; Admin Dose 1.2 MLS/HR; Start 02/09/17 at 05:30 Phenylephrine HCl 40 mg/Dextrose 500 ml @ 75 mls/hr TITRATE IV Last administered on 02/09/17 08:01; Admin Dose 150 MLS/HR; Start 02/09/17 at 06:30 Norepinephrine/ Dextrose (Levophed/D5W) 500 ml @ 1.87 mls/hr TITRATE IV ; Start 02/09/17 at 10:00 Procedures Procedures EEG (Feb 06): INTERPRETATION: This is a very abnormal electroencephalogram due to extensive slowing with low amplitude waves throughout the tracing which became more evident on decreasing sensitivity. Please correlate these findings with the patient's clinical exam. AKUA QUIÑONES Feb 09, 2017 10:18
[2017-02-09] MEDS ORDERED: POTASSIUM CHLORIDE 50 ML IVPB SCH (10:30)
--- NOTE | 2017-02-09 12:05 | CONS ---
Date/Time of Note Date/Time of Note DATE: 02/09/17 TIME: 12:01 Assessment/Plan Assessment/Plan Additional Assessment/Plan Chest x-ray is showing right lower lobe infiltrate. Endotracheal tube is at an adequate level. Patient is currently on assist control of 28, tidal volume 550, PEEP of 5, 100% FiO2. Currently on phenylephrine drip at 200 mics per minute, Levophed 13 mics per minute, vasopressin 0.01 U/min. Assessment and recommendations; 1. Patient admitted with sedative overdose status post CPR resulting in severe anoxic brain injury possibly brain . Patient has no gag reflex, is apneic , has fixed and dilated pupils. EEG is consistent with severe anoxic injury as well. 2. Fever likely [employer]ER in etiology. 3. Significant leukocytosis, etiology is unclear as well. 4. History of being HIV positive. 5. Seizures likely due to anoxic brain injury. Currently on antiseizure medications. No overt seizure activity noted. 6. 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 Patient to undergo apnea testing at bedside. May possibly require terminal extubation if the family agrees. Prognosis is dismal. 35 minutes of critical care time was spent evaluating the patient. Consultation Date/Type/Reason Admit Date/Time Jan 31, 2017 at 17:12 Initial Consult Date 02/05/17 Type of Consultation: Pulmonary/critical care Referring Provider: LORRAINE RIGGS MD 24 HR Interval Summary Free Text/Dictation Patient's condition remains critical. Remains completely unresponsive. However no overt seizure activity noted. Remains profoundly hypotensive requiring combination high-dose pressor support. General exam; young male, orally intubated, unresponsive, Exam/Review of Systems Vital Signs Vitals Vital Signs Date Time Temp Pulse Resp B/P Pulse Ox O2 Delivery O2 Flow Rate FiO2 02/09/17 10:00 140 28 110/86 100 02/09/17 09:20 100 02/09/17 08:00 99.2 Mechanical Ventilator Intake and Output 02/08/17 02/08/17 02/09/17 15:00 23:00 07:00 Intake Total 780 ml 1820 ml 3523.55 ml Output Total 3140 ml 2631 ml 789 ml Balance -2360 ml -811 ml 2734.55 ml Exam HEENT exam; supple neck, no JVD. No lymphadenopathy. Midline trachea. No thyromegaly. Pupils are dilated and nonreactive to light. His fair dentition. Orally intubated. Chest exam; diminished but clear breath sounds. S1-S2 audible, no murmurs. Regular rhythm. Cardiac. Abdomen exam; soft, bowel sounds audible. No organomegaly. Extremity exam; no peripheral edema. N[employer] exam; patient remains eating unresponsive. Results Result Diagram: 02/09/17 0500 02/09/17 0500 Results 24 hrs Laboratory Tests Test 02/08/17 18:28 02/09/17 00:05 02/09/17 05:00 02/09/17 05:38 Sodium Level 161 *H 162 *H 161 *H Potassium Level 3.3 L 3.0 L 3.6 Chloride Level 124 H 123 H 121 H Carbon Dioxide Level 27 28 31 Anion Gap 13 14 13 Blood Urea Nitrogen 16 15 17 Creatinine 1.04 1.20 1.50 H Glucose Level 114 139 107 Calcium Level 9.3 9.3 8.8 White Blood Count 36.8 #H Red Blood Count 4.79 Hemoglobin 14.9 Hematocrit 48.4 Mean Corpuscular Volume 101.0 Mean Corpuscular Hemoglobin 31.1 Mean Corpuscular Hemoglobin Concent 30.8 L Red Cell Distribution Width 13.7 Platelet Count 382 # Mean Platelet Volume 10.9 H Neutrophils % Segmented Neutrophils % (Manual) 61 Band Neutrophils % (Manual) 4 Lymphocytes % Lymphocytes % (Manual) 22 Reactive Lymphocytes % (Manual) 5 H Monocytes % Monocytes % (Manual) 8 Eosinophils % Basophils % Nucleated Red Blood Cells % 0.0 Neutrophils # Neutrophils # (Manual) 23.0 H Band Neutrophils # 1.4 H Absolute Lymphocytes (Manual) 8.0 H Lymphocytes # Reactive Lymphocytes # 1.8 H Monocytes # Absolute Monocytes (Manual) 2.9 H Eosinophils # Basophils # Nucleated Red Blood Cells # Toxic Granulation 1+ Platelet Estimate NORMAL Polychromasia 3+ Anisocytosis 1+ Microcytosis 1+ Blood Gas Specimen Source Blood arterial Arterial Blood Date Drawn 02/09/2017 5:38:12 AM Arterial Blood pH (Temp corrected) 7.393 Arterial Blood pCO2 (Temp correct) 45.1 H Arterial Blood pO2 (Temp corrected) 100.3 H Arterial Blood HCO3 26.9 H Arterial Blood Base Excess 1.4 Arterial Blood Oxygen Saturation 97.0 Markus Test ACCEPTAB Arterial Blood Gas Puncture Site Right Radial Arterial Blood Carboxyhemoglobin 0.1 Arterial Blood Methemoglobin 0.2 Blood Gas A-a O2 Differential 567.6 H Oxyhemoglobin Percent 96.7 Total Hemoglobin 16.4 Blood Gas Temperature 37.0 Blood Gas Respiration Rate 28.0 Blood Gas Actual Respiration Rate 28 Blood Gas Modality VENT - AC FiO2 100.0 Blood Gas Tidal Volume 550.0 Blood Gas Low PEEP Setting 5.0 Blood Gas Inspiratory Pressure 25.0 Blood Gas Notified Whom MG Blood Gas Notified Time 02/09/2017 5:57:42 AM Total Bilirubin 0.5 Direct Bilirubin 0.00 Indirect Bilirubin 0.5 Aspartate Amino Transf (AST/SGOT) 40 Alanine Aminotransferase (ALT/SGPT) 63 Alkaline Phosphatase 116 Total Protein 7.5 Albumin 3.6 Globulin 3.90 H Albumin/Globulin Ratio 0.92 Osmolality 328 H Lactic Acid Level 2.8 *H Test 02/09/17 08:00 Urine Random Sodium 40 Medications Medications Current Medications Ondansetron HCl (Zofran Inj) 4 mg Q6H PRN IV NAUSEA AND/OR VOMITING; Start at 19:00 Acetaminophen (Tylenol Tab) 650 mg Q6H PRN PO PAIN LEVEL 1-3 OR FEVER Last administered on 02/06/17 18:50; Admin Dose 650 MG; Start 01/31/17 at 19:00; Status Future Hold Acetaminophen/ Hydrocodone Bitart ([place] (5/325)) 1 tab Q6H PRN PO MODERATE PAIN LEVEL 4-6; Start 01/31/17 at 19:00 Morphine Sulfate (morphine) 2 mg Q4H PRN IV SEVERE PAIN LEVEL 7-10 Last administered on 02/08/17 17:14; Admin Dose 2 MG; Start 01/31/17 at 19:00 Docusate Sodium (Colace) 100 mg Q12H PRN PO CONSTIPATION; Start 01/31/17 at 19: 00 Magnesium Hydroxide (Milk Of Mag) 30 ml DAILY PRN PO CONSTIPATION; Start at 19:00 Sodium Biphosphate/ Sodium Phosphate (Fleet Enema) 133 ml DAILY PRN [place] CONSTIPATION; Start 01/31/17 at 19:00 Heparin Sodium (Porcine) (Heparin (5000 Units/0.5 ml)) 5,000 unit Q12 SC Last administered on 02/09/17 08:57; Admin Dose 5,000 UNIT; Start 01/31/17 at 21:00 Hydralazine HCl (Apresoline) 10 mg Q6H PRN IV ELEVATED BLOOD PRESSURE Last administered on 02/08/17 04:56; Admin Dose 10 MG; Start 01/31/17 at 19:00 Nitroglycerin (Nitroglycerin (Sl Tab) 0.4 Mg) 1 tab Q5M PRN SL ANGINA; Start at 19:00 Acetaminophen (Tylenol Supp) 650 mg Q4H PRN [place] TEMP > 37C Last administered on 02/05/17 20:28; Admin Dose 650 MG; Start 01/31/17 at 23:00; Status Future Hold Acetaminophen (Tylenol Liquid) 650 mg Q4H PRN PO TEMP > 37C Last administered on 02/04/17 22:46; Admin Dose 650 MG; Start 01/31/17 at 23:00; Status Future Hold Eye Lubricant (Akwa Oint) 1 applic Q6 BOTH EYES Last administered on 02/09/17 05:51; Admin Dose 1 APPLIC; Start 02/01/17 at 00:00 Eye Lubricant 2 drop 2 drop Q6 BOTH EYES Last administered on 02/09/17 05:51; Admin Dose 2 DROP; Start 02/01/17 at 00:00 Levetiracetam (Keppra 1,500mg/ 100ml (Pmx)) 100 ml @ 400 mls/hr Q12 IVPB Last administered on 02/09/17 08:27; Admin Dose 400 MLS/HR; Start 02/01/17 at 14:30 Ranitidine HCl 150 mg 150 mg HS PO Last administered on 02/07/17 20:52; Admin Dose 150 MG; Start 02/02/17 at 21:00 Ampicillin Sodium/ Sulbactam Sodium (Unasyn 1.5gm/NS (Pmx)) 50 ml @ 100 mls/hr Q6 IVPB Last administered on 02/09/17 06:00; Admin Dose 100 MLS/HR; Start 02/02/17 at 13:00; Stop 02/09/17 at 12:59 Elvitegravir/ Cobicis/Emtricit/ Tenof (Stribild Tablet) 1 each DAILY PO Last administered on 02/07/17 11:36; Admin Dose 1 EACH; Start 02/05/17 at 11:00 Divalproex Sodium 500 mg 500 mg TID PO Last administered on 02/07/17 20:52; Admin Dose 500 MG; Start 02/06/17 at 13:00 Acetaminophen (Ofirmev 1000mg/ 100ml Iv) 100 ml @ 400 mls/hr Q6H IVPB Last administered on 02/09/17 07:01; Admin Dose 400 MLS/HR; Start 02/07/17 at 00:30 Miscellaneous Information VANCOMYCIN TROUGH 02/09 AT 1500 ONCE ONCE XX ; Start 02/09/17 at 15:00; Stop 02/09/17 at 15:01 Dextrose 1,000 ml @ 300 mls/hr Q3H20M IV Last administered on 02/09/17 11:41 ; Admin Dose 300 MLS/HR; Start 02/08/17 at 13:00 Vasopressin 60 unit/Dextrose 60 ml @ 1.2 mls/hr Q12H IV Last administered on 02/09/17 06:15; Admin Dose 1.2 MLS/HR; Start 02/09/17 at 05:30 Phenylephrine HCl 40 mg/Dextrose 500 ml @ 75 mls/hr TITRATE IV Last administered on 02/09/17 10:54; Admin Dose 135 MLS/HR; Start 02/09/17 at 06:30 Norepinephrine 16 mg/Dextrose 500 ml @ 1.87 mls/hr TITRATE IV Last administered on 02/09/17 10:12; Admin Dose 18.75 MLS/HR; Start 02/09/17 at 10: 00 Potassium Chloride (KCl 20 MEQ/50 ML SW) 50 ml @ 25 mls/hr ONCE IVPB Last administered on 02/09/17 10:42; Admin Dose 25 MLS/HR; Start 02/09/17 at 10:30; Stop 02/09/17 at 16:00 TIMOTEO ROCHA Feb 09, 2017 12:05
--- NOTE | 2017-02-09 12:06 | CONS ---
Date/Time of Note Date/Time of Note DATE: 02/09/17 TIME: 12:03 Consult Date/Type/Reason Admit Date/Time Jan 31, 2017 at 17:12 Initial Consult Date 02/05/17 Type of Consultation: Neurology Reason for Consultation brain Ordering Provider: LORRAINE RIGGS MD Subjective unresponsive suspected herniation overnight Objective Vital Signs Date Time Temp Pulse Resp B/P Pulse Ox O2 Delivery O2 Flow Rate FiO2 02/09/17 10:00 140 28 110/86 100 02/09/17 09:20 100 02/09/17 08:00 99.2 Mechanical Ventilator Intake and Output 02/08/17 02/08/17 02/09/17 15:00 23:00 07:00 Intake Total 780 ml 1820 ml 3523.55 ml Output Total 3140 ml 2631 ml 789 ml Balance -2360 ml -811 ml 2734.55 ml Exam unresponsive CN: dilated unresponsive 6 mm absent corneals absent gag response absent responses to cold calorics Motor: absent withdrawal to extremities Results/Medications Result Diagram: 02/09/17 0500 02/09/17 0500 Results 24 hrs Laboratory Tests Test 02/08/17 18:28 02/09/17 00:05 02/09/17 05:00 02/09/17 05:38 Sodium Level 161 *H 162 *H 161 *H Potassium Level 3.3 L 3.0 L 3.6 Chloride Level 124 H 123 H 121 H Carbon Dioxide Level 27 28 31 Anion Gap 13 14 13 Blood Urea Nitrogen 16 15 17 Creatinine 1.04 1.20 1.50 H Glucose Level 114 139 107 Calcium Level 9.3 9.3 8.8 White Blood Count 36.8 #H Red Blood Count 4.79 Hemoglobin 14.9 Hematocrit 48.4 Mean Corpuscular Volume 101.0 Mean Corpuscular Hemoglobin 31.1 Mean Corpuscular Hemoglobin Concent 30.8 L Red Cell Distribution Width 13.7 Platelet Count 382 # Mean Platelet Volume 10.9 H Neutrophils % Segmented Neutrophils % (Manual) 61 Band Neutrophils % (Manual) 4 Lymphocytes % Lymphocytes % (Manual) 22 Reactive Lymphocytes % (Manual) 5 H Monocytes % Monocytes % (Manual) 8 Eosinophils % Basophils % Nucleated Red Blood Cells % 0.0 Neutrophils # Neutrophils # (Manual) 23.0 H Band Neutrophils # 1.4 H Absolute Lymphocytes (Manual) 8.0 H Lymphocytes # Reactive Lymphocytes # 1.8 H Monocytes # Absolute Monocytes (Manual) 2.9 H Eosinophils # Basophils # Nucleated Red Blood Cells # Toxic Granulation 1+ Platelet Estimate NORMAL Polychromasia 3+ Anisocytosis 1+ Microcytosis 1+ Blood Gas Specimen Source Blood arterial Arterial Blood Date Drawn 02/09/2017 5:38:12 AM Arterial Blood pH (Temp corrected) 7.393 Arterial Blood pCO2 (Temp correct) 45.1 H Arterial Blood pO2 (Temp corrected) 100.3 H Arterial Blood HCO3 26.9 H Arterial Blood Base Excess 1.4 Arterial Blood Oxygen Saturation 97.0 Markus Test ACCEPTAB Arterial Blood Gas Puncture Site Right Radial Arterial Blood Carboxyhemoglobin 0.1 Arterial Blood Methemoglobin 0.2 Blood Gas A-a O2 Differential 567.6 H Oxyhemoglobin Percent 96.7 Total Hemoglobin 16.4 Blood Gas Temperature 37.0 Blood Gas Respiration Rate 28.0 Blood Gas Actual Respiration Rate 28 Blood Gas Modality VENT - AC FiO2 100.0 Blood Gas Tidal Volume 550.0 Blood Gas Low PEEP Setting 5.0 Blood Gas Inspiratory Pressure 25.0 Blood Gas Notified Whom MG Blood Gas Notified Time 02/09/2017 5:57:42 AM Total Bilirubin 0.5 Direct Bilirubin 0.00 Indirect Bilirubin 0.5 Aspartate Amino Transf (AST/SGOT) 40 Alanine Aminotransferase (ALT/SGPT) 63 Alkaline Phosphatase 116 Total Protein 7.5 Albumin 3.6 Globulin 3.90 H Albumin/Globulin Ratio 0.92 Osmolality 328 H Lactic Acid Level 2.8 *H Test 02/09/17 08:00 Urine Random Sodium 40 Medications Current Medications Ondansetron HCl (Zofran Inj) 4 mg Q6H PRN IV NAUSEA AND/OR VOMITING; Start at 19:00 Acetaminophen (Tylenol Tab) 650 mg Q6H PRN PO PAIN LEVEL 1-3 OR FEVER Last administered on 02/06/17 18:50; Admin Dose 650 MG; Start 01/31/17 at 19:00; Status Future Hold Acetaminophen/ Hydrocodone Bitart ([place] (5/325)) 1 tab Q6H PRN PO MODERATE PAIN LEVEL 4-6; Start 01/31/17 at 19:00 Morphine Sulfate (morphine) 2 mg Q4H PRN IV SEVERE PAIN LEVEL 7-10 Last administered on 02/08/17 17:14; Admin Dose 2 MG; Start 01/31/17 at 19:00 Docusate Sodium (Colace) 100 mg Q12H PRN PO CONSTIPATION; Start 01/31/17 at 19: 00 Magnesium Hydroxide (Milk Of Mag) 30 ml DAILY PRN PO CONSTIPATION; Start at 19:00 Sodium Biphosphate/ Sodium Phosphate (Fleet Enema) 133 ml DAILY PRN [place] CONSTIPATION; Start 01/31/17 at 19:00 Heparin Sodium (Porcine) (Heparin (5000 Units/0.5 ml)) 5,000 unit Q12 SC Last administered on 02/09/17 08:57; Admin Dose 5,000 UNIT; Start 01/31/17 at 21:00 Hydralazine HCl (Apresoline) 10 mg Q6H PRN IV ELEVATED BLOOD PRESSURE Last administered on 02/08/17 04:56; Admin Dose 10 MG; Start 01/31/17 at 19:00 Nitroglycerin (Nitroglycerin (Sl Tab) 0.4 Mg) 1 tab Q5M PRN SL ANGINA; Start at 19:00 Acetaminophen (Tylenol Supp) 650 mg Q4H PRN [place] TEMP > 37C Last administered on 02/05/17 20:28; Admin Dose 650 MG; Start 01/31/17 at 23:00; Status Future Hold Acetaminophen (Tylenol Liquid) 650 mg Q4H PRN PO TEMP > 37C Last administered on 02/04/17 22:46; Admin Dose 650 MG; Start 01/31/17 at 23:00; Status Future Hold Eye Lubricant (Akwa Oint) 1 applic Q6 BOTH EYES Last administered on 02/09/17 05:51; Admin Dose 1 APPLIC; Start 02/01/17 at 00:00 Eye Lubricant 2 drop 2 drop Q6 BOTH EYES Last administered on 02/09/17 05:51; Admin Dose 2 DROP; Start 02/01/17 at 00:00 Levetiracetam (Keppra 1,500mg/ 100ml (Pmx)) 100 ml @ 400 mls/hr Q12 IVPB Last administered on 02/09/17 08:27; Admin Dose 400 MLS/HR; Start 02/01/17 at 14:30 Ranitidine HCl 150 mg 150 mg HS PO Last administered on 02/07/17 20:52; Admin Dose 150 MG; Start 02/02/17 at 21:00 Ampicillin Sodium/ Sulbactam Sodium (Unasyn 1.5gm/NS (Pmx)) 50 ml @ 100 mls/hr Q6 IVPB Last administered on 02/09/17 06:00; Admin Dose 100 MLS/HR; Start 02/02/17 at 13:00; Stop 02/09/17 at 12:59 Elvitegravir/ Cobicis/Emtricit/ Tenof (Stribild Tablet) 1 each DAILY PO Last administered on 02/07/17 11:36; Admin Dose 1 EACH; Start 02/05/17 at 11:00 Divalproex Sodium 500 mg 500 mg TID PO Last administered on 02/07/17 20:52; Admin Dose 500 MG; Start 02/06/17 at 13:00 Acetaminophen (Ofirmev 1000mg/ 100ml Iv) 100 ml @ 400 mls/hr Q6H IVPB Last administered on 02/09/17 07:01; Admin Dose 400 MLS/HR; Start 02/07/17 at 00:30 Miscellaneous Information VANCOMYCIN TROUGH 02/09 AT 1500 ONCE ONCE XX ; Start 02/09/17 at 15:00; Stop 02/09/17 at 15:01 Dextrose 1,000 ml @ 300 mls/hr Q3H20M IV Last administered on 02/09/17 11:41 ; Admin Dose 300 MLS/HR; Start 02/08/17 at 13:00 Vasopressin 60 unit/Dextrose 60 ml @ 1.2 mls/hr Q12H IV Last administered on 02/09/17 06:15; Admin Dose 1.2 MLS/HR; Start 02/09/17 at 05:30 Phenylephrine HCl 40 mg/Dextrose 500 ml @ 75 mls/hr TITRATE IV Last administered on 02/09/17 10:54; Admin Dose 135 MLS/HR; Start 02/09/17 at 06:30 Norepinephrine 16 mg/Dextrose 500 ml @ 1.87 mls/hr TITRATE IV Last administered on 02/09/17 10:12; Admin Dose 18.75 MLS/HR; Start 02/09/17 at 10: 00 Potassium Chloride (KCl 20 MEQ/50 ML SW) 50 ml @ 25 mls/hr ONCE IVPB Last administered on 02/09/17t 10:42; Admin Dose 25 MLS/HR; Start 02/09/17 at 10:30; Stop 02/09/17 at 16:00 Assessment/Plan Chief Complaint/Hosp Course 46 yo male admitted with cardiopulmonary arrest from Ambien overdose, imaging findings suggestive of hypoxic injury. EEG with diffuse slowing, no epileptiform discharges. Seizures suspected after sedation is weaned. Repeat EEG 02/06: diffuse slowing Recommendations: continue on Keppra 1500 mg q8h start Depakote 500 mg q8h current exam c/w brain would recommend apnea test, repeat EEG if possible Cerebral Perfusion Studies Problems: SHERI LIGHT MD Feb 09, 2017 12:06
[2017-02-09 13:23] LABS: CALCIUM 8.3 mg/dl (8.4-10.2); CREATININE 1.19 mg/dl (0.61-1.24); POTASSIUM 3.2 mmol/L (3.5-5.1)
--- NOTE | 2017-02-09 14:25 | CONS ---
Date/Time of Note Date/Time of Note DATE: 02/09/17 TIME: 14:21 Consultation Date/Type/Reason Admit Date/Time Jan 31, 2017 at 17:12 Type of Consultation: nephrology Hx of Present Illness Briefly, this is a 46-year-old man presented to the ER after what appears to have been a cardiopulmonary arrest at home after zoldpidem OD--with bystander CPR--s/p CPR by paramedics for possible PEA on arrival. He had a Sushil airway placed and was intubated in the ED. Initially noted to have food products aspirated. He is currently in ICU and on the vent he has ARF and multiple electrolyte abnormalities Past Medical History Unknown Past Surgical History Unknown Family History Significant Family History: no pertinent family hx Social History Unknown Smoking Status: Unknown if ever smoked Exam Constitutional: non-verbal Head: atraumatic, normocephalic Eyes: EOMI, nl conjunctiva, nl lids ENMT: intubated, nl external ears & nose Neck: non-tender, supple Respiratory: diminished breath sounds, labored breathing Cardiovascular: nl pulses, regular rate and rhythm Gastrointestinal: nl liver, spleen, non-tender, soft Musculoskeletal: nl extremities to inspection Extremities: normal pulses 1. arf: due to intravascular volume depletion which has also caused his hypernatremia. He has 7 liters free water deficit due to NGT suctioning and lack of access to free water. will change IVF composition 2. Cardiopulmonary Arrest--likely due to respiratory suppression due to zolpidem OD.Ventilator Dependence--s/p OD 3. Severe Metabolic and respiratory acidosis--due to lactic acidosis: resolved. ABG reviewed 4. Zolpidem OD 5. 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 Respiratory: no complaints Cardiovascular: no complaints Gastrointestinal: no complaints, No blood, No constipation, No decreased appetite, No diarrhea, No flatus, No nausea, No other, No pain, No passing stool, No vomiting Genitourinary: no complaints Musculoskeletal: no complaints Skin: no complaints Past Medical History Medical History: no pertinent history Past Surgical History Past Surgical Hx: no surgical history Social History Alcohol Use: occasionally Smoking Status: Current every day smoker Drug Use: other (Unclear) Exam/Review of Systems Vital Signs Vitals Vital Signs Date Time Temp Pulse Resp B/P Pulse Ox O2 Delivery O2 Flow Rate FiO2 02/09/17 13:45 119 28 109/88 100 02/09/17 12:55 100 02/09/17 12:00 98.2 02/09/17 08:00 Mechanical Ventilator Intake and Output 02/08/17 02/08/17 02/09/17 15:00 23:00 07:00 Intake Total 780 ml 1820 ml 3523.55 ml Output Total 3140 ml 2631 ml 789 ml Balance -2360 ml -811 ml 2734.55 ml Results Result Diagram: 02/09/17 0500 02/09/17 1241 Results 24 hrs Laboratory Tests Test 02/08/17 18:28 02/09/17 00:05 02/09/17 05:00 02/09/17 05:38 Sodium Level 161 *H 162 *H 161 *H Potassium Level 3.3 L 3.0 L 3.6 Chloride Level 124 H 123 H 121 H Carbon Dioxide Level 27 28 31 Anion Gap 13 14 13 Blood Urea Nitrogen 16 15 17 Creatinine 1.04 1.20 1.50 H Glucose Level 114 139 107 Calcium Level 9.3 9.3 8.8 White Blood Count 36.8 #H Red Blood Count 4.79 Hemoglobin 14.9 Hematocrit 48.4 Mean Corpuscular Volume 101.0 Mean Corpuscular Hemoglobin 31.1 Mean Corpuscular Hemoglobin Concent 30.8 L Red Cell Distribution Width 13.7 Platelet Count 382 # Mean Platelet Volume 10.9 H Neutrophils % Segmented Neutrophils % (Manual) 61 Band Neutrophils % (Manual) 4 Lymphocytes % Lymphocytes % (Manual) 22 Reactive Lymphocytes % (Manual) 5 H Monocytes % Monocytes % (Manual) 8 Eosinophils % Basophils % Nucleated Red Blood Cells % 0.0 Neutrophils # Neutrophils # (Manual) 23.0 H Band Neutrophils # 1.4 H Absolute Lymphocytes (Manual) 8.0 H Lymphocytes # Reactive Lymphocytes # 1.8 H Monocytes # Absolute Monocytes (Manual) 2.9 H Eosinophils # Basophils # Nucleated Red Blood Cells # Toxic Granulation 1+ Platelet Estimate NORMAL Polychromasia 3+ Anisocytosis 1+ Microcytosis 1+ Blood Gas Specimen Source Blood arterial Arterial Blood Date Drawn 02/09/2017 5:38:12 AM Arterial Blood pH (Temp corrected) 7.393 Arterial Blood pCO2 (Temp correct) 45.1 H Arterial Blood pO2 (Temp corrected) 100.3 H Arterial Blood HCO3 26.9 H Arterial Blood Base Excess 1.4 Arterial Blood Oxygen Saturation 97.0 Markus Test ACCEPTAB Arterial Blood Gas Puncture Site Right Radial Arterial Blood Carboxyhemoglobin 0.1 Arterial Blood Methemoglobin 0.2 Blood Gas A-a O2 Differential 567.6 H Oxyhemoglobin Percent 96.7 Total Hemoglobin 16.4 Blood Gas Temperature 37.0 Blood Gas Respiration Rate 28.0 Blood Gas Actual Respiration Rate 28 Blood Gas Modality VENT - AC FiO2 100.0 Blood Gas Tidal Volume 550.0 Blood Gas Low PEEP Setting 5.0 Blood Gas Inspiratory Pressure 25.0 Blood Gas Notified Whom MG Blood Gas Notified Time 02/09/2017 5:57:42 AM Total Bilirubin 0.5 Direct Bilirubin 0.00 Indirect Bilirubin 0.5 Aspartate Amino Transf (AST/SGOT) 40 Alanine Aminotransferase (ALT/SGPT) 63 Alkaline Phosphatase 116 Total Protein 7.5 Albumin 3.6 Globulin 3.90 H Albumin/Globulin Ratio 0.92 Osmolality 328 H Lactic Acid Level 2.8 *H Test 02/09/17 08:00 02/09/17 12:41 Urine Osmolality 500 Urine Random Sodium 40 Sodium Level 152 H Potassium Level 3.2 L Chloride Level 115 H Carbon Dioxide Level 28 Anion Gap 12 Blood Urea Nitrogen 17 Creatinine 1.19 Glucose Level 213 # Lactic Acid Level 1.5 Calcium Level 8.3 L Medications Medications Current Medications Ondansetron HCl (Zofran Inj) 4 mg Q6H PRN IV NAUSEA AND/OR VOMITING; Start at 19:00 Acetaminophen (Tylenol Tab) 650 mg Q6H PRN PO PAIN LEVEL 1-3 OR FEVER Last administered on 02/06/17 18:50; Admin Dose 650 MG; Start 01/31/17 at 19:00; Status Future Hold Acetaminophen/ Hydrocodone Bitart ([place] (5/325)) 1 tab Q6H PRN PO MODERATE PAIN LEVEL 4-6; Start 01/31/17 at 19:00 Morphine Sulfate (morphine) 2 mg Q4H PRN IV SEVERE PAIN LEVEL 7-10 Last administered on 02/08/17 17:14; Admin Dose 2 MG; Start 01/31/17 at 19:00 Docusate Sodium (Colace) 100 mg Q12H PRN PO CONSTIPATION; Start 01/31/17 at 19: 00 Magnesium Hydroxide (Milk Of Mag) 30 ml DAILY PRN PO CONSTIPATION; Start at 19:00 Sodium Biphosphate/ Sodium Phosphate (Fleet Enema) 133 ml DAILY PRN [place] CONSTIPATION; Start 01/31/17 at 19:00 Heparin Sodium (Porcine) (Heparin (5000 Units/0.5 ml)) 5,000 unit Q12 SC Last administered on 02/09/17 08:57; Admin Dose 5,000 UNIT; Start 01/31/17 at 21:00 Hydralazine HCl (Apresoline) 10 mg Q6H PRN IV ELEVATED BLOOD PRESSURE Last administered on 02/08/17 04:56; Admin Dose 10 MG; Start 01/31/17 at 19:00 Nitroglycerin (Nitroglycerin (Sl Tab) 0.4 Mg) 1 tab Q5M PRN SL ANGINA; Start at 19:00 Acetaminophen (Tylenol Supp) 650 mg Q4H PRN [place] TEMP > 37C Last administered on 02/05/17 20:28; Admin Dose 650 MG; Start 01/31/17 at 23:00; Status Future Hold Acetaminophen (Tylenol Liquid) 650 mg Q4H PRN PO TEMP > 37C Last administered on 02/04/17 22:46; Admin Dose 650 MG; Start 01/31/17 at 23:00; Status Future Hold Eye Lubricant (Akwa Oint) 1 applic Q6 BOTH EYES Last administered on 02/09/17 12:00; Admin Dose 1 APPLIC; Start 02/01/17 at 00:00 Eye Lubricant 2 drop 2 drop Q6 BOTH EYES Last administered on 02/09/17 13:02; Admin Dose 2 DROP; Start 02/01/17 at 00:00 Levetiracetam (Keppra 1,500mg/ 100ml (Pmx)) 100 ml @ 400 mls/hr Q12 IVPB Last administered on 02/09/17 08:27; Admin Dose 400 MLS/HR; Start 02/01/17 at 14:30 Ranitidine HCl (Zantac) 150 mg HS PO Last administered on 02/07/17 20:52; Admin Dose 150 MG; Start 02/02/17 at 21:00 Elvitegravir/ Cobicis/Emtricit/ Tenof (Stribild Tablet) 1 each DAILY PO Last administered on 02/07/17 11:36; Admin Dose 1 EACH; Start 02/05/17 at 11:00 Divalproex Sodium 500 mg 500 mg TID PO Last administered on 02/07/17 20:52; Admin Dose 500 MG; Start 02/06/17 at 13:00 Acetaminophen (Ofirmev 1000mg/ 100ml Iv) 100 ml @ 400 mls/hr Q6H IVPB Last administered on 02/09/17 13:05; Admin Dose 400 MLS/HR; Start 02/07/17 at 00:30 Miscellaneous Information VANCOMYCIN TROUGH 02/09 AT 1500 ONCE ONCE XX ; Start 02/09/17 at 15:00; Stop 02/09/17 at 15:01 Dextrose 1,000 ml @ 300 mls/hr Q3H20M IV Last administered on 02/09/17 11:41 ; Admin Dose 300 MLS/HR; Start 02/08/17 at 13:00 Vasopressin 60 unit/Dextrose 60 ml @ 1.2 mls/hr Q12H IV Last administered on 02/09/17 06:15; Admin Dose 1.2 MLS/HR; Start 02/09/17 at 05:30 Phenylephrine HCl 40 mg/Dextrose 500 ml @ 75 mls/hr TITRATE IV Last administered on 02/09/17 10:54; Admin Dose 135 MLS/HR; Start 02/09/17 at 06:30 Norepinephrine 16 mg/Dextrose 500 ml @ 1.87 mls/hr TITRATE IV Last administered on 02/09/17 10:12; Admin Dose 18.75 MLS/HR; Start 02/09/17 at 10: 00 Potassium Chloride (KCl 20 MEQ/50 ML SW) 50 ml @ 25 mls/hr ONCE IVPB Last administered on 02/09/17 10:42; Admin Dose 25 MLS/HR; Start 02/09/17 at 10:30; Stop 02/09/17 at 16:00 YASMIN PARKER DO Feb 09, 2017 14:25
[2017-02-09 15:10] LABS: AADO2 Arterial 390.1 mmHg (7.0-24.0); Allen Test ACCEPTAB; Arterial Base Excess -2.7 mmol/L (-3.0-3); Arterial COHb 0.3 % (0.0-3.0); Arterial Fraction of Oxyhgb 98.1 % (93.0-99.0); Arterial HCO3 29.3 mmol/L (22.0-26.0); Arterial MetHb 0.3 % (0.0-1.5); Arterial Total Hemglobin 14.5 g/dl (12.0-18.0); MODE APNEA TEST
--- NOTE | 2017-02-09 15:23 | EN ---
Date/Time of Note Date/Time of Note DATE: 02/09/17 TIME: 15:21 Event Note Medicine Medicine Event Note Patient underwent apnea protocol testing. ABG results are consistent with brain . TIMOTEO ROCHA Feb 09, 2017 15:23
[2017-02-09] MEDS: VANCOMYCIN 1.5 GM in DEXTROSE 5% 250 ML IVPB SCH (18:19)
[2017-02-09 20:33] LABS: CALCIUM 8.5 mg/dl (8.4-10.2); CREATININE 1.11 mg/dl (0.61-1.24); POTASSIUM 3.7 mmol/L (3.5-5.1)
[2017-02-09] MEDS: RANITIDINE 150 MG TAB PO SCH (20:47)
[2017-02-10] VITALS (104 sets, daily range): BP systolic 64–127; BP diastolic 46–99; PULSE 79–113; RESP 16–28
[2017-02-10 00:58] LABS: CALCIUM 8.5 mg/dl (8.4-10.2); CREATININE 1.06 mg/dl (0.61-1.24); POTASSIUM 3.4 mmol/L (3.5-5.1)
[2017-02-10] MEDS: POTASSIUM CHLORIDE 50 ML IVPB SCH ×8 (01:20→18:54)
[2017-02-10] MEDS: DEXTROSE 5% 1,000 ML IV SCH ×3 (02:51→20:26)
[2017-02-10] MEDS: PHENYLephrine 40 MG in DEXTROSE 5% 496 ML IV SCH ×4 (04:26→22:06)
[2017-02-10] MEDS: VANCOMYCIN 1.5 GM in DEXTROSE 5% 250 ML IVPB SCH (05:16)
[2017-02-10] MEDS: VASOPRESSIN 60 UNIT in DEXTROSE 5% 57 ML IV SCH ×2 (05:30→16:46)
[2017-02-10] MEDS: ARTIFICIAL TEARS 15 ML OPH BOTH EYES SCH ×3 (05:42→17:29)
[2017-02-10] MEDS: OCULAR LUBRICANT 3.5 GM OPH OINT BOTH EYES SCH ×3 (05:42→17:30)
[2017-02-10 05:47] LABS: CALCIUM 8.5 mg/dl (8.4-10.2); CREATININE 0.87 mg/dl (0.61-1.24); POTASSIUM 3.6 mmol/L (3.5-5.1)
[2017-02-10 06:00] LABS: ABNORMAL IP MESSAGE 1; BASOPHIL # 0.1 10^3/ul (0.0-0.1); BASOPHILS % 0.2 % (0.0-2.0); EOSINOPHILS # 0.5 10^3/ul (0.0-0.5); EOSINOPHILS % 1.8 % (0.0-7.0); HEMATOCRIT 36.5 % (42.0-52.0); HEMOGLOBIN 11.7 g/dl (14.0-18.0); LYMPHOCYTES # 3.4 10^3/ul (0.8-2.9); LYMPHOCYTES % 12.8 % (15.0-51.0); MEAN CORPUSCULAR HEMOGLOBIN 32.1 pg (29.0-33.0); MEAN CORPUSCULAR HGB CONC 32.1 g/dl (32.0-37.0); MEAN PLATELET VOLUME 11.2 fl (7.4-10.4); MONOCYTE # 0.7 10^3/ul (0.3-0.9); MONOCYTES % 2.6 % (0.0-11.0); NEUTROPHILS % 81.9 % (39.0-77.0); PLATELET COUNT 256 10^3/UL (140-415); POSITIVE DIFF @See below; RED BLOOD COUNT 3.65 10^6/ul (4.70-6.10); RED CELL DISTRIBUTION WIDTH 13.4 % (11.5-14.5); WHITE BLOOD COUNT 26.9 10^3/ul (4.8-10.8)
[2017-02-10] MEDS: ACETAMINOPHEN 1000MG/100ML IV 100 ML IVPB SCH ×3 (06:30→17:30)
[2017-02-10] MEDS ORDERED: DESMOPRESSIN 4 MCG INJ IV ONE (06:30)
[2017-02-10] MEDS ORDERED: DEXTROSE 5% WATER 500 ML BAG IV ONE (06:30)
[2017-02-10 07:21] LABS: CALCIUM 8.7 mg/dl (8.4-10.2); CREATININE 0.95 mg/dl (0.61-1.24); POTASSIUM 3.2 mmol/L (3.5-5.1)
[2017-02-10] MEDS: DIVALPROEX (ER) 500 MG TAB PO SCH ×3 (08:04→20:49)
[2017-02-10] MEDS: ELVITEGR/COBICIST/EMTRIC/TENOF 1 EACH TABLET PO SCH (08:04)
[2017-02-10] MEDS: LEVETIRACETAM 1500 MG (PMX) 100 ML IVPB SCH ×2 (08:26→20:49)
[2017-02-10] MEDS: HEPARIN 5,000 UNIT/0.5 ML VIAL SC SCH ×2 (08:27→20:52)
[2017-02-10] MEDS ORDERED: DESMOPRESSIN 4 MCG INJ IV SCH (08:30)
--- NOTE | 2017-02-10 09:46 | PN ---
Date/Time of Note Date/Time of Note DATE: 02/10/17 TIME: 09:40 Assessment/Plan VTE Prophylaxis VTE Prophylaxis Intervention: SCD's Lines/Catheters IV [facility]from [facility] Central Line Central line still needed: Yes Urinary Cath still in place: Yes Reason Cath still needed: urinary retention Assessment/Plan Chief Complaint/Hosp Course Assessment/Plan: 46 yo M with pmhx HIV on HAART, unknown psychiatric hx admitted with acute toxic encephalopathy 2/2 intentional Ambien OD. Clinical scenario initially consistent with anoxic brain injury, now with evidence of breath . 1. likely brain : Patient has no gag reflex, is apneic, has fixed and dilated pupils. 2 prior EEG's are consistent with severe anoxic injury as well. dw family (including /POA and daughter) both by primary team as well as fashion consultant teams. Still awaiting possible cerebral perfusion study as well. -neuro on consult, follow-up recommendations, palliative care team also consulted as well. 2. HIV: cont HAART, CD4 ~500, VL UD ( has been aware of pt's HIV status for several years. dw 10.3) 3. fevers: likely central in origin. However patient also septic, on pressor support as well cont unasyn and vancomycin for septic shock and for possible aspiration pna, re tong cultured 10.7 given duration to r/o occult infectious process-->all cultures ngtd 4. FEN: tube feeds as tolerated; KUB 10.7 without evidence of obstruction 5. hypernatremia: likely insensible losses and central diabetes insipidus cause. -Continue D5W IVF's, did receive DDAVP earlier as well, monitor sodium levels 6. goals of care: requesting aggressive management, dw family. they are still "hoping for a miracle" despite pt's likely brain . May possibly require terminal extubation if the family agrees. PLAN family requesting 14 days with ET tube before trach placement, also requested xfer to tertiary center CM aware of transfer request though pt does not require specialized care unavailable at this facility. We will also await input from palliative care team as well. Critical care time spent on patient care today equals 40 minutes. Problems: Subjective 24 Hr Interval Summary Free Text/Dictation Patient had third EEG performed, results still pending. Still on pressor support. Off cooling measures presently. Exam/Review of Systems Vital Signs Vitals Vital Signs Date Time Temp Pulse Resp B/P Pulse Ox O2 Delivery O2 Flow Rate FiO2 02/10/17 09:15 79 28 91/63 100 Mechanical Ventilator 02/10/17 08:00 100 02/10/17 08:00 98.5 Intake and Output 02/09/17 02/09/17 02/10/17 15:00 23:00 07:00 Intake Total 3973.38 ml 2184.21 ml 1303.173 ml Output Total 1279 ml 971 ml 1795 ml Balance 2694.38 ml 1213.21 ml -491.827 ml Exam pt intubated, off sedation and unresponsive bl pupils 6mm and unresponsive no mrg coarse mechanical breath sounds no rashes no edema Results Result Diagram: 02/10/17 0430 02/10/17 0650 Results 24 hrs Laboratory Tests Test 02/09/17 12:41 02/09/17 14:30 02/09/17 15:16 02/09/17 19:45 Sodium Level 152 H 144 Potassium Level 3.2 L 3.7 Chloride Level 115 H 112 H Carbon Dioxide Level 28 27 Anion Gap 12 9 Blood Urea Nitrogen 17 17 Creatinine 1.19 1.11 Glucose Level 213 # 169 Lactic Acid Level 1.5 1.5 Calcium Level 8.3 L 8.5 Blood Gas Specimen Source Blood arterial Arterial Blood Date Drawn 02/09/2017 2:46:46 PM Arterial Blood pH (Temp corrected) 7.124 *L Arterial Blood pCO2 (Temp correct) 91.2 *H Arterial Blood pO2 (Temp corrected) 231.7 H Arterial Blood HCO3 29.3 H Arterial Blood Base Excess -2.7 Arterial Blood Oxygen Saturation 98.7 H Markus Test ACCEPTAB Arterial Blood Gas Puncture Site Left Radial Arterial Blood Carboxyhemoglobin 0.3 Arterial Blood Methemoglobin 0.3 Blood Gas A-a O2 Differential 390.1 H Oxyhemoglobin Percent 98.1 Total Hemoglobin 14.5 Blood Gas Temperature 37.0 Blood Gas Modality APNEA TEST FiO2 100.0 Blood Gas Critical Value Read Back Julia REAL RN Blood Gas Notified Whom FABIOLA Blood Gas Notified Time 02/09/2017 3:10:30 PM Vancomycin Level Trough 15.5 Test 02/09/17 22:52 02/10/17 04:30 02/10/17 06:20 02/10/17 06:50 Sodium Level 145 H 143 145 H Potassium Level 3.4 L 3.6 3.2 L Chloride Level 111 H 111 H 114 H Carbon Dioxide Level 30 26 27 Anion Gap 7 L 10 7 L Blood Urea Nitrogen 18 16 15 Creatinine 1.06 0.87 0.95 Glucose Level 148 129 152 Lactic Acid Level 1.9 1.6 Calcium Level 8.5 8.5 8.7 White Blood Count 26.9 #H Red Blood Count 3.65 #L Hemoglobin 11.7 #L Hematocrit 36.5 #L Mean Corpuscular Volume 100.0 Mean Corpuscular Hemoglobin 32.1 Mean Corpuscular Hemoglobin Concent 32.1 Red Cell Distribution Width 13.4 Platelet Count 256 # Mean Platelet Volume 11.2 H Neutrophils % 81.9 H Lymphocytes % 12.8 L Monocytes % 2.6 Eosinophils % 1.8 Basophils % 0.2 Nucleated Red Blood Cells % 0.0 Neutrophils # 22.0 H Lymphocytes # 3.4 H Monocytes # 0.7 Eosinophils # 0.5 Basophils # 0.1 Nucleated Red Blood Cells # 0.0 Urine Osmolality 48 #L Urine Random Sodium < 13 L Osmolality 303 H Medications Medications Current Medications Ondansetron HCl (Zofran Inj) 4 mg Q6H PRN IV NAUSEA AND/OR VOMITING; Start at 19:00 Acetaminophen (Tylenol Tab) 650 mg Q6H PRN PO PAIN LEVEL 1-3 OR FEVER Last administered on 02/06/17 18:50; Admin Dose 650 MG; Start 01/31/17 at 19:00; Status Future Hold Acetaminophen/ Hydrocodone Bitart ([place] (5/325)) 1 tab Q6H PRN PO MODERATE PAIN LEVEL 4-6; Start 01/31/17 at 19:00 Morphine Sulfate (morphine) 2 mg Q4H PRN IV SEVERE PAIN LEVEL 7-10 Last administered on 02/08/17 17:14; Admin Dose 2 MG; Start 01/31/17 at 19:00 Docusate Sodium (Colace) 100 mg Q12H PRN PO CONSTIPATION; Start 01/31/17 at 19: 00 Magnesium Hydroxide (Milk Of Mag) 30 ml DAILY PRN PO CONSTIPATION; Start at 19:00 Sodium Biphosphate/ Sodium Phosphate (Fleet Enema) 133 ml DAILY PRN [place] CONSTIPATION; Start 01/31/17 at 19:00 Heparin Sodium (Porcine) (Heparin (5000 Units/0.5 ml)) 5,000 unit Q12 SC Last administered on 02/10/17 08:27; Admin Dose 5,000 UNIT; Start 01/31/17 at 21:00 Hydralazine HCl (Apresoline) 10 mg Q6H PRN IV ELEVATED BLOOD PRESSURE Last administered on 02/08/17 04:56; Admin Dose 10 MG; Start 01/31/17 at 19:00 Nitroglycerin (Nitroglycerin (Sl Tab) 0.4 Mg) 1 tab Q5M PRN SL ANGINA; Start at 19:00 Acetaminophen (Tylenol Supp) 650 mg Q4H PRN SD TEMP > 37C Last administered on 02/05/17 20:28; Admin Dose 650 MG; Start 01/31/17 at 23:00; Status Future Hold Acetaminophen (Tylenol Liquid) 650 mg Q4H PRN PO TEMP > 37C Last administered on 02/04/17 22:46; Admin Dose 650 MG; Start 01/31/17 at 23:00; Status Future Hold Eye Lubricant (Akwa Oint) 1 applic Q6 BOTH EYES Last administered on 05:42; Admin Dose 1 APPLIC; Start 02/01/17 at 00:00 Eye Lubricant 2 drop 2 drop Q6 BOTH EYES Last administered on 02/10/17 05:42 ; Admin Dose 2 DROP; Start 02/01/17 at 00:00 Levetiracetam (Keppra 1,500mg/ 100ml (Pmx)) 100 ml @ 400 mls/hr Q12 IVPB Last administered on 02/10/17 08:26; Admin Dose 400 MLS/HR; Start 02/01/17 at 14:30 Ranitidine HCl (Zantac) 150 mg HS PO Last administered on 02/07/17 20:52; Admin Dose 150 MG; Start 02/02/17 at 21:00 Elvitegravir/ Cobicis/Emtricit/ Tenof (Stribild Tablet) 1 each DAILY PO Last administered on 02/07/17 11:36; Admin Dose 1 EACH; Start 02/05/17 at 11:00 Divalproex Sodium 500 mg 500 mg TID PO Last administered on 02/07/17 20:52; Admin Dose 500 MG; Start 02/06/17 at 13:00 Acetaminophen 100 ml @ 400 mls/hr Q6H IVPB Last administered on 02/10/17 06: 30; Admin Dose 400 MLS/HR; Start 02/07/17 at 00:30 Vasopressin 60 unit/Dextrose 60 ml @ 1.2 mls/hr Q12H IV Last administered on 02/09/17 06:15; Admin Dose 1.2 MLS/HR; Start 02/09/17 at 05:30 Phenylephrine HCl 40 mg/Dextrose 500 ml @ 75 mls/hr TITRATE IV Last administered on 02/10/17 04:26; Admin Dose 67.5 MLS/HR; Start 02/09/17 at 06: 30 Norepinephrine 16 mg/Dextrose 500 ml @ 1.87 mls/hr TITRATE IV Last administered on 02/09/17 10:12; Admin Dose 18.75 MLS/HR; Start 02/09/17 at 10: 00 Dextrose 1,000 ml @ 75 mls/hr [id number] IV Last administered on 02/10/17 02:51 ; Admin Dose 75 MLS/HR; Start 02/09/17 at 14:30 Vancomycin HCl/ Dextrose (Vancocin/D5W) 250 ml @ 83.333 mls/ hr Q12H IVPB Last administered on 02/10/17 05:16; Admin Dose 83.333 MLS/HR; Start 02/09/17 at 18:00 Desmopressin Acetate (Ddavp) 1 mcg ONCE IV Last administered on 02/10/17 08: 26; Admin Dose 1 MCG; Start 02/10/17 at 08:30; Stop 02/10/17 at 10:00 AKUA QUIÑONES Feb 10, 2017 09:46
--- NOTE | 2017-02-10 10:47 | CONS ---
Date/Time of Note Date/Time of Note DATE: 02/10/17 TIME: 10:46 Consult Date/Type/Reason Admit Date/Time Jan 31, 2017 at 17:12 Initial Consult Date 02/05/17 Type of Consultation: Neurology Reason for Consultation brain eval Ordering Provider: LORRAINE RIGGS MD Subjective per nurse has some spontaneous posturing in extremities no improvement Objective Vital Signs Date Time Temp Pulse Resp B/P Pulse Ox O2 Delivery O2 Flow Rate FiO2 02/10/17 09:15 79 28 91/63 100 Mechanical Ventilator 02/10/17 08:00 100 02/10/17 08:00 98.5 Intake and Output 02/09/17 02/09/17 02/10/17 15:00 23:00 07:00 Intake Total 3973.38 ml 2184.21 ml 1303.173 ml Output Total 1279 ml 971 ml 1795 ml Balance 2694.38 ml 1213.21 ml -491.827 ml Exam unresponsive CN: dilated unresponsive 6 mm absent corneals absent gag response absent responses to cold calorics Motor: absent withdrawal to extremities Results/Medications Result Diagram: 02/10/17 0430 02/10/17 0650 Results 24 hrs Laboratory Tests Test 02/09/17 12:41 02/09/17 14:30 02/09/17 15:16 02/09/17 19:45 Sodium Level 152 H 144 Potassium Level 3.2 L 3.7 Chloride Level 115 H 112 H Carbon Dioxide Level 28 27 Anion Gap 12 9 Blood Urea Nitrogen 17 17 Creatinine 1.19 1.11 Glucose Level 213 # 169 Lactic Acid Level 1.5 1.5 Calcium Level 8.3 L 8.5 Blood Gas Specimen Source Blood arterial Arterial Blood Date Drawn 02/09/2017 2:46:46 PM Arterial Blood pH (Temp corrected) 7.124 *L Arterial Blood pCO2 (Temp correct) 91.2 *H Arterial Blood pO2 (Temp corrected) 231.7 H Arterial Blood HCO3 29.3 H Arterial Blood Base Excess -2.7 Arterial Blood Oxygen Saturation 98.7 H Markus Test ACCEPTAB Arterial Blood Gas Puncture Site Left Radial Arterial Blood Carboxyhemoglobin 0.3 Arterial Blood Methemoglobin 0.3 Blood Gas A-a O2 Differential 390.1 H Oxyhemoglobin Percent 98.1 Total Hemoglobin 14.5 Blood Gas Temperature 37.0 Blood Gas Modality APNEA TEST FiO2 100.0 Blood Gas Critical Value Read Back Julia ADDIE RN Blood Gas Notified Whom JLD Blood Gas Notified Time 02/09/2017 3:10:30 PM Vancomycin Level Trough 15.5 Test 02/09/17 22:52 02/10/17 04:30 02/10/17 06:20 02/10/17 06:50 Sodium Level 145 H 143 145 H Potassium Level 3.4 L 3.6 3.2 L Chloride Level 111 H 111 H 114 H Carbon Dioxide Level 30 26 27 Anion Gap 7 L 10 7 L Blood Urea Nitrogen 18 16 15 Creatinine 1.06 0.87 0.95 Glucose Level 148 129 152 Lactic Acid Level 1.9 1.6 Calcium Level 8.5 8.5 8.7 White Blood Count 26.9 #H Red Blood Count 3.65 #L Hemoglobin 11.7 #L Hematocrit 36.5 #L Mean Corpuscular Volume 100.0 Mean Corpuscular Hemoglobin 32.1 Mean Corpuscular Hemoglobin Concent 32.1 Red Cell Distribution Width 13.4 Platelet Count 256 # Mean Platelet Volume 11.2 H Neutrophils % 81.9 H Lymphocytes % 12.8 L Monocytes % 2.6 Eosinophils % 1.8 Basophils % 0.2 Nucleated Red Blood Cells % 0.0 Neutrophils # 22.0 H Lymphocytes # 3.4 H Monocytes # 0.7 Eosinophils # 0.5 Basophils # 0.1 Nucleated Red Blood Cells # 0.0 Urine Osmolality 48 #L Urine Random Sodium < 13 L Osmolality 303 H Medications Current Medications Ondansetron HCl (Zofran Inj) 4 mg Q6H PRN IV NAUSEA AND/OR VOMITING; Start at 19:00 Acetaminophen (Tylenol Tab) 650 mg Q6H PRN PO PAIN LEVEL 1-3 OR FEVER Last administered on 02/06/17 18:50; Admin Dose 650 MG; Start 01/31/17 at 19:00; Status Future Hold Acetaminophen/ Hydrocodone Bitart ([place] (5/325)) 1 tab Q6H PRN PO MODERATE PAIN LEVEL 4-6; Start 01/31/17 at 19:00 Morphine Sulfate (morphine) 2 mg Q4H PRN IV SEVERE PAIN LEVEL 7-10 Last administered on 02/08/17 17:14; Admin Dose 2 MG; Start 01/31/17 at 19:00 Docusate Sodium (Colace) 100 mg Q12H PRN PO CONSTIPATION; Start 01/31/17 at 19: 00 Magnesium Hydroxide (Milk Of Mag) 30 ml DAILY PRN PO CONSTIPATION; Start at 19:00 Sodium Biphosphate/ Sodium Phosphate (Fleet Enema) 133 ml DAILY PRN [place] CONSTIPATION; Start 01/31/17 at 19:00 Heparin Sodium (Porcine) (Heparin (5000 Units/0.5 ml)) 5,000 unit Q12 SC Last administered on 02/10/17 08:27; Admin Dose 5,000 UNIT; Start 01/31/17 at 21:00 Hydralazine HCl (Apresoline) 10 mg Q6H PRN IV ELEVATED BLOOD PRESSURE Last administered on 02/08/17 04:56; Admin Dose 10 MG; Start 01/31/17 at 19:00 Nitroglycerin (Nitroglycerin (Sl Tab) 0.4 Mg) 1 tab Q5M PRN SL ANGINA; Start at 19:00 Acetaminophen (Tylenol Supp) 650 mg Q4H PRN [place] TEMP > 37C Last administered on 02/05/17 20:28; Admin Dose 650 MG; Start 01/31/17 at 23:00; Status Future Hold Acetaminophen (Tylenol Liquid) 650 mg Q4H PRN PO TEMP > 37C Last administered on 02/04/17 22:46; Admin Dose 650 MG; Start 01/31/17 at 23:00; Status Future Hold Eye Lubricant (Akwa Oint) 1 applic Q6 BOTH EYES Last administered on 05:42; Admin Dose 1 APPLIC; Start 02/01/17 at 00:00 Eye Lubricant 2 drop 2 drop Q6 BOTH EYES Last administered on 02/10/17 05:42 ; Admin Dose 2 DROP; Start 02/01/17 at 00:00 Levetiracetam (Keppra 1,500mg/ 100ml (Pmx)) 100 ml @ 400 mls/hr Q12 IVPB Last administered on 02/10/17 08:26; Admin Dose 400 MLS/HR; Start 02/01/17 at 14:30 Ranitidine HCl (Zantac) 150 mg HS PO Last administered on 02/07/17 20:52; Admin Dose 150 MG; Start 02/02/17 at 21:00 Elvitegravir/ Cobicis/Emtricit/ Tenof (Stribild Tablet) 1 each DAILY PO Last administered on 02/07/17 11:36; Admin Dose 1 EACH; Start 02/05/17 at 11:00 Divalproex Sodium 500 mg 500 mg TID PO Last administered on 02/07/17 20:52; Admin Dose 500 MG; Start 02/06/17 at 13:00 Acetaminophen 100 ml @ 400 mls/hr Q6H IVPB Last administered on 02/10/17 06: 30; Admin Dose 400 MLS/HR; Start 02/07/17 at 00:30 Vasopressin 60 unit/Dextrose 60 ml @ 1.2 mls/hr Q12H IV Last administered on 02/09/17 06:15; Admin Dose 1.2 MLS/HR; Start 02/09/17 at 05:30 Phenylephrine HCl 40 mg/Dextrose 500 ml @ 75 mls/hr TITRATE IV Last administered on 02/10/17 04:26; Admin Dose 67.5 MLS/HR; Start 02/09/17 at 06: 30 Norepinephrine 16 mg/Dextrose 500 ml @ 1.87 mls/hr TITRATE IV Last administered on 02/09/17 10:12; Admin Dose 18.75 MLS/HR; Start 02/09/17 at 10: 00 Dextrose 1,000 ml @ 75 mls/hr [id number] IV Last administered on 02/10/17 02:51 ; Admin Dose 75 MLS/HR; Start 02/09/17 at 14:30 Vancomycin HCl/ Dextrose (Vancocin/D5W) 250 ml @ 83.333 mls/ hr Q12H IVPB Last administered on 02/10/17 05:16; Admin Dose 83.333 MLS/HR; Start 02/09/17 at 18:00 Assessment/Plan Chief Complaint/Hosp Course 46 yo male admitted with cardiopulmonary arrest from Ambien overdose, imaging findings suggestive of hypoxic injury. EEG with diffuse slowing, no epileptiform discharges. Seizures suspected after sedation is weaned. Repeat EEG 02/06: diffuse slowing Recommendations: continue on Keppra 1500 mg q8h start Depakote 500 mg q8h current exam c/w brain would recommend apnea test, repeat EEG if possible Cerebral Perfusion Studies EEG pending review palliative care consultation Problems: NADEGE,SHERI MD Feb 10, 2017 10:47
--- NOTE | 2017-02-10 10:49 | CONS ---
Date/Time of Note Date/Time of Note DATE: 02/10/17 TIME: 10:43 Assessment/Plan Assessment/Plan Additional Assessment/Plan Ventilator setting; AC of 28, tidal volume 550, PEEP of 5, 100% FiO2. Patient currently on phenylephrine drip at 100 mics per minute, Levophed at 3.6 mics per minute. Assessment and recommendations; 1. Patient admitted with sedative overdose causing cardiac arrest requiring long CPR with clinical findings consistent with brain . 2. Hypernatremia with interval improvement after being started on desmopressin. 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 3. Seizure activity, currently well controlled with Keppra. 4. Mild leukocytosis. 5. History of being HIV positive. 6. Shock, currently on combination pressor support. Continue current supportive care. Patient's family unwilling for terminal extubation. They also wish a full CODE STATUS in place. I did have a detailed discussion with him yesterday about the findings of apnea testing. 35 minutes of critical care time was spent evaluating the patient. Consultation Date/Type/Reason Admit Date/Time Jan 31, 2017 at 17:12 Initial Consult Date 02/05/17 Type of Consultation: Pulmonary/critical care Referring Provider: LORRAINE RIGGS MD 24 HR Interval Summary Free Text/Dictation Patient's condition remains critical. Remains completely unresponsive. No overt seizure activity noted. General exam; middle-aged male, orally intubated, unresponsive, currently no distress. Exam/Review of Systems Vital Signs Vitals Vital Signs Date Time Temp Pulse Resp B/P Pulse Ox O2 Delivery O2 Flow Rate FiO2 02/10/17 09:15 79 28 91/63 100 Mechanical Ventilator 02/10/17 08:00 100 02/10/17 08:00 98.5 Intake and Output 02/09/17 02/09/17 02/10/17 15:00 23:00 07:00 Intake Total 3973.38 ml 2184.21 ml 1303.173 ml Output Total 1279 ml 971 ml 1795 ml Balance 2694.38 ml 1213.21 ml -491.827 ml Exam HEENT exam; supple neck, no JVD. No lymphadenopathy. Midline trachea. No thyromegaly. Pupils are fixed and dilated . Patient has fair dentition. Orally intubated. Chest exam; clear to auscultation. S1-S2 audible, no murmurs. Regular rhythm. Abdomen exam; soft, no organomegaly. Bowel sounds are sluggish. Abdomen is nondistended. Extremity exam; no edema. Pulses 1+ bilaterally. HOUSE WORKER exam; patient remains unresponsive. Results Result Diagram: 02/10/17 0430 02/10/17 0650 Results 24 hrs Laboratory Tests Test 02/09/17 12:41 02/09/17 14:30 02/09/17 15:16 02/09/17 19:45 Sodium Level 152 H 144 Potassium Level 3.2 L 3.7 Chloride Level 115 H 112 H Carbon Dioxide Level 28 27 Anion Gap 12 9 Blood Urea Nitrogen 17 17 Creatinine 1.19 1.11 Glucose Level 213 # 169 Lactic Acid Level 1.5 1.5 Calcium Level 8.3 L 8.5 Blood Gas Specimen Source Blood arterial Arterial Blood Date Drawn 02/09/2017 2:46:46 PM Arterial Blood pH (Temp corrected) 7.124 *L Arterial Blood pCO2 (Temp correct) 91.2 *H Arterial Blood pO2 (Temp corrected) 231.7 H Arterial Blood HCO3 29.3 H Arterial Blood Base Excess -2.7 Arterial Blood Oxygen Saturation 98.7 H Markus Test ACCEPTAB Arterial Blood Gas Puncture Site Left Radial Arterial Blood Carboxyhemoglobin 0.3 Arterial Blood Methemoglobin 0.3 Blood Gas A-a O2 Differential 390.1 H Oxyhemoglobin Percent 98.1 Total Hemoglobin 14.5 Blood Gas Temperature 37.0 Blood Gas Modality APNEA TEST FiO2 100.0 Blood Gas Critical Value Read Back K ADDIE RN Blood Gas Notified Whom JLD Blood Gas Notified Time 02/09/2017 3:10:30 PM Vancomycin Level Trough 15.5 Test 02/09/17 22:52 02/10/17 04:30 02/10/17 06:20 02/10/17 06:50 Sodium Level 145 H 143 145 H Potassium Level 3.4 L 3.6 3.2 L Chloride Level 111 H 111 H 114 H Carbon Dioxide Level 30 26 27 Anion Gap 7 L 10 7 L Blood Urea Nitrogen 18 16 15 Creatinine 1.06 0.87 0.95 Glucose Level 148 129 152 Lactic Acid Level 1.9 1.6 Calcium Level 8.5 8.5 8.7 White Blood Count 26.9 #H Red Blood Count 3.65 #L Hemoglobin 11.7 #L Hematocrit 36.5 #L Mean Corpuscular Volume 100.0 Mean Corpuscular Hemoglobin 32.1 Mean Corpuscular Hemoglobin Concent 32.1 Red Cell Distribution Width 13.4 Platelet Count 256 # Mean Platelet Volume 11.2 H Neutrophils % 81.9 H Lymphocytes % 12.8 L Monocytes % 2.6 Eosinophils % 1.8 Basophils % 0.2 Nucleated Red Blood Cells % 0.0 Neutrophils # 22.0 H Lymphocytes # 3.4 H Monocytes # 0.7 Eosinophils # 0.5 Basophils # 0.1 Nucleated Red Blood Cells # 0.0 Urine Osmolality 48 #L Urine Random Sodium < 13 L Osmolality 303 H Medications Medications Current Medications Ondansetron HCl (Zofran Inj) 4 mg Q6H PRN IV NAUSEA AND/OR VOMITING; Start at 19:00 Acetaminophen (Tylenol Tab) 650 mg Q6H PRN PO PAIN LEVEL 1-3 OR FEVER Last administered on 02/06/17 18:50; Admin Dose 650 MG; Start 01/31/17 at 19:00; Status Future Hold Acetaminophen/ Hydrocodone Bitart ([place] (5/325)) 1 tab Q6H PRN PO MODERATE PAIN LEVEL 4-6; Start 01/31/17 at 19:00 Morphine Sulfate (morphine) 2 mg Q4H PRN IV SEVERE PAIN LEVEL 7-10 Last administered on 02/08/17 17:14; Admin Dose 2 MG; Start 01/31/17 at 19:00 Docusate Sodium (Colace) 100 mg Q12H PRN PO CONSTIPATION; Start 01/31/17 at 19: 00 Magnesium Hydroxide (Milk Of Mag) 30 ml DAILY PRN PO CONSTIPATION; Start at 19:00 Sodium Biphosphate/ Sodium Phosphate (Fleet Enema) 133 ml DAILY PRN [place] CONSTIPATION; Start 01/31/17 at 19:00 Heparin Sodium (Porcine) (Heparin (5000 Units/0.5 ml)) 5,000 unit Q12 SC Last administered on 02/10/17 08:27; Admin Dose 5,000 UNIT; Start 01/31/17 at 21:00 Hydralazine HCl (Apresoline) 10 mg Q6H PRN IV ELEVATED BLOOD PRESSURE Last administered on 02/08/17 04:56; Admin Dose 10 MG; Start 01/31/17 at 19:00 Nitroglycerin (Nitroglycerin (Sl Tab) 0.4 Mg) 1 tab Q5M PRN SL ANGINA; Start at 19:00 Acetaminophen (Tylenol Supp) 650 mg Q4H PRN [place] TEMP > 37C Last administered on 02/05/17 20:28; Admin Dose 650 MG; Start 01/31/17 at 23:00; Status Future Hold Acetaminophen (Tylenol Liquid) 650 mg Q4H PRN PO TEMP > 37C Last administered on 02/04/17 22:46; Admin Dose 650 MG; Start 01/31/17 at 23:00; Status Future Hold Eye Lubricant (Akwa Oint) 1 applic Q6 BOTH EYES Last administered on 05:42; Admin Dose 1 APPLIC; Start 02/01/17 at 00:00 Eye Lubricant 2 drop 2 drop Q6 BOTH EYES Last administered on 02/10/17 05:42 ; Admin Dose 2 DROP; Start 02/01/17 at 00:00 Levetiracetam (Keppra 1,500mg/ 100ml (Pmx)) 100 ml @ 400 mls/hr Q12 IVPB Last administered on 02/10/17 08:26; Admin Dose 400 MLS/HR; Start 02/01/17 at 14:30 Ranitidine HCl (Zantac) 150 mg HS PO Last administered on 02/07/17 20:52; Admin Dose 150 MG; Start 02/02/17 at 21:00 Elvitegravir/ Cobicis/Emtricit/ Tenof (Stribild Tablet) 1 each DAILY PO Last administered on 02/07/17 11:36; Admin Dose 1 EACH; Start 02/05/17 at 11:00 Divalproex Sodium 500 mg 500 mg TID PO Last administered on 02/07/17 20:52; Admin Dose 500 MG; Start 02/06/17 at 13:00 Acetaminophen 100 ml @ 400 mls/hr Q6H IVPB Last administered on 02/10/17 06: 30; Admin Dose 400 MLS/HR; Start 02/07/17 at 00:30 Vasopressin 60 unit/Dextrose 60 ml @ 1.2 mls/hr Q12H IV Last administered on 02/09/17 06:15; Admin Dose 1.2 MLS/HR; Start 02/09/17 at 05:30 Phenylephrine HCl 40 mg/Dextrose 500 ml @ 75 mls/hr TITRATE IV Last administered on 02/10/17 04:26; Admin Dose 67.5 MLS/HR; Start 02/09/17 at 06: 30 Norepinephrine 16 mg/Dextrose 500 ml @ 1.87 mls/hr TITRATE IV Last administered on 02/09/17 10:12; Admin Dose 18.75 MLS/HR; Start 02/09/17 at 10: 00 Dextrose 1,000 ml @ 75 mls/hr [id number] IV Last administered on 02/10/17 02:51 ; Admin Dose 75 MLS/HR; Start 02/09/17 at 14:30 Vancomycin HCl/ Dextrose (Vancocin/D5W) 250 ml @ 83.333 mls/ hr Q12H IVPB Last administered on 02/10/17 05:16; Admin Dose 83.333 MLS/HR; Start 02/09/17 at 18:00 TIMOTEO ROCHA Feb 10, 2017 10:49
[2017-02-10 12:20] LABS: CALCIUM 8.4 mg/dl (8.4-10.2); CREATININE 0.9 mg/dl (0.61-1.24); POTASSIUM 3.6 mmol/L (3.5-5.1)
--- NOTE | 2017-02-10 12:56 | CONS ---
Date/Time of Note Date/Time of Note DATE: 02/10/17 TIME: 12:48 Assessment/Plan Assessment/Plan Additional Assessment/Plan Drug overdose, history of alcohol ingestion HIV positive Status post cardiopulmonary arrest Electrolyte abnormalities Physical findings consistent with severe underlying anoxic brain injury Family in crisis Full palliative care consultation will be completed after speaking with family members. Will schedule a family conference as soon as possible as result of the other neurological studies should be available by the end of this day. Consultation Date/Type/Reason Admit Date/Time Jan 31, 2017 at 17:12 Type of Consultation: Palliative care Hx of Present Illness 46-year-old gentleman witnessed ingestion of one bottle unknown quantity of Ambien pills. Shortly thereafter patient had a witnessed cardiac arrest, EMS called patient was transported to the emergency room underwent cardiopulmonary resuscitation with spontaneous return of circulation has been admitted to the intensive care unit. Unfortunately throughout this hospital stay patient has become progressively worse from a neurological standpoint. He has had numerous EEGs cerebral perfusion study which is pending results and apnea test all of which are consistent with severe cerebral anoxic brain injury. Information from healthcare delivery team this that there is discord amongst family members as to ongoing level of care. I am asked to speak to family members. With this information is taken from patient's medical records and speaking with his critical care nurse. Subjective hx not possible: pt non-verbal Respiratory: no complaints Cardiovascular: no complaints Gastrointestinal: no complaints, No blood, No constipation, No decreased appetite, No diarrhea, No flatus, No nausea, No other, No pain, No passing stool, No vomiting Genitourinary: no complaints Musculoskeletal: no complaints Skin: no complaints Past Medical History Medical History: no pertinent history Past Surgical History Past Surgical Hx: no surgical history Social History Alcohol Use: occasionally Smoking Status: Current every day smoker Drug Use: other (Unclear) Exam/Review of Systems Vital Signs Vitals Vital Signs Date Time Temp Pulse Resp B/P Pulse Ox O2 Delivery O2 Flow Rate FiO2 02/10/17 11:45 86 16 89/63 100 Mechanical Ventilator 02/10/17 08:00 100 02/10/17 08:00 98.5 Intake and Output 02/09/17 02/09/17 02/10/17 15:00 23:00 07:00 Intake Total 3973.38 ml 2184.21 ml 1303.173 ml Output Total 1279 ml 971 ml 1795 ml Balance 2694.38 ml 1213.21 ml -491.827 ml Exam Constitutional: non-verbal Eyes: other (Without pupillary light reflex doll's eyes corneals) Neck: non-tender, supple Cardiovascular: nl pulses, regular rate and rhythm Gastrointestinal: other (Nondistended, no bowel sounds appreciated) Extremities: normal pulses Neurological: unresponsive Results Result Diagram: 02/10/17 0430 02/10/17 1132 Results 24 hrs Laboratory Tests Test 02/09/17 14:30 02/09/17 15:16 02/09/17 19:45 02/09/17 22:52 Blood Gas Specimen Source Blood arterial Arterial Blood Date Drawn 02/09/2017 2:46:46 PM Arterial Blood pH (Temp corrected) 7.124 *L Arterial Blood pCO2 (Temp correct) 91.2 *H Arterial Blood pO2 (Temp corrected) 231.7 H Arterial Blood HCO3 29.3 H Arterial Blood Base Excess -2.7 Arterial Blood Oxygen Saturation 98.7 H Markus Test ACCEPTAB Arterial Blood Gas Puncture Site Left Radial Arterial Blood Carboxyhemoglobin 0.3 Arterial Blood Methemoglobin 0.3 Blood Gas A-a O2 Differential 390.1 H Oxyhemoglobin Percent 98.1 Total Hemoglobin 14.5 Blood Gas Temperature 37.0 Blood Gas Modality APNEA TEST FiO2 100.0 Blood Gas Critical Value Read Back Julia REAL RN Blood Gas Notified Whom JLD Blood Gas Notified Time 02/09/2017 3:10:30 PM Vancomycin Level Trough 15.5 Sodium Level 144 145 H Potassium Level 3.7 3.4 L Chloride Level 112 H 111 H Carbon Dioxide Level 27 30 Anion Gap 9 7 L Blood Urea Nitrogen 17 18 Creatinine 1.11 1.06 Glucose Level 169 148 Lactic Acid Level 1.5 1.9 Calcium Level 8.5 8.5 Test 02/10/17 04:30 02/10/17 06:20 02/10/17 06:50 02/10/17 11:32 White Blood Count 26.9 #H Red Blood Count 3.65 #L Hemoglobin 11.7 #L Hematocrit 36.5 #L Mean Corpuscular Volume 100.0 Mean Corpuscular Hemoglobin 32.1 Mean Corpuscular Hemoglobin Concent 32.1 Red Cell Distribution Width 13.4 Platelet Count 256 # Mean Platelet Volume 11.2 H Neutrophils % 81.9 H Lymphocytes % 12.8 L Monocytes % 2.6 Eosinophils % 1.8 Basophils % 0.2 Nucleated Red Blood Cells % 0.0 Neutrophils # 22.0 H Lymphocytes # 3.4 H Monocytes # 0.7 Eosinophils # 0.5 Basophils # 0.1 Nucleated Red Blood Cells # 0.0 Sodium Level 143 145 H 146 H Potassium Level 3.6 3.2 L 3.6 Chloride Level 111 H 114 H 115 H Carbon Dioxide Level 26 27 28 Anion Gap 10 7 L 7 L Blood Urea Nitrogen 16 15 14 Creatinine 0.87 0.95 0.90 Glucose Level 129 152 149 Lactic Acid Level 1.6 1.2 Calcium Level 8.5 8.7 8.4 Urine Osmolality 48 #L Urine Random Sodium < 13 L Osmolality 303 H Medications Medications Current Medications Ondansetron HCl (Zofran Inj) 4 mg Q6H PRN IV NAUSEA AND/OR VOMITING; Start at 19:00 Acetaminophen (Tylenol Tab) 650 mg Q6H PRN PO PAIN LEVEL 1-3 OR FEVER Last administered on 02/06/17 18:50; Admin Dose 650 MG; Start 01/31/17 at 19:00; Status Future Hold Acetaminophen/ Hydrocodone Bitart ([place] (5/325)) 1 tab Q6H PRN PO MODERATE PAIN LEVEL 4-6; Start 01/31/17 at 19:00 Morphine Sulfate (morphine) 2 mg Q4H PRN IV SEVERE PAIN LEVEL 7-10 Last administered on 02/08/17 17:14; Admin Dose 2 MG; Start 01/31/17 at 19:00 Docusate Sodium (Colace) 100 mg Q12H PRN PO CONSTIPATION; Start 01/31/17 at 19: 00 Magnesium Hydroxide (Milk Of Mag) 30 ml DAILY PRN PO CONSTIPATION; Start at 19:00 Sodium Biphosphate/ Sodium Phosphate (Fleet Enema) 133 ml DAILY PRN [place] CONSTIPATION; Start 01/31/17 at 19:00 Heparin Sodium (Porcine) (Heparin (5000 Units/0.5 ml)) 5,000 unit Q12 SC Last administered on 02/10/17 08:27; Admin Dose 5,000 UNIT; Start 01/31/17 at 21:00 Hydralazine HCl (Apresoline) 10 mg Q6H PRN IV ELEVATED BLOOD PRESSURE Last administered on 02/08/17 04:56; Admin Dose 10 MG; Start 01/31/17 at 19:00 Nitroglycerin (Nitroglycerin (Sl Tab) 0.4 Mg) 1 tab Q5M PRN SL ANGINA; Start at 19:00 Acetaminophen (Tylenol Supp) 650 mg Q4H PRN [place] TEMP > 37C Last administered on 02/05/17 20:28; Admin Dose 650 MG; Start 01/31/17 at 23:00; Status Future Hold Acetaminophen (Tylenol Liquid) 650 mg Q4H PRN PO TEMP > 37C Last administered on 02/04/17 22:46; Admin Dose 650 MG; Start 01/31/17 at 23:00; Status Future Hold Eye Lubricant (Akwa Oint) 1 applic Q6 BOTH EYES Last administered on 11:37; Admin Dose 1 APPLIC; Start 02/01/17 at 00:00 Eye Lubricant 2 drop 2 drop Q6 BOTH EYES Last administered on 02/10/17 11:37 ; Admin Dose 2 DROP; Start 02/01/17 at 00:00 Levetiracetam (Keppra 1,500mg/ 100ml (Pmx)) 100 ml @ 400 mls/hr Q12 IVPB Last administered on 02/10/17 08:26; Admin Dose 400 MLS/HR; Start 02/01/17 at 14:30 Ranitidine HCl (Zantac) 150 mg HS PO Last administered on 02/07/17 20:52; Admin Dose 150 MG; Start 02/02/17 at 21:00 Elvitegravir/ Cobicis/Emtricit/ Tenof (Stribild Tablet) 1 each DAILY PO Last administered on 02/07/17 11:36; Admin Dose 1 EACH; Start 02/05/17 at 11:00 Divalproex Sodium 500 mg 500 mg TID PO Last administered on 02/07/17 20:52; Admin Dose 500 MG; Start 02/06/17 at 13:00 Acetaminophen 100 ml @ 400 mls/hr Q6H IVPB Last administered on 02/10/17 11: 37; Admin Dose 400 MLS/HR; Start 02/07/17 at 00:30 Vasopressin 60 unit/Dextrose 60 ml @ 1.2 mls/hr Q12H IV Last administered on 02/09/17 06:15; Admin Dose 1.2 MLS/HR; Start 02/09/17 at 05:30 Phenylephrine HCl 40 mg/Dextrose 500 ml @ 75 mls/hr TITRATE IV Last administered on 02/10/17 11:29; Admin Dose 75 MLS/HR; Start 02/09/17 at 06:30 Norepinephrine 16 mg/Dextrose 500 ml @ 1.87 mls/hr TITRATE IV Last administered on 02/09/17 10:12; Admin Dose 18.75 MLS/HR; Start 02/09/17 at 10: 00 Dextrose 1,000 ml @ 75 mls/hr [id number] IV Last administered on 02/10/17 02:51 ; Admin Dose 75 MLS/HR; Start 02/09/17 at 14:30 Vancomycin HCl/ Dextrose (Vancocin/D5W) 250 ml @ 83.333 mls/ hr Q12H IVPB Last administered on 02/10/17 05:16; Admin Dose 83.333 MLS/HR; Start 02/09/17 at 18:00 BHAVANI BENÍTEZ Feb 10, 2017 12:56
--- NOTE | 2017-02-10 13:12 | CONS ---
Date/Time of Note Date/Time of Note DATE: 02/10/17 TIME: 13:12 Consult Date/Type/Reason Admit Date/Time Jan 31, 2017 at 17:12 Initial Consult Date 02/05/17 Type of Consultation: nephrology Ordering Provider: LORRAINE RIGGS MD Subjective all noted good uop Exam Constitutional: non-verbal Head: atraumatic, normocephalic Eyes: EOMI, nl conjunctiva, nl lids ENMT: intubated, nl external ears & nose Neck: non-tender, supple Respiratory: diminished breath sounds, labored breathing Cardiovascular: nl pulses, regular rate and rhythm Gastrointestinal: nl liver, spleen, non-tender, soft Musculoskeletal: nl extremities to inspection Extremities: normal pulses Objective Vital Signs Date Time Temp Pulse Resp B/P Pulse Ox O2 Delivery O2 Flow Rate FiO2 02/10/17 12:00 88 02/10/17 11:45 16 89/63 100 Mechanical Ventilator 02/10/17 08:00 100 02/10/17 08:00 98.5 Intake and Output 02/09/17 02/09/17 02/10/17 15:00 23:00 07:00 Intake Total 3973.38 ml 2184.21 ml 1303.173 ml Output Total 1279 ml 971 ml 1795 ml Balance 2694.38 ml 1213.21 ml -491.827 ml Results/Medications Result Diagram: 02/10/17 0430 02/10/17 1132 Results 24 hrs Laboratory Tests Test 02/09/17 14:30 02/09/17 15:16 02/09/17 19:45 02/09/17 22:52 Blood Gas Specimen Source Blood arterial Arterial Blood Date Drawn 02/09/2017 2:46:46 PM Arterial Blood pH (Temp corrected) 7.124 *L Arterial Blood pCO2 (Temp correct) 91.2 *H Arterial Blood pO2 (Temp corrected) 231.7 H Arterial Blood HCO3 29.3 H Arterial Blood Base Excess -2.7 Arterial Blood Oxygen Saturation 98.7 H Markus Test ACCEPTAB Arterial Blood Gas Puncture Site Left Radial Arterial Blood Carboxyhemoglobin 0.3 Arterial Blood Methemoglobin 0.3 Blood Gas A-a O2 Differential 390.1 H Oxyhemoglobin Percent 98.1 Total Hemoglobin 14.5 Blood Gas Temperature 37.0 Blood Gas Modality APNEA TEST FiO2 100.0 Blood Gas Critical Value Read Back K FARLESS RN Blood Gas Notified Whom JLD Blood Gas Notified Time 02/09/2017 3:10:30 PM Vancomycin Level Trough 15.5 Sodium Level 144 145 H Potassium Level 3.7 3.4 L Chloride Level 112 H 111 H Carbon Dioxide Level 27 30 Anion Gap 9 7 L Blood Urea Nitrogen 17 18 Creatinine 1.11 1.06 Glucose Level 169 148 Lactic Acid Level 1.5 1.9 Calcium Level 8.5 8.5 Test 02/10/17 04:30 02/10/17 06:20 02/10/17 06:50 02/10/17 11:32 White Blood Count 26.9 #H Red Blood Count 3.65 #L Hemoglobin 11.7 #L Hematocrit 36.5 #L Mean Corpuscular Volume 100.0 Mean Corpuscular Hemoglobin 32.1 Mean Corpuscular Hemoglobin Concent 32.1 Red Cell Distribution Width 13.4 Platelet Count 256 # Mean Platelet Volume 11.2 H Neutrophils % 81.9 H Lymphocytes % 12.8 L Monocytes % 2.6 Eosinophils % 1.8 Basophils % 0.2 Nucleated Red Blood Cells % 0.0 Neutrophils # 22.0 H Lymphocytes # 3.4 H Monocytes # 0.7 Eosinophils # 0.5 Basophils # 0.1 Nucleated Red Blood Cells # 0.0 Sodium Level 143 145 H 146 H Potassium Level 3.6 3.2 L 3.6 Chloride Level 111 H 114 H 115 H Carbon Dioxide Level 26 27 28 Anion Gap 10 7 L 7 L Blood Urea Nitrogen 16 15 14 Creatinine 0.87 0.95 0.90 Glucose Level 129 152 149 Lactic Acid Level 1.6 1.2 Calcium Level 8.5 8.7 8.4 Urine Osmolality 48 #L Urine Random Sodium < 13 L Osmolality 303 H Medications Current Medications Ondansetron HCl (Zofran Inj) 4 mg Q6H PRN IV NAUSEA AND/OR VOMITING; Start at 19:00 Acetaminophen (Tylenol Tab) 650 mg Q6H PRN PO PAIN LEVEL 1-3 OR FEVER Last administered on 02/06/17t 18:50; Admin Dose 650 MG; Start 01/31/17 at 19:00; Status Future Hold Acetaminophen/ Hydrocodone Bitart ([place] (5/325)) 1 tab Q6H PRN PO MODERATE PAIN LEVEL 4-6; Start 01/31/17 at 19:00 Morphine Sulfate (morphine) 2 mg Q4H PRN IV SEVERE PAIN LEVEL 7-10 Last administered on 02/08/17 17:14; Admin Dose 2 MG; Start 01/31/17 at 19:00 Docusate Sodium (Colace) 100 mg Q12H PRN PO CONSTIPATION; Start 01/31/17 at 19: 00 Magnesium Hydroxide (Milk Of Mag) 30 ml DAILY PRN PO CONSTIPATION; Start at 19:00 Sodium Biphosphate/ Sodium Phosphate (Fleet Enema) 133 ml DAILY PRN [place] CONSTIPATION; Start 01/31/17 at 19:00 Heparin Sodium (Porcine) (Heparin (5000 Units/0.5 ml)) 5,000 unit Q12 SC Last administered on 02/10/17 08:27; Admin Dose 5,000 UNIT; Start 01/31/17 at 21:00 Hydralazine HCl (Apresoline) 10 mg Q6H PRN IV ELEVATED BLOOD PRESSURE Last administered on 02/08/17 04:56; Admin Dose 10 MG; Start 01/31/17 at 19:00 Nitroglycerin (Nitroglycerin (Sl Tab) 0.4 Mg) 1 tab Q5M PRN SL ANGINA; Start at 19:00 Acetaminophen (Tylenol Supp) 650 mg Q4H PRN [place] TEMP > 37C Last administered on 02/05/17 20:28; Admin Dose 650 MG; Start 01/31/17 at 23:00; Status Future Hold Acetaminophen (Tylenol Liquid) 650 mg Q4H PRN PO TEMP > 37C Last administered on 02/04/17 22:46; Admin Dose 650 MG; Start 01/31/17 at 23:00; Status Future Hold Eye Lubricant (Akwa Oint) 1 applic Q6 BOTH EYES Last administered on 11:37; Admin Dose 1 APPLIC; Start 02/01/17 at 00:00 Eye Lubricant 2 drop 2 drop Q6 BOTH EYES Last administered on 02/10/17 11:37 ; Admin Dose 2 DROP; Start 02/01/17 at 00:00 Levetiracetam (Keppra 1,500mg/ 100ml (Pmx)) 100 ml @ 400 mls/hr Q12 IVPB Last administered on 02/10/17 08:26; Admin Dose 400 MLS/HR; Start 02/01/17 at 14:30 Ranitidine HCl (Zantac) 150 mg HS PO Last administered on 02/07/17 20:52; Admin Dose 150 MG; Start 02/02/17 at 21:00 Elvitegravir/ Cobicis/Emtricit/ Tenof (Stribild Tablet) 1 each DAILY PO Last administered on 02/07/17 11:36; Admin Dose 1 EACH; Start 02/05/17 at 11:00 Divalproex Sodium 500 mg 500 mg TID PO Last administered on 02/07/17 20:52; Admin Dose 500 MG; Start 02/06/17 at 13:00 Acetaminophen 100 ml @ 400 mls/hr Q6H IVPB Last administered on 02/10/17 11: 37; Admin Dose 400 MLS/HR; Start 02/07/17 at 00:30 Vasopressin 60 unit/Dextrose 60 ml @ 1.2 mls/hr Q12H IV Last administered on 02/09/17 06:15; Admin Dose 1.2 MLS/HR; Start 02/09/17 at 05:30 Phenylephrine HCl 40 mg/Dextrose 500 ml @ 75 mls/hr TITRATE IV Last administered on 02/10/17 11:29; Admin Dose 75 MLS/HR; Start 02/09/17 at 06:30 Norepinephrine 16 mg/Dextrose 500 ml @ 1.87 mls/hr TITRATE IV Last administered on 02/09/17 10:12; Admin Dose 18.75 MLS/HR; Start 02/09/17 at 10: 00 Dextrose 1,000 ml @ 75 mls/hr [id number] IV Last administered on 02/10/17 02:51 ; Admin Dose 75 MLS/HR; Start 02/09/17 at 14:30 Vancomycin HCl/ Dextrose (Vancocin/D5W) 250 ml @ 83.333 mls/ hr Q12H IVPB Last administered on 02/10/17 05:16; Admin Dose 83.333 MLS/HR; Start 02/09/17 at 18:00 Assessment/Plan Chief Complaint/Hosp Course 1. arf: due to intravascular volume depletion which has also caused his hypernatremia. He has 7 liters free water deficit due to NGT suctioning and lack of access to free water. will change IVF composition 2. Cardiopulmonary Arrest--likely due to respiratory suppression due to zolpidem OD.Ventilator Dependence--s/p OD 3. Severe Metabolic and respiratory acidosis--due to lactic acidosis: resolved. ABG reviewed 4. Zolpidem OD 5. 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 Problems: JOHANNY ESPINOZA MD Feb 10, 2017 13:12
--- NOTE | 2017-02-10 14:12 | SP ---
DATE OF PROCEDURE: 02/09/2017 HISTORY OF PRESENT ILLNESS: This is a 46-year-old patient with cardiopulmonary arrest. This is a f ollowup EEG. CURRENT MEDICATIONS: 1. Keppra. 2. Vasopressin. PROCEDURE: Utilizing a 16-channel EEG machine, cap scalp electrodes were applied in accordance with International 10-20 system. [id number] and [id number] montages were displayed. Electrical i mpedances were measured and reported. Full ECS protocol was followed. DESCRIPTION: During the resting state, there is no clear posterior dominant rhythm seen on decreasi ng sensitivity, EKG artifact and muscle artifact was noted. Full ECS protocol was followed during t his tracing. Hyperventilation was not performed. Photic stimulation did not have any response. INTERPRETATION: This is an abnormal EEG consistent with brain . Please correlate these findin gs with the cold caloric test, apnea test and if necessary cerebral blood flow studies. Dictated By: ANIYA CRUZ/OPAL Conf#: [id number] DID#: [id number]
[2017-02-10 18:32] LABS: CALCIUM 8.6 mg/dl (8.4-10.2); CREATININE 0.89 mg/dl (0.61-1.24); POTASSIUM 3.8 mmol/L (3.5-5.1)
[2017-02-10] MEDS: NEOMYC/POLYMYX/BACIT 30 GM OINT TOP SCH (20:49)
[2017-02-10] MEDS: RANITIDINE 150 MG TAB PO SCH (20:49)
[2017-02-11] VITALS (77 sets, daily range): BP systolic 67–122; BP diastolic 40–93; PULSE 98–122; RESP 16
[2017-02-11 01:14] LABS: CALCIUM 9.5 mg/dl (8.4-10.2); CREATININE 0.96 mg/dl (0.61-1.24); POTASSIUM 4.4 mmol/L (3.5-5.1)
[2017-02-11] MEDS: ARTIFICIAL TEARS 15 ML OPH BOTH EYES SCH ×3 (01:17→12:13)
[2017-02-11] MEDS: ACETAMINOPHEN 1000MG/100ML IV 100 ML IVPB SCH ×3 (01:17→12:14)
[2017-02-11] MEDS: OCULAR LUBRICANT 3.5 GM OPH OINT BOTH EYES SCH ×3 (01:17→12:14)
[2017-02-11] MEDS ORDERED: DEXTROSE 5% 500 ML IV ONE (02:00)
[2017-02-11] MEDS ORDERED: DESMOPRESSIN 4 MCG INJ IV ONE (02:00)
[2017-02-11] MEDS: PHENYLephrine 40 MG in DEXTROSE 5% 496 ML IV SCH ×3 (02:56→12:51)
[2017-02-11] MEDS: VASOPRESSIN 60 UNIT in DEXTROSE 5% 57 ML IV SCH (04:56)
[2017-02-11] MEDS: DEXTROSE 5% 1,000 ML IV SCH (05:03)
[2017-02-11 06:47] LABS: CALCIUM 8.9 mg/dl (8.4-10.2); CREATININE 0.96 mg/dl (0.61-1.24); POTASSIUM 4.1 mmol/L (3.5-5.1)
[2017-02-11] MEDS: DIVALPROEX (ER) 500 MG TAB PO SCH ×2 (08:00→12:14)
[2017-02-11] MEDS: ELVITEGR/COBICIST/EMTRIC/TENOF 1 EACH TABLET PO SCH (08:00)
[2017-02-11] MEDS: LEVETIRACETAM 1500 MG (PMX) 100 ML IVPB SCH (08:00)
[2017-02-11] MEDS: HEPARIN 5,000 UNIT/0.5 ML VIAL SC SCH (08:01)
[2017-02-11] MEDS: NEOMYC/POLYMYX/BACIT 30 GM OINT TOP SCH (08:01)
--- NOTE | 2017-02-11 10:13 | PN ---
Date/Time of Note Date/Time of Note DATE: 02/11/17 TIME: 10:09 Assessment/Plan VTE Prophylaxis VTE Prophylaxis Intervention: SCD's Lines/Catheters IV [facility] Saline Lock Urinary Cath still in place: Yes Reason Cath still needed: urinary retention Assessment/Plan Chief Complaint/Hosp Course Assessment/Plan: 46 yo M with pmhx HIV on HAART, unknown psychiatric hx admitted with acute toxic encephalopathy 2/2 intentional Ambien OD. Clinical scenario initially consistent with anoxic brain injury, now with evidence of breath . 1. likely brain : Patient has no gag reflex, is apneic, has fixed and dilated pupils. 2 prior EEG's are consistent with severe anoxic injury as well , third EEG results are consistent with brain . dw family (including / POA and daughter) both by primary team as well as [employer] consultant teams. Still awaiting possible cerebral perfusion study as well. -neuro on consult, follow-up recommendations, palliative care team also consulted as well-for family meeting later today. 2. HIV: cont HAART, CD4 ~500, VL UD ( has been aware of pt's HIV status for several years. dw 10.3) 3. fevers: likely central in origin. However patient also septic, on pressor support as well cont unasyn and vancomycin for septic shock and for possible aspiration pna, re tong cultured 10.7 given duration to r/o occult infectious process-->all cultures ngtd 4. FEN: tube feeds as tolerated; KUB 10.7 without evidence of obstruction 5. hypernatremia: likely insensible losses and central diabetes insipidus cause. -Continue D5W IVF's, did receive DDAVP earlier as well, monitor sodium levels 6. goals of care: requesting aggressive management, dw family. they are still "hoping for a miracle" despite pt's likely brain . May possibly require terminal extubation if the family agrees. PLAN family requesting 14 days with ET tube before trach placement, also requested xfer to tertiary center a few days ago.. Family meeting scheduled for today Critical care time spent on patient care today equals 40 minutes. Problems: Subjective 24 Hr Interval Summary Free Text/Dictation Patient seen by palliative care team yesterday. Awaiting family meeting for later today. Third EEG results are back as well, consistent with brain . Exam/Review of Systems Vital Signs Vitals Vital Signs Date Time Temp Pulse Resp B/P Pulse Ox O2 Delivery O2 Flow Rate FiO2 02/11/17 08:45 121 16 99/67 100 Mechanical Ventilator 02/11/17 08:00 99.7 02/11/17 08:00 60 Intake and Output 02/10/17 02/10/17 02/11/17 15:00 23:00 07:00 Intake Total 2225.277 ml 1762.40 ml 2025.59 ml Output Total 1979 ml 5212 ml 2515 ml Balance 246.277 ml -3449.60 ml -489.41 ml Exam pt intubated, off sedation and unresponsive bl pupils 6mm and unresponsive no mrg coarse mechanical breath sounds no rashes no edema Results Result Diagram: 02/10/17 0430 02/11/17 0550 Results 24 hrs Laboratory Tests Test 02/10/17 11:32 02/10/17 18:00 02/11/17 00:10 02/11/17 05:50 Sodium Level 146 H 147 H 159 H 157 H Potassium Level 3.6 3.8 4.4 4.1 Chloride Level 115 H 114 H 124 H 123 H Carbon Dioxide Level 28 27 30 29 Anion Gap 7 L 10 9 9 Blood Urea Nitrogen 14 10 9 10 Creatinine 0.90 0.89 0.96 0.96 Glucose Level 149 174 192 219 Lactic Acid Level 1.2 1.2 Calcium Level 8.4 8.6 9.5 8.9 Medications Medications Current Medications Ondansetron HCl (Zofran Inj) 4 mg Q6H PRN IV NAUSEA AND/OR VOMITING; Start at 19:00 Acetaminophen (Tylenol Tab) 650 mg Q6H PRN PO PAIN LEVEL 1-3 OR FEVER Last administered on 02/06/17 18:50; Admin Dose 650 MG; Start 01/31/17 at 19:00; Status Future Hold Acetaminophen/ Hydrocodone Bitart ([place] (5/325)) 1 tab Q6H PRN PO MODERATE PAIN LEVEL 4-6; Start 01/31/17 at 19:00 Morphine Sulfate (morphine) 2 mg Q4H PRN IV SEVERE PAIN LEVEL 7-10 Last administered on 02/08/17 17:14; Admin Dose 2 MG; Start 01/31/17 at 19:00 Docusate Sodium (Colace) 100 mg Q12H PRN PO CONSTIPATION; Start 01/31/17 at 19: 00 Magnesium Hydroxide (Milk Of Mag) 30 ml DAILY PRN PO CONSTIPATION; Start at 19:00 Sodium Biphosphate/ Sodium Phosphate (Fleet Enema) 133 ml DAILY PRN [place] CONSTIPATION; Start 01/31/17 at 19:00 Heparin Sodium (Porcine) (Heparin (5000 Units/0.5 ml)) 5,000 unit Q12 SC Last administered on 02/11/17 08:01; Admin Dose 5,000 UNIT; Start 01/31/17 at 21:00 Hydralazine HCl (Apresoline) 10 mg Q6H PRN IV ELEVATED BLOOD PRESSURE Last administered on 02/08/17 04:56; Admin Dose 10 MG; Start 01/31/17 at 19:00 Nitroglycerin (Nitroglycerin (Sl Tab) 0.4 Mg) 1 tab Q5M PRN SL ANGINA; Start at 19:00 Acetaminophen (Tylenol Supp) 650 mg Q4H PRN [place] TEMP > 37C Last administered on 02/05/17 20:28; Admin Dose 650 MG; Start 01/31/17 at 23:00; Status Future Hold Acetaminophen (Tylenol Liquid) 650 mg Q4H PRN PO TEMP > 37C Last administered on 02/04/17 22:46; Admin Dose 650 MG; Start 01/31/17 at 23:00; Status Future Hold Eye Lubricant (Akwa Oint) 1 applic Q6 BOTH EYES Last administered on 05:02; Admin Dose 1 APPLIC; Start 02/01/17 at 00:00 Eye Lubricant 2 drop 2 drop Q6 BOTH EYES Last administered on 02/11/17 05:02 ; Admin Dose 2 DROP; Start 02/01/17 at 00:00 Levetiracetam (Keppra 1,500mg/ 100ml (Pmx)) 100 ml @ 400 mls/hr Q12 IVPB Last administered on 02/11/17 08:00; Admin Dose 400 MLS/HR; Start 02/01/17 at 14:30 Ranitidine HCl (Zantac) 150 mg HS PO Last administered on 02/07/17 20:52; Admin Dose 150 MG; Start 02/02/17 at 21:00 Elvitegravir/ Cobicis/Emtricit/ Tenof (Stribild Tablet) 1 each DAILY PO Last administered on 02/07/17 11:36; Admin Dose 1 EACH; Start 02/05/17 at 11:00 Divalproex Sodium 500 mg 500 mg TID PO Last administered on 02/07/17 20:52; Admin Dose 500 MG; Start 02/06/17 at 13:00 Acetaminophen 100 ml @ 400 mls/hr Q6H IVPB Last administered on 02/11/17 06: 01; Admin Dose 400 MLS/HR; Start 02/07/17 at 00:30 Vasopressin 60 unit/Dextrose 60 ml @ 1.2 mls/hr Q12H IV Last administered on 02/09/17 06:15; Admin Dose 1.2 MLS/HR; Start 02/09/17 at 05:30 Phenylephrine HCl 40 mg/Dextrose 500 ml @ 75 mls/hr TITRATE IV Last administered on 02/11/17 07:58; Admin Dose 105 MLS/HR; Start 02/09/17 at 06:30 Norepinephrine 16 mg/Dextrose 500 ml @ 1.87 mls/hr TITRATE IV Last administered on 02/10/17 22:08; Admin Dose 9.37 MLS/HR; Start 02/09/17 at 10: 00 Dextrose (D5W) 1,000 ml @ 75 mls/hr [id number] IV Last administered on 05:03; Admin Dose 75 MLS/HR; Start 02/09/17 at 14:30 Neomycin/ Polymyxin/ Bacitracin (Neosporin Topical Oint) 1 applic BID TOP Last administered on 02/11/17 08:01; Admin Dose 1 APPLIC; Start 02/10/17 at 21:00 AKUA QUIÑONES Feb 11, 2017 10:13
--- NOTE | 2017-02-11 11:03 | PN ---
Date/Time of Note Date/Time of Note DATE: 02/11/17 TIME: 11:02 Assessment/Plan VTE Prophylaxis VTE Prophylaxis Intervention: other Lines/Catheters IV [facility] [facility] Urinary Cath still in place: Yes Reason Cath still needed: urinary retention Assessment/Plan Chief Complaint/Hosp Course 46-year-old man presented to the ER after what appears to have been a cardiopulmonary arrest at home after zoldpidem OD--with bystander CPR--s/p CPR by paramedics for possible PEA on arrival. He had a Sushil airway placed and was intubated in the ED. Initially noted to have food products aspirated. He is currently in ICU and on the vent he has ARF and multiple electrolyte abnormalities no significant event overnight hypernatremia is worse Exam Constitutional: non-verbal Head: atraumatic, normocephalic Eyes: EOMI, nl conjunctiva, nl lids ENMT: intubated, nl external ears & nose Neck: non-tender, supple Respiratory: diminished breath sounds, labored breathing Cardiovascular: nl pulses, regular rate and rhythm Gastrointestinal: nl liver, spleen, non-tender, soft Musculoskeletal: nl extremities to inspection Extremities: normal pulses 1. arf: due to intravascular volume depletion which has also caused his hypernatremia. He has 8 liters free water deficit due to NGT suctioning and lack of access to free water. will change IVF composition 2. Cardiopulmonary Arrest--likely due to respiratory suppression due to zolpidem OD.Ventilator Dependence--s/p OD 3. Severe Metabolic and respiratory acidosis--due to lactic acidosis: resolved. ABG reviewed 4. Zolpidem OD 5. 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 Problems: Exam/Review of Systems Vital Signs Vitals Vital Signs Date Time Temp Pulse Resp B/P Pulse Ox O2 Delivery O2 Flow Rate FiO2 02/11/17 10:18 122 16 96 40 02/11/17 08:45 99/67 Mechanical Ventilator 02/11/17 08:00 99.7 Intake and Output 02/10/17 02/10/17 02/11/17 15:00 23:00 07:00 Intake Total 2225.277 ml 1762.40 ml 2025.59 ml Output Total 1979 ml 5212 ml 2515 ml Balance 246.277 ml -3449.60 ml -489.41 ml Results Result Diagram: 02/10/17 0430 02/11/17 0550 Results 24 hrs Laboratory Tests Test 02/10/17 11:32 02/10/17 18:00 02/11/17 00:10 02/11/17 05:50 Sodium Level 146 H 147 H 159 H 157 H Potassium Level 3.6 3.8 4.4 4.1 Chloride Level 115 H 114 H 124 H 123 H Carbon Dioxide Level 28 27 30 29 Anion Gap 7 L 10 9 9 Blood Urea Nitrogen 14 10 9 10 Creatinine 0.90 0.89 0.96 0.96 Glucose Level 149 174 192 219 Lactic Acid Level 1.2 1.2 Calcium Level 8.4 8.6 9.5 8.9 Medications Medications Current Medications Ondansetron HCl (Zofran Inj) 4 mg Q6H PRN IV NAUSEA AND/OR VOMITING; Start at 19:00 Acetaminophen (Tylenol Tab) 650 mg Q6H PRN PO PAIN LEVEL 1-3 OR FEVER Last administered on 02/06/17 18:50; Admin Dose 650 MG; Start 01/31/17 at 19:00; Status Future Hold Acetaminophen/ Hydrocodone Bitart ([place] (5/325)) 1 tab Q6H PRN PO MODERATE PAIN LEVEL 4-6; Start 01/31/17 at 19:00 Morphine Sulfate (morphine) 2 mg Q4H PRN IV SEVERE PAIN LEVEL 7-10 Last administered on 02/08/17 17:14; Admin Dose 2 MG; Start 01/31/17 at 19:00 Docusate Sodium (Colace) 100 mg Q12H PRN PO CONSTIPATION; Start 01/31/17 at 19: 00 Magnesium Hydroxide (Milk Of Mag) 30 ml DAILY PRN PO CONSTIPATION; Start at 19:00 Sodium Biphosphate/ Sodium Phosphate (Fleet Enema) 133 ml DAILY PRN [place] CONSTIPATION; Start 01/31/17 at 19:00 Heparin Sodium (Porcine) (Heparin (5000 Units/0.5 ml)) 5,000 unit Q12 SC Last administered on 02/11/17 08:01; Admin Dose 5,000 UNIT; Start 01/31/17 at 21:00 Hydralazine HCl (Apresoline) 10 mg Q6H PRN IV ELEVATED BLOOD PRESSURE Last administered on 02/08/17 04:56; Admin Dose 10 MG; Start 01/31/17 at 19:00 Nitroglycerin (Nitroglycerin (Sl Tab) 0.4 Mg) 1 tab Q5M PRN SL ANGINA; Start at 19:00 Acetaminophen (Tylenol Supp) 650 mg Q4H PRN [place] TEMP > 37C Last administered on 02/05/17 20:28; Admin Dose 650 MG; Start 01/31/17 at 23:00; Status Future Hold Acetaminophen (Tylenol Liquid) 650 mg Q4H PRN PO TEMP > 37C Last administered on 02/04/17 22:46; Admin Dose 650 MG; Start 01/31/17 at 23:00; Status Future Hold Eye Lubricant (Akwa Oint) 1 applic Q6 BOTH EYES Last administered on 05:02; Admin Dose 1 APPLIC; Start 02/01/17 at 00:00 Eye Lubricant 2 drop 2 drop Q6 BOTH EYES Last administered on 02/11/17 05:02 ; Admin Dose 2 DROP; Start 02/01/17 at 00:00 Levetiracetam (Keppra 1,500mg/ 100ml (Pmx)) 100 ml @ 400 mls/hr Q12 IVPB Last administered on 02/11/17 08:00; Admin Dose 400 MLS/HR; Start 02/01/17 at 14:30 Ranitidine HCl (Zantac) 150 mg HS PO Last administered on 02/07/17 20:52; Admin Dose 150 MG; Start 02/02/17 at 21:00 Elvitegravir/ Cobicis/Emtricit/ Tenof (Stribild Tablet) 1 each DAILY PO Last administered on 02/07/17 11:36; Admin Dose 1 EACH; Start 02/05/17 at 11:00 Divalproex Sodium 500 mg 500 mg TID PO Last administered on 02/07/17 20:52; Admin Dose 500 MG; Start 02/06/17 at 13:00 Acetaminophen 100 ml @ 400 mls/hr Q6H IVPB Last administered on 02/11/17 06: 01; Admin Dose 400 MLS/HR; Start 02/07/17 at 00:30 Vasopressin 60 unit/Dextrose 60 ml @ 1.2 mls/hr Q12H IV Last administered on 02/09/17 06:15; Admin Dose 1.2 MLS/HR; Start 02/09/17 at 05:30 Phenylephrine HCl 40 mg/Dextrose 500 ml @ 75 mls/hr TITRATE IV Last administered on 02/11/17 07:58; Admin Dose 105 MLS/HR; Start 02/09/17 at 06:30 Norepinephrine 16 mg/Dextrose 500 ml @ 1.87 mls/hr TITRATE IV Last administered on 02/10/17 22:08; Admin Dose 9.37 MLS/HR; Start 02/09/17 at 10: 00 Dextrose (D5W) 1,000 ml @ 75 mls/hr [id number] IV Last administered on 05:03; Admin Dose 75 MLS/HR; Start 02/09/17 at 14:30 Neomycin/ Polymyxin/ Bacitracin (Neosporin Topical Oint) 1 applic BID TOP Last administered on 02/11/17 08:01; Admin Dose 1 APPLIC; Start 02/10/17 at 21:00 YASMIN PARKER DO Feb 11, 2017 11:02
--- NOTE | 2017-02-11 11:35 | CONS ---
Date/Time of Note Date/Time of Note DATE: 02/11/17 TIME: 11:32 Assessment/Plan Assessment/Plan Additional Assessment/Plan Ventilator setting; AC of 16, tidal volume 550, PEEP of 5, 40% FiO2. Patient currently on Levophed at 5 mics per minute, phenylephrine drip at 140 mics per minute. Assessment and recommendations; 1. Patient admitted with cardiac arrest status post prolonged CPR resulting in brain by all objective criteria. 2. History of being HIV positive. 3. 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 4. Seizure activity, currently well controlled. 5. Leukocytosis, possibly stress response. No obvious source of infection. 6. Persistent hypotension, requiring combination pressor support. Continue current treatment. Add desmopressin 4 mcg subcutaneously daily. Prognosis is dismal. 35 minutes of critical care time was spent evaluating the patient. Consultation Date/Type/Reason Admit Date/Time Jan 31, 2017 at 17:12 Initial Consult Date 02/05/17 Type of Consultation: Pulmonary/critical care Referring Provider: LORRAINE RIGGS MD 24 HR Interval Summary Free Text/Dictation Patient's condition remains critical. Remains profoundly unresponsive. Patient remains hypotensive requiring combination pressor support. No overt seizure activity noted. Next General exam; young male, orally intubated, unresponsive, currently in no distress. Exam/Review of Systems Vital Signs Vitals Vital Signs Date Time Temp Pulse Resp B/P Pulse Ox O2 Delivery O2 Flow Rate FiO2 02/11/17 10:18 122 16 96 40 02/11/17 08:45 99/67 Mechanical Ventilator 02/11/17 08:00 99.7 Intake and Output 02/10/17 02/10/17 02/11/17 14:59 22:59 06:59 Intake Total 1988.527 ml 1809.78 ml 2214.96 ml Output Total 2493 ml 4571 ml 3326 ml Balance -504.473 ml -2761.22 ml -1111.04 ml Exam HEENT exam; supple neck, no JVD. No lymphadenopathy. Midline trachea. No thyromegaly. Pupils are widely dilated and nonreactive to light. Orally intubated. Patient has fair dentition. Chest exam; clear to auscultation. S1-S2 audible, no murmurs. Regular rhythm. Abdomen exam; soft, no organomegaly. Bowel sounds are very sluggish. Extremity exam; no peripheral edema. TUNGSTEN REFINER exam; patient remains profoundly unresponsive. Results Result Diagram: 02/10/17 0430 02/11/17 0550 Results 24 hrs Laboratory Tests Test 02/10/17 18:00 02/11/17 00:10 02/11/17 05:50 Sodium Level 147 H 159 H 157 H Potassium Level 3.8 4.4 4.1 Chloride Level 114 H 124 H 123 H Carbon Dioxide Level 27 30 29 Anion Gap 10 9 9 Blood Urea Nitrogen 10 9 10 Creatinine 0.89 0.96 0.96 Glucose Level 174 192 219 Lactic Acid Level 1.2 Calcium Level 8.6 9.5 8.9 Medications Medications Current Medications Ondansetron HCl (Zofran Inj) 4 mg Q6H PRN IV NAUSEA AND/OR VOMITING; Start at 19:00 Acetaminophen (Tylenol Tab) 650 mg Q6H PRN PO PAIN LEVEL 1-3 OR FEVER Last administered on 02/06/17 18:50; Admin Dose 650 MG; Start 01/31/17 at 19:00; Status Future Hold Acetaminophen/ Hydrocodone Bitart ([place] (5/325)) 1 tab Q6H PRN PO MODERATE PAIN LEVEL 4-6; Start 01/31/17 at 19:00 Morphine Sulfate (morphine) 2 mg Q4H PRN IV SEVERE PAIN LEVEL 7-10 Last administered on 02/08/17 17:14; Admin Dose 2 MG; Start 01/31/17 at 19:00 Docusate Sodium (Colace) 100 mg Q12H PRN PO CONSTIPATION; Start 01/31/17 at 19: 00 Magnesium Hydroxide (Milk Of Mag) 30 ml DAILY PRN PO CONSTIPATION; Start at 19:00 Sodium Biphosphate/ Sodium Phosphate (Fleet Enema) 133 ml DAILY PRN [place] CONSTIPATION; Start 01/31/17 at 19:00 Heparin Sodium (Porcine) (Heparin (5000 Units/0.5 ml)) 5,000 unit Q12 SC Last administered on 02/11/17 08:01; Admin Dose 5,000 UNIT; Start 01/31/17 at 21:00 Hydralazine HCl (Apresoline) 10 mg Q6H PRN IV ELEVATED BLOOD PRESSURE Last administered on 02/08/17 04:56; Admin Dose 10 MG; Start 01/31/17 at 19:00 Nitroglycerin (Nitroglycerin (Sl Tab) 0.4 Mg) 1 tab Q5M PRN SL ANGINA; Start at 19:00 Acetaminophen (Tylenol Supp) 650 mg Q4H PRN [place] TEMP > 37C Last administered on 02/05/17 20:28; Admin Dose 650 MG; Start 01/31/17 at 23:00; Status Future Hold Acetaminophen (Tylenol Liquid) 650 mg Q4H PRN PO TEMP > 37C Last administered on 02/04/17 22:46; Admin Dose 650 MG; Start 01/31/17 at 23:00; Status Future Hold Eye Lubricant (Akwa Oint) 1 applic Q6 BOTH EYES Last administered on 05:02; Admin Dose 1 APPLIC; Start 02/01/17 at 00:00 Eye Lubricant 2 drop 2 drop Q6 BOTH EYES Last administered on 02/11/17 05:02 ; Admin Dose 2 DROP; Start 02/01/17 at 00:00 Levetiracetam (Keppra 1,500mg/ 100ml (Pmx)) 100 ml @ 400 mls/hr Q12 IVPB Last administered on 02/11/17 08:00; Admin Dose 400 MLS/HR; Start 02/01/17 at 14:30 Ranitidine HCl (Zantac) 150 mg HS PO Last administered on 02/07/17 20:52; Admin Dose 150 MG; Start 02/02/17 at 21:00 Elvitegravir/ Cobicis/Emtricit/ Tenof (Stribild Tablet) 1 each DAILY PO Last administered on 02/07/17 11:36; Admin Dose 1 EACH; Start 02/05/17 at 11:00 Divalproex Sodium 500 mg 500 mg TID PO Last administered on 02/07/17 20:52; Admin Dose 500 MG; Start 02/06/17 at 13:00 Acetaminophen 100 ml @ 400 mls/hr Q6H IVPB Last administered on 02/11/17 06: 01; Admin Dose 400 MLS/HR; Start 02/07/17 at 00:30 Vasopressin 60 unit/Dextrose 60 ml @ 1.2 mls/hr Q12H IV Last administered on 02/09/17 06:15; Admin Dose 1.2 MLS/HR; Start 02/09/17 at 05:30 Phenylephrine HCl 40 mg/Dextrose 500 ml @ 75 mls/hr TITRATE IV Last administered on 02/11/17 07:58; Admin Dose 105 MLS/HR; Start 02/09/17 at 06:30 Norepinephrine 16 mg/Dextrose 500 ml @ 1.87 mls/hr TITRATE IV Last administered on 02/10/17 22:08; Admin Dose 9.37 MLS/HR; Start 02/09/17 at 10: 00 Dextrose (D5W) 1,000 ml @ 85 mls/hr [id number] IV Last administered on 05:03; Admin Dose 75 MLS/HR; Start 02/09/17 at 14:30 Neomycin/ Polymyxin/ Bacitracin (Neosporin Topical Oint) 1 applic BID TOP Last administered on 02/11/17 08:01; Admin Dose 1 APPLIC; Start 02/10/17 at 21:00 TIMOTEO ROCHA Feb 11, 2017 11:35
[2017-02-11 12:46] LABS: CALCIUM 8.8 mg/dl (8.4-10.2); POTASSIUM 4.2 mmol/L (3.5-5.1)
[2017-02-11] MEDS ORDERED: DESMOPRESSIN 4 MCG INJ SC SCH (13:00)
--- NOTE | 2017-02-11 15:05 | CONS ---
Date/Time of Note Date/Time of Note DATE: 02/11/17 TIME: 14:54 Assessment/Plan Assessment/Plan Chief Complaint/Hosp Course 46-year-old gentleman witnessed ingestion of one bottle unknown quantity of Ambien pills. Shortly thereafter patient had a witnessed cardiac arrest, EMS called patient was transported to the emergency room underwent cardiopulmonary resuscitation with spontaneous return of circulation has been admitted to the intensive care unit. Unfortunately throughout this hospital stay patient has become progressively worse from a neurological standpoint. He has had numerous EEGs cerebral perfusion study which is pending results and apnea test all of which are consistent with severe cerebral anoxic brain injury. Information from healthcare delivery team this that there is discord amongst family members as to ongoing level of care. I am asked to speak to family members. With this information is taken from patient's medical records and speaking with his critical care nurse. Problems: Consultation Date/Type/Reason Admit Date/Time Jan 31, 2017 at 17:12 Initial Consult Date 02/05/17 Type of Consultation: Pulmonary/critical care Reason for Consultation Palliative care note Spoke with primary care providers, pulp house supervisor, critical care nurse reviewed the EEG apnea study and also spoke with patient's neurologist. Second EEG consistent with brain apnea study consistent with brain clinical findings consistent with brain Physical examination patient has no spontaneous eye opening is nonverbal no spontaneous movement secondary to noxious stimuli without pupillary light reflex corneals doll's eyes no response no spontaneous eye movement negative gag reflex patient does not over breathe the vent and in no spontaneous respirations during apnea test, patient's temperature is normothermic and there are nor toxic substances on his drug screen. A conference was done with patient's and daughter All the clinical findings were discussed with the them the results of the studies were discussed. We discussed all palliative care issues including goals of care treatment of pain and symptom management existential issues spiritual issues, socialization issues prior to his devastating event and family support. Family's hopes desires acceptable quality of life spheres concern discussed in detail, family is aware the fact that there is no hope. Support was given to family members and we have kept the door open for future conferences. Referring Provider: LORRAINE RIGGS MD Exam/Review of Systems Vital Signs Vitals Vital Signs Date Time Temp Pulse Resp B/P Pulse Ox O2 Delivery O2 Flow Rate FiO2 02/11/17 10:18 122 16 96 40 02/11/17 08:45 99/67 Mechanical Ventilator 02/11/17 08:00 99.7 Intake and Output 02/10/17 02/10/17 02/11/17 15:00 23:00 07:00 Intake Total 2225.277 ml 1762.40 ml 2025.59 ml Output Total 1979 ml 5212 ml 2515 ml Balance 246.277 ml -3449.60 ml -489.41 ml Results Result Diagram: 02/10/17 0430 02/11/17 0550 Results 24 hrs Laboratory Tests Test 02/10/17 18:00 02/11/17 00:10 02/11/17 05:50 02/11/17 12:05 Sodium Level 147 H 159 H 157 H 152 H Potassium Level 3.8 4.4 4.1 4.2 Chloride Level 114 H 124 H 123 H 118 H Carbon Dioxide Level 27 30 29 29 Anion Gap 10 9 9 9 Blood Urea Nitrogen 10 9 10 10 Creatinine 0.89 0.96 0.96 1.00 Glucose Level 174 192 219 199 Lactic Acid Level 1.2 Calcium Level 8.6 9.5 8.9 8.8 Medications Medications Current Medications Ondansetron HCl (Zofran Inj) 4 mg Q6H PRN IV NAUSEA AND/OR VOMITING; Start at 19:00 Acetaminophen (Tylenol Tab) 650 mg Q6H PRN PO PAIN LEVEL 1-3 OR FEVER Last administered on 02/06/17 18:50; Admin Dose 650 MG; Start 01/31/17 at 19:00; Status Future Hold Acetaminophen/ Hydrocodone Bitart ([place] (5/325)) 1 tab Q6H PRN PO MODERATE PAIN LEVEL 4-6; Start 01/31/17 at 19:00 Morphine Sulfate (morphine) 2 mg Q4H PRN IV SEVERE PAIN LEVEL 7-10 Last administered on 02/08/17 17:14; Admin Dose 2 MG; Start 01/31/17 at 19:00 Docusate Sodium (Colace) 100 mg Q12H PRN PO CONSTIPATION; Start 01/31/17 at 19: 00 Magnesium Hydroxide (Milk Of Mag) 30 ml DAILY PRN PO CONSTIPATION; Start at 19:00 Sodium Biphosphate/ Sodium Phosphate (Fleet Enema) 133 ml DAILY PRN [place] CONSTIPATION; Start 01/31/17 at 19:00 Heparin Sodium (Porcine) (Heparin (5000 Units/0.5 ml)) 5,000 unit Q12 SC Last administered on 02/11/17 08:01; Admin Dose 5,000 UNIT; Start 01/31/17 at 21:00 Hydralazine HCl (Apresoline) 10 mg Q6H PRN IV ELEVATED BLOOD PRESSURE Last administered on 02/08/17 04:56; Admin Dose 10 MG; Start 01/31/17 at 19:00 Nitroglycerin (Nitroglycerin (Sl Tab) 0.4 Mg) 1 tab Q5M PRN SL ANGINA; Start at 19:00 Acetaminophen (Tylenol Supp) 650 mg Q4H PRN [place] TEMP > 37C Last administered on 02/05/17 20:28; Admin Dose 650 MG; Start 01/31/17 at 23:00; Status Future Hold Acetaminophen (Tylenol Liquid) 650 mg Q4H PRN PO TEMP > 37C Last administered on 02/04/17 22:46; Admin Dose 650 MG; Start 01/31/17 at 23:00; Status Future Hold Eye Lubricant (Akwa Oint) 1 applic Q6 BOTH EYES Last administered on 12:14; Admin Dose 1 APPLIC; Start 02/01/17 at 00:00 Eye Lubricant 2 drop 2 drop Q6 BOTH EYES Last administered on 02/11/17 12:13 ; Admin Dose 2 DROP; Start 02/01/17 at 00:00 Levetiracetam (Keppra 1,500mg/ 100ml (Pmx)) 100 ml @ 400 mls/hr Q12 IVPB Last administered on 02/11/17 08:00; Admin Dose 400 MLS/HR; Start 02/01/17 at 14:30 Ranitidine HCl (Zantac) 150 mg HS PO Last administered on 02/07/17 20:52; Admin Dose 150 MG; Start 02/02/17 at 21:00 Elvitegravir/ Cobicis/Emtricit/ Tenof (Stribild Tablet) 1 each DAILY PO Last administered on 02/07/17 11:36; Admin Dose 1 EACH; Start 02/05/17 at 11:00 Divalproex Sodium 500 mg 500 mg TID PO Last administered on 02/07/17 20:52; Admin Dose 500 MG; Start 02/06/17 at 13:00 Acetaminophen 100 ml @ 400 mls/hr Q6H IVPB Last administered on 02/11/17 12: 14; Admin Dose 400 MLS/HR; Start 02/07/17 at 00:30 Vasopressin 60 unit/Dextrose 60 ml @ 1.2 mls/hr Q12H IV Last administered on 02/09/17 06:15; Admin Dose 1.2 MLS/HR; Start 02/09/17 at 05:30 Phenylephrine HCl 40 mg/Dextrose 500 ml @ 75 mls/hr TITRATE IV Last administered on 02/11/17 07:58; Admin Dose 105 MLS/HR; Start 02/09/17 at 06:30 Norepinephrine 16 mg/Dextrose 500 ml @ 1.87 mls/hr TITRATE IV Last administered on 02/10/17 22:08; Admin Dose 9.37 MLS/HR; Start 02/09/17 at 10: 00 Dextrose (D5W) 1,000 ml @ 85 mls/hr [id number] IV Last administered on 05:03; Admin Dose 75 MLS/HR; Start 02/09/17 at 14:30 Neomycin/ Polymyxin/ Bacitracin (Neosporin Topical Oint) 1 applic BID TOP Last administered on 02/11/17 08:01; Admin Dose 1 APPLIC; Start 02/10/17 at 21:00 Desmopressin Acetate (Ddavp) 4 mcg DAILY SC ; Start 02/11/17 at 13:00 BHAVANI BENÍTEZ Feb 11, 2017 15:05
--- NOTE | 2017-02-11 15:10 | CONS ---
Date/Time of Note Date/Time of Note DATE: 02/11/17 TIME: 15:09 Assessment/Plan Assessment/Plan Chief Complaint/Hosp Course 46-year-old gentleman witnessed ingestion of one bottle unknown quantity of Ambien pills. Shortly thereafter patient had a witnessed cardiac arrest, EMS called patient was transported to the emergency room underwent cardiopulmonary resuscitation with spontaneous return of circulation has been admitted to the intensive care unit. Unfortunately throughout this hospital stay patient has become progressively worse from a neurological standpoint. He has had numerous EEGs cerebral perfusion study which is pending results and apnea test all of which are consistent with severe cerebral anoxic brain injury. Information from healthcare delivery team this that there is discord amongst family members as to ongoing level of care. I am asked to speak to family members. With this information is taken from patient's medical records and speaking with his critical care nurse. Problems: Additional Assessment/Plan Addendum patient's physical findings my prior note patient had negative cold calorics consistent with brain . Consultation Date/Type/Reason Admit Date/Time Jan 31, 2017 at 17:12 Initial Consult Date 02/05/17 Type of Consultation: Pulmonary/critical care Referring Provider: LORRAINE RIGGS MD Exam/Review of Systems Vital Signs Vitals Vital Signs Date Time Temp Pulse Resp B/P Pulse Ox O2 Delivery O2 Flow Rate FiO2 02/11/17 15:00 101 16 117/83 98 Mechanical Ventilator 02/11/17 13:03 40 02/11/17 12:00 99.3 Intake and Output 02/10/17 02/10/17 02/11/17 15:00 23:00 07:00 Intake Total 2225.277 ml 1762.40 ml 2214.99 ml Output Total 1979 ml 5212 ml 2515 ml Balance 246.277 ml -3449.60 ml -300.01 ml Results Result Diagram: 02/10/17 0430 02/11/17 1205 Results 24 hrs Laboratory Tests Test 02/10/17 18:00 02/11/17 00:10 02/11/17 05:50 02/11/17 12:05 Sodium Level 147 H 159 H 157 H 152 H Potassium Level 3.8 4.4 4.1 4.2 Chloride Level 114 H 124 H 123 H 118 H Carbon Dioxide Level 27 30 29 29 Anion Gap 10 9 9 9 Blood Urea Nitrogen 10 9 10 10 Creatinine 0.89 0.96 0.96 1.00 Glucose Level 174 192 219 199 Lactic Acid Level 1.2 Calcium Level 8.6 9.5 8.9 8.8 Medications Medications Current Medications Ondansetron HCl (Zofran Inj) 4 mg Q6H PRN IV NAUSEA AND/OR VOMITING; Start at 19:00 Acetaminophen (Tylenol Tab) 650 mg Q6H PRN PO PAIN LEVEL 1-3 OR FEVER Last administered on 02/06/17 18:50; Admin Dose 650 MG; Start 01/31/17 at 19:00; Status Future Hold Acetaminophen/ Hydrocodone Bitart ([place] (5/325)) 1 tab Q6H PRN PO MODERATE PAIN LEVEL 4-6; Start 01/31/17 at 19:00 Morphine Sulfate (morphine) 2 mg Q4H PRN IV SEVERE PAIN LEVEL 7-10 Last administered on 02/08/17 17:14; Admin Dose 2 MG; Start 01/31/17 at 19:00 Docusate Sodium (Colace) 100 mg Q12H PRN PO CONSTIPATION; Start 01/31/17 at 19: 00 Magnesium Hydroxide (Milk Of Mag) 30 ml DAILY PRN PO CONSTIPATION; Start at 19:00 Sodium Biphosphate/ Sodium Phosphate (Fleet Enema) 133 ml DAILY PRN [place] CONSTIPATION; Start 01/31/17 at 19:00 Heparin Sodium (Porcine) (Heparin (5000 Units/0.5 ml)) 5,000 unit Q12 SC Last administered on 02/11/17 08:01; Admin Dose 5,000 UNIT; Start 01/31/17 at 21:00 Hydralazine HCl (Apresoline) 10 mg Q6H PRN IV ELEVATED BLOOD PRESSURE Last administered on 02/08/17 04:56; Admin Dose 10 MG; Start 01/31/17 at 19:00 Nitroglycerin (Nitroglycerin (Sl Tab) 0.4 Mg) 1 tab Q5M PRN SL ANGINA; Start at 19:00 Acetaminophen (Tylenol Supp) 650 mg Q4H PRN [place] TEMP > 37C Last administered on 02/05/17 20:28; Admin Dose 650 MG; Start 01/31/17 at 23:00; Status Future Hold Acetaminophen (Tylenol Liquid) 650 mg Q4H PRN PO TEMP > 37C Last administered on 02/04/17 22:46; Admin Dose 650 MG; Start 01/31/17 at 23:00; Status Future Hold Eye Lubricant (Akwa Oint) 1 applic Q6 BOTH EYES Last administered on 12:14; Admin Dose 1 APPLIC; Start 02/01/17 at 00:00 Eye Lubricant 2 drop 2 drop Q6 BOTH EYES Last administered on 02/11/17 12:13 ; Admin Dose 2 DROP; Start 02/01/17 at 00:00 Levetiracetam (Keppra 1,500mg/ 100ml (Pmx)) 100 ml @ 400 mls/hr Q12 IVPB Last administered on 02/11/17 08:00; Admin Dose 400 MLS/HR; Start 02/01/17 at 14:30 Ranitidine HCl (Zantac) 150 mg HS PO Last administered on 02/07/17 20:52; Admin Dose 150 MG; Start 02/02/17 at 21:00 Elvitegravir/ Cobicis/Emtricit/ Tenof (Stribild Tablet) 1 each DAILY PO Last administered on 02/07/17 11:36; Admin Dose 1 EACH; Start 02/05/17 at 11:00 Divalproex Sodium 500 mg 500 mg TID PO Last administered on 02/07/17 20:52; Admin Dose 500 MG; Start 02/06/17 at 13:00 Acetaminophen 100 ml @ 400 mls/hr Q6H IVPB Last administered on 02/11/17 12: 14; Admin Dose 400 MLS/HR; Start 02/07/17 at 00:30 Vasopressin 60 unit/Dextrose 60 ml @ 1.2 mls/hr Q12H IV Last administered on 02/09/17 06:15; Admin Dose 1.2 MLS/HR; Start 02/09/17 at 05:30 Phenylephrine HCl 40 mg/Dextrose 500 ml @ 75 mls/hr TITRATE IV Last administered on 02/11/17 12:51; Admin Dose 105 MLS/HR; Start 02/09/17 at 06:30 Norepinephrine 16 mg/Dextrose 500 ml @ 1.87 mls/hr TITRATE IV Last administered on 02/10/17 22:08; Admin Dose 9.37 MLS/HR; Start 02/09/17 at 10: 00 Dextrose (D5W) 1,000 ml @ 85 mls/hr [id number] IV Last administered on 05:03; Admin Dose 75 MLS/HR; Start 02/09/17 at 14:30 Neomycin/ Polymyxin/ Bacitracin (Neosporin Topical Oint) 1 applic BID TOP Last administered on 02/11/17 08:01; Admin Dose 1 APPLIC; Start 02/10/17 at 21:00 Desmopressin Acetate (Ddavp) 4 mcg DAILY SC Last administered on 02/11/17 14: 10; Admin Dose 4 MCG; Start 02/11/17 at 13:00 BHAVANI BENÍTEZ Feb 11, 2017 15:10
[2017-02-11] MEDS ORDERED: LORAZEPAM 2 MG INJ IM PRN (15:30)
[2017-02-11] MEDS ORDERED: ONDANSETRON 4 MG INJ IV PRN (15:30)
[2017-02-11] MEDS ORDERED: morphine 2 MG INJ IV PRN (15:30)
--- NOTE | 2017-02-11 15:42 | CONS ---
Date/Time of Note Date/Time of Note DATE: 02/11/17 TIME: 15:28 Assessment/Plan Assessment/Plan Chief Complaint/Hosp Course 46-year-old gentleman witnessed ingestion of one bottle unknown quantity of Ambien pills. Shortly thereafter patient had a witnessed cardiac arrest, EMS called patient was transported to the emergency room underwent cardiopulmonary resuscitation with spontaneous return of circulation has been admitted to the intensive care unit. Unfortunately throughout this hospital stay patient has become progressively worse from a neurological standpoint. He has had numerous EEGs cerebral perfusion study which is pending results and apnea test all of which are consistent with severe cerebral anoxic brain injury. Information from healthcare delivery team this that there is discord amongst family members as to ongoing level of care. I am asked to speak to family members. With this information is taken from patient's medical records and speaking with his critical care nurse. Problems: Consultation Date/Type/Reason Admit Date/Time Jan 31, 2017 at 17:12 Initial Consult Date 02/05/17 Type of Consultation: Pulmonary/critical care Referring Provider: LORRAINE RIGGS MD Exam/Review of Systems Vital Signs Vitals Vital Signs Date Time Temp Pulse Resp B/P Pulse Ox O2 Delivery O2 Flow Rate FiO2 02/11/17 15:00 101 16 117/83 98 Mechanical Ventilator 02/11/17 13:03 40 02/11/17 12:00 99.3 Intake and Output 02/10/17 02/10/17 02/11/17 15:00 23:00 07:00 Intake Total 2225.277 ml 1762.40 ml 2214.99 ml Output Total 1979 ml 5212 ml 2515 ml Balance 246.277 ml -3449.60 ml -300.01 ml Results Result Diagram: 02/10/17 0430 02/11/17 1205 Results 24 hrs Laboratory Tests Test 02/10/17 18:00 02/11/17 00:10 02/11/17 05:50 02/11/17 12:05 Sodium Level 147 H 159 H 157 H 152 H Potassium Level 3.8 4.4 4.1 4.2 Chloride Level 114 H 124 H 123 H 118 H Carbon Dioxide Level 27 30 29 29 Anion Gap 10 9 9 9 Blood Urea Nitrogen 10 9 10 10 Creatinine 0.89 0.96 0.96 1.00 Glucose Level 174 192 219 199 Lactic Acid Level 1.2 Calcium Level 8.6 9.5 8.9 8.8 Medications Medications Current Medications Ondansetron HCl (Zofran Inj) 4 mg Q6H PRN IV NAUSEA AND/OR VOMITING; Start at 19:00 Acetaminophen (Tylenol Tab) 650 mg Q6H PRN PO PAIN LEVEL 1-3 OR FEVER Last administered on 02/06/17 18:50; Admin Dose 650 MG; Start 01/31/17 at 19:00; Status Future Hold Acetaminophen/ Hydrocodone Bitart (Trego (5/325)) 1 tab Q6H PRN PO MODERATE PAIN LEVEL 4-6; Start 01/31/17 at 19:00 Morphine Sulfate (morphine) 2 mg Q4H PRN IV SEVERE PAIN LEVEL 7-10 Last administered on 02/08/17 17:14; Admin Dose 2 MG; Start 01/31/17 at 19:00 Docusate Sodium (Colace) 100 mg Q12H PRN PO CONSTIPATION; Start 01/31/17 at 19: 00 Magnesium Hydroxide (Milk Of Mag) 30 ml DAILY PRN PO CONSTIPATION; Start at 19:00 Sodium Biphosphate/ Sodium Phosphate (Fleet Enema) 133 ml DAILY PRN MT CONSTIPATION; Start 01/31/17 at 19:00 Heparin Sodium (Porcine) (Heparin (5000 Units/0.5 ml)) 5,000 unit Q12 SC Last administered on 02/11/17 08:01; Admin Dose 5,000 UNIT; Start 01/31/17 at 21:00 Hydralazine HCl (Apresoline) 10 mg Q6H PRN IV ELEVATED BLOOD PRESSURE Last administered on 02/08/17 04:56; Admin Dose 10 MG; Start 01/31/17 at 19:00 Nitroglycerin (Nitroglycerin (Sl Tab) 0.4 Mg) 1 tab Q5M PRN SL ANGINA; Start at 19:00 Acetaminophen (Tylenol Supp) 650 mg Q4H PRN MT TEMP > 37C Last administered on 02/05/17 20:28; Admin Dose 650 MG; Start 01/31/17 at 23:00; Status Future Hold Acetaminophen (Tylenol Liquid) 650 mg Q4H PRN PO TEMP > 37C Last administered on 02/04/17 22:46; Admin Dose 650 MG; Start 01/31/17 at 23:00; Status Future Hold Eye Lubricant (Akwa Oint) 1 applic Q6 BOTH EYES Last administered on 12:14; Admin Dose 1 APPLIC; Start 02/01/17 at 00:00 Eye Lubricant 2 drop 2 drop Q6 BOTH EYES Last administered on 02/11/17 12:13 ; Admin Dose 2 DROP; Start 02/01/17 at 00:00 Levetiracetam (Keppra 1,500mg/ 100ml (Pmx)) 100 ml @ 400 mls/hr Q12 IVPB Last administered on 02/11/17 08:00; Admin Dose 400 MLS/HR; Start 02/01/17 at 14:30 Ranitidine HCl (Zantac) 150 mg HS PO Last administered on 02/07/17 20:52; Admin Dose 150 MG; Start 02/02/17 at 21:00 Elvitegravir/ Cobicis/Emtricit/ Tenof (Stribild Tablet) 1 each DAILY PO Last administered on 02/07/17 11:36; Admin Dose 1 EACH; Start 02/05/17 at 11:00 Divalproex Sodium 500 mg 500 mg TID PO Last administered on 02/07/17 20:52; Admin Dose 500 MG; Start 02/06/17 at 13:00 Acetaminophen 100 ml @ 400 mls/hr Q6H IVPB Last administered on 02/11/17 12: 14; Admin Dose 400 MLS/HR; Start 02/07/17 at 00:30 Vasopressin 60 unit/Dextrose 60 ml @ 1.2 mls/hr Q12H IV Last administered on 02/09/17 06:15; Admin Dose 1.2 MLS/HR; Start 02/09/17 at 05:30 Phenylephrine HCl 40 mg/Dextrose 500 ml @ 75 mls/hr TITRATE IV Last administered on 02/11/17 12:51; Admin Dose 105 MLS/HR; Start 02/09/17 at 06:30 Norepinephrine 16 mg/Dextrose 500 ml @ 1.87 mls/hr TITRATE IV Last administered on 02/10/17 22:08; Admin Dose 9.37 MLS/HR; Start 02/09/17 at 10: 00 Dextrose (D5W) 1,000 ml @ 85 mls/hr [id number] IV Last administered on 05:03; Admin Dose 75 MLS/HR; Start 02/09/17 at 14:30 Neomycin/ Polymyxin/ Bacitracin (Neosporin Topical Oint) 1 applic BID TOP Last administered on 02/11/17 08:01; Admin Dose 1 APPLIC; Start 02/10/17 at 21:00 Desmopressin Acetate (Ddavp) 4 mcg DAILY SC Last administered on 02/11/17 14: 10; Admin Dose 4 MCG; Start 02/11/17 at 13:00 BHAVANI BENÍTEZ Feb 11, 2017 15:38 00 Dextrose (D5W) 1,000 ml @ 85 mls/hr [id number] IV Last administered on 05:03; Admin Dose 75 MLS/HR; Start 02/09/17 at 14:30 Neomycin/ Polymyxin/ Bacitracin (Neosporin Topical Oint) 1 applic BID TOP Last administered on 02/11/17 08:01; Admin Dose 1 APPLIC; Start 02/10/17 at 21:00 Desmopressin Acetate (Ddavp) 4 mcg DAILY SC Last administered on 02/11/17 14: 10; Admin Dose 4 MCG; Start 02/11/17 at 13:00 BHAVANI BENÍTEZ Feb 11, 2017 15:38
--- NOTE | 2017-02-12 04:38 | RADRPT ---
PROCEDURE: US Abdomen limited CLINICAL INDICATION: Organ donation TECHNIQUE: Multiple real-time images were acquired of the patient's abdomen and retroperitoneum ut ilizing a high resolution transducer limited per requesting physician liver and kidneys COMPARISON: Abdominal radiographs of 02/07/2017 FINDINGS: The liver demonstrates normal echogenicity and no focal lesions are seen. The length of the right l obe of the liver equals 19.9 cm could be secondary to a Hanny lobe, normal variant or hepatomegaly. There is hepatopedal portal venous flow. No gallstones are identified within the gallbladder. Ther e is no pericholecystic fluid or gallbladder wall thickening. Gallbladder is dilated with maximal tr ansverse diameter of 6.7 cm. No intra or extrahepatic biliary dilatation is seen. The common bile d uct measures 3.5 mm in maximal dimension. No free fluid is identified. The kidneys are normal size, and demonstrate normal echogenicity and morphology. The right kidney m easures 10.8 cm in long dimension. The left kidney measures 12.5 cm. There is no dilatation of the pelvicaliceal systems bilaterally. There are no perinephric fluid collections. There is an approxi mate 1.1 cm oval area of increased echogenicity with the suggestion of mild posterior acoustic shado wing in the mid left kidney which could represent a nonobstructing calculus. There is appearance of approximate 9 mm oval area of increased echogenicity with suggestion of minimal posterior acoustic s hadowing which could represent a nonobstructing calculus in the upper right kidney. IMPRESSION: The length of the right lobe of the liver equals 19.9 cm could be secondary to a Hanny lobe, normal variant or hepatomegaly. Dilated gallbladder with maximal transverse diameter 6.7 cm compatible wit h gallbladder hydrops. 1.1 cm oval area of increased echogenicity with the suggestion of mild data power consultant ior acoustic shadowing in the mid left kidney which could represent a nonobstructing calculus. 9 mm oval area of increased echogenicity with suggestion of minimal posterior acoustic shadowing which co uld represent a nonobstructing calculus in the upper right kidney. Please see above. RPTAT: HJES .Timmy Mercer MD, MD Date Time Electronically viewed and signed by .Timmy Mercer MD, on 02/12/2017 04:38 .S/
[2017-02-12 08:00] VITALS: PULSE 106
== END 2017-02-11 17:25 | disposition other institution (70) | DRG 917 ==
LOC: E/R 15:32 → ICU 17:12
PROVIDERS: ADMIT Hospitalist; ATTEND Hospitalist
PROC: 5A1955Z Respiratory Ventilation, Greater than 96 Consecutive Hours (ICD-10-PCS; principal; 2017-01-31)
PROC: 0BH17EZ Insertion of Endotracheal Airway into Trachea, Via Natural or Artificial Opening (ICD-10-PCS; 2017-01-31)
PROC: 4A133R1 Monitoring of Arterial Saturation, Peripheral, Percutaneous Approach (ICD-10-PCS; 2017-01-31)
PROC: 05H633Z Insertion of Infusion Device into Left Subclavian Vein, Percutaneous Approach (ICD-10-PCS; 2017-02-01)
PROC: 4A00X4Z Measurement of Central Nervous Electrical Activity, External Approach (ICD-10-PCS; 2017-02-02)
PROC: 4A00X4Z Measurement of Central Nervous Electrical Activity, External Approach (ICD-10-PCS; 2017-02-06)
PROC: 4A00X4Z Measurement of Central Nervous Electrical Activity, External Approach (ICD-10-PCS; 2017-02-09)
DX: T42.6X2A Poisoning by other antiepileptic and sedative-hypnotic drugs, intentional self-harm, initial encounter (principal); J96.02 Acute respiratory failure with hypercapnia; R57.9 Shock, unspecified; G92 Toxic encephalopathy; G93.1 Anoxic brain damage, not elsewhere classified; J69.0 Pneumonitis due to inhalation of food and vomit; I46.9 Cardiac arrest, cause unspecified; E87.0 Hyperosmolality and hypernatremia; E87.4 Mixed disorder of acid-base balance; N17.9 Acute kidney failure, unspecified; R33.9 Retention of urine, unspecified; R50.9 Fever, unspecified; R56.9 Unspecified convulsions; D72.829 Elevated white blood cell count, unspecified; F17.210 Nicotine dependence, cigarettes, uncomplicated; Y92.009 Unspecified place in unspecified non-institutional (private) residence as the place of occurrence of the external cause
CPT/HCPCS: 31500; 36415; 36600; 70450; 70553; 71010; 74000; 76705; 80048; 80053; 80061; 80076; 80202; 80306; 80307; 81001; 81003; 82550; 82803; 82962; 83036; 83605; 83735; 83930; 83935; 84100; 84295; 84300; 84439; 84443; 84484; 85025; 85610; 85730; 86360; 86701; 86703; 86803; 87040; 87081; 87086; 87536; 93005; 93306; 94002; 94003; 94770; 95819; 96374; 96375; C1751; C9113; J0131; J0295; J0360; J1644; J1953; J1956; J2060; J2270; J2370; J3370; J3411; J3475; J3480; J7030; J7040; J7042; J7050; J7060; J7070; J7120

== ENCOUNTER 2017-02-11 16:45 | Inpatient (IN) | payer OTHER ==
[~2017-02-11] VITALS: Ht 186.7 cm; Wt 86.1 kg
[2017-02-11] VITALS (23 sets, daily range): BP systolic 81–224; BP diastolic 51–134; PULSE 93–112; RESP 10–16
[~2017-02-11 16:45] MED LIST: EMTR1TAB17 PO; ZOLP10TA5 PO
[2017-02-11] MEDS: VASOPRESSIN 60 UNIT in DEXTROSE 5% 57 ML IV SCH (17:30)
[2017-02-11] MEDS ORDERED: HETASTARCH 6% NACL 500 ML BAG IV* ONE ×2 (17:30→21:30)
[2017-02-11] MEDS ORDERED: PHENYLephrine 40 MG in DEXTROSE 5% 496 ML IV SCH (17:30)
--- NOTE | 2017-02-11 18:03 | RADRPT ---
PROCEDURE: XR Chest. CLINICAL INDICATION: Shortness of breath. TECHNIQUE: Single frontal view. COMPARISON: 02/09/2017. FINDINGS: The endotracheal tube, nasogastric tube, and left subclavian vein catheter remain in satisfactory po sition. There is mild interstitial disease bilaterally consistent with pulmonary edema. There is mil d atelectasis at the lung bases. The lungs are otherwise clear. The heart size is normal. There is no pleural effusion or pneumothorax. There is old open reduction internal fixation of the right clavicle with plate and screws. IMPRESSION: 1. Unchanged pulmonary edema and mild atelectasis at the lung bases. 2. No other change from 02/09/2017. RPTAT: QQ .Telly Alejo MD, MD Date Time Electronically viewed and signed by .Telly Alejo MD, MD on 02/11/2017 18:02 .R/
[2017-02-11 19:19] LABS: ABNORMAL IP MESSAGE 1; BASOPHIL # 0.1 10^3/ul (0.0-0.1); BASOPHILS % 0.2 % (0.0-2.0); EOSINOPHILS # 0.3 10^3/ul (0.0-0.5); EOSINOPHILS % 1.1 % (0.0-7.0); HEMATOCRIT 37.2 % (42.0-52.0); LYMPHOCYTES # 2.4 10^3/ul (0.8-2.9); LYMPHOCYTES % 9.3 % (15.0-51.0); MEAN CORPUSCULAR HEMOGLOBIN 32.2 pg (29.0-33.0); MEAN CORPUSCULAR HGB CONC 32.3 g/dl (32.0-37.0); MEAN CORPUSCULAR VOLUME 99.7 fl (82.0-101.0); MEAN PLATELET VOLUME 11.8 fl (7.4-10.4); MONOCYTE # 1.1 10^3/ul (0.3-0.9); MONOCYTES % 4.5 % (0.0-11.0); NEUTROPHILS % 83.5 % (39.0-77.0); PLATELET COUNT 293 10^3/UL (140-415); POSITIVE DIFF @See below; RED BLOOD COUNT 3.73 10^6/ul (4.70-6.10); RED CELL DISTRIBUTION WIDTH 13.3 % (11.5-14.5); WHITE BLOOD COUNT 25.2 10^3/ul (4.8-10.8)
[2017-02-11 19:40] LABS: ALANINE AMINOTRANSFERASE 37 IU/L (13-69); ALBUMIN 3.1 g/dl (3.3-4.9); ALBUMIN/GLOBULIN RATIO 0.79; ALKALINE PHOSPHATASE 151 IU/L (42-121); AMYLASE 133 U/L (11-123); ANION GAP 9 (8-16); ASPARTATE AMINO TRANSFERASE 27 IU/L (15-46); BILIRUBIN,INDIRECT 0.1 mg/dl (0-1.1); BILIRUBIN,TOTAL 0.1 mg/dl (0.2-1.3); BLOOD UREA NITROGEN 11 mg/dl (7-20); CALCIUM 8.8 mg/dl (8.4-10.2); CARBON DIOXIDE 27 mmol/L (21-31); CHLORIDE 114 mmol/L (97-110); CREATINE KINASE 133 IU/L (23-200); CREATININE 0.93 mg/dl (0.61-1.24); GLUCOSE 191 mg/dl (70-220); POTASSIUM 3.9 mmol/L (3.5-5.1); SODIUM 146 mmol/L (135-144)
[2017-02-11 19:42] LABS: INR 1.18; PROTIME 15.1 Sec (12.2-14.2); PT RATIO 1.2
[2017-02-11 19:43] LABS: PARTIAL THROMBOPLASTIN TIME 42.4 Sec (25.0-35.0)
[2017-02-11 19:55] LABS: CK-MB 1.31 ng/ml (0.0-2.4); TROPONIN-I < 0.012 ng/ml (0.00-0.12)
[2017-02-11 20:15] LABS: AADO2 Arterial 163.8 mmHg (7.0-24.0); Arterial Base Excess 1.7 mmol/L (-3.0-3); Arterial COHb 0.1 % (0.0-3.0); Arterial Fraction of Oxyhgb 93.6 % (93.0-99.0); Arterial HCO3 27.3 mmol/L (22.0-26.0); Arterial MetHb 0.1 % (0.0-1.5); Arterial Total Hemglobin 12.7 g/dl (12.0-18.0); MODE VENT - AC
[2017-02-11 21:19] LABS: AADO2 Arterial 165.5 mmHg (7.0-24.0); Arterial Base Excess 0.5 mmol/L (-3.0-3); Arterial COHb 0.3 % (0.0-3.0); Arterial Fraction of Oxyhgb 92.6 % (93.0-99.0); Arterial HCO3 25.8 mmol/L (22.0-26.0); Arterial MetHb 0.1 % (0.0-1.5); Arterial Total Hemglobin 11.7 g/dl (12.0-18.0); MODE VENT - AC
[2017-02-11] MEDS ORDERED: ALBUMIN HUMAN 5% 250 ML ONE (22:00)
[2017-02-11] MEDS: DOBUTamine/D5W 2 MG/ML DRIP 250 ML IV SCH (22:12)
[2017-02-11] MEDS ORDERED: ALBUMIN HUMAN 5% 250 ML IV ONE ×2 (22:30→23:00)
[2017-02-12] VITALS (105 sets, daily range): BP systolic 68–189; BP diastolic 44–106; PULSE 90–109; RESP 10–14
[2017-02-12] MEDS ORDERED: ALBUMIN HUMAN 5% 250 ML IV ONE ×2
[2017-02-12 00:03] LABS: AADO2 Arterial 273.3 mmHg (7.0-24.0); Allen Test ACCEPTAB; Arterial Base Excess -2.4 mmol/L (-3.0-3); Arterial COHb 0.3 % (0.0-3.0); Arterial Fraction of Oxyhgb 96.4 % (93.0-99.0); Arterial MetHb 0.1 % (0.0-1.5); Arterial Total Hemglobin 10.7 g/dl (12.0-18.0); Blood Gas Low PEEP Setting 0 cmH2O; MODE VENT - BIPHASIC
[2017-02-12 01:07] LABS: BASOPHILS % 0.2 % (0.0-2.0); EOSINOPHILS # 0.2 10^3/ul (0.0-0.5); EOSINOPHILS % 1.1 % (0.0-7.0); HEMOGLOBIN 9.5 g/dl (14.0-18.0); LYMPHOCYTES # 1.9 10^3/ul (0.8-2.9); LYMPHOCYTES % 10.3 % (15.0-51.0); MEAN CORPUSCULAR HEMOGLOBIN 31.3 pg (29.0-33.0); MEAN CORPUSCULAR HGB CONC 30.6 g/dl (32.0-37.0); MEAN PLATELET VOLUME 11.7 fl (7.4-10.4); MONOCYTE # 0.8 10^3/ul (0.3-0.9); MONOCYTES % 4.3 % (0.0-11.0); NEUTROPHIL # 15.5 10^3/ul (1.6-7.5); NEUTROPHILS % 82.1 % (39.0-77.0); PLATELET COUNT 254 10^3/UL (140-415); RED BLOOD COUNT 3.04 10^6/ul (4.70-6.10); RED CELL DISTRIBUTION WIDTH 13.6 % (11.5-14.5); WHITE BLOOD COUNT 18.9 10^3/ul (4.8-10.8)
[2017-02-12 01:24] LABS: INR 1.25; PROTIME 15.8 Sec (12.2-14.2); PT RATIO 1.2
[2017-02-12 01:26] LABS: PARTIAL THROMBOPLASTIN TIME 44.3 Sec (25.0-35.0)
[2017-02-12 01:28] LABS: ALANINE AMINOTRANSFERASE 37 IU/L (13-69); ALBUMIN 3.3 g/dl (3.3-4.9); ALKALINE PHOSPHATASE 130 IU/L (42-121); AMYLASE 183 U/L (11-123); ANION GAP 11 (8-16); ASPARTATE AMINO TRANSFERASE 29 IU/L (15-46); BILIRUBIN,INDIRECT 0.2 mg/dl (0-1.1); BILIRUBIN,TOTAL 0.2 mg/dl (0.2-1.3); BLOOD UREA NITROGEN 13 mg/dl (7-20); CALCIUM 8.6 mg/dl (8.4-10.2); CARBON DIOXIDE 28 mmol/L (21-31); CHLORIDE 115 mmol/L (97-110); CREATINE KINASE 108 IU/L (23-200); CREATININE 1.07 mg/dl (0.61-1.24); GLUCOSE 164 mg/dl (70-220); POTASSIUM 4.1 mmol/L (3.5-5.1); SODIUM 150 mmol/L (135-144); TOTAL PROTEIN 6.6 g/dl (6.1-8.1)
[2017-02-12 01:46] LABS: CK-MB 1.03 ng/ml (0.0-2.4); TROPONIN-I < 0.012 ng/ml (0.00-0.12)
[2017-02-12] MEDS ORDERED: FUROSEMIDE 40 MG INJ IV ONE ×3 (05:00→21:30)
[2017-02-12] MEDS ORDERED: ALBUMIN HUMAN 25% 100 ML IV ONE ×4 (05:00→21:30)
[2017-02-12] MEDS ORDERED: ALBUMIN HUMAN 25% 100 ML ONE (05:04)
[2017-02-12 05:52] LABS: AADO2 Arterial 176.1 mmHg (7.0-24.0); Arterial Base Excess 0.7 mmol/L (-3.0-3); Arterial COHb 0.3 % (0.0-3.0); Arterial Fraction of Oxyhgb 97.4 % (93.0-99.0); Arterial HCO3 26.8 mmol/L (22.0-26.0); Arterial MetHb 0.1 % (0.0-1.5); Arterial Total Hemglobin 9.7 g/dl (12.0-18.0); Blood Gas Low PEEP Setting 0 cmH2O; MODE VENT - BIPHASIC
--- NOTE | 2017-02-12 06:15 | RADRPT ---
PROCEDURE: XR Chest. CLINICAL INDICATION: Respiratory failure TECHNIQUE: An AP view of the chest was obtained. COMPARISON: Chest x-ray dated 02/2017 FINDINGS: The endotracheal tube tip is approximately 6.5 cm above the taylor. The tip of the enteric tube ex tends below the left diaphragm. There is a left subclavian central venous catheter with tip in the m id SVC. There is prominence of the interstitial and central pulmonary vascular markings. No pleural effus ion or pneumothorax is seen. The cardiomediastinal silhouette is within normal limits for size. T he osseous structures demonstrate senescent changes. IMPRESSION: 1. Findings suggestive of pulmonary vascular congestion. No significant interval change. 2. Tubes and lines, as described above. RPTAT: HH .Rebecca Angel MD, Date Time Electronically viewed and signed by .Rebecca Angel MD, on 02/12/2017 06:14 .G/
[2017-02-12] MEDS: VASOPRESSIN 60 UNIT in DEXTROSE 5% 57 ML IV SCH ×2 (06:41→17:30)
[2017-02-12 06:49] LABS: BASOPHILS % 0.2 % (0.0-2.0); EOSINOPHILS # 0.2 10^3/ul (0.0-0.5); HEMATOCRIT 29.2 % (42.0-52.0); HEMOGLOBIN 9.2 g/dl (14.0-18.0); LYMPHOCYTES # 1.8 10^3/ul (0.8-2.9); LYMPHOCYTES % 10.1 % (15.0-51.0); MEAN CORPUSCULAR HEMOGLOBIN 31.9 pg (29.0-33.0); MEAN CORPUSCULAR HGB CONC 31.5 g/dl (32.0-37.0); MEAN CORPUSCULAR VOLUME 101.4 fl (82.0-101.0); MEAN PLATELET VOLUME 12.3 fl (7.4-10.4); MONOCYTE # 0.9 10^3/ul (0.3-0.9); MONOCYTES % 5.3 % (0.0-11.0); NEUTROPHIL # 14.6 10^3/ul (1.6-7.5); NEUTROPHILS % 82.2 % (39.0-77.0); PLATELET COUNT 244 10^3/UL (140-415); RED BLOOD COUNT 2.88 10^6/ul (4.70-6.10); RED CELL DISTRIBUTION WIDTH 13.5 % (11.5-14.5); WHITE BLOOD COUNT 17.7 10^3/ul (4.8-10.8)
[2017-02-12 07:03] LABS: ALANINE AMINOTRANSFERASE 28 IU/L (13-69); ALBUMIN 3.5 g/dl (3.3-4.9); ALBUMIN/GLOBULIN RATIO 1.02; ALKALINE PHOSPHATASE 135 IU/L (42-121); AMYLASE 207 U/L (11-123); ANION GAP 11 (8-16); ASPARTATE AMINO TRANSFERASE 32 IU/L (15-46); BILIRUBIN,INDIRECT 0.2 mg/dl (0-1.1); BILIRUBIN,TOTAL 0.2 mg/dl (0.2-1.3); BLOOD UREA NITROGEN 15 mg/dl (7-20); CALCIUM 8.8 mg/dl (8.4-10.2); CARBON DIOXIDE 27 mmol/L (21-31); CHLORIDE 114 mmol/L (97-110); CREATINE KINASE 102 IU/L (23-200); GLUCOSE 147 mg/dl (70-220); POTASSIUM 3.9 mmol/L (3.5-5.1); SODIUM 148 mmol/L (135-144); TOTAL PROTEIN 6.9 g/dl (6.1-8.1)
[2017-02-12 07:13] LABS: INR 1.23; PROTIME 15.6 Sec (12.2-14.2); PT RATIO 1.2
[2017-02-12 07:14] LABS: PARTIAL THROMBOPLASTIN TIME 50.1 Sec (25.0-35.0)
[2017-02-12 07:22] LABS: CK-MB 1.01 ng/ml (0.0-2.4); TROPONIN-I < 0.012 ng/ml (0.00-0.12)
[2017-02-12] MEDS: ALBUMIN HUMAN 5% 250 ML IV SCH ×2 (08:24→08:48)
--- NOTE | 2017-02-12 10:59 | RADRPT ---
PROCEDURE: XR Chest 1 View. CLINICAL INDICATION: Shortness of breath. TECHNIQUE: AP view of the chest was obtained. COMPARISON: DR RAMIRES 02/12/2017 at 01:35 a.m. FINDINGS: The heart size is within normal limits. Calcified atherosclerosis is noted in the aorta. Endotrache al and nasogastric tubes are stable. Left-sided central line is unchanged. Patchy potential infiltra deirdre in the bilateral lower lobes are stable. Interstitial prominence throughout both lungs is unchan ged. Osseous structures are unchanged. IMPRESSION: Calcified atherosclerosis in the aorta. Stable patchy potential infiltrates in the bilateral lower lobes. Stable diffuse interstitial prominence in both lungs. Interstitial prominence could be chronic. RPTAT: AA .Efra Marie MD, MD Date Time Electronically viewed and signed by .Efra Marie MD, on 02/12/2017 10:59 .P/
[2017-02-12 12:10] LABS: AADO2 Arterial 131.5 mmHg (7.0-24.0); Arterial Base Excess 2.8 mmol/L (-3.0-3); Arterial COHb 0.3 % (0.0-3.0); Arterial Fraction of Oxyhgb 96.3 % (93.0-99.0); Arterial HCO3 28.6 mmol/L (22.0-26.0); Arterial MetHb 0.2 % (0.0-1.5); Arterial Total Hemglobin 9.9 g/dl (12.0-18.0); MODE VENT - BIPHASIC
[2017-02-12 12:27] LABS: BASOPHILS % 0.2 % (0.0-2.0); EOSINOPHILS # 0.2 10^3/ul (0.0-0.5); HEMATOCRIT 27.9 % (42.0-52.0); LYMPHOCYTES # 1.6 10^3/ul (0.8-2.9); LYMPHOCYTES % 9.3 % (15.0-51.0); MEAN CORPUSCULAR HEMOGLOBIN 32.3 pg (29.0-33.0); MEAN CORPUSCULAR HGB CONC 32.3 g/dl (32.0-37.0); MEAN PLATELET VOLUME 11.4 fl (7.4-10.4); MONOCYTES % 5.8 % (0.0-11.0); NEUTROPHIL # 14.2 10^3/ul (1.6-7.5); NEUTROPHILS % 82.8 % (39.0-77.0); PLATELET COUNT 266 10^3/UL (140-415); RED BLOOD COUNT 2.79 10^6/ul (4.70-6.10); RED CELL DISTRIBUTION WIDTH 13.4 % (11.5-14.5); WHITE BLOOD COUNT 17.1 10^3/ul (4.8-10.8)
[2017-02-12 12:45] LABS: INR 1.21; PROTIME 15.4 Sec (12.2-14.2); PT RATIO 1.2
[2017-02-12 12:46] LABS: ALANINE AMINOTRANSFERASE 40 IU/L (13-69); ALBUMIN 3.9 g/dl (3.3-4.9); ALBUMIN/GLOBULIN RATIO 1.14; ALKALINE PHOSPHATASE 124 IU/L (42-121); AMYLASE 192 U/L (11-123); ANION GAP 14 (8-16); ASPARTATE AMINO TRANSFERASE 36 IU/L (15-46); BILIRUBIN,INDIRECT 0.3 mg/dl (0-1.1); BILIRUBIN,TOTAL 0.3 mg/dl (0.2-1.3); BLOOD UREA NITROGEN 17 mg/dl (7-20); CALCIUM 9.1 mg/dl (8.4-10.2); CARBON DIOXIDE 30 mmol/L (21-31); CHLORIDE 108 mmol/L (97-110); CREATINE KINASE 96 IU/L (23-200); CREATININE 1.02 mg/dl (0.61-1.24); GLUCOSE 177 mg/dl (70-220); POTASSIUM 3.7 mmol/L (3.5-5.1); SODIUM 148 mmol/L (135-144); TOTAL PROTEIN 7.3 g/dl (6.1-8.1)
[2017-02-12 12:59] LABS: CK-MB 0.86 ng/ml (0.0-2.4); TROPONIN-I < 0.012 ng/ml (0.00-0.12)
[2017-02-12] MEDS ORDERED: ACETAZOLAMIDE 500 MG INJ IV ONE (13:30)
[2017-02-12] MEDS ORDERED: INSULIN REGULAR, HUMAN 100 UNIT/1 ML 3ML VIAL IV ONE ×2 (13:30→18:30)
[2017-02-12] MEDS: POTASSIUM CHLORIDE 50 ML IVPB SCH ×4 (14:26→16:51)
--- NOTE | 2017-02-12 16:38 | RADRPT ---
PROCEDURE: XR Chest. CLINICAL INDICATION: Shortness of breath. TECHNIQUE: Single frontal view. COMPARISON: 02/12/2017. 0635 hours. FINDINGS: The endotracheal tube, nasogastric tube, and left subclavian vein catheter remain in satisfactory po sition. Mild pulmonary edema and left basilar atelectasis are unchanged. The heart size is normal. There is no pleural effusion. There is no pneumothorax. There is open reduction internal fixation of the right clavicle. IMPRESSION: 1. No change from the prior study done earlier the same day. RPTAT: QQ .Telly Alejo MD, MD Date Time Electronically viewed and signed by .Telly Alejo MD, MD on 02/12/2017 16:38 .R/
[2017-02-12 17:26] LABS: ADD UMIC YES; UR ASCORBIC ACID NEGATIVE (NEGATIVE); UR BACTERIA FEW /HPF (NONE SEEN); UR BILIRUBIN (Dip) NEGATIVE (NEGATIVE); UR BLOOD (Dip) 2+ mg/dL (NEGATIVE); UR CLARITY CLEAR (CLEAR); UR COLOR YELLOW (YELLOW); UR GLUCOSE (Dip) NEGATIVE (NEGATIVE); UR KETONES (Dip) NEGATIVE (NEGATIVE); UR LEUKOCYTE ESTERASE (Dip) NEGATIVE Leu/ul (NEGATIVE); UR MUCUS FEW /HPF (NONE SEEN); UR NITRITE (Dip) NEGATIVE (NEGATIVE); UR RBC 15 /HPF (0-5); UR TOTAL PROTEIN (Dip) 1+ mg/dl (NEGATIVE); UR UROBILINOGEN (Dip) NEGATIVE (NEGATIVE)
[2017-02-12 17:42] LABS: AADO2 Arterial 115.5 mmHg (7.0-24.0); Arterial Base Excess 2.7 mmol/L (-3.0-3); Arterial COHb 0.3 % (0.0-3.0); Arterial Fraction of Oxyhgb 96.1 % (93.0-99.0); Arterial HCO3 29.9 mmol/L (22.0-26.0); Arterial MetHb 0.3 % (0.0-1.5); Arterial Total Hemglobin 10.1 g/dl (12.0-18.0); MODE VENT - BIPHASIC
[2017-02-12 18:11] LABS: BASOPHILS % 0.2 % (0.0-2.0); EOSINOPHILS # 0.2 10^3/ul (0.0-0.5); HEMATOCRIT 28.9 % (42.0-52.0); HEMOGLOBIN 8.7 g/dl (14.0-18.0); LYMPHOCYTES # 1.5 10^3/ul (0.8-2.9); LYMPHOCYTES % 9.7 % (15.0-51.0); MEAN CORPUSCULAR HEMOGLOBIN 30.7 pg (29.0-33.0); MEAN CORPUSCULAR HGB CONC 30.1 g/dl (32.0-37.0); MEAN CORPUSCULAR VOLUME 102.1 fl (82.0-101.0); MEAN PLATELET VOLUME 11.9 fl (7.4-10.4); MONOCYTES % 6.4 % (0.0-11.0); NEUTROPHIL # 12.8 10^3/ul (1.6-7.5); NEUTROPHILS % 81.7 % (39.0-77.0); PLATELET COUNT 259 10^3/UL (140-415); RED BLOOD COUNT 2.83 10^6/ul (4.70-6.10); RED CELL DISTRIBUTION WIDTH 13.7 % (11.5-14.5); WHITE BLOOD COUNT 15.7 10^3/ul (4.8-10.8)
[2017-02-12 18:37] LABS: INR 1.31; PROTIME 16.4 Sec (12.2-14.2); PT RATIO 1.3
[2017-02-12 18:39] LABS: PHOSPHORUS 4.5 mg/dl (2.5-4.9)
[2017-02-12 18:40] LABS: ALANINE AMINOTRANSFERASE 37 IU/L (13-69); ALBUMIN 4.3 g/dl (3.3-4.9); ALBUMIN/GLOBULIN RATIO 1.19; ALKALINE PHOSPHATASE 136 IU/L (42-121); AMYLASE 168 U/L (11-123); ANION GAP 15 (8-16); ASPARTATE AMINO TRANSFERASE 37 IU/L (15-46); BILIRUBIN,INDIRECT 0.2 mg/dl (0-1.1); BILIRUBIN,TOTAL 0.2 mg/dl (0.2-1.3); BLOOD UREA NITROGEN 17 mg/dl (7-20); CALCIUM 9.6 mg/dl (8.4-10.2); CARBON DIOXIDE 32 mmol/L (21-31); CHLORIDE 106 mmol/L (97-110); CREATINE KINASE 86 IU/L (23-200); CREATININE 1.18 mg/dl (0.61-1.24); GLUCOSE 158 mg/dl (70-220); SODIUM 149 mmol/L (135-144); TOTAL PROTEIN 7.9 g/dl (6.1-8.1)
[2017-02-12 18:50] LABS: CK-MB 0.75 ng/ml (0.0-2.4); TROPONIN-I < 0.012 ng/ml (0.00-0.12)
[2017-02-12 19:18] LABS: PARTIAL THROMBOPLASTIN TIME 50.2 Sec (25.0-35.0)
--- NOTE | 2017-02-12 20:20 | RADRPT ---
PROCEDURE: X-ray Chest. CLINICAL INDICATION: Mechanical ventilation. Follow-up examination. TECHNIQUE: Single view chest x-ray. COMPARISON: Exam dated 02/12/2017. FINDINGS: The ETT tip is approximately 7.9 cm above the taylor. There is a well-positioned left subc lavian line tip overlying the upper SVC pill an enteric tube descends below the GE junction with its tip not clearly identified. There are atherosclerotic changes of the aorta. The cardiomediastinal s ilhouette is within normal limits. Diffuse interstitial prominence and patchy parenchymal disease a t the left lung base is unchanged. There is no effusion or pneumothorax. There are no acute osseous abnormalities. IMPRESSION: 1. High-riding ETT tip approximately 7.9 cm above the taylor, which should be advanced approximatel y 2-3 cm. 2. Diffuse interstitial prominence and patchy parenchymal disease at the left lung base, unchanged. RPTAT: HLBP .Florentin Tucker MD, Date Time Electronically viewed and signed by .Florentin Tucker MD, on 02/12/2017 20:20 .P/
--- NOTE | 2017-02-12 23:16 | RADRPT ---
AMENDMENT: 02/12/2017 11:42:01 PM Harry Gibson M.D Addendum: IMPRESSION: 1. Diffuse, marked cerebral edema throughout the bilateral cerebral and cerebellar hemispheres, wit h diffuse, extensive sulcal effacement, severe ventricular effacement. There is suggestion of transt entorial herniation on the coronal views, with the sagittal views demonstrate herniation of the cere bellum through the foramen magnum. These findings are ominous, concern is raised for diffuse cerebra l edema/brain . MRI may be helpful for further characterization of the extent of parenchymal lo ss. 2. Pseudo-subarachnoid hemorrhage sign, ominous finding. The above findings were discussed with Patient's Nurse Douglas by telephone on 02/12/2017 11:40:34 PM. PROCEDURE: CT Head without. CLINICAL INDICATION: Confirmation of brain . TECHNIQUE: The study was performed utilizing a multi-slice, multidetector CT scanner. Direct spira l 1 mm axial sections were obtained through the head without the use of intravenous contrast materia l. 1 or more of the following dose reduction techniques were utilized: Automated exposure control, adjustment of the mA and/or kV according to patient's size, iterative reconstruction technique. Co arnie and sagittal reformations were obtained. The images were reviewed on a PACS workstation. RADIATION DOSE: CTDIvol: 43.3 mGyDLP: The 876.6 mGy-cm COMPARISON: MRI brain 02/03/2017 FINDINGS: There is diffuse, extensive marked cerebral edema throughout the bilateral cerebral and cerebellar h emispheres, with diffuse, extensive loss of franklin-white matter differentiation. There is hyperdensity involving the intracranial vessels, consistent with pseudo subarachnoid hemorrhage sign, an ominous finding. There is suggestion of transtentorial herniation (coronal image 55). There is severe ventr icular effacement. On the sagittal view, there is herniation of the cerebellum through the foramen m agnum (sagittal series image 45). No extra-axial hemorrhage is seen. IMPRESSION: 1. Diffuse, marked cerebral edema throughout the bilateral cerebral and cerebellar hemispheres, wit h diffuse, extensive sulcal effacement, severe ventricular effacement. There is suggestion of transt entorial herniation on the coronal views, with the sagittal views demonstrate herniation of the cere bellum through the foramen magnum. These findings are ominous, concern is raised for diffuse cerebra l edema/brain . MRI may be helpful for further characterization of the extent of parenchymal lo ss. 2. Pseudo-subarachnoid hemorrhage sign, and is finding. RPTAT: HGAS .Alexander Gibson MD, Date Time Electronically viewed and signed by .Alexander Gibson MD, on 02/12/2017 23:42 .S/
[2017-02-12 23:55] LABS: AADO2 Arterial 123.1 mmHg (7.0-24.0); Arterial Base Excess 2.7 mmol/L (-3.0-3); Arterial COHb 0.3 % (0.0-3.0); Arterial Fraction of Oxyhgb 97.4 % (93.0-99.0); Arterial HCO3 27.8 mmol/L (22.0-26.0); Arterial MetHb 0 % (0.0-1.5); Arterial Total Hemglobin 9.8 g/dl (12.0-18.0); Blood Gas Low PEEP Setting 0 cmH2O; MODE VENT - BIPHASIC
[2017-02-13] VITALS (82 sets, daily range): BP systolic 63–154; BP diastolic 41–95; PULSE 71–98; RESP 10–14
[2017-02-13 00:40] LABS: BASOPHILS % 0.2 % (0.0-2.0); EOSINOPHILS # 0.2 10^3/ul (0.0-0.5); EOSINOPHILS % 1.2 % (0.0-7.0); HEMATOCRIT 26.6 % (42.0-52.0); HEMOGLOBIN 8.5 g/dl (14.0-18.0); LYMPHOCYTES # 1.3 10^3/ul (0.8-2.9); LYMPHOCYTES % 10.1 % (15.0-51.0); MEAN PLATELET VOLUME 11.6 fl (7.4-10.4); MONOCYTE # 0.8 10^3/ul (0.3-0.9); MONOCYTES % 6.4 % (0.0-11.0); NEUTROPHIL # 10.4 10^3/ul (1.6-7.5); NEUTROPHILS % 81.2 % (39.0-77.0); PLATELET COUNT 257 10^3/UL (140-415); RED BLOOD COUNT 2.66 10^6/ul (4.70-6.10); RED CELL DISTRIBUTION WIDTH 13.4 % (11.5-14.5); WHITE BLOOD COUNT 12.8 10^3/ul (4.8-10.8)
[2017-02-13 00:57] LABS: INR 1.26; PROTIME 15.9 Sec (12.2-14.2); PT RATIO 1.2
[2017-02-13 00:58] LABS: PARTIAL THROMBOPLASTIN TIME 43.7 Sec (25.0-35.0)
[2017-02-13 01:00] LABS: BILIRUBIN,INDIRECT 0.1 mg/dl (0-1.1); BILIRUBIN,TOTAL 0.1 mg/dl (0.2-1.3); CREATINE KINASE 72 IU/L (23-200)
[2017-02-13] MEDS ORDERED: ACETAZOLAMIDE 500 MG INJ IV ONE (01:00)
[2017-02-13 01:08] LABS: ADD UMIC YES; UR ASCORBIC ACID NEGATIVE (NEGATIVE); UR BILIRUBIN (Dip) NEGATIVE (NEGATIVE); UR BLOOD (Dip) 2+ mg/dL (NEGATIVE); UR CLARITY CLEAR (CLEAR); UR COLOR YELLOW (YELLOW); UR GLUCOSE (Dip) NEGATIVE (NEGATIVE); UR KETONES (Dip) NEGATIVE (NEGATIVE); UR LEUKOCYTE ESTERASE (Dip) NEGATIVE Leu/ul (NEGATIVE); UR MUCUS FEW /HPF (NONE SEEN); UR NITRITE (Dip) NEGATIVE (NEGATIVE); UR RBC 0 /HPF (0-5); UR SPECIFIC GRAVITY (Dip) 1.009 (1.003-1.030); UR TOTAL PROTEIN (Dip) 1+ mg/dl (NEGATIVE); UR UROBILINOGEN (Dip) NEGATIVE (NEGATIVE)
[2017-02-13 01:12] LABS: ALANINE AMINOTRANSFERASE 37 IU/L (13-69); ALBUMIN/GLOBULIN RATIO 1.02; ANION GAP 17 (8-16); ASPARTATE AMINO TRANSFERASE 37 IU/L (15-46); BLOOD UREA NITROGEN 20 mg/dl (7-20); CARBON DIOXIDE 31 mmol/L (21-31); CHLORIDE 103 mmol/L (97-110); CK-MB 0.85 ng/ml (0.0-2.4); CREATININE 1.24 mg/dl (0.61-1.24); GLUCOSE 168 mg/dl (70-220); POTASSIUM 3.2 mmol/L (3.5-5.1); SODIUM 148 mmol/L (135-144); TROPONIN-I < 0.012 ng/ml (0.00-0.12)
[2017-02-13 01:13] LABS: ALBUMIN 4.2 g/dl (3.3-4.9); ALKALINE PHOSPHATASE 126 IU/L (42-121); AMYLASE 132 U/L (11-123); TOTAL PROTEIN 8.3 g/dl (6.1-8.1)
[2017-02-13] MEDS ORDERED: POTASSIUM CHLORIDE 250 ML ONE (01:32)
[2017-02-13] MEDS: POTASSIUM CHLORIDE 250 ML IVPB SCH ×2 (01:39→05:05)
[2017-02-13 01:47] LABS: PHOSPHORUS 4.3 mg/dl (2.5-4.9)
[2017-02-13] MEDS ORDERED: FUROSEMIDE 40 MG INJ IV ONE ×2 (03:00→07:30)
[2017-02-13] MEDS ORDERED: ALBUMIN HUMAN 25% 100 ML IV ONE ×2 (03:00→07:30)
[2017-02-13] MEDS: VASOPRESSIN 60 UNIT in DEXTROSE 5% 57 ML IV SCH ×2 (03:02→17:30)
[2017-02-13] MEDS: DOBUTamine/D5W 2 MG/ML DRIP 250 ML IV SCH (04:11)
[2017-02-13 05:39] LABS: AADO2 Arterial 82.1 mmHg (7.0-24.0); Arterial Base Excess 5.4 mmol/L (-3.0-3); Arterial COHb 0.3 % (0.0-3.0); Arterial Fraction of Oxyhgb 97.6 % (93.0-99.0); Arterial HCO3 32.1 mmol/L (22.0-26.0); Arterial MetHb 0.3 % (0.0-1.5); Arterial Total Hemglobin 12.3 g/dl (12.0-18.0); Blood Gas Low PEEP Setting 0 cmH2O; MODE VENT - BIPHASIC
[2017-02-13 06:36] LABS: BASOPHILS % 0.3 % (0.0-2.0); EOSINOPHILS # 0.1 10^3/ul (0.0-0.5); EOSINOPHILS % 1.2 % (0.0-7.0); HEMATOCRIT 25.9 % (42.0-52.0); LYMPHOCYTES # 1.3 10^3/ul (0.8-2.9); LYMPHOCYTES % 10.8 % (15.0-51.0); MEAN CORPUSCULAR HEMOGLOBIN 31.5 pg (29.0-33.0); MEAN CORPUSCULAR HGB CONC 30.9 g/dl (32.0-37.0); MEAN PLATELET VOLUME 12.7 fl (7.4-10.4); MONOCYTE # 0.9 10^3/ul (0.3-0.9); MONOCYTES % 7.3 % (0.0-11.0); NEUTROPHIL # 9.3 10^3/ul (1.6-7.5); NEUTROPHILS % 79.8 % (39.0-77.0); PLATELET COUNT 202 10^3/UL (140-415); RED BLOOD COUNT 2.54 10^6/ul (4.70-6.10); RED CELL DISTRIBUTION WIDTH 13.4 % (11.5-14.5); WHITE BLOOD COUNT 11.7 10^3/ul (4.8-10.8)
[2017-02-13 07:00] LABS: INR 1.34; PROTIME 16.7 Sec (12.2-14.2); PT RATIO 1.3
[2017-02-13 07:01] LABS: PARTIAL THROMBOPLASTIN TIME 47.3 Sec (25.0-35.0)
[2017-02-13 07:08] LABS: ALANINE AMINOTRANSFERASE 33 IU/L (13-69); ALBUMIN 4.6 g/dl (3.3-4.9); ALBUMIN/GLOBULIN RATIO 1.27; ALKALINE PHOSPHATASE 119 IU/L (42-121); AMYLASE 119 U/L (11-123); ANION GAP 19 (8-16); ASPARTATE AMINO TRANSFERASE 37 IU/L (15-46); BILIRUBIN,INDIRECT 0.3 mg/dl (0-1.1); BILIRUBIN,TOTAL 0.3 mg/dl (0.2-1.3); BLOOD UREA NITROGEN 22 mg/dl (7-20); CALCIUM 9.8 mg/dl (8.4-10.2); CARBON DIOXIDE 31 mmol/L (21-31); CHLORIDE 106 mmol/L (97-110); CREATINE KINASE 68 IU/L (23-200); CREATININE 1.35 mg/dl (0.61-1.24); GLUCOSE 139 mg/dl (70-220); POTASSIUM 3.6 mmol/L (3.5-5.1); SODIUM 152 mmol/L (135-144); TOTAL PROTEIN 8.2 g/dl (6.1-8.1)
[2017-02-13 07:09] LABS: PHOSPHORUS 4.5 mg/dl (2.5-4.9)
[2017-02-13 07:22] LABS: TROPONIN-I < 0.012 ng/ml (0.00-0.12)
[2017-02-13 07:23] LABS: CK-MB 0.64 ng/ml (0.0-2.4)
[2017-02-13 07:35] LABS: ADD UMIC YES; UR ASCORBIC ACID NEGATIVE (NEGATIVE); UR BACTERIA FEW /HPF (NONE SEEN); UR BILIRUBIN (Dip) NEGATIVE (NEGATIVE); UR BLOOD (Dip) 1+ mg/dL (NEGATIVE); UR CLARITY CLEAR (CLEAR); UR COLOR YELLOW (YELLOW); UR GLUCOSE (Dip) NEGATIVE (NEGATIVE); UR KETONES (Dip) NEGATIVE (NEGATIVE); UR LEUKOCYTE ESTERASE (Dip) NEGATIVE Leu/ul (NEGATIVE); UR MUCUS FEW /HPF (NONE SEEN); UR NITRITE (Dip) NEGATIVE (NEGATIVE); UR RBC 1 /HPF (0-5); UR SPECIFIC GRAVITY (Dip) 1.011 (1.003-1.030); UR TOTAL PROTEIN (Dip) 2+ mg/dl (NEGATIVE); UR UROBILINOGEN (Dip) NEGATIVE (NEGATIVE)
--- NOTE | 2017-02-13 08:30 | RADRPT ---
PROCEDURE: XR Chest 1 View. CLINICAL INDICATION: Shortness of breath. TECHNIQUE: AP view of the chest was obtained. COMPARISON: Yesterday FINDINGS: The cardiomediastinal silhouette is within normal limits. Endotracheal and nasogastric tubes are sta ble and appear in grossly appropriate location. Left-sided central line is unchanged. Scattered atel ectasis versus mild infiltrates in the bilateral lower lobes are unchanged. Small potential right pl eural effusion is stable. The osseous structures are unchanged. IMPRESSION: Stable patchy atelectasis versus infiltrates in the bilateral lower lobes and potential small right pleural effusion. RPTAT: AA .Efra Marie MD, MD Date Time Electronically viewed and signed by .Efra Marie MD, MD on 02/13/2017 08:30 .P/
--- NOTE | 2017-02-13 09:21 | RADRPT ---
PROCEDURE: XR Chest. CLINICAL INDICATION: Intubated TECHNIQUE: AP view of the chest were obtained. COMPARISON: Earlier the same day FINDINGS: Endotracheal tube is 7 cm above the taylor at the level of the clavicles. The feeding tube seen exte nding below the diaphragm but the tip is not visualized. Heart size is normal. There is no evidence of pleural effusion or pneumothorax. There is no focal airspace disease. There is pulmonary vascular congestion bilaterally. The right costophrenic angle is excluded from this study. Left-sided centra l venous catheter with the tip in the SVC. IMPRESSION: The right costophrenic angle is excluded on the study. Endotracheal tube is at the level of the clavicles. Feeding tube extending below the diaphragm with the tip not visualized. Left-sided central venous catheter with the tip in the SVC . Pulmonary vascular congestion. RPTAT: GG .Fred Mccullough MD, Date Time Electronically viewed and signed by .Fred Mccullough MD, MD on 02/13/2017 09:20 .G/
[2017-02-13 11:18] LABS: ADD UMIC YES; UR ASCORBIC ACID NEGATIVE (NEGATIVE); UR BACTERIA FEW /HPF (NONE SEEN); UR BILIRUBIN (Dip) NEGATIVE (NEGATIVE); UR BLOOD (Dip) 1+ mg/dL (NEGATIVE); UR CLARITY CLEAR (CLEAR); UR COLOR YELLOW (YELLOW); UR GLUCOSE (Dip) NEGATIVE (NEGATIVE); UR KETONES (Dip) NEGATIVE (NEGATIVE); UR LEUKOCYTE ESTERASE (Dip) NEGATIVE Leu/ul (NEGATIVE); UR MUCUS FEW /HPF (NONE SEEN); UR NITRITE (Dip) NEGATIVE (NEGATIVE); UR RBC 14 /HPF (0-5); UR SPECIFIC GRAVITY (Dip) 1.009 (1.003-1.030); UR TOTAL PROTEIN (Dip) 1+ mg/dl (NEGATIVE); UR UROBILINOGEN (Dip) NEGATIVE (NEGATIVE)
[2017-02-13] MEDS ORDERED: SOD CHLORIDE 0.9% IV SCH ×2 (11:30→15:00)
[2017-02-13] MEDS ORDERED: METHYLPRED NA SUCC IV SCH (11:30)
[2017-02-13] MEDS ORDERED: VANCOMYCIN 1 GM (PMX) 250 ML IVPB ONE (12:00)
[2017-02-13] MEDS ORDERED: DEXTROSE 50% 50 ML SYRINGE IV ONE (12:00)
[2017-02-13] MEDS: ALBUMIN HUMAN 5% 250 ML IV SCH ×2 (12:03→12:19)
[2017-02-13 12:36] LABS: MAGNESIUM 2.2 mg/dl (1.7-2.5); PHOSPHORUS 3.9 mg/dl (2.5-4.9)
[2017-02-13 12:50] LABS: ALANINE AMINOTRANSFERASE 33 IU/L (13-69); ALBUMIN 4.8 g/dl (3.3-4.9); ALBUMIN/GLOBULIN RATIO 1.17; ALKALINE PHOSPHATASE 127 IU/L (42-121); AMYLASE 115 U/L (11-123); ANION GAP 23 (8-16); ASPARTATE AMINO TRANSFERASE 35 IU/L (15-46); BILIRUBIN,INDIRECT 0.3 mg/dl (0-1.1); BILIRUBIN,TOTAL 0.3 mg/dl (0.2-1.3); BLOOD UREA NITROGEN 26 mg/dl (7-20); CALCIUM 10.4 mg/dl (8.4-10.2); CARBON DIOXIDE 28 mmol/L (21-31); CHLORIDE 107 mmol/L (97-110); CREATINE KINASE 62 IU/L (23-200); CREATININE 1.47 mg/dl (0.61-1.24); GLUCOSE 155 mg/dl (70-220); POTASSIUM 3.2 mmol/L (3.5-5.1); SODIUM 155 mmol/L (135-144); TOTAL PROTEIN 8.9 g/dl (6.1-8.1)
[2017-02-13 12:51] LABS: BASOPHILS % 0.3 % (0.0-2.0); EOSINOPHILS # 0.1 10^3/ul (0.0-0.5); EOSINOPHILS % 1.1 % (0.0-7.0); HEMOGLOBIN 8.3 g/dl (14.0-18.0); LYMPHOCYTES # 1.4 10^3/ul (0.8-2.9); LYMPHOCYTES % 11.2 % (15.0-51.0); MEAN CORPUSCULAR HEMOGLOBIN 32.2 pg (29.0-33.0); MEAN CORPUSCULAR HGB CONC 31.9 g/dl (32.0-37.0); MEAN CORPUSCULAR VOLUME 100.8 fl (82.0-101.0); MEAN PLATELET VOLUME 12.2 fl (7.4-10.4); MONOCYTES % 7.7 % (0.0-11.0); NEUTROPHIL # 9.8 10^3/ul (1.6-7.5); NEUTROPHILS % 79.1 % (39.0-77.0); PLATELET COUNT 236 10^3/UL (140-415); RED BLOOD COUNT 2.58 10^6/ul (4.70-6.10); RED CELL DISTRIBUTION WIDTH 13.3 % (11.5-14.5); WHITE BLOOD COUNT 12.4 10^3/ul (4.8-10.8)
[2017-02-13] MEDS ORDERED: PHYTONADIONE 10 MG in DEXTROSE 5% 50 ML IV SCH (13:00)
[2017-02-13] MEDS ORDERED: PIPER-TAZO 3.375 GM IV (PMX) 100 ML IVPB SCH (13:00)
[2017-02-13 13:08] LABS: CK-MB 0.66 ng/ml (0.0-2.4); TROPONIN-I < 0.012 ng/ml (0.00-0.12)
[2017-02-13 13:13] LABS: INR 1.36; PROTIME 16.8 Sec (12.2-14.2); PT RATIO 1.3
[2017-02-13 13:58] LABS: Arterial Base Excess 1.9 mmol/L (-3.0-3); Arterial COHb 0.3 % (0.0-3.0); Arterial Fraction of Oxyhgb 97.5 % (93.0-99.0); Arterial HCO3 27.2 mmol/L (22.0-26.0); Arterial MetHb 0.1 % (0.0-1.5); Arterial Total Hemglobin 8.8 g/dl (12.0-18.0); Blood Gas Low PEEP Setting 0 cmH2O; MODE BIPHASIC0
[2017-02-13] MEDS ORDERED: POTASSIUM CHLORIDE 50 ML IVPB SCH (14:00)
[2017-02-13] MEDS ORDERED: POTASSIUM CHLORIDE IV SCH (15:00)
[2017-02-13 15:05] LABS: ABNORMAL IP MESSAGE 1; BASOPHILS % 0.1 % (0.0-2.0); EOSINOPHILS % 0.5 % (0.0-7.0); HEMATOCRIT 27.2 % (42.0-52.0); HEMOGLOBIN 8.5 g/dl (14.0-18.0); LYMPHOCYTES # 0.6 10^3/ul (0.8-2.9); LYMPHOCYTES % 6.9 % (15.0-51.0); MEAN CORPUSCULAR HEMOGLOBIN 30.6 pg (29.0-33.0); MEAN CORPUSCULAR HGB CONC 31.3 g/dl (32.0-37.0); MEAN CORPUSCULAR VOLUME 97.8 fl (82.0-101.0); MONOCYTE # 0.4 10^3/ul (0.3-0.9); MONOCYTES % 4.3 % (0.0-11.0); NEUTROPHIL # 7.1 10^3/ul (1.6-7.5); NEUTROPHILS % 87.3 % (39.0-77.0); PLATELET COUNT 211 10^3/UL (140-415); POSITIVE DIFF @See below; RED BLOOD COUNT 2.78 10^6/ul (4.70-6.10); WHITE BLOOD COUNT 8.1 10^3/ul (4.8-10.8)
[2017-02-13 15:22] LABS: INR 1.37; PARTIAL THROMBOPLASTIN TIME 29.9 Sec (25.0-35.0); PROTIME 16.9 Sec (12.2-14.2); PT RATIO 1.3
[2017-02-13 15:29] LABS: MAGNESIUM 2.1 mg/dl (1.7-2.5); PHOSPHORUS 3.6 mg/dl (2.5-4.9)
[2017-02-13 15:30] LABS: ALANINE AMINOTRANSFERASE 36 IU/L (13-69); ALBUMIN 4.7 g/dl (3.3-4.9); ALBUMIN/GLOBULIN RATIO 1.56; ALKALINE PHOSPHATASE 116 IU/L (42-121); AMYLASE 95 U/L (11-123); ANION GAP 19 (8-16); ASPARTATE AMINO TRANSFERASE 32 IU/L (15-46); BILIRUBIN,INDIRECT 0.8 mg/dl (0-1.1); BILIRUBIN,TOTAL 0.8 mg/dl (0.2-1.3); BLOOD UREA NITROGEN 26 mg/dl (7-20); CALCIUM 9.7 mg/dl (8.4-10.2); CARBON DIOXIDE 29 mmol/L (21-31); CHLORIDE 105 mmol/L (97-110); CREATINE KINASE 60 IU/L (23-200); CREATININE 1.23 mg/dl (0.61-1.24); GLUCOSE 199 mg/dl (70-220); POTASSIUM 3.1 mmol/L (3.5-5.1); SODIUM 150 mmol/L (135-144); TOTAL PROTEIN 7.7 g/dl (6.1-8.1)
[2017-02-13 15:49] LABS: CK-MB 0.71 ng/ml (0.0-2.4); TROPONIN-I < 0.012 ng/ml (0.00-0.12)
--- NOTE | 2017-02-13 15:54 | RADRPT ---
PROCEDURE: XR Chest 1 View. CLINICAL INDICATION: Shortness of breath. TECHNIQUE: AP view of the chest was obtained. COMPARISON: February 13, 2017 at 06:23 a.m. FINDINGS: The cardiomediastinal silhouette is within normal limits. Endotracheal and nasogastric tubes are sta ble and appear in grossly appropriate location. Left-sided central line is unchanged. Diffuse inters titial prominence in both lungs is stable. Scattered atelectasis is noted in the bilateral lower curtis gs. No consolidations are identified. No pneumothorax is seen. Right clavicle fracture fixation is stable. IMPRESSION: Scattered atelectasis in the bilateral lower lungs. Stable mild interstitial prominence in both lungs. Stable support lines and tubes. RPTAT: AA .Efra Marie MD, Date Time Electronically viewed and signed by .Efra Marie MD, MD on 02/13/2017 15:54 .P/
[2017-02-13] MEDS ORDERED: METHYLPRED. NA SUCC 500 MG in DEXTROSE 5% 50 ML IVPB SCH ×4 (16:00)
--- NOTE | 2017-02-13 16:04 | RADRPT ---
Vent Rate: 106 bpm RR Interval: 0 msec SC Interval: 124 msec QRS Duration: 84 msec QT Interval: 346 msec QTC Interval: 459 msec P-R-T Anson: 81 - 88 - 78 degrees Sinus tachycardia Nonspecific T wave abnormality Abnormal ECG Electronically Signed By: Philippe Daily [id number]
[2017-02-13 16:52] LABS: ADD UMIC YES; UR ASCORBIC ACID NEGATIVE (NEGATIVE); UR BACTERIA FEW /HPF (NONE SEEN); UR BILIRUBIN (Dip) NEGATIVE (NEGATIVE); UR BLOOD (Dip) NEGATIVE (NEGATIVE); UR CLARITY SLIGHTLY CLOUDY (CLEAR); UR COLOR YELLOW (YELLOW); UR GLUCOSE (Dip) NEGATIVE (NEGATIVE); UR KETONES (Dip) NEGATIVE (NEGATIVE); UR LEUKOCYTE ESTERASE (Dip) NEGATIVE Leu/ul (NEGATIVE); UR MUCUS FEW /HPF (NONE SEEN); UR NITRITE (Dip) NEGATIVE (NEGATIVE); UR RBC 1 /HPF (0-5); UR TOTAL PROTEIN (Dip) 3+ mg/dl (NEGATIVE); UR UROBILINOGEN (Dip) NEGATIVE (NEGATIVE)
[2017-02-13] MEDS ORDERED: METHYLPRED. NA SUCC 500 MG in DEXTROSE 5% 50 ML IVPB ONE (17:00)
--- NOTE | 2017-02-13 18:05 | SP ---
DATE OF PROCEDURE: 02/13/2017 EEG NUMBER: [id number]. HISTORY: This is a 46-year-old male who had 3 previous EEGs. The last one was consistent with brai n . This is a repeat EEG. CURRENT MEDICATIONS: None. PROCEDURE: Utilizing a 16-channel EEG machine, cap scalp electrodes were applied in accordance with International 10-20 system. The ear-to-ear and [id number] montages are obtained. Electrical imp edances were measured and reported. Full ECS protocol was followed. DESCRIPTION: During the resting state, there was no discernible electrical background rhythm noted. By decreasing the sensitivity electric artifact and EKG artifact became more prominent without any identifiable background activity. Photic stimulation had no response. Hyperventilation had no res ponse. INTERPRETATION: This EEG is consistent with brain . Please correlate these findings with the patient's clinical picture, apnea test and cold caloric test. Dictated By: ANIYA CRUZ/OPAL Conf#: [id number] DID#: [id number]
[2017-02-13] MEDS ORDERED: MANNITOL 25% 50 ML INJ IV SCH (19:00)
[2017-02-13] MEDS ORDERED: FUROSEMIDE 100 MG INJ IV SCH (19:00)
[2017-02-13] MEDS ORDERED: HEPARIN 1000 UNITS/ML 30 ML INJ ZFS SCH (19:00)
[2017-02-13] MEDS ORDERED: HEPARIN 1000 UNITS/ML 10 ML INJ ZFS SCH (19:00)
[2017-02-13] MEDS ORDERED: hydrALAzine 20 MG INJ ONE (20:18)
== END 2017-02-13 23:55 | disposition expired | DRG 700 ==
LOC: ICU 17:21 → UNDOADMIN 17:21 → UNDODISIN 02-13 23:55
PROVIDERS: ADMIT Emergency Medicine Hospice and Palliative Medicine; ATTEND Emergency Medicine Hospice and Palliative Medicine
DX: Z52.4 Kidney donor (principal); Z52.6 Liver donor
CPT/HCPCS: 36430; 36600; 70450; 71010; 80053; 81001; 82150; 82330; 82550; 82553; 82803; 82962; 82977; 83605; 83615; 83690; 83735; 83930; 84100; 84484; 85025; 85610; 85730; 86850; 86900; 86901; 86920; 87040; 87070; 87086; 88312; 89220; 93005; 94003; 94770; J1120; J1250; J0360; J1644; J1815; J1940; J2150; J2543; J2930; J3370; J3480; J7050; J7060; P9016; P9045; P9047